=== PATIENT | female | born 1955 | race Caucasian/White ===

== ENCOUNTER 2017-04-17 07:31 | Inpatient (IN) | payer OTHER ==
[~2017-04-17] VITALS: Ht 162.6 cm; Wt 137.9 kg
[~2017-04-17 07:31] MED LIST: DOLOPHINE10 MG PO; OXYCODONE HYDRO10 M1 PO; TRAZODONE100 MG PO
--- NOTE | 2017-04-17 07:46 | ED AMS/SEIZURE/WEAK/DIZZY ---
History of Present Illness General Chief Complaint: Altered Mental Status Stated Complaint: BIBA NONRESPONSIVE, ?OVERDOSE Source: old records, EMS Exam Limitations: unable to give history Vital Signs & Intake/Output Vital Signs & Intake/Output Vital Signs Date Time Temp Pulse Resp B/P B/P Pulse O2 O2 Flow FiO2 Mean Ox Delivery Rate 04/18 0800 94 Nasal 6.0L Cannula 04/18 0800 99.0 66 30 118/65 94 Nasal 6.0L Cannula 04/18 0600 98.2 75 21 161/61 04/18 0400 98.2 82 82 138/82 07/ 0400 95 Nasal 6.0L Cannula 04/18 0000 98.4 78 20 124/68 07/ 0000 92 Nasal 6.0L Cannula 04/18 0000 98.4 78 20 124/68 92 Nasal 6.0L Cannula 04/17 2306 74 23 159/93 07/ 2200 97.0 78 25 139/70 04/17 2000 97.6 78 30 148/72 04/17 2000 95 Nasal 6.0L Cannula 04/17 1900 98.4 74 20 118/0 96 Nasal 6.0L Cannula 04/17 1830 98.4 80 20 137/67 07/08 1830 95 Nasal 6.0L Cannula 04/17 1759 19 100 Nasal 6.0L Cannula 04/17 1716 99.8 81 22 162/79 95 Nasal 5.0L Cannula 04/17 1624 87 20 99 BIPAP 100% 04/17 1527 88 91 07/08 1503 89 07/08 1502 88 91 /08 1409 94 22 185/110 92 BIPAP 04/17 1351 94 22 149/89 90 Non 10L ReBreather 04/17 1258 92 Non 10L ReBreather 04/17 1258 88 Nasal 6.0L Cannula 04/17 1238 87 20 157/82 93 Nasal 4.0L Cannula ED Intake and Output 04/18 0000 08 1200 Intake Total 829.6 1000 Output Total 200 30 Balance 629.6 970 Intake, IV 829.6 1000 Intake, Oral 0 Number 0 Bowel Movements Output, Urine 200 30 Patient 305 lb Weight Weight Bed scale Measurement Method Allergies Coded Allergies: Penicillins (Severe, TONGUE SWELLING 01/02/16) Reconcile Medications Gabapentin 300 MG CAPSULE 1 CAP PO TID UNKNOWN (Reported) Lurasidone HCl (Latuda) 20 MG TABLET 1 TAB PO DAILY MENTAL HEALTH (Reported) Triage Nurses Notes Reviewed? yes HPI: Patient presents for evaluation of unresponsiveness. According to EMS the patient was found by her daughter unresponsive. Finger stick blood sugar was normal upon EMS arrival. Patient was placed on 100% nonrebreather and given 2.4 mg of Narcan with improvement. However patient has not returned to normal mentation and has not been meaningfully interactive on exam. Upon presentation to the emergency department the patient moans almost consistently and appears to move all 4 extremities with a question of decorticate posturing. Past History Travel History Traveled to [place] past 21 day No Medical History Any Pertinent Medical History? 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 No Review of Systems Review of Systems Constitutional: Reports: see HPI. Comments Patient unable to provide review of systems Physical Exam Physical Exam General Appearance: see below Comments: Gen.: Well-nourished, well-developed, moderate respiratory distress with moaning and grunting. Head: Normocephalic, atraumatic. Eyes: Normal inspection bilaterally, pupils midpoint Ears: Normal inspection bilaterally Nose: Normal inspection Throat/mouth : Moist mucosa Neck: Supple, full range of motion, no goiter Heart: Regular rate and rhythm, no murmurs rubs or gallops Lungs: Good air entry bilaterally with transmitted oropharyngeal secretion noises Chest: Nontender Back: Normal range of motion Abdomen: Soft, nontender, nondistended, normal bowel sounds Extremities: Unable to palpate peripheral pulses, right tibial IO in place Neurologic: Exam is extremely limited due to the patient's clinical condition, she seems to tends to loud name-calling but is otherwise uncooperative with exam. Skin: warm and dry Psychiatric: Calm, cooperative, no apparent delusions or hallucinations Core Measures ACS in differential dx? Yes CVA/TIA Diagnosis: Yes Severe Sepsis Present: No Septic Shock Present: No Progress Differential Diagnosis: HYPERCAPNIC RESPIRATORY FAILURE, DRUG OVERDOSE, METABOLIC DERANGEMENT, cva/INTRACRANIAL HEMORRHAGE, OCCULT INFECTION Plan of Care: Orders Procedure Date/time Status Heart Healthy Diet 04/18 L Active PARTIAL THROMBOPLASTIN TIME 04/18 1600 Active TROPONIN LEVEL 04/18 0605 Complete EKG 04/18 0600 Active ICU LAB BUNDLE 04/18 0500 Complete CBC WITHOUT DIFFERENTIAL 04/18 0500 Complete PARTIAL THROMBOPLASTIN TIME 04/18 0300 Complete EKG 04/18 0000 Active Evaluate Swallowing 04/18 UNK Complete PHARMACY COMMUNICATION FORM 04/18 UNK Active Nothing by Mouth 04/17 D Complete ICU LAB BUNDLE 04/17 2340 Complete TROPONIN LEVEL 04/17 2322 Complete EKG 04/17 2322 Active LACTIC ACID 04/17 2302 Complete Heparin Drip- ACS 04/17 2046 Active PARTIAL THROMBOPLASTIN TIME 04/17 1933 Complete ARTERIAL BLOOD GAS (GEN) 04/17 1900 Complete LACTIC ACID 04/17 1848 Complete BLOOD CULTURE 04/17 1842 Active Drains/Tubes 04/17 1835 Complete TROPONIN LEVEL 04/17 1800 Complete EKG 04/17 1800 Active Wound Care/Dressing 04/17 1751 Complete Weight 04/17 1751 Active VTE Mechanical Prophylaxis 04/17 1751 Complete Vital Signs 04/17 1751 Complete Turn and Reposition 04/17 1751 Active Drains/Tubes 04/17 175 Complete Teach/Educate 04/17 175 Active Skin Integrity Protocol 04/17 1751 Active Skin/Pressure Ulcer Assess (Sk 04/17 1751 Active Precautions 04/17 1751 Active Pain Treatment and Response 04/17 1751 Active Nutritional Intake, Monitor 04/17 1751 Active Isolation 04/17 1751 Active CIWA 04/17 1751 Complete Patient Care Conference 04/17 1751 Active Activity/Ambulation 04/17 1751 Active Lab Add-on Test 04/17 1636 Active ARTERIAL BLOOD GAS (GEN) 04/17 1600 Complete VRE ACTIVE SURVIELLANCE 04/17 1553 Active ACTIVE SURVEILLANCE NARES 04/17 1553 Active House Staff 04/17 1444 Active Patient Data 04/17 1334 Active Add-on Test (ER Only) 04/17 1325 Active PROTHROMBIN TIME 04/17 1321 Complete LUNG SCAN (V/Q) 04/17 1320 Active LOWER RESPIRATORY CULTURE 04/17 1320 Active BLOOD CULTURE 04/17 1320 Active ARTERIAL BLOOD GAS (GEN) 04/17 1314 Complete Pathway - chart 04/17 1225 Active Pathway - chart 04/17 1223 Active House Staff 04/17 1223 Active Patient Data 04/17 1223 Active Code Status 04/17 1223 Active Misc Message 04/17 1206 Active ED Holding Orders 04/17 1206 Active Admit to inpatient 04/17 1206 Active Vital Signs 04/17 1206 Active Code Status 04/17 1206 Complete TROPONIN LEVEL 04/17 1147 Complete EKG 04/17 1147 Active Patient Data 04/17 1140 Active Intake & Output 04/17 0825 Active PARTIAL THROMBOPLASTIN TIME 04/17 0757 Complete SWALLOW EVALUATION 04/17 UNK Active TRC EVALUATION (GEN) 04/17 UNK Active BIPAP 04/17 UNK Complete VTE Mechanical Prophylaxis 04/17 UNK Active Telemetry/Clinical Data Assistant 04/17 UNK Complete Patient Safety Monitor 04/17 UNK Complete Starbuck Coma Scale 04/17 UNK Active CIWA 04/17 UNK Active PSYCHIATRIC CONSULT 04/17 UNK Active Current Medications Sig/Mary Start time Last Medication Dose Stop Time Status Admin Clindamycin 300 MG Q8H 04/18 0400 AC 04/18 (Cleocin) 0351 Dextrose/Water 50 ML (D5W) Nystatin 1 FERN TID 04/17 2200 AC 04/18 (Mycostatin) 0918 Acetaminophen 1,000 MG Q8 PRN 04/17 1700 AC (Ofirmev) N/A 1 UNIT (No Carrier) Atorvastatin Calcium 40 MG 1700 04/17 1700 AC (Lipitor) Metoclopramide HCl 10 MG Q6P PRN 04/17 1645 AC (Reglan) Naloxone HCl 2 MG ONCE ONE 04/17 1445 CAN (Narcan) 04/17 1446 Naloxone HCl 4 MG Q24H 04/17 1445 CAN (Narcan Drip 4MG/ 10ML) Dextrose/Water 1,000 ML (D5W 1000) Lorazepam 1 MG Q1P PRN 04/17 1415 AC (Ativan) Sodium Chloride 1,000 ML Q13H 04/17 1400 AC 04/18 (Normal Saline 0.9%) 0354 Aspirin 81 MG DAILY 04/17 1354 AC 04/18 (Aspirin) 0918 Metoprolol Tartrate 12.5 MG BID 04/17 1354 AC 04/18 (Lopressor) 0918 Nitroglycerin 0.5 GM Q6 04/17 1354 AC 04/18 (Nitro-Bid) 0547 Heparin Sodium 25,000 UNIT Q24H 04/17 1300 AC 04/17 (Porcine) 1321 (Heparin) Sodium Chloride 500 ML Acetaminophen 325 MG Q6P PRN 04/17 1230 AC (Tylenol) Laboratory Tests 04/18/17 0840: RBC 4.09 L, MCV 95.7, MCH 31.5 H, RDW 13.4, MPV 9.1, Gran % 82.6 H, Lymphocytes % 10.5 L, Monocytes % 6.6, Eosinophils % 0.1, Basophils % 0.2, Absolute Granulocytes 8.3 H, Absolute Lymphocytes 1.1 L, Absolute Monocytes 0.7 H, Absolute Eosinophils 0, Absolute Basophils 0, PUBS MCHC 32.9 L 04/18/17 0605: Troponin I Cancelled 04/18/17 0605: Anion Gap 10, Estimated GFR 17 L, Glucose 149 H, Calcium 8.2 L, Phosphorus 4.5, Magnesium 2.1, Total Bilirubin 0.8, AST 967 H, ALT 213 H, Troponin I 7.35 *H, Albumin 3.7 04/18/17 0311: APTT 83 H 04/18/17 0202: Lactic Acid Cancelled 04/18/17 0000: Troponin I Cancelled 04/17/17 2340: Lactic Acid 2.0 04/17/17 2340: Anion Gap 11, Estimated GFR 17 L, Glucose 171 H, Calcium 8.3 L, Phosphorus 4.9 H, Magnesium 1.8, Total Bilirubin 0.6, AST 979 H, ALT 231 H, Troponin I 10.90 *H, Albumin 3.8 04/17/17 2320: Sodium Cancelled, Potassium Cancelled, Chloride Cancelled, Carbon Dioxide Cancelled, Anion Gap Cancelled, BUN Cancelled, Creatinine Cancelled, Glucose Cancelled, Calcium Cancelled, Phosphorus Cancelled, Magnesium Cancelled, Total Bilirubin Cancelled, AST Cancelled, ALT Cancelled, Albumin Cancelled 04/17/17 2135: pH 7.33 L, pCO2 42, pO2 64 L, HCO3 22, ABG O2 Sat (Measured) 91.0 L, P-50 ( Temp Corrected) Y, Carboxyhemoglobin 0.6 L, O2 Concentration % 6L, Temperature 98.0, O2 Delivery Method NC, Phlebotomy Draw Site RIGHT RADIAL 04/17/17 1945: APTT 60 H 04/17/17 1850: Lactic Acid 2.6 H 04/17/17 1835: Troponin I 10.40 *H 04/17/17 1720: pH 7.29 *L, pCO2 45, pO2 64 L, HCO3 21, ABG O2 Sat (Measured) 91.0 L, P-50 ( Temp Corrected) Y, Carboxyhemoglobin 0.2 L, O2 Concentration % 6L, Temperature 98.2, O2 Delivery Method NC, Phlebotomy Draw Site RIGHT RADIAL 04/17/17 1325: pH 7.17 *L, pCO2 62 *H, pO2 78 L, HCO3 22, ABG O2 Sat (Measured) 94.0 L, P-50 (Temp Corrected) Y, Carboxyhemoglobin 0.6 L, O2 Concentration % 100%, Temperature 96.6 L, O2 Delivery Method NRB, Phlebotomy Draw Site RIGHT RADIAL 04/17/17 1157: Troponin I 4.51 *H Microbiology 04/17 185 BLOOD: Blood Culture - RECD 04/17 1840 BLOOD: Blood Culture - RECD 04/17 1800 UPPER RESP: Surveillance Culture - RECD 04/17 1800 GI: Surveillance Culture - RECD 04/17 1704 BLOOD: Blood Culture - CAN Cancelled: Quantity not sufficient for both blood culture bottles. 04/17 1320 LOWER RESP: Respiratory Culture - COLB 04/17 1320 LOWER RESP: Gram Stain - COLB Initial ED EKG: NSR, rate (93), nonspecific ST T wave chg (UNDULATING BASELINE) Prior EKG: unchanged (LIKELY UNCHANGED) Comments: 04/17/2017 8:12:27 AM I have reevaluated Amber and she appears to be improving clinically. She is now beginning to speak although her speech is difficult to understand and often garbled. She is more alert to her surroundings and is beginning to respond more meaningfully to intervention. 04/17/2017 9:05:[address] TALBERT, NL HEAD CT. According to the patient's nurse she is now alert and considerably more conversant. 04/17/2017 10:08:46 AM I have updated the patient and her family regarding test results. Of note it seems that the patient seems to have difficulty hearing at this point (she does have some hearing loss chronically but seems worse today). She admits to taking "a sip" of her son's methadone to help treat chronic back pain. I've spoken to Dr. Marshall, the on-call product safety expert, regarding this patient's elevated troponin. He feels that this will need monitoring but is felt very likely due to the circumstances of her presentation. Given this additional history the patient presentation appears to be a methadone overdose. 04/17/2017 2:47:05 PM The patient is becoming more lethargic and I now feel she requires additional Narcan and a Narcan drip. These have been ordered.patient's case discussed with Dr. Resendiz and the ICU resident. 04/17/2017 2:58:58 PM Francisco Jones MD just contacted me about this patient's chest x-ray did appear she has a very distended stomach. I will convey this to the ICU team. NG tube should be placed. Departure Departure Disposition: STILL A PATIENT Condition: Stable Clinical Impression Primary Impression: Methadone overdose Qualifiers: Encounter type: initial encounter Injury intent: undetermined intent Qualified Code: T40.3X4A - Poisoning by methadone, undetermined, initial encounter Secondary Impressions: Acute kidney injury, Elevated troponin Referrals: GENEVA LAINEZ MD (PCP/Family) Departure Forms: Customer Survey General Discharge Information Admission Note Spoke With: ARIEL RESENDIZ MD Documentation of Exam: Documentation of any treatments & extenuating circumstances including Concerns Regarding Discharge (functional status, medication knowledge or non-compliance, living conditions, etc.) that warrant an admission rather than observation: Patient presented after an unresponsive episode that responded to Narcan. She admits to taking methadone in an attempt to self treat her chronic back pain (it was someone else's methadone). She has also suffered an acute kidney injury and has an elevated troponin likely due to hypoxia associated with the methadone overdose. I Feel this patient cannot be treated safely as an outpatient under the circumstances and requires hospitalization for continuous cardiac monitoring , serial troponin determinations and cardiology consultation along with IV fluids monitoring of her kidney functions and neurologic status. I feel this patient would require a multiple day hospitalization. Critical Care Note Critical Care Note Critical Care Time: 75-104 min
[2017-04-17 08:17] LABS: ABSOLUTE BASOPHIL COUNT 0 /CUMM (0.0-0.2); ABSOLUTE EOSINOPHIL COUNT 0 /CUMM (0.0-0.7); ABSOLUTE GRANULOCYTE CT 16.5 /CUMM (1.4-6.5); ABSOLUTE LYMPH COUNT 1.6 /CUMM (1.2-3.4); ABSOLUTE MONOCYTE COUNT 1.1 /CUMM (0.10-0.60); BASOPHIL % 0 % (0.0-2.0); EOSINOPHIL % 0.1 % (0-5); GRANULOCYTE % 86.1 % (42.2-75.2); MEAN CORPUSCULAR HGB 31.4 PG (27.0-31.0); MEAN CORPUSCULAR HGB CONC 32.3 G/DL (33.0-37.0); MEAN CORPUSCULAR VOLUME 97.1 FL (81.0-99.0); PLATELET COUNT 238 /CUMM (130-400); RBC DISTRIBUTION WIDTH 13.6 % (11.5-14.5); RED BLOOD CELL CT 4.84 /CUMM (4.20-5.40); WHITE BLOOD CELL COUNT 19.1 /CUMM (4.8-10.8)
--- NOTE | 2017-04-17 08:31 | NUR ---
61 Y/O FEMALE BIBA FROM HOME UNRESPONSIVE. PER EMS REPORT, PT WAS FOUND BY DAUGHTER WITH "AGONAL RESPIRATIONS AND UNRESPONSIVE". PT GIVEN 2.4MG NARCAN ENROUTE, NASAL TRUMPET PLACED WITH NRB MASK AND PT TRANSPORTED TO ED. PT ARRIVES RESPONSIVE TO PAINFUL STIMULI ONLY; INTERMITTENTLY MOVING ALL EXTREMITIES AND PULLS AWAY WHEN STAFF TOUCHES ARM FOR B/P OR IVS. 20G PLACED TO LAC, 22G TO R HAND, PRE HOSPITAL IO IN PLACE TO RLE. 1L NORMAL SALINE BOLUS INFUSING PER DR BELL. GALLO PLACED BY MATT LAUREANO WITH MINIMAL OUTPUT, 10-20 ML DILEEP URINE, CLEAR TUBE SENT. NORMAL SINUS ON MONITOR, RATE 80S. 02 SAT 99-100% ON NRB MASK. PT NOTED TO BE YAWNING, DOES NOT RESPOND WHEN SPOKEN TO BUT OCCASIONALLY YELLS OUT/MOANS. TAKEN TO CT SCAN AT THIS TIME
--- NOTE | 2017-04-17 09:06 | NUR ---
BACK FROM CT SCAN. PT NOW MORE AWAKE, ALERT AND SPEAKING COHERENTLY - STATING "I AM COLD, I CANT HEAR YOU - THEY PUT PLUGS IN MY EARS". PT CONTINUES TO DENY ANY MEDICATION OVERDOSE OR INTENTIONAL OVERDOSE. NRB MASK AND NASAL TRUMPET REMOVED, SAT 95% ON 4L NC. PT HAD 2 LARGE BOWEL MOVEMENTS, [facility] APPLIED AND PT CLEANED/REPOSITIONED. ADDITIONAL URINE OBTAINED FROM GALLO AND SENT TO LAB FOR UA/UC. IO REMOVED PER MD HARDWICK SALINE CONTINUES TO INFUSE WILL CONTINUE TO MONITOR.
--- NOTE | 2017-04-17 09:09 | CT SCAN REPORT ---
EXAMINATION: CT HEAD WITHOUT CONTRAST CLINICAL INFORMATION: Unresponsive. Concern for stroke. COMPARISON: None. TECHNIQUE: Contiguous axial imaging was performed from the skull base to vertex without intravenous administration of contrast. DLP: 685.99 mGy-cm FINDINGS: There is no evidence of acute intracranial hemorrhage or territorial infarction. No abnormal mass effect or midline shift is seen. Winkler to white matter differentiation is well preserved. No extra-axial fluid collections are identified. The ventricles are normal in size. There is no abnormal attenuation within the brain parenchyma. The osseous structures and soft tissues are normal. The mastoid air cells and visualized portions of the paranasal sinuses are well aerated. IMPRESSION: No acute intracranial pathology. This result was discussed with Dr. Mega Tran at 0900 hours.
--- NOTE | 2017-04-17 09:10 | NUR ---
CRITICAL TEST RESULTS [id number] SHIVAM GREER 61 F TESTS AND RESULTS: TROPONIN 0.37 Results received and read back by: JAN BRAVO Results received date and time: 04/17/17 0910 The following provider was notified of the results, and read the results back: DR HARDWICK Notified date and time: 04/17/17 at 0910
--- NOTE | 2017-04-17 09:16 | NUR ---
EMS BROUGHT IN PILL BOTTLES: LATUDA 20MG FILLED 04/16/17 #30. 29 REMAINING IN BOTTLE TRADOZONE 150MG FILLED 03/31/17 #30. 27.5 REMAINING IN BOTTLE GABAPENTIN 300MG FILLED 04/15/17 #90. 89 REMAINING IN BOTTLE MD AWARE OF SAME MEDICATIONS PLACED IN VALUABLES AND TAKEN TO PHARMACY
--- NOTE | 2017-04-17 09:36 | NUR ---
PT BOOSTED UP IN BED , STATES THAT SHE HAS SCIATICA AND THAT SHE NEEDDS TO BE REPOSITIONED. PT ALSO STATES THAT SHE CAN NOT HEAR ANYTHING.
--- NOTE | 2017-04-17 09:47 | RADIOLOGY REPORT ---
EXAMINATION: XR PORTABLE CHEST CLINICAL INFORMATION: Unresponsive. COMPARISON: None TECHNIQUE: Portable frontal view of the chest was obtained. FINDINGS: The lung volumes are low. The cardiac silhouette may be enlarged. Hilar and mediastinal contours are unremarkable. There is increased density at the lung bases questionable for bibasilar atelectasis/consolidation or effusion. Some of these changes may be due to low lung volumes and overlying soft tissues. There is no pneumothorax. There is evidence of previous surgery to the cervical spine. There is a lead projecting over the lower spinal canal. There is distended bowel seen left upper abdomen. IMPRESSION: Limited exam. Low lung volumes. Increased density at the lung bases questionable for atelectasis/consolidation or effusion versus changes related to overlying soft tissues and low lung volumes. This could be better evaluated with a lateral chest x-ray. Distended bowel below the left hemidiaphragm.
--- NOTE | 2017-04-17 10:05 | NUR ---
MULTIPLE FAMILY MEMBERS AT BEDSIDE DR HARDWICK SPEAKING WITH ALL
[2017-04-17] MEDS ORDERED: GABAPENTIN300 M2 PO (10:09)
[2017-04-17] MEDS ORDERED: LATUDA20 M1 PO (10:09)
--- NOTE | 2017-04-17 10:35 | NUR ---
PER DR HARDWICK - PT ADMITTED SHE "TOOK A SIP" OF FAMILY MEMBERS METHADONE THIS MORNING TO ALLEVIATE BACK PAIN. DENIES ANY OTHER INTENTIONAL OVERDOSE
--- NOTE | 2017-04-17 10:52 | NUR ---
PT CONTINUES TO REST WITH FAMILY, CONVERSING WITH FAMILY. DENIES COMPLAINTS. GALLO CONTINUES TO DRAIN DILEEP URINE. ADDITIONAL BLANKETS PROVIDED SON AT BEDSIDE
--- NOTE | 2017-04-17 11:05 | NUR ---
REPORT GIVEN TO MATT BRYSON
--- NOTE | 2017-04-17 11:06 | NUR ---
REPORT FROM MATT MONTOYA. AWAITING ADMISSION ORDERS AND BED PLACEMENT.
--- NOTE | 2017-04-17 11:19 | NUR ---
PT BOOSTED IN BED FOR COMFORT. ASKING "HUH? I CAN'T HEAR YOU." SON AT BEDSIDE TYPING OUT INFORMATION ON HIS PHONE TO COMMUNICATE WITH PT." RESP EVEN AND NONLABORED, EQUAL RISE AND FALL OF THE CHEST. SKIN WARM AND DRY. PT IN NAD AT THIS TIME. SON AND PIPE LAYER AT BEDSIDE.
--- NOTE | 2017-04-17 11:34 | NUR ---
ZOFRAN GIVEN AT THIS TIME FOR VOMITING. DR. HARDWICK AWARE.
--- NOTE | 2017-04-17 11:52 | NUR ---
SPOKE WITH DR. HARDWICK AND RPT EKG AND TROP ORDERED. GABY CANO IN ROOM COMPLETING NOW. PT IN NAD. FAMILY REMAINS AT BEDSIDE.
--- NOTE | 2017-04-17 12:00 | NUR ---
REPEAT TROP DRAWN AND SENT TO THE LAB
--- NOTE | 2017-04-17 12:39 | NUR ---
CHECKED ON PT AND UPDATED VS. PT DENIES PAIN OR DISCOMFORT AT THIS TIME. ASKING FOR WATER, NOTIFIED PT SHE IS NPO PER ORDERS. SON AT BEDSIDE COMMUNICATING VIA WRITING PAD AT THIS TIME. WCTM.
--- NOTE | 2017-04-17 12:42 | NUR ---
CRITICAL TEST RESULTS [id number] SHIVAM GREER 61 F TESTS AND RESULTS: TROPONIN 4.51 Results received and read back by: BRAYDON CHIU Results received date and time: 04/17/17 1242 The following provider was notified of the results, and read the results back: DR. HARDWICK AND SHAVONNE VALDEZ Notified date and time: 04/17/17 at 1242
--- NOTE | 2017-04-17 12:44 | NUR ---
PAGED MOD, DR. JACKSON CALLED AND REPORTS RIC EDDY [id number] IS MD FOR PT. DR. PATTON PAGED AT THIS TIME.
--- NOTE | 2017-04-17 12:47 | History & Physical ---
ROSCOETHOMASDIEGO 04/17/17 1246: General Information and HPI MD Statement: I have seen and personally examined SHIVAM GREER and documented this H&P. The patient is a 61 year old F who presented with a patient stated chief complaint of [unpesponsiveness]. Source of Information: patient, family Exam Limitations: clinical condition History of Present Illness: Patient is a 61-year-old female with past medical history of (coronary artery disease status post 3/4 stents in 2010) follows with Dr. Benson at [place], hypothyroidism, chronic back pain was brought into the ED today after being found unresponsive by her children this morning. Most of this history is received from her son who was by the bedside. Son states that last night the patient was found to be drowsy and tired by her daughter. However she thought that the patient wanted to sleep and therefore left her and went for work. This morning after coming back from work she found her exactly in the same position on the bed with some frothing from her mouth. Patient was unresponsive and therefore she called worried and called EMS. Upon arrival, EMS place the patient on 100% nonrebreather and give her 2.4 mg Narcan. Patient responded to it and was finally brought to the ED. Upon arrival to the ED she was altered and morning, however was able to move all extremities. Son states that it's likely that the patient overdosed on methadone pills which the patient gets from her other son(his brother )who takes it. Patient has history of chronic back pain and she had been on methadone in the past. However, she was not supposed to take it at this time. She has been receiving inappropriate doses of methadone from his brother. She has extensive cardiac history and is status post 4 cardiac catheterizations in 2010 at [facility]. Patient' s son also reports that she was recently started on psychiatric meds gabapentin and Latuda by the psychiatrist, however is not able to give any more details. He reports that the patient has been drinking a lot recently however denies any drug abuse. No history of thyroid disorder as per the son. In the ED vitals showed a temperature of 97, pulse 96, respiration 22, blood pressur e 164/90, saturating 96% on 10 L nonrebreather. Significant labs showed white count of 19.1 with no left shift, sodium 143, potassium 5.3, anion gap 21, BUN 19, creatinine 2.5(baseline 0.7),, troponin 0.37, TSH 35, T4 6.9 U tox positive for methadone, serum alcohol level less than 10 urine was dirty, bloody, nitrate positive,, trace leukocyte esterase, many bacteria EKG showed normal sinus rhythm, T-wave inversion in lead 3,, left bundle branch block old Allergies/Medications Allergies: Coded Allergies: Penicillins (Severe, TONGUE SWELLING 01/02/16) Home Med list Gabapentin 300 MG CAPSULE 1 CAP PO TID UNKNOWN (Reported) Lurasidone HCl (Latuda) 20 MG TABLET 1 TAB PO DAILY MENTAL HEALTH (Reported) 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 EENTM: Reports: no symptoms. Cardiovascular: Reports: chest pain. Respiratory: Reports: cough, short of breath. GI: Reports: no symptoms. Genitourinary: Reports: no symptoms. Musculoskeletal: Reports: no symptoms. Skin: Reports: no symptoms. Neurological/Psychological: Reports: confusion. Hematologic/Endocrine: Reports: no symptoms. Exam & Diagnostic Data Last 24 Hrs of Vital Signs/I&O Vital Signs Date Time Temp Pulse Resp B/P B/P Pulse O2 O2 Flow FiO2 Mean Ox Delivery Rate 04/17 1258 92 Non 10L ReBreather 04/17 1258 88 Nasal 6.0L Cannula 04/17 1238 87 20 157/82 93 Nasal 4.0L Cannula 04/17 1052 96.6 92 18 157/69 94 Nasal 4.0L Cannula 04/17 0832 99 Non 10L ReBreather 04/17 0801 97.0 96 22 164/90 96 Non 10L ReBreather Intake & Output 04/17 1600 08 0800 04/17 0000 Intake Total 1000 Output Total 30 Balance 970 Intake, IV 1000 Output, Urine 30 Patient 136.078 kg Weight Weight Estimated Measurement Method Physical Exam General Appearance Oriented X3, Moderate Distress, partiallly responsive to questions and commands Skin No Rashes, No Breakdown Skin Temp/Moisture Exam: Warm/Dry Sepsis Skin Exam (color): Normal for Ethnicity HEENT Atraumatic, PERRLA, EOMI, non rebreather Lymphatic Cervical nl Cardiovascular Regular Rate, Normal S1, Normal S2 Lungs diminished air entry bilaterally Abdomen Normal Bowel Sounds, Soft, No Tenderness Last 24 Hrs of Labs/Jayson: Laboratory Tests 04/17/17 1157: Troponin I 4.51 *H 04/17/17 0900: Urinalysis MOD H, Urine Color BLDY H, Urine Clarity TURBD H, Urine pH 5.5, Ur Specific [place] >= 1.030, Urine Protein >=300 H, Urine Ketones NEG, Urine Nitrite POS H, Urine Bilirubin NEG@ICTO, Urine Urobilinogen 1.0, Ur Leukocyte Esterase TRACE H, Ur Microscopic SEDIMENT EXAMINED, Urine RBC 10-15 H, Urine WBC RARE, Ur Epithelial Cells MOD H, Urine Bacteria MANY H, Urine Hemoglobin LARGE H, Urine Glucose NEG 04/17/17 0800: Urine Opiates Screen < 100.00, Methadone Screen > 735 H, Barbiturate Screen < 60, Ur Phencyclidine Scrn < 6.00, Amphetamines Screen < 100, U Benzodiazepines Scrn < 85, Urine Cocaine Screen < 50, Urine Cannabis Screen < 5.00 04/17/17 0757: PT Pending, INR Pending, APTT Pending 04/17/17 0751: Anion Gap 21 H, Estimated GFR 20 L, BUN/Creatinine Ratio 7.6, Glucose 93, Calcium 9.8, Total Bilirubin 0.6, AST 226 H, ALT 80 H, Alkaline Phosphatase 103, Troponin I 0.37 *H, Total Protein 8.0, Albumin 4.8, Globulin 3.2, Albumin/ Globulin Ratio 1.5, TSH 35.100 H, Thyroxine (T4) 6.9, Thyroxine Binding Indx 26.0, CBC w Diff MAN DIFF ORDERED, RBC 4.84, MCV 97.1, MCH 31.4 H, RDW 13.6, MPV 8.0, Gran % 86.1 H, Lymphocytes % 8.2 L, Monocytes % 5.6, Eosinophils % 0.1, Basophils % 0 L, Absolute Granulocytes 16.5 H, Absolute Lymphocytes 1.6, Absolute Monocytes 1.1 H, Absolute Eosinophils 0, Absolute Basophils 0, Normocytic RBCs VERIFIED, Normochromic RBCs VERIFIED, PUBS MCHC 32.3 L, Serum Alcohol < 10.0 Microbiology 04/17 1320 LOWER RESP: Respiratory Culture - ORD 04/17 1320 LOWER RESP: Gram Stain - ORD 04/17 1320 BLOOD: Blood Culture - ORD 04/17 132 BLOOD: Blood Culture - ORD 04/17 09 URINE ROUT: Urine Culture - RECD Assessment/Plan Assessment: Patient is a 61-year-old female with past medical history of (coronary artery disease status post 3/4 stents in 2010) follows with Dr. Benson at [place], hypothyroidism, chronic back pain was brought into the ED today after being found unresponsive by her children this morning. In the ED vitals showed a temperature of 97, pulse 96, respiration 22, blood pressur e 164/90, saturating 96% on 10 L nonrebreather. Significant labs showed white count of 19.1 with no left shift, sodium 143, potassium 5.3, anion gap 21, BUN 19, creatinine 2.5(baseline 0.7),, troponin 0.37, TSH 35, T4 6.9 U tox positive for methadone, serum alcohol level less than 10 urine was dirty, bloody, nitrate positive,, trace leukocyte esterase, many bacteria EKG showed normal sinus rhythm, T-wave inversion in lead 3,, left bundle branch block old Assessment Altered mental status likely secondary to methadone overdose * Admit patient to ICU * Nothing by mouth for now, bedside swallow once the patient more awake and alert * Every 1 hours neurochecks * Continue IV fluids at 75 mL an hour * Narcan as needed * Psychiatry consultation placed Acute hypoxemic respiratory failure likely secondary to questionable aspiration pneumonia/pulmonary embolism * Continue oxygen to keep saturations above 92% * TRC nebs [id number] * Will get ABG * Continue clindamycin IV as patient is allergic to penicillin * Blood, urine and sputum cultures * Consider VQ scan to rule out a possible PE/cannot do CTA given significant kidney injury * Has been started on IV heparin for NSTEMI * Pulmonology consult appreciated Acute coronary syndrome /NSTEMI * Persistent chest pain, positive cardiac biomarkers,No significant EKG changES * Continue oxygen, IV morphine, nitroglycerin, aspirin, statin, beta jasper, IV heparin * Repeating trops/EKG * Cardiology consult and possible cardiac catheterization given her history of stents * Echocardiogram Hypothyroidism * TSH of 35, no clinical symptoms of hypothyroidism. Patient has been previously started on levothyroxine however not taking it currently * Endocrinology consult appreciated. We'll plan to avoid IV levothyroxine as it is contraindicated in acute CT PRAFUL * Prerenal, Likely secondary to dehydration * We will continue gentle hydration with IV fluids at 75 mL an hour * Repeat BEP in a.m. 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 Benson at [facility]. We'll try to get records * Patient is not on aspirin or Plavix at home, does not other details of her stents * We'll continue patient on aspirin and statin now Transaminitis * Could be fatty liver disease/alcoholic hepatitis based on enzyme ratios * Will get her to [facility] abdomen. Alcohol abuse * CIWA Protocol * Ativan q1 prn * Can start epzy1hsors if pt starts detoxing Hearing loss * Unclear if acute or chronic * Might need outpatient ENT evaluation Nothing by mouth. Swallow eval Full code DVT prophylaxis heparin Mild/severe pain pathway As Ranked By This Provider Problem List: 1. Elevated troponin 2. Acute kidney injury 3. Methadone overdose Qualifiers Encounter type: initial encounter Injury intent: undetermined intent Qualified Code: T40.3X4A - Poisoning by methadone, undetermined, initial encounter 4. Coronary artery disease 5. UTI (urinary tract infection), uncomplicated Core Measures/Miscellaneous Acute Coronary Syndrome ACS Diagnosis: Yes Cerebrovascular Accident CVA/TIA Diagnosis: No Congestive Heart Failure CHF Diagnosis: No VTE (View Protocol) VTE Risk Factors: Age > 40, Obesity No [facility] prophylaxis d/t: No contraindications No VTE Pharm Prophylaxis d/t: No contraindications VTE Diagnosis: No VTE Type: NONE VTE Confirmed by (Test): NONE Sepsis (View Protocol) Severe Sepsis Present: No Septic Shock Septic Shock Present: No Miscellaneous Documentation Attending Case Discussed With: SANDOVALARIEL Davis MD Primary Care Physician: GENEVA LAINEZ MD Patient sees these Specialists NONE Level of Patient Care: Critical Care (CRI) ARIEL NICK 04/17/17 1430: Attending MD Review Statement Attending Statement Attending MD Statement: examined this patient, discuss w/resident/PA/ROLL CLAMP OPERATOR, agreed w/resident/PA/ROLL CLAMP OPERATOR, discussed with family, reviewed EMR data (avail), discussed with nursing, discussed with case mgmt, reviewed images, amended to note Attending Assessment/Plan: patient with strong cardiac history comes with encephalopathy , found to have respiratory failure hypercarbic possible opiod overdose, put on bipap in ER also found to have aspiration and elevated troponins in setting of acute renal failure. Patient is started on narcan drip in ER, admit to ICU higher level of care, she did complain of chest pain so will start empiric anticoagulation and r /o PE. Cardiology and pulmonary consult. Spoke to cardiology agree with a/c and c/w ASA, statin, b jasper therapy, NTG prn. Patient also started on clindamycin as penicillin allergic and f/u cultures. Monitor serial cardiac enzymes, ekg, bmp, cbc. will follow closely.
--- NOTE | 2017-04-17 12:57 | NUR ---
DR. PATTON AT BEDSIDE AT THIS TIME, NOTIFIED OF RECENT TROPONIN. PT SATS 88% ON 6LNC, PUT ON NONREBREATHER PER DR. PATTON WELL INSTRUCTED TO START HEPARIN AND PT WILL GO TO ICU.
--- NOTE | 2017-04-17 13:02 | NUR ---
Emergency Dept UC Admit Note: To be admitted to [facility] by SANDOVAL with AMS as the diagnosis, to [phone] location. Nursing Commercial Review Appraiser and admitting notified 04/17/17 at [id number]
--- NOTE | 2017-04-17 13:25 | NUR ---
PER DR. HARDWICK, NO INITIAL PT/PTT WAS DONE. WILL ADD ON FROM PREVIOUS LABS THAT ARE IN LAB NOW. OK TO START HEPARIN GTT. BOLUS OF 4000 UNITS ADMISNITERED PER ACS PROTOCOL AND HEPARIN GTT STARTED AT 20ML/HR.
--- NOTE | 2017-04-17 13:28 | NUR ---
RT CALLED FOR ABG.
--- NOTE | 2017-04-17 13:29 | NUR ---
US AT BEDSIDE TO COMPLETE BEDSIDE US.
--- NOTE | 2017-04-17 13:30 | NUR ---
LAB CALLED TO RUN PT/PTT FROM PREVIOUS BLOOD.
[2017-04-17 13:47] LABS: PT 11.4 SEC (9.4-12.5); PTT 34 SEC (25-37)
--- NOTE | 2017-04-17 13:48 | NUR ---
RT CALLED FOR BIPAP AFTER ABG COMPLETED. US REMAINS AT BEDSIDE AT THIS TIME. JOYCE RN ON TELE CALLED FOR REPORT AND NOTIFIED HIM PT UPGRADED TO ICU.
--- NOTE | 2017-04-17 13:53 | NUR ---
MST NOTIFIED OF NEED FOR BLOOD CULTURES. UNABLE TO OBTAIN AT THIS TIME D/T US AND BIPAP SET UP. WILL OBTAIN RAJ AND START ABX AFTER.
--- NOTE | 2017-04-17 14:08 | NUR ---
RT AT BEDSIDE AT THIS TIME AND PT ON BIPAP. US COMPLETED. ATTEMPTED FIRST SET OF BLOOD CULTURES WITH NO SUCCESS. WILL GET ANOTHER STAFF MEMBER TO ATTEMPT. PT REMAINS ON MONITOR, IN NSR WITH RATE OF 96BPM. SON REMAINS AT BEDSIDE.
--- NOTE | 2017-04-17 14:19 | ULTRASOUND REPORT ---
EXAMINATION: US TRIPLEX OF LOWER EXTREMITIES, BILATERAL CLINICAL INFORMATION: Leg pain. COMPARISON: None TECHNIQUE: Color-flow triplex imaging with spectral analysis and compression Doppler were performed on the lower extremities. FINDINGS: Respiratory variation, normal compression and augmented flow are noted throughout the lower extremities. The visualized common femoral vein, superficial femoral vein, profunda femoral vein, popliteal vein and midcalf peroneal and posterior tibial venous segments show no evidence of deep venous thrombosis. Funes's cyst measuring 2.7 cm IMPRESSION: Normal triplex scan without evidence of deep venous thrombosis involving the lower extremities. Incidental Funes's cyst.
--- NOTE | 2017-04-17 14:42 | NUR ---
PT DAY HEEVING, HAS PULLED BIPAP OFF TO VOMIT. RT CALLED, PT PLACED ON 6L NC AT THIS TIME. DR. PATTON PAGED AT [phone] FOR NAUSEA MEDICATION.
--- NOTE | 2017-04-17 14:45 | NUR ---
DR. PATTON CALLED BACK AND NOTIFIED THIS RN THAT SHE HAS PASSED ON CARE TO ICU DOCTOR MADALYN LARIOS 010. DR. BERGMAN PAGED AT THIS TIME.
--- NOTE | 2017-04-17 14:57 | NUR ---
DR. BERGMAN AT BEDSIDE. ORDERS FOR ZOFRAN PLACED AND ADMINISTERED PER DEC. PER DR. BERGMAN, HOLD OFF ON NARCAN BOLUS AND GTT FOR NOW PT MORE AWAKE AND ALERT. ON NONREBREATHER AT 15L PER RT. WHEN PT NAUSEA DECREASES WILL CALL RT TO PLACE BACK ON BIPAP. FAMILY REMAINS AT BEDSIDE.
--- NOTE | 2017-04-17 15:11 | NUR ---
NAUSEA UNDER CONTROL, RT PAGED TO PUT PT BACK ON BIPAP. DR. BERGMAN AT BEDSIDE CONFIRMS AGAIN TO HOLD NARCAN. IV HEPARIN RUNNING IN RIGHT HAND IV AND IVF STARTED AT 75ML PER HOUR STARTED IN LAC PER DEC. NITRO APPLIED TO CHEST WALL PER DEC.
--- NOTE | 2017-04-17 15:12 | Cons- Endocrinology ---
General Information and HPI Consulting Request Date of Consult: 04/17/17 Requested By: ICU team Reason for Consult: management of hypothyroidism Source of Information: family, old records Exam Limitations: unable to give history History of Present Illness: 61 y/o female , Hx of morbid obese and CAD s/p stents placement, was diagnosed with hypothyroidism in 2012 and was on Levothyroxine 100 mcg daily. As per family, patient lost health insurance and discontined her medications. She was found to be unresponsive at home due to methadone over dose. In ER, she is on BIPAP. Blood work showed positive troponin of 4.51, TSH 35.1 and T4 6.9; ph 7.17 , Pco2 62 and Po2 78, Cr 2.5. In February of 2016, blood work showed anti TPO 413 and anti Tg 81 which were consistent with Marc's thyroiditis.. Allergies/Medications Allergies: Coded Allergies: Penicillins (Severe, TONGUE SWELLING 01/02/16) Home Med List: Gabapentin 300 MG CAPSULE 1 CAP PO TID UNKNOWN (Reported) Lurasidone HCl (Latuda) 20 MG TABLET 1 TAB PO DAILY MENTAL HEALTH (Reported) Review of Systems Review of Systems Constitutional: Reports: see HPI (unable to provide information). 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 Surgical History Surgical History: non-contributory Exam & Diagnostic Data Last 24 Hrs of Vital Signs/I&O Vital Signs Date Time Temp Pulse Resp B/P B/P Pulse O2 O2 Flow FiO2 Mean Ox Delivery Rate 04/17 1503 89 04/17 1502 88 91 04/17 1409 94 22 185/110 92 BIPAP 04/17 1351 94 22 149/89 90 Non 10L ReBreather 04/17 1258 92 Non 10L ReBreather 04/17 1258 88 Nasal 6.0L Cannula 04/17 1238 87 20 157/82 93 Nasal 4.0L Cannula 04/17 1052 96.6 92 18 157/69 94 Nasal 4.0L Cannula 04/17 0832 99 Non 10L ReBreather 04/17 0801 97.0 96 22 164/90 96 Non 10L ReBreather Intake & Output 04/17 1600 04/17 0800 04/17 0000 Intake Total 1000 Output Total 30 Balance 970 Intake, IV 1000 Output, Urine 30 Patient 300 lb Weight Weight Estimated Measurement Method Physical Exam General Appearance: obese, unresponsive, on BIPAP Neck: difficulty to palpate her thyroid gland. Respiratory: normal breath sounds (coarse breath sounds) Cardiovascular: regular rate/rhythm Gastrointestinal: soft, distention Extremities: no edema Labs/Jayson Results: Laboratory Tests 04/17 04/17 1325 1157 Blood Gas pH (7.35 - 7.45 PH) 7.17 *L pCO2 (35 - 45 TORR) 62 *H pO2 (80 - 100 TORR) 78 L HCO3 (21 - 28 MEQ/L) 22 ABG O2 Sat (Measured) (>96.0 %) 94.0 L P-50 (Temp Corrected) Y Carboxyhemoglobin (1.5 - 5.0 %) 0.6 L O2 Concentration % 100% Temperature (97.0 - 100.0 FARH) 96.6 L O2 Delivery Method NRB Chemistry Troponin I (< 0.11 ng/ml) 4.51 *H Miscellaneous Phlebotomy Draw Site RIGHT RADIAL 04/17 04/17 04/17 0900 0800 0757 Coagulation PT (9.4 - 12.5 SEC) 11.4 INR (0.90 - 1.19) 1.09 APTT (25 - 37 SEC) 34 Toxicology Urine Opiates Screen (>2000 NG/ML) < 100.00 Methadone Screen (>300 NG/ML) > 735 H Barbiturate Screen (>200 NG/ML) < 60 Ur Phencyclidine Scrn (>25 NG/ML) < 6.00 Amphetamines Screen (>1000 NG/ML) < 100 U Benzodiazepines Scrn (>200 NG/ML) < 85 Urine Cocaine Screen (>300 NG/ML) < 50 Urine Cannabis Screen (>50 NG/ML) < 5.00 Urines Urinalysis MOD H Urine Color (YEL,AMB,STR) BLDY H Urine Clarity (CLEAR) TURBD H Urine pH (5.0 - 8.0) 5.5 Ur Specific [place] (1.001 - 1.035) >= 1.030 Urine Protein (NEG,<30 MG/DL) >=300 H Urine Ketones (NEG) NEG Urine Nitrite (NEG) POS H Urine Bilirubin (NEG) NEG@ICTO Urine Urobilinogen (0.1 - 1.0 EU/dl) 1.0 Ur Leukocyte Esterase (NEG) TRACE H Ur Microscopic SEDIMENT EXAMINED Urine RBC (0 - 5 /HPF) 10-15 H Urine WBC (0 - 2 /HPF) RARE Ur Epithelial Cells (NONE,FEW) MOD H Urine Bacteria (NEG/NONE) MANY H Urine Hemoglobin (NEG) LARGE H Urine Glucose (N MG/DL) NEG 04/17 0751 Chemistry Sodium (137 - 145 mmol/L) 145 Potassium (3.5 - 5.1 mmol/L) 5.3 H Chloride (98 - 107 mmol/L) 102 Carbon Dioxide (22 - 30 mmol/L) 23 Anion Gap (5 - 16) 21 H BUN (7 - 17 mg/dL) 19 H Creatinine (0.5 - 1.0 mg/dL) 2.5 H Estimated GFR (>60 ml/min) 20 L BUN/Creatinine Ratio (7 - 25 %) 7.6 Glucose (65 - 99 mg/dL) 93 Calcium (8.4 - 10.2 mg/dL) 9.8 Total Bilirubin (0.2 - 1.3 mg/dL) 0.6 AST (14 - 36 U/L) 226 H ALT (9 - 52 U/L) 80 H Alkaline Phosphatase (<127 U/L) 103 Troponin I (< 0.11 ng/ml) 0.37 *H Total Protein (6.3 - 8.2 g/dL) 8.0 Albumin (3.5 - 5.0 g/dL) 4.8 Globulin (1.9 - 4.2 gm/dL) 3.2 Albumin/Globulin Ratio (1.1 - 2.2 %) 1.5 TSH (0.270 - 4.200 uIU/mL) 35.100 H Thyroxine (T4) (4.5 - 10.9 ug/dL) 6.9 Thyroxine Binding Indx (23.5 - 40.5 % UPTAKE) 26.0 Hematology CBC w Diff MAN DIFF ORDERED WBC (4.8 - 10.8 /CUMM) 19.1 H RBC (4.20 - 5.40 /CUMM) 4.84 Hgb (12.0 - 16.0 G/DL) 15.2 Hct (37 - 47 %) 47.0 MCV (81.0 - 99.0 FL) 97.1 MCH (27.0 - 31.0 PG) 31.4 H RDW (11.5 - 14.5 %) 13.6 Plt Count (130 - 400 /CUMM) 238 MPV (7.4 - 10.4 FL) 8.0 Gran % (42.2 - 75.2 %) 86.1 H Lymphocytes % (20.5 - 51.1 %) 8.2 L Monocytes % (1.7 - 9.3 %) 5.6 Eosinophils % (0 - 5 %) 0.1 Basophils % (0.0 - 2.0 %) 0 L Absolute Granulocytes (1.4 - 6.5 /CUMM) 16.5 H Absolute Lymphocytes (1.2 - 3.4 /CUMM) 1.6 Absolute Monocytes (0.10 - 0.60 /CUMM) 1.1 H Absolute Eosinophils (0.0 - 0.7 /CUMM) 0 Absolute Basophils (0.0 - 0.2 /CUMM) 0 Normocytic RBCs VERIFIED Normochromic RBCs VERIFIED PUBS MCHC (33.0 - 37.0 G/DL) 32.3 L Toxicology Serum Alcohol (<10 MG/DL) < 10.0 Assessment/Plan Assessment/Plan 61 y/o female , Hx of morbid obese and CAD s/p stents placement, was diagnosed with hypothyroidism/ Marc's thyroiditis in 2012 and was on Levothyroxine 100 mcg daily. She hasn't been compliance with medication. She was found to be unresponsive at home due to methadone over dose. Blood work showed positive troponin, TSH 35.1 and T4 6.9; ph 7.17, Pco2 62 and Po2 78, Cr 2.5. Her T, BP and HR have been stable. I will hold off on Levothyroxine iv replacement at this point as her troponin has been as high as 4.51. Hopefully, patient will be more alert tomorrow. Then I will start patient on Levothyroxine oral supplement accordingly. will follow. Consult Acknowledgment - Thank you for your consult request.
--- NOTE | 2017-04-17 15:18 | Cons- [facility] ---
MADALYN LAMAS 04/17/17 1518: General Information and HPI Consulting Request Date of Consult: 04/17/17 Requested By: Dr. Resendiz Reason for Consult: Respiratory distress Source of Information: family Exam Limitations: confusion, hearing loss History of Present Illness: She is 61-year-old morbidly obese woman who is also a [employer] with past medical history of coronary artery disease status post stents placement, history of Marc thyroiditis/hypothyroidism very noncompliant with her medications, drug and alcohol abuse in past, chronic back and neck pain, bipolar disorder, PTSD, depression and anxiety BIBA from home unresponsive. Patient was found by daughter with agonal respirations and unresponsive. En route to the hospital she was given 2.4 mg of Narcan and placed on nonrebreather mask. Upon arrival to ER she was responsive to painful stimuli only. Her vitals were temperature 97, pulse 96, respiratory rate 22, blood pressure 164/90 and oxygen saturation 99-100% on NRB. Son stated that its likely that the patient overdosed on methadone pills which patient gets from her other son (his brother )who takes it. Patient has history of chronic back pain and she had been on methadone in the past. However, she was not supposed to take it at this time. She has been receiving inappropriate doses of methadone from his brother. According to her son her last drink was one and half months ago but not very sure if she recently drank alcohol. Quit smoking 20 years ago. Significant labs showed white count of 19.1 with no left shift, sodium 143, potassium 5.3, anion gap 21, BUN 19, creatinine 2.5 (baseline 0.7), troponin 0.37 trending upto 4.51 , TSH 35, T4 6.9, ABGs pH 7.17, PCO2 62, bicarbonate 22, PO2 78. She was started on BiPAP in ER. Patient is having problem with hearing. According to son she had mild hearing loss before but after this event she is completely deaf. Son is communicating with her by writing on paper. She is alert and awake and answering questions. In and out of confusional state. Complaining of chest pain. Allergies/Medications Allergies: Coded Allergies: Penicillins (Severe, TONGUE SWELLING 01/02/16) Home Med List: Gabapentin 300 MG CAPSULE 1 CAP PO TID UNKNOWN (Reported) Lurasidone HCl (Latuda) 20 MG TABLET 1 TAB PO DAILY MENTAL HEALTH (Reported) Current Medications: Current Medications Sig/Mary Start time Last Medication Dose Route Stop Time Status Admin Acetaminophen 325 MG Q6P PRN 07 1230 AC PO Aspirin 81 MG DAILY 04/17 1354 AC PO Atorvastatin Calcium 40 MG 1700 07/08 1700 AC PO Ceftriaxone Sodium 1,000 MG DAILY 04/17 1311 DC IV Clindamycin 300 MG IQ8 0708 1600 AC Dextrose/Water 50 ML IV Gabapentin 300 MG TID 07 1240 DC PO Heparin Sodium 5,000 UNIT Q8 07 1400 DC (Porcine) SC Heparin Sodium 0 .STK-MED ONE 04/17 1310 DC (Porcine) .ROUTE Heparin Sodium 25,000 UNIT Q24H 04/17 1300 AC 04/17 (Porcine) IV 1321 Sodium Chloride 500 ML Lorazepam 1 MG Q1P PRN 04/17 1415 AC IV Metoprolol Tartrate 12.5 MG BID 04/17 1354 AC PO Morphine Sulfate 2 MG Q4P PRN 04/17 1230 AC IV Naloxone HCl 0 .STK-MED ONE 04/17 1530 DC .ROUTE Naloxone HCl 0.8 MG ONCE ONE 04/17 1515 DC 07/08 IV / 1516 1538 Naloxone HCl 4 MG Q24H / 1445 AC Dextrose/Water 1,000 ML IV Naloxone HCl 2 MG ONCE ONE 04/17 1445 CAN IV /08 1446 Naloxone HCl 4 MG Q24H /08 1445 CAN Dextrose/Water 1,000 ML IV Nitroglycerin 0 .STK-MED ONE 04/17 1513 DC TOP Nitroglycerin 0.5 GM Q6 08 1354 AC 07/08 TOP 1511 Ondansetron HCl 0 .STK-MED ONE 04/17 1501 DC .ROUTE Ondansetron HCl 4 MG Q6P PRN 07/08 1500 AC 07 IV 1457 Ondansetron HCl 4 MG ONCE ONE 04/17 1145 DC 07/08 IV 04/17 1146 1133 Ondansetron HCl 0 .STK-MED ONE 04/17 1138 DC .ROUTE Oxycodone HCl 5 MG Q6P PRN 07/ 1230 AC PO Sodium Chloride 1,000 ML Q13H 08 1400 AC 04/17 IV 1511 Sodium Chloride 1,000 ML BOLUS ONE 04/17 0845 DC 04/17 IV 04/17 0944 0840 Review of Systems Review of Systems Constitutional: Reports: see HPI. 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 Home Who Do You Live With? child Smoking Status: Former Smoker ETOH Use: occasional use Exam & Diagnostic Data Last 24 Hrs of Vital Signs/I&O Vital Signs Date Time Temp Pulse Resp B/P B/P Pulse O2 O2 Flow FiO2 Mean Ox Delivery Rate 04/17 1527 88 91 04/17 1503 89 04/17 1502 88 91 04/17 1409 94 22 185/110 92 BIPAP 04/17 1351 94 22 149/89 90 Non 10L ReBreather 04/17 1258 92 Non 10L ReBreather 04/17 1258 88 Nasal 6.0L Cannula 04/17 1238 87 20 157/82 93 Nasal 4.0L Cannula 04/17 1052 96.6 92 18 157/69 94 Nasal 4.0L Cannula 04/17 0832 99 Non 10L ReBreather 04/17 0801 97.0 96 22 164/90 96 Non 10L ReBreather Intake & Output 04/17 1600 08 0800 04/17 0000 Intake Total 1000 Output Total 30 Balance 970 Intake, IV 1000 Output, Urine 30 Patient 300 lb Weight Weight Estimated Measurement Method Physical Exam General Appearance: lethargic, moderate distress, obese Head: atraumatic Neck: supple Respiratory: chest non-tender, decreased breath sounds Cardiovascular: regular rate/rhythm Gastrointestinal: soft, non-tender, obese Extremities: no edema Last 48 Hrs of Labs/Jayson: Laboratory Tests 04/17/17 1325: pH 7.17 *L, pCO2 62 *H, pO2 78 L, HCO3 22, ABG O2 Sat (Measured) 94.0 L, P-50 (Temp Corrected) Y, Carboxyhemoglobin 0.6 L, O2 Concentration % 100%, Temperature 96.6 L, O2 Delivery Method NRB, Phlebotomy Draw Site RIGHT RADIAL 04/17/17 1157: Troponin I 4.51 *H 04/17/17 0900: Urinalysis MOD H, Urine Color BLDY H, Urine Clarity TURBD H, Urine pH 5.5, Ur Specific Varnell >= 1.030, Urine Protein >=300 H, Urine Ketones NEG, Urine Nitrite POS H, Urine Bilirubin NEG@ICTO, Urine Urobilinogen 1.0, Ur Leukocyte Esterase TRACE H, Ur Microscopic SEDIMENT EXAMINED, Urine RBC 10-15 H, Urine WBC RARE, Ur Epithelial Cells MOD H, Urine Bacteria MANY H, Urine Hemoglobin LARGE H, Urine Glucose NEG 04/17/17 0800: Urine Opiates Screen < 100.00, Methadone Screen > 735 H, Barbiturate Screen < 60, Ur Phencyclidine Scrn < 6.00, Amphetamines Screen < 100, U Benzodiazepines Scrn < 85, Urine Cocaine Screen < 50, Urine Cannabis Screen < 5.00 04/17/17 0757: PT 11.4, INR 1.09, APTT 34 04/17/17 0751: Anion Gap 21 H, Estimated GFR 20 L, BUN/Creatinine Ratio 7.6, Glucose 93, Calcium 9.8, Total Bilirubin 0.6, AST 226 H, ALT 80 H, Alkaline Phosphatase 103, Troponin I 0.37 *H, Total Protein 8.0, Albumin 4.8, Globulin 3.2, Albumin/ Globulin Ratio 1.5, TSH 35.100 H, Thyroxine (T4) 6.9, Thyroxine Binding Indx 26.0, CBC w Diff MAN DIFF ORDERED, RBC 4.84, MCV 97.1, MCH 31.4 H, RDW 13.6, MPV 8.0, Gran % 86.1 H, Lymphocytes % 8.2 L, Monocytes % 5.6, Eosinophils % 0.1, Basophils % 0 L, Absolute Granulocytes 16.5 H, Absolute Lymphocytes 1.6, Absolute Monocytes 1.1 H, Absolute Eosinophils 0, Absolute Basophils 0, Normocytic RBCs VERIFIED, Normochromic RBCs VERIFIED, PUBS MCHC 32.3 L, Serum Alcohol < 10.0 Diagnostic Data EKG Results Normal sinus rhythm with T-wave inversion reversions in leads 1 and aVL CXR Results Low lung volumes. Increased density at the lung bases. Other Results Head CT no acute intracranial pathology Doppler venous ultrasound of both lower extremities negative for DVT. Funes's cyst measuring 2.7 cm Assessment/Plan Impression/Plan: She is 61-year-old morbidly obese woman who is also a [employer] with past medical history of coronary artery disease status post stents placement, history of Marc thyroiditis/hypothyroidism very noncompliant with her medications, drug and alcohol abuse in past, chronic back and neck pain, bipolar disorder, PTSD, depression and anxiety. PROBLEM LIST 1. Altered mental status. ? Methadone overdose. U tox positive for methadone. On Narcan drip 2. Acute hypercarbic respiratory failure. ? drug overdose vs infectious ( aspiration most likely) 3. Anion gap acidosis 3. NSTEMI on heparin drip 4. Elevated TSH. History of Marc thyroiditis/hypothyroidism 5. Acute kidney injury with creatinine 2.5 6. Hyperkalemia 7. Transaminitis. RUQ ultrasound showed hepatic steatosis/fibrosis and gallstones 8. History of bipolar disorder/PTSD/anxiety/depression 9. History of chronic back and neck pain PLAN * Monitor vitals closely * Continue BiPAP * Repeat ABGs after 2 hours * If more lethergic and ABGs worse would go for Intubation * continue Narcan drip for now * Panculture * Gentle hydration * Clindamycin for possible aspiration. PEN Allergic * Endo consult appreciated * Continue heparin drip * Cardio consult * Serial EKGs and troponins * Echocardiogram * Continue aspirin, statin, beta jasper, Nitro-Bid * Check lactic acid * Monitor RFTs and LFTs * Avoid nephrotoxins * Psych consult * Social work consult * DVT prophylaxis * Patient is Methodist * Full code Consult Acknowledgment - Thank you for your consult request. Francisco MARQUEZ MD CLAUDETTE 04/17/17 1828: Assessment/Plan Other Findings/Comments: I have personally seen and examined the patient. I have discussed the plan of care with the house staff in detail. I also discussed the plan with the patient 's son. Will have a low threshold for intubation. Will continue all care as detailed above. I asked the house staff and nursing to contact me if the patient's condition changes or she deteroiates. Will follow closely. Consult Acknowledgment - Thank you for your consult request.
--- NOTE | 2017-04-17 15:20 | NUR ---
DR. BERGMAN CALLED AND REPORTS TO START NARCAN GTT AND GIVE BOLUS. WILL OBTAIN FROM PHARMACY AND START. CALL CENTER OPERATOR NOTIFIED OF NEED FOR PATIENT SAFETY MONITOR. SON REMAINS AT BEDSIDE. PT DENIES SI/HI.
--- NOTE | 2017-04-17 15:23 | NUR ---
SPEECH THERAPY: ORDERS FOR SWALLOW EVAL RECEIVED, CHART REVIEWED AND D/W RN. PT IS NOT APPROPRIATE FOR SWALLOW EVAL AT PRESENT. PT HAD REMOVED BiPAP MASK TO VOMIT EARLIER TODAY AND IS CURRENTLY ON 15 L O2 VIA NRB AND WILL BE ADMITTED TO THE ICU. ICU TECH TO FOLLOW FOR ABILITY TO PARTICIPATE IN SWALLOW EVAL.
--- NOTE | 2017-04-17 15:42 | NUR ---
NARCAN BOLUS DOSE ADMINISTERED AT 0.8MG PER MAR. PHARMACY CLARIFYING STARTING DOSE FOR GTT AT THIS TIME. GTT AT BEDSIDE, AWAITING STARTING DOSE.
--- NOTE | 2017-04-17 15:48 | NUR ---
PER DR. BERGMAN, START NARCAN GTT AT 0.25MG/HR.
--- NOTE | 2017-04-17 15:56 | NUR ---
NARCAN GTT STARTED AT 0.25MG/HR AT THIS TIME PER ORDER. PT WAKING UP, STATING "IT ALL HURTS, GET ME OFF THIS THING." PT INFORMED BIPAP IS TO HELP HER BREATHE. SON AT BEDSIDE CALMING PT.
--- NOTE | 2017-04-17 16:16 | ULTRASOUND REPORT ---
EXAMINATION: US ABDOMEN LIMITED CLINICAL INFORMATION: Elevated transaminases. COMPARISON: None TECHNIQUE: Real-time imaging of the right upper quadrant abdominal viscera. FINDINGS: PANCREAS: Not visualized LIVER: Increased echogenicity diffusely. No focal lesion. No biliary dilatation. GALLBLADDER: There are multiple gallstones. No sonographic Stanford's sign elicited. No pericholecystic abnormality or fluid. COMMON BILE DUCT: Not visualized. RIGHT KIDNEY: 9 mm upper pole nonobstructing stone. No hydronephrosis. The kidney measures 11.2 cm in maximum dimension. FREE FLUID: None. IMPRESSION: 1. Nonvisualization of pancreas and extra hepatic biliary tree. 2. There is demonstrates diffuse increased echogenicity which can be seen with hepatic steatosis or fibrosis. No discrete lesion. 3. Nonobstructing right-sided renal calculus. 4. Gallstones.
--- NOTE | 2017-04-17 16:22 | NUR ---
PT CLEANED OF STOOL AT THIS TIME, TURNED AND REPOSITIONED. REDNESS NOTED TO BUTTOCKS, NO OPEN WOUNDS. PT REMAINS ON BIPAP, IS TOLERATING BIPAP BETTER AND COMMUNICATING WITH RN. HEPARIN, NARCAN AND IVF REMAIN RUNNING. HOUSE STAFF REQUESTING ABG. ORDER PLACED AND RT CALLED.
--- NOTE | 2017-04-17 16:25 | NUR ---
GABY RASMUSSEN ATTEMPTING TO OBTAIN BLOOD CULTURES AT THIS TIME.
--- NOTE | 2017-04-17 16:43 | NUR ---
PT BEGAN VOMITING LARGE AMOUNTS OF GREEN BILE CPAP REMOVED PT SUCTIONED RESP. PAGED AND AWARE ICU HOUSE STAFF AWARE AND THEY WILL BE COMING DOWN
--- NOTE | 2017-04-17 17:08 | NUR ---
PT VOMITING GREEN EMESIS, BIPAP REMOVED, DR. BERGMAN CALLED AND AT BEDSIDE ALONG WITH RT. PT ALERT, TALKING TO STAFF AND FAMILY. PUT ON 6L NC BY RT AND SATURATIONS MAINTAINING AT 93% AT THIS TIME. AFTER MULTIPLE STICKS FOR CULTURES BY DIFFERENT STAFF, 1ST SET OF BLOOD CULTURES OBTAINED AND SENT TO LAB. LAB CALLED AND REPORTS CULTURE BOTTLES AREN'T ALL THE WAY FULL AND HAS THROWN THEM OUT. DR. BERGMAN NOTIFIED VIA PHONE AT THIS TIME AND TOLD TO WAIT ON BLOOD CULTURES UNTIL ABG COMES BACK, IF ABG OK, TO TRANSPORT PT TO ICU AND ICU STAFF WILL OBTAIN BLOOD. HOLDING ABX AT THIS TIME.
--- NOTE | 2017-04-17 17:18 | NUR ---
G OBTAINED BY RT.
--- NOTE | 2017-04-17 17:30 | NUR ---
PT HAS BED ASSIGNMENT 106. RN NOTIFIED.
--- NOTE | 2017-04-17 17:46 | NUR ---
REPORT GIVEN TO MATT LAMAR AND ANSWERED ALL QUESTIONS. NOTIFIED HER OF NEEDED BLOOD WORK AND ABX. TRANSPORT BOOKED. WILL TRANSPORT WITH THIS RN AND TRANSORT. RT TAKING BIPAP UP TO ICU ROOM [address] ON WHEN GETS TO ROOM.
[2017-04-17 18:30] VITALS: BP 137/67
--- NOTE | 2017-04-17 18:30 | NUR ---
PT TRANSPORTED WITH THIS RN AND TRANSPORT ON MEDICAL RECEPTIONIST. CARE RELINQUISHED.
--- NOTE | 2017-04-17 18:35 | Cons- Cardiology ---
General Information and HPI Consulting Request Date of Consult: 04/17/17 Requested By: ARIEL NICK MD Reason for Consult: elevated troponin Source of Information: family, old records History of Present Illness: Patient is a 61-year-old female with past medical history of (coronary artery disease status post 3/4 stents in 2010) follows with Dr. Benson at [place], hypothyroidism, chronic back pain was brought into the ED today after being found unresponsive by her children this morning. Most of this history is received from her son who was by the bedside. Son states that last night the patient was found to be drowsy and tired by her daughter. However she thought that the patient wanted to sleep and therefore left her and went for work. This morning after coming back from work she found her exactly in the same position on the bed with some frothing from her mouth. Patient was unresponsive and therefore she called worried and called EMS. Upon arrival, EMS place the patient on 100% nonrebreather and give her 2.4 mg Narcan. Patient responded to it and was finally brought to the ED. Upon arrival to the ED she was altered and morning, however was able to move all extremities. Son states that it's likely that the patient overdosed on methadone pills which the patient gets from her other son(his brother )who takes it. Patient has history of chronic back pain and she had been on methadone in the past. However, she was not supposed to take it at this time. She has been receiving inappropriate doses of methadone from his brother. She has extensive cardiac history and is status post 4 cardiac catheterizations in 2010 at [facility]. Patient' s son also reports that she was recently started on psychiatric meds gabapentin and Latuda by the psychiatrist, however is not able to give any more details. He reports that the patient has been drinking a lot recently however denies any drug abuse. No history of thyroid disorder as per the son. Allergies/Medications Allergies: Coded Allergies: Penicillins (Severe, TONGUE SWELLING 01/02/16) Home Med List: Gabapentin 300 MG CAPSULE 1 CAP PO TID UNKNOWN (Reported) Lurasidone HCl (Latuda) 20 MG TABLET 1 TAB PO DAILY MENTAL HEALTH (Reported) Current Medications: Current Medications Sig/Mary Start time Last Medication Dose Route Stop Time Status Admin Acetaminophen 1,000 MG Q8 PRN 04/17 1700 AC N/A 1 UNIT IV Acetaminophen 325 MG Q6P PRN 07 1230 AC PO Aspirin 81 MG DAILY 07 1354 AC PO Atorvastatin Calcium 40 MG 1700 07 1700 AC PO Ceftriaxone Sodium 1,000 MG DAILY 04/17 1311 DC IV Clindamycin 300 MG IQ8 0708 1600 AC Dextrose/Water 50 ML IV Gabapentin 300 MG TID 04/17 1240 DC PO Heparin Sodium 5,000 UNIT Q8 07 1400 DC (Porcine) SC Heparin Sodium 0 .STK-MED ONE 04/17 1310 DC (Porcine) .ROUTE Heparin Sodium 25,000 UNIT Q24H /08 1300 AC 07 (Porcine) IV 1321 Sodium Chloride 500 ML Lorazepam 1 MG Q1P PRN 04/17 1415 AC IV Metoclopramide HCl 10 MG Q6P PRN 04/17 1645 AC IV Metoprolol Tartrate 12.5 MG BID 04/17 1354 AC PO Morphine Sulfate 2 MG Q4P PRN 04/17 1230 DC IV Naloxone HCl 0 .STK-MED ONE 04/17 1530 DC .ROUTE Naloxone HCl 0.8 MG ONCE ONE 04/17 1515 DC 07/ IV 04/17 1516 1538 Naloxone HCl 4 MG Q24H / 1445 AC 07/ Dextrose/Water 1,000 ML IV 1610 Naloxone HCl 2 MG ONCE ONE 04/17 1445 CAN IV 04/17 1446 Naloxone HCl 4 MG Q24H /08 1445 CAN Dextrose/Water 1,000 ML IV Nitroglycerin 0 .STK-MED ONE 04/17 1513 DC TOP Nitroglycerin 0.5 GM Q6 04/17 1354 AC 04/17 TOP 1511 Ondansetron HCl 0 .STK-MED ONE 04/17 1501 DC .ROUTE Ondansetron HCl 4 MG Q6P PRN 04/17 1500 DC 04/17 IV 1457 Ondansetron HCl 4 MG ONCE ONE 04/17 1145 DC 04/17 IV 04/17 1146 1133 Ondansetron HCl 0 .STK-MED ONE 04/17 1138 DC .ROUTE Oxycodone HCl 5 MG Q6P PRN 04/17 1230 DC PO Sodium Chloride 1,000 ML Q13H /08 1400 AC 04/17 IV 1511 Sodium Chloride 1,000 ML BOLUS ONE 04/17 0845 DC 07/ IV 04/17 0944 0840 Past History Travel History Traveled to [place] past 21 day No Medical History Neurological: NONE EENT: hearing loss Cardiovascular: hypertension, 3 STENTS Respiratory: NONE Gastrointestinal: NONE Hepatic: NONE Renal: NONE Musculoskeletal: CHRONIC BACK/NECK PAIN Psychiatric: alcohol dependence, anxiety, bipolar disease, depression, substance abuse Endocrine: Marc's thyroiditis (diagnosed by Dr. 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 Home Who Do You Live With? child Smoking Status: Former Smoker ETOH Use: occasional use Exam & Diagnostic Data Vital Signs and I&O Vital Signs Date Time Temp Pulse Resp B/P B/P Pulse O2 O2 Flow FiO2 Mean Ox Delivery Rate 04/17 1759 19 100 Nasal 6.0L Cannula 04/17 1716 99.8 81 22 162/79 95 Nasal 5.0L Cannula 04/17 1624 87 20 99 BIPAP 100% 04/17 1527 88 91 04/17 1503 89 04/17 1502 88 91 04/17 1409 94 22 185/110 92 BIPAP 04/17 1351 94 22 149/89 90 Non 10L ReBreather 04/17 1258 92 Non 10L ReBreather 04/17 1258 88 Nasal 6.0L Cannula 04/17 1238 87 20 157/82 93 Nasal 4.0L Cannula 04/17 1052 96.6 92 18 157/69 94 Nasal 4.0L Cannula 04/17 0832 99 Non 10L ReBreather 04/17 0801 97.0 96 22 164/90 96 Non 10L ReBreather Intake & Output 04/17 1600 04/17 0800 04/17 0000 04/16 1600 04/16 0800 04/16 0000 Intake Total 1000 Output Total 30 Balance 970 Intake, IV 1000 Output, Urine 30 Patient 300 lb Weight Weight Estimated Measurement Method Physical Exam: General Appearance Oriented X3, Moderate Distress, partiallly responsive to questions and commands; obese Skin No Rashes, No Breakdown Skin Temp/Moisture Exam: Warm/Dry HEENT Atraumatic, PERRLA, EOMI, non rebreather Lymphatic Cervical nl Cardiovascular Regular Rate, Normal S1, Normal S2, distant heart sounds Lungs diminished air entry bilaterally Abdomen Normal Bowel Sounds, Soft, No Tenderness Diagnostic Data EKG Results NSR with NSSTTWCs unchanged from previously CXR Results IMPRESSION: Limited exam. Low lung volumes. Increased density at the lung bases questionable for atelectasis/consolidation or effusion versus changes related to overlying soft tissues and low lung volumes. This could be better evaluated with a lateral chest x-ray. Distended bowel below the left hemidiaphragm. Assessment/Plan Assessment/Plan Assessment: 1. Acute hypoxemic respiratory failure; possible aspiration pneumonia 2. Mental status changes; possible methadone overdose 3. Elevated troponin; rule out acute coronary syndrome 4. History of CAD 5. Hypothyroid 6. Acute renal insufficiency 7. Transaminitis 8. HEaring loss Recommendations: - Admt to ICU - Serial troponins; trend troponin until decreasing - Serial ECGs - Continue IV heparin pending further evaluation - Echocardiogram - Continue other cardiac meds as presently - Cultures / antibiotics as outlined Consult Acknowledgment - Thank you for your consult request.
[2017-04-17 19:00] VITALS: BP 118/0
--- NOTE | 2017-04-17 19:00 | NUR ---
Patient arrived from ER to [facility] at approx 1830 accompanied by an RN on the field marketing team leader. She is awake and alert, c/o hard of hearing but we are able to communicate by writing questions. Her speech is clear and she can follow commands. Periods of drowsiness but she is easily arousable. She is oriented x's 3. Pupils are approx 3mm and brisk. A narcan gtt is infusing at 0.25mg/hr per order. NSR on tele monitor, HR= 70-80's. SBP: 110-140's denies chest pain. A heparin gtt is infusing per protocol and that next ptt is due at 1930. Pulses are palpable. BP with doppler 118/0. Currently on 6L nc, lungs clear and diminished. O2 sats stable at 94-96%. Resp rate and depth normal. Abdomen is soft and non tender with + bowel sounds. NPO at this time. Denies nausea- previously medicated with IV zofran. [place] in place with clear balbir urine noted. A partial thickness wound is noted to the coccyx measuring 0.1 X 3cm- presumed stage 2 pressure injury. clean pink wound bed with scant amounts of blooyd drainage noted. Reddened areas are noted to her folds, groin and under her breasts. NS infusing at 75mls/hr. No s/s of pain is noted at this time however patient does have a history of chronic back pain with a neuromuscular stimulator which is implanted. She has had multiple back and cervical surgeries with zoie placement. BC drawn upon arrival as well as troponin and lactic acid level. Awaiting meds from pharmacy. Pt currently denies SI. Psych to evaluate. Pts son's at the bedside and assisted with admission and was updated on POC by Dr. Meraz. Report given to oncoming RN. Will continue to closely monitor patient. Vitals currently stable.
[2017-04-17 20:00] VITALS: BP 148/72
[2017-04-17 20:10] LABS: PTT 60 SEC (25-37)
--- NOTE | 2017-04-17 21:18 | Cons- Psychiatry ---
Psychiatric Consult Date of Consult: 04/17/17 Reason for Consult: Assess methadone OD, was it suicide attempt vs accidental OD? Psychiatric med reccs? History of Present Illness: 61 yo WWF with hx of bipolar disorder, anxiety, PTSD, EtOH use disorder, in [facility], h/o benzo use disorder per chart, and diverting sons take-home methadone for her back pain management. Medically, pt with chronic LBP/neck pain, CAD s/p 4 stents in 2010, hypothyroidism, HTN. Pt presented to ED via EMS after being found unresponsive that morning, "frothing at the mouth." Narcan 2.4mg given in the field, with inprovement in consciousness. Son states that pt took her meds (new, possibly first time dose of latuda 20mg qday and gabapentin 300mg po tid) and MDN the night before, was quite sleepy and family left. The next morning, son found pt unresponsive and went called EMS. MDN level >785, utox MDN pos. 164 /90, R22, P96, T97.2 96% on 10 LPM O2. TECG showed SR with T-wave inversion, and LBBB (NSTEMI). Troponins were elevated 0.37 and continued to rise. Cr 2.5 with PRAFUL. AG 21, K143, TSH 35, T4 6.9. Son reports that pt has been nonadherent with meds d/t loss of insurance. Of note, this is 7 days prior to the anniversary of her husbands 1 year ago to stage 4 cancer (she was also [facility] for Dep/SI with plan to OD on pills, please see Dr Matias's DC Summary for details). On exam in ICU, white board was used to communicate with pt, who could speak in reply. Son, Joss ([phone]) was present for interview. Pt stated she did not remember then events surrounding the OD, however stated this was not a suicide attempt. Pt appeared forthcoming, concrete. Stated that she took the MDN to relieve her back pain, which was especially bothering her that day, along with her rx meds that she received from Shasha Martinez APRN. Pt is pt of [facility]. Denies HI/AVH/SIB. Pt feels safe in the hospital. Pt denies any phy/sex trauma or abuse (asked when son stepped away for a moment). Interview was truncated d/t nursing interventions. Per collateral from son, Joss: pt has begun to see theraist at [facility], and in his presence, reported in December that she had a remote suicide attempt, but did not discuss the details. He reports that his 2 brothers and 1 sister live with their mother, son Eros received methadone and shares with his mother. Joss reports that pt has bee "worse over the past year" since her , and she has been in a "terrible mood" lately with some passive SI "to sleep and not wake up." She had been attendind a social club at [facility], which she enjoyed, but has stopped going d/t pain. Son denied mother has made any suicidal statements or gestures. He does note that she has has a couple drinks over the last month, which is unusual for her since she typically abstains d/t h/o alcoholism. Son feels that she has had some AH in the past intermittently, but not sure how recently. Son states that mother 1.5 mo ago asked the other adult children to move out of ther house, which has been a source of friction. While there is concerning hx, son does not feel this was a suicide attempt but an attempt to alleviate back pain. Allergies: Coded Allergies: Penicillins (Severe, TONGUE SWELLING 01/02/16) Current Medications: latuda 20 mg qday (just started) gabapentin 300 mg po tid (just started) levothyroxine (not taking) will need to confirm meds with [facility]. 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 Physical Limitations (Interventions): Uses a cane. Psychiatric Treatment History Psych Treatment Psychiatric Treatment Yes ([facility]) Inpatient Treatment Yes ([facility] 2012, 2016, pain [id number]) Outpatient Treatment Yes ([facility], [facility]) Reason for Treatment bipolar/dep, PTSD, anxiety Diagnosis: Bipolar Disorder Anxiety Disorder EtOH Use Disorder Sedative Use Disorder Opiate overdose Risk Factors: chronic/serious med cond., high anxiety/distress, history of suicide atmpts, SA/MH hospitalized, substance abuse, isolate/no social support, lack of outcome concern, limited support, loss of tolerance Substance Use/Abuse History Drug Use/Abuse 1 Substances Used/Abused Yes Substance Used/Abused Alcohol First Use unknown Last Used unknown How much used/taken unknown How often unknown For how long unknown Route of use oral Drug Use/Abuse 2 Substances Used/Abused Yes Substance Used/Abused Non-Prescribed Opiates (uses son's methadone for pain) First Use 2004 ([facility] med[facility]) Last Used 04/17/2017 How much used/taken ~107ml per pt (?conc) How often occasionally For how long since 2004, on and off Route of use oral Drug Use/Abuse 3 Substances Used/Abused Yes Substance Used/Abused Benzodiazepines First Use unknown Last Used unknown How much used/taken unknown How often unknown For how long unknown Route of use oral Assessment/Plan Mental Status Orientation: Person, Place Affect: WNL (bland, unemotional) Speech: WNL Neuro-vegetative: unable to fully assess in ICU Mental Status Exam: GEN: Alert in ICU bed, son at bedside, obese, using white board to communicate with staff d/t deafness, obese, NAD. SPEECH: moderate rate, volume, fluent, brief MOTOR: moved minimally, no tics, tremors, stereotypy, abnormal movements MOOD: "OK" AFFECT: bland, appeared unaffected by events, congruent, nonlabile, minimal range, fairly-related TP: logical, linear, brief TC: denies SI/HI/AVH/SIB, no apparent paranoia, delusions, grandiosity, obsessions COG: unable to fully assess at this time, but able to track with simple written questions JUDGMENT: fair INSIGHT: unable to fully assess at this time Lab Results: See HPI Diffential Diagnosis: Intentional vs unintentional methadone OD Impression: 61 yo WWF with hx of bipolar disorder, anxiety, PTSD, h/o EtOH use disorder, h/o benzo use disorder per chart, and diverting sons take-home methadone for her back pain management. Medically, pt with chronic LBP/neck pain, CAD s/p 4 stents in 2010, hypothyroidism, HTN. At this time, pt is in the ICU under care for NSTEMI, PRAFUL and hepatic injury. Pt and son deny this was a suicide attempt and denies SI/HI/AVH/SIB. Concerningly, pt's mood has been worsening over the last year since her 's , this is 1 wk from the anniversary of his , pt is reported to have made passive SI statements recently, there is a reported remote h/o SA, and an inpatient admission last year for dep/SI with plan to OD on pills. Biologically, it is unclear if pt may have had poor renal function prior to the overdose, which may have made slowed clearance metabolism of gapapentin (which binds to bivalent cations and may have disrupted electrolyte/cardiac function) and latuda. Also, methadone could affect QT prolongation/torsades de pointe and lead to cardiac dysfunction. Complicating this is nonadherence with medications and TSH of 35, which is well know to contribute to depression. At this time, pt is maintaining behavioral control, cooperative with treatment plan and not seeking to leave the hospital. While it remains unclear whether this was an intentional or accidental overdose, there is accumulating worrisome evidence that this may have been a serious suicide attempt requiring futher inpatient psychiatric stabilization following medical clearance. Until futher information can be gathered from the patient/collateral, the following reccomendations are made: Provisional Treatment Plan: -sitter not required at this time, however, would order immediately with any signs of agitation, self-injurious behavior, suicidality or delirium. -hold psych meds until medically more stable, gabapentin and latuda are both renally cleared (Cr currently 3.2, rising). -pt may not leave AMA, may require PEC if that arises -if agitated, would use very conservative doses d/t PRAFUL and transaminitis -will need to confirm meds at [facility] -Psych will follow, will need further interview to clarify details with pt when she is more able to sustain conversation -please call consult service with questions
[2017-04-17 22:00] VITALS: BP 139/70
--- NOTE | 2017-04-17 22:13 | RADIOLOGY REPORT ---
EXAMINATION: XR ABDOMEN CLINICAL INDICATION: Distended abdomen COMPARISON: None TECHNIQUE: AP view of the abdomen. FINDINGS: There is scattered stool seen in the left colon. There is no bowel distention to suggest any obstruction. There is no organomegaly or radiopaque calculi. There are posterior spinal neurostimulator an posterior spinal hardware L3, L4 and L5 fusion. IMPRESSION: Mild constipation without any suggestion for obstruction.
[2017-04-18] VITALS (7 sets, daily range): BP systolic 97–161; BP diastolic 56–82
[2017-04-18 03:26] LABS: PTT 83 SEC (25-37)
--- NOTE | 2017-04-18 08:31 | PN- Housestaff ---
Subjective Review of Systems Constitutional: Reports: see HPI. Objective Last 24 Hrs of Vital Signs/I&O Vital Signs Date Time Temp Pulse Resp B/P B/P Pulse O2 O2 Flow FiO2 Mean Ox Delivery Rate 04/18 0600 98.2 75 21 161/61 07 0400 98.2 82 82 138/82 04/18 0400 95 Nasal 6.0L Cannula 04/18 0000 98.4 78 20 124/68 07 0000 92 Nasal 6.0L Cannula 04/18 0000 98.4 78 20 124/68 92 Nasal 6.0L Cannula 04/17 2306 74 23 159/93 04/17 2200 97.0 78 25 139/70 04/17 2000 97.6 78 30 148/72 04/17 2000 95 Nasal 6.0L Cannula 04/17 1900 98.4 74 20 118/0 96 Nasal 6.0L Cannula 04/17 1830 98.4 80 20 137/67 04/17 1830 95 Nasal 6.0L Cannula 04/17 1759 19 100 Nasal 6.0L Cannula 04/17 1716 99.8 81 22 162/79 95 Nasal 5.0L Cannula 04/17 1624 87 20 99 BIPAP 100% 04/17 1527 88 91 08 1503 89 /08 1502 88 91 08 1409 94 22 185/110 92 BIPAP 04/17 1351 94 22 149/89 90 Non 10L ReBreather 04/17 1258 92 Non 10L ReBreather 04/17 1258 88 Nasal 6.0L Cannula 04/17 1238 87 20 157/82 93 Nasal 4.0L Cannula 04/17 1052 96.6 92 18 157/69 94 Nasal 4.0L Cannula 04/17 0832 99 Non 10L ReBreather Intake & Output 04/18 1600 04/18 0800 07/ 0000 Intake Total 1208 829.6 Output Total 200 200 Balance 1008 629.6 Intake, IV 1208 829.6 Intake, Oral 0 0 Number 0 0 Bowel Movements Output, Urine 200 200 Patient 305 lb Weight Weight Bed scale Measurement Method Physical Exam General Appearance: No Acute Distress Current Medications: Current Medications Sig/Mary Start time Last Medication Dose Route Stop Time Status Admin Acetaminophen 1,000 MG Q8 PRN 04/17 1700 AC N/A 1 UNIT IV Acetaminophen 325 MG Q6P PRN 08 1230 AC PO Aspirin 81 MG DAILY 07 1354 AC PO Atorvastatin Calcium 40 MG 1700 07 1700 AC PO Ceftriaxone Sodium 1,000 MG DAILY 04/17 1311 DC IV Clindamycin 300 MG Q8H 04/18 0400 AC 07/ Dextrose/Water 50 ML IV 0351 Clindamycin 300 MG IQ8 07 1600 DC 04/17 Dextrose/Water 50 ML IV 2036 Gabapentin 300 MG TID 04/17 1240 DC PO Heparin Sodium 5,000 UNIT Q8 07/ 1400 DC (Porcine) SC Heparin Sodium 0 .STK-MED ONE 04/17 1310 DC (Porcine) .ROUTE Heparin Sodium 25,000 UNIT Q24H / 1300 AC 04/17 (Porcine) IV 1321 Sodium Chloride 500 ML Lorazepam 1 MG Q1P PRN 04/17 1415 AC IV Magnesium Sulfate 1 GM ONCE ONE 04/18 0215 DC 04/18 Dextrose/Water 100 ML IV 04/18 0614 0226 Metoclopramide HCl 10 MG Q6P PRN 04/17 1645 AC IV Metoprolol Tartrate 12.5 MG BID 04/17 1354 AC 07 PO 2306 Morphine Sulfate 2 MG Q4P PRN 04/17 1230 DC IV Naloxone HCl 0 .STK-MED ONE 04/17 1530 DC .ROUTE Naloxone HCl 0.8 MG ONCE ONE 04/17 1515 DC 07/08 IV 04/17 1516 1538 Naloxone HCl 4 MG Q24H 07/08 1445 AC 07/ Dextrose/Water 1,000 ML IV 1610 Naloxone HCl 2 MG ONCE ONE 04/17 1445 CAN IV 04/17 1446 Naloxone HCl 4 MG Q24H /08 1445 CAN Dextrose/Water 1,000 ML IV Nitroglycerin 0 .STK-MED ONE 04/17 1513 DC TOP Nitroglycerin 0.5 GM Q6 04/17 1354 AC 04/18 TOP 0547 Nystatin 1 FERN TID 04/17 2200 AC 04/17 TOP 2306 Ondansetron HCl 0 .STK-MED ONE 04/17 1501 DC .ROUTE Ondansetron HCl 4 MG Q6P PRN 07/08 1500 DC 08 IV 1457 Ondansetron HCl 4 MG ONCE ONE 04/17 1145 DC 07/08 IV 04/17 1146 1133 Ondansetron HCl 0 .STK-MED ONE 04/17 1138 DC .ROUTE Oxycodone HCl 5 MG Q6P PRN 04/17 1230 DC PO Sodium Chloride 1,000 ML Q13H 04/17 1400 AC 04/18 IV 0354 Sodium Chloride 1,000 ML BOLUS ONE 04/17 0845 DC 04/17 IV 04/17 0944 0840 Last 24 Hrs of Lab/Jayson Results Last 24 Hrs of Labs/Mics: Laboratory Tests 04/18/17 0605: Troponin I Cancelled 04/18/17 0605: Anion Gap 10, Estimated GFR 17 L, Glucose 149 H, Calcium 8.2 L, Phosphorus 4.5, Magnesium 2.1, Total Bilirubin 0.8, AST 967 H, ALT 213 H, Troponin I 7.35 *H, Albumin 3.7 04/18/17 0311: APTT 83 H 04/18/17 0202: Lactic Acid Cancelled 04/18/17 0000: Troponin I Cancelled 04/17/17 2340: Lactic Acid 2.0 04/17/17 2340: Anion Gap 11, Estimated GFR 17 L, Glucose 171 H, Calcium 8.3 L, Phosphorus 4.9 H, Magnesium 1.8, Total Bilirubin 0.6, AST 979 H, ALT 231 H, Troponin I 10.90 *H, Albumin 3.8 04/17/17 2320: Sodium Cancelled, Potassium Cancelled, Chloride Cancelled, Carbon Dioxide Cancelled, Anion Gap Cancelled, BUN Cancelled, Creatinine Cancelled, Glucose Cancelled, Calcium Cancelled, Phosphorus Cancelled, Magnesium Cancelled, Total Bilirubin Cancelled, AST Cancelled, ALT Cancelled, Albumin Cancelled 04/17/17 2135: pH 7.33 L, pCO2 42, pO2 64 L, HCO3 22, ABG O2 Sat (Measured) 91.0 L, P-50 ( Temp Corrected) Y, Carboxyhemoglobin 0.6 L, O2 Concentration % 6L, Temperature 98.0, O2 Delivery Method NC, Phlebotomy Draw Site RIGHT RADIAL 04/17/171944: APTT 60 H 04/17/17 1850: Lactic Acid 2.6 H 04/17/17 1835: Troponin I 10.40 *H 04/17/17 1720: pH 7.29 *L, pCO2 45, pO2 64 L, HCO3 21, ABG O2 Sat (Measured) 91.0 L, P-50 ( Temp Corrected) Y, Carboxyhemoglobin 0.2 L, O2 Concentration % 6L, Temperature 98.2, O2 Delivery Method NC, Phlebotomy Draw Site RIGHT RADIAL 04/17/17 1325: pH 7.17 *L, pCO2 62 *H, pO2 78 L, HCO3 22, ABG O2 Sat (Measured) 94.0 L, P-50 (Temp Corrected) Y, Carboxyhemoglobin 0.6 L, O2 Concentration % 100%, Temperature 96.6 L, O2 Delivery Method NRB, Phlebotomy Draw Site RIGHT RADIAL 04/17/17 1157: Troponin I 4.51 *H 04/17/17 0900: Urinalysis MOD H, Urine Color BLDY H, Urine Clarity TURBD H, Urine pH 5.5, Ur Specific [place] >= 1.030, Urine Protein >=300 H, Urine Ketones NEG, Urine Nitrite POS H, Urine Bilirubin NEG@ICTO, Urine Urobilinogen 1.0, Ur Leukocyte Esterase TRACE H, Ur Microscopic SEDIMENT EXAMINED, Urine RBC 10-15 H, Urine WBC RARE, Ur Epithelial Cells MOD H, Urine Bacteria MANY H, Urine Hemoglobin LARGE H, Urine Glucose NEG Microbiology 04/17 1850 BLOOD: Blood Culture - RECD 04/17 1840 BLOOD: Blood Culture - RECD 04/17 1800 UPPER RESP: Surveillance Culture - RECD 04/17 1800 GI: Surveillance Culture - RECD 04/17 1704 BLOOD: Blood Culture - CAN Cancelled: Quantity not sufficient for both blood culture bottles. 04/17 1320 LOWER RESP: Respiratory Culture - COLB 04/17 1320 LOWER RESP: Gram Stain - COLB 04/17 09 URINE ROUT: Urine Culture - RES GRAM NEGATIVE RODS
--- NOTE | 2017-04-18 08:41 | PN- Cardiology ---
Subjective Subjective: The patient is currently off BiPAP. Sleeping and lethargic but arousable. No obvious new cardiac symptoms or issues. No significant new arrhythmias detected on the monitor. Troponin elevation noted. Objective Vital Signs and I&Os Vital Signs Date Time Temp Pulse Resp B/P B/P Pulse O2 O2 Flow FiO2 Mean Ox Delivery Rate 04/18 600 98.2 75 21 161/61 07/ 0400 98.2 82 82 138/82 / 0400 95 Nasal 6.0L Cannula 04/18 0000 98.4 78 20 124/68 07/ 0000 92 Nasal 6.0L Cannula 04/18 0000 98.4 78 20 124/68 92 Nasal 6.0L Cannula 04/17 2306 74 23 159/93 04/17 2200 97.0 78 25 139/70 04/17 2000 97.6 78 30 148/72 07 2000 95 Nasal 6.0L Cannula 04/17 1900 98.4 74 20 118/0 96 Nasal 6.0L Cannula 04/17 1830 98.4 80 20 137/67 04/17 1830 95 Nasal 6.0L Cannula 04/17 1759 19 100 Nasal 6.0L Cannula 04/17 1716 99.8 81 22 162/79 95 Nasal 5.0L Cannula 04/17 1624 87 20 99 BIPAP 100% / 1527 88 91 07/08 1503 89 07/08 1502 88 91 07/08 1409 94 22 185/110 92 BIPAP 04/17 1351 94 22 149/89 90 Non 10L ReBreather 04/17 1258 92 Non 10L ReBreather 04/17 1258 88 Nasal 6.0L Cannula 04/17 1238 87 20 157/82 93 Nasal 4.0L Cannula 04/17 1052 96.6 92 18 157/69 94 Nasal 4.0L Cannula Intake & Output 04/18 1600 04/18 0804/18 0000 04/17 1600 04/17/ 0000 Intake Total 1208 829.6 1000 Output Total 200 200 30 Balance 1008 629.6 970 Intake, IV 1208 829.6 1000 Intake, Oral 0 0 Number 0 0 Bowel Movements Output, Urine 200 200 30 Patient 305 lb 300 lb Weight Weight Bed scale Estimated Measurement Method Physical Exam: General Appearance Oriented X3, no acute distress at the moment. Skin No Rashes, No Breakdown Skin Temp/Moisture Exam: Warm/Dry HEENT Atraumatic, PERRLA, EOMI, non rebreather Lymphatic Cervical nl Cardiovascular Regular Rate, Normal S1, Normal S2, distant heart sounds Lungs diminished air entry bilaterally with scattered rhonchi Abdomen Normal Bowel Sounds, Soft, No Tenderness Current Medications: Current Medications Sig/Mary Start time Last Medication Dose Route Stop Time Status Admin Acetaminophen 1,000 MG Q8 PRN 04/17 1700 AC N/A 1 UNIT IV Acetaminophen 325 MG Q6P PRN 04/17 1230 AC PO Aspirin 81 MG DAILY 04/17 1354 AC PO Atorvastatin Calcium 40 MG 1700 04/17 1700 AC PO Ceftriaxone Sodium 1,000 MG DAILY 04/17 1311 DC IV Clindamycin 300 MG Q8H 04/18 0400 AC 04/18 Dextrose/Water 50 ML IV 0351 Clindamycin 300 MG IQ8 04/17 1600 DC 04/17 Dextrose/Water 50 ML IV 2036 Gabapentin 300 MG TID 04/17 1240 DC PO Heparin Sodium 5,000 UNIT Q8 04/17 1400 DC (Porcine) SC Heparin Sodium 0 .STK-MED ONE 04/17 1310 DC (Porcine) .ROUTE Heparin Sodium 25,000 UNIT Q24H 04/17 1300 AC 04/17 (Porcine) IV 1321 Sodium Chloride 500 ML Lorazepam 1 MG Q1P PRN 04/17 1415 AC IV Magnesium Sulfate 1 GM ONCE ONE 04/18 0215 DC 04/18 Dextrose/Water 100 ML IV 04/18 0614 0226 Metoclopramide HCl 10 MG Q6P PRN 04/17 1645 AC IV Metoprolol Tartrate 12.5 MG BID 04/17 1354 AC 04/17 PO 2306 Morphine Sulfate 2 MG Q4P PRN 04/17 1230 DC IV Naloxone HCl 0 .STK-MED ONE 04/17 1530 DC .ROUTE Naloxone HCl 0.8 MG ONCE ONE 04/17 1515 DC 07/ IV 04/17 1516 1538 Naloxone HCl 4 MG Q24H 04/17 1445 AC 04/17 Dextrose/Water 1,000 ML IV 1610 Naloxone HCl 2 MG ONCE ONE 04/17 1445 CAN IV 04/17 1446 Naloxone HCl 4 MG Q24H 04/17 1445 CAN Dextrose/Water 1,000 ML IV Nitroglycerin 0 .STK-MED ONE 04/17 1513 DC TOP Nitroglycerin 0.5 GM Q6 04/17 1354 04/18 TOP 0547 Nystatin 1 FERN TID 04/17 2200 04/17 TOP 2306 Ondansetron HCl 0 .STK-MED ONE 04/17 1501 DC .ROUTE Ondansetron HCl 4 MG Q6P PRN 04/17 1500 DC 04/17 IV 1457 Ondansetron HCl 4 MG ONCE ONE 04/17 1145 DC 04/17 IV 04/17 1146 1133 Ondansetron HCl 0 .STK-MED ONE 04/17 1138 DC .ROUTE Oxycodone HCl 5 MG Q6P PRN 04/17 1230 DC PO Sodium Chloride 1,000 ML Q13H 04/17 1400 AC 04/18 IV 0354 Sodium Chloride 1,000 ML BOLUS ONE 04/17 0845 DC 04/17 IV 04/17 0944 0840 Results Last 48 Hrs of Labs/Mics: Laboratory Tests 04/18/17 0840: WBC Pending, RBC Pending, Hgb Pending, Hct Pending, MCV Pending, MCH Pending, RDW Pending, Plt Count Pending, MPV Pending, PUBS MCHC Pending 04/18/17 0605: Troponin I Cancelled 04/18/17 0605: Anion Gap 10, Estimated GFR 17 L, Glucose 149 H, Calcium 8.2 L, Phosphorus 4.5, Magnesium 2.1, Total Bilirubin 0.8, AST 967 H, ALT 213 H, Troponin I 7.35 *H, Albumin 3.7 04/18/17 0311: APTT 83 H 04/18/17 0202: Lactic Acid Cancelled 04/18/17 0000: Troponin I Cancelled 04/17/17 2340: Lactic Acid 2.0 04/17/17 2340: Anion Gap 11, Estimated GFR 17 L, Glucose 171 H, Calcium 8.3 L, Phosphorus 4.9 H, Magnesium 1.8, Total Bilirubin 0.6, AST 979 H, ALT 231 H, Troponin I 10.90 *H, Albumin 3.8 04/17/17 2320: Sodium Cancelled, Potassium Cancelled, Chloride Cancelled, Carbon Dioxide Cancelled, Anion Gap Cancelled, BUN Cancelled, Creatinine Cancelled, Glucose Cancelled, Calcium Cancelled, Phosphorus Cancelled, Magnesium Cancelled, Total Bilirubin Cancelled, AST Cancelled, ALT Cancelled, Albumin Cancelled 04/17/17 2135: pH 7.33 L, pCO2 42, pO2 64 L, HCO3 22, ABG O2 Sat (Measured) 91.0 L, P-50 ( Temp Corrected) Y, Carboxyhemoglobin 0.6 L, O2 Concentration % 6L, Temperature 98.0, O2 Delivery Method NC, Phlebotomy Draw Site RIGHT RADIAL 04/17/17 1945: APTT 60 H 04/17/17 1850: Lactic Acid 2.6 H 04/17/17 1835: Troponin I 10.40 *H 04/17/17 1720: pH 7.29 *L, pCO2 45, pO2 64 L, HCO3 21, ABG O2 Sat (Measured) 91.0 L, P-50 ( Temp Corrected) Y, Carboxyhemoglobin 0.2 L, O2 Concentration % 6L, Temperature 98.2, O2 Delivery Method VT, Phlebotomy Draw Site RIGHT RADIAL 04/17/17 1325: pH 7.17 *L, pCO2 62 *H, pO2 78 L, HCO3 22, ABG O2 Sat (Measured) 94.0 L, P-50 (Temp Corrected) Y, Carboxyhemoglobin 0.6 L, O2 Concentration % 100%, Temperature 96.6 L, O2 Delivery Method NRB, Phlebotomy Draw Site RIGHT RADIAL 04/17/17 1157: Troponin I 4.51 *H 04/17/17 0900: Urinalysis MOD H, Urine Color BLDY H, Urine Clarity TURBD H, Urine pH 5.5, Ur Specific [place] >= 1.030, Urine Protein >=300 H, Urine Ketones NEG, Urine Nitrite POS H, Urine Bilirubin NEG@ICTO, Urine Urobilinogen 1.0, Ur Leukocyte Esterase TRACE H, Ur Microscopic SEDIMENT EXAMINED, Urine RBC 10-15 H, Urine WBC RARE, Ur Epithelial Cells MOD H, Urine Bacteria MANY H, Urine Hemoglobin LARGE H, Urine Glucose NEG 04/17/17 0800: Urine Opiates Screen < 100.00, Methadone Screen > 735 H, Barbiturate Screen < 60, Ur Phencyclidine Scrn < 6.00, Amphetamines Screen < 100, U Benzodiazepines Scrn < 85, Urine Cocaine Screen < 50, Urine Cannabis Screen < 5.00 04/17/17 0887: PT 11.4, INR 1.09, APTT 34 04/17/17 0751: Anion Gap 21 H, Estimated GFR 20 L, BUN/Creatinine Ratio 7.6, Glucose 93, Calcium 9.8, Total Bilirubin 0.6, AST 226 H, ALT 80 H, Alkaline Phosphatase 103, Troponin I 0.37 *H, Total Protein 8.0, Albumin 4.8, Globulin 3.2, Albumin/ Globulin Ratio 1.5, TSH 35.100 H, Thyroxine (T4) 6.9, Thyroxine Binding Indx 26.0, CBC w Diff MAN DIFF ORDERED, RBC 4.84, MCV 97.1, MCH 31.4 H, RDW 13.6, MPV 8.0, Gran % 86.1 H, Lymphocytes % 8.2 L, Monocytes % 5.6, Eosinophils % 0.1, Basophils % 0 L, Absolute Granulocytes 16.5 H, Absolute Lymphocytes 1.6, Absolute Monocytes 1.1 H, Absolute Eosinophils 0, Absolute Basophils 0, Normocytic RBCs VERIFIED, Normochromic RBCs VERIFIED, PUBS MCHC 32.3 L, Serum Alcohol < 10.0 Assessment/Plan Assessment/Plan Assessment: 1. Acute hypoxemic respiratory failure; possible aspiration pneumonia 2. Mental status changes; possible methadone overdose 3. Elevated troponin; rule out acute coronary syndrome; probable non-ST elevation myocardial infarction 4. History of CAD 5. Hypothyroid 6. Acute renal insufficiency 7. Transaminitis 8. HEaring loss Recommendations: -Keep the patient on youth nutritional monitor -Continue as per the ICU/critical care team -Troponin peaked at 10.5, now decreasing -Follow-up ECG in the morning -Continue current treatment including IV heparin -Echocardiogram pending to assess left ventricular wall motion -Further plans with respect to long-term management pending. Consideration for cardiac catheterization. - Continue telemetry? Yes
--- NOTE | 2017-04-18 10:39 | PN- Resident CRCU ---
Subjective HPI/CRCU Issues: Ms Clark is a 61-year-old woman with a past history of coronary artery disease status post stent), Marc thyroiditis (elevated TPO, Tg antiobodies, and noncompliant with her medications), substance abuse, bipolar, PTSD, depression who is being currently managed in the ICU for altered mental status likely from methadone overdose. She responded well to naloxone, and was on naloxone drip while in the stay in the hospital. Vitals remain stable. PH 7.17, PCO2 62, PO2 78. She was also found to have acute kidney injury w/ serum creatinine 2.5. 24 Hour Events: Temperature 98.2, pulse rate 70-80, respiration 18-21, blood pressure slightly elevated systolic 160s/diastolic 61, oxygen saturation 95% on 6 L. Objective Vital Signs & I&O Last 8 Hrs of Vitals and I&O: Intake & Output 04/18 1600 Intake Total 1408.2 Output Total 100 Balance 1308.2 Intake, IV 1008.2 Intake, Oral 400 Output, Urine 100 Exam General Appearance: alert, awake Head: atraumatic, normal appearance Ears, Nose, Throat: normal pharynx Neck: normal inspection, supple Respiratory: normal breath sounds, chest non-tender, no respiratory distress Cardiovascular: regular rate/rhythm Gastrointestinal: normal bowel sounds, soft, non-tender Extremities: normal inspection Cranial Nerves: normal hearing, normal speech, PERRL Skin: intact, normal color, warm/dry Skin Temp/Moisture Exam: Warm/Dry Sepsis Skin Exam (color): Normal for Ethnicity Sepsis Peripheral Pulse Location: Dorsalis Pedis Sepsis Peripheral Pulse Exam: Normal Current Medications: Current Medications Sig/Mary Start time Last Medication Dose Route Stop Time Status Admin Acetaminophen 1,000 MG Q8 PRN 04/17 1700 AC N/A 1 UNIT IV Acetaminophen 325 MG Q6P PRN 04/17 1230 AC PO Albuterol Sulfate 3 ML ONCE ONE 04/18 1715 DC 04/18 INH 04/18 1716 1717 Aspirin 81 MG DAILY 04/17 1354 AC 04/18 PO 0918 Atorvastatin Calcium 40 MG 1700 04/17 1700 AC 04/18 PO 1740 Clindamycin 300 MG Q8H 04/18 0400 AC 04/18 Dextrose/Water 50 ML IV 1218 Clindamycin 300 MG IQ8 04/17 1600 DC 07/08 Dextrose/Water 50 ML IV 2036 Heparin Sodium 25,000 UNIT Q24H / 1300 AC 04/18 (Porcine) IV 1508 Sodium Chloride 500 ML Levothyroxine Sodium 0.025 MG DAILY AC 04/18 1115 AC 04/18 PO 1740 Lorazepam 1 MG Q1P PRN 04/17 1415 AC IV Magnesium Sulfate 1 GM ONCE ONE 04/18 0215 WV 04/18 Dextrose/Water 100 ML IV 04/18 0614 0226 Metoclopramide HCl 10 MG Q6P PRN 04/17 1645 IV Metoprolol Tartrate 12.5 MG BID 04/17 1354 AC 04/18 PO 0918 Naloxone HCl 4 MG Q24H 04/18 1715 AC 04/18 Dextrose/Water 1,000 ML IV 1754 Naloxone HCl 0.4 MG ONCE ONE 04/18 1700 DC / IV 04/18 1701 1722 Naloxone HCl 0.4 MG ONCE ONE 04/18 1700 DC / IV 04/18 1701 1722 Naloxone HCl 4 MG Q24H / 1445 WV 04/17 Dextrose/Water 1,000 ML IV 1610 Nitroglycerin 0.5 GM Q6 / 1354 AC 04/18 TOP 1740 Nystatin 1 FERN TID 04/17 2200 04/18 TOP 1508 Sodium Chloride 1,000 ML Q10H 04/18 1830 IV Sodium Chloride 1,000 ML Q13H / 1400 DC 04/18 IV 1508 Impression/Plan Impression/Problem List Impression: She is a middle aged woman with multiple metabolic related comorbidities including 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 Lab findings in the last 24 hours: Improved leukocytosis WBC 19.1--> 10.1, sodium 133, potassium 4.9, bicarbonate 21 (slightly acidotic), abnormal renal function BUN 35, serum creatinine 2.8, urinalysis revealed positive urine nitrite, leukocyte esterase positive, urine protein more than 300, and large hemoglobin and moderate epithelial cells. Elevated transaminases (AST 967, ALT 213), cardiac enzymes trending down, which peaked at 10.90 on 04/17/2017. EKG revealed nonspecific T-wave flattening [place] [address]. Urine sodium is 47 w/ FeNa < 1. Urine protein/cr ratio- 0.8. Differential diagnosis: #1 altered mental status secondary to methadone overdose #2 acute hypercarbic respiratory failure #3 NSTEMI or type II NM #4 hypothyroidism #5 acute kidney injury Below is the problem list and plan: #1 respiratory-continues to require 6 L of oxygen with oxygen saturation above 92%. Get an ABG, mentation worsens. PE in the differential, and if respiratory status worsens, may have to get a VQ scan. #2 infectious- leukocytosis improving 19.1--> 10.1. Remained afebrile overnight. Considering community-acquired pneumonia/aspiration-has been started on iv clindamycin. Day 2. Patient allergic to penicillin. May have to change it to Fluoroquinolone, after reviewing the culture and sensitivity reusults in the am from urine culture. Vitals are stable. #3 cardiovascular-blood pressure remains borderline high. Patient has been started on metoprolol 12.5 mg by mouth twice a day, aspirin and Lipitor. Elevated troponin, likely non-ST segment elevation NM, until proven otherwise given the history of coronary artery disease and multiple stents in the past. Defer the decision for further management to the good humor vendor. Continue intravenous heparin drip. There could be a contribution of acute kidney injury in elevation of troponin. #4 hematology-in acute drop of approximately 40% in the platelet count in the last 24 hours. 238-->138. H&H dropped as well. Likely dilutional. Recheck C BC in the morning. #5 metabolic-has a history of Marc thyroiditis and had TSH of 35. History of noncompliance with medications. Also had positive anti-TPO and anti- thyroglobulin antibodies in the past, as per Dr. anaya. She has been started on by mouth levothyroxin 25 g starting today. Recheck TSH in the a.m. as per Dr. anaya. Abnormal renal function-serum creatinine 2.8 (baseline 0.7) with abnormal urinalysis and increased protein content. No history of diabetes or chronic kidney disease in the records. Abdominal ultrasound did not reveal any abnormal kidney, but a dedicated renal ultrasound was not done to rule out any postobstructive uropathy. Currently has a Ames catheter in place. Repeat urinalysis and protein creatinine ratio. Increased the fluid rate. Await a call back from Nephrology. #6 Alimentary-advance diet as tolerated. #8-[id number] mentating well. No neurological deficits. Currently all the psych meds on hold as per psychiatry. #8 DVT prophylaxis-IV heparin. Problem List: 1. Elevated troponin 2. Acute kidney injury 3. Methadone overdose 4. Hypertension 5. Coronary artery disease 6. Bipolar disorder, unspecified 7. Depression Pain Ratin Tomorrow's Labs & Rationales: cbc bep Plan DVT/Prophylaxis: pharmacological
[2017-04-18 10:51] LABS: ABSOLUTE BASOPHIL COUNT 0 /CUMM (0.0-0.2); ABSOLUTE EOSINOPHIL COUNT 0 /CUMM (0.0-0.7); ABSOLUTE GRANULOCYTE CT 8.3 /CUMM (1.4-6.5); ABSOLUTE LYMPH COUNT 1.1 /CUMM (1.2-3.4); ABSOLUTE MONOCYTE COUNT 0.7 /CUMM (0.10-0.60); BASOPHIL % 0.2 % (0.0-2.0); EOSINOPHIL % 0.1 % (0-5); GRANULOCYTE % 82.6 % (42.2-75.2); MEAN CORPUSCULAR HGB 31.5 PG (27.0-31.0); MEAN CORPUSCULAR HGB CONC 32.9 G/DL (33.0-37.0); MEAN CORPUSCULAR VOLUME 95.7 FL (81.0-99.0); MEAN PLATELET VOLUME 9.1 FL (7.4-10.4); PLATELET COUNT 138 /CUMM (130-400); RBC DISTRIBUTION WIDTH 13.4 % (11.5-14.5); RED BLOOD CELL CT 4.09 /CUMM (4.20-5.40); WHITE BLOOD CELL COUNT 10.1 /CUMM (4.8-10.8)
[2017-04-18 11:07] LABS: HEMATOCRIT 39.1 % (37-47)
--- NOTE | 2017-04-18 11:42 | NUR ---
O2 SAT ON 4LNC 88%, O2 INCREASED TO 6LNC, WILL CONT TO MON.
--- NOTE | 2017-04-18 11:51 | PN- Endocrinology ---
Assessment/Plan Assessment: 61 y/o female , Hx of morbid obese and CAD s/p stents placement, was diagnosed with hypothyroidism/ Marc's thyroiditis in 2012 and was on Levothyroxine 100 mcg daily. She hasn't been compliance with medication. She was found to be unresponsive at home due to methadone over dose. Blood work showed positive troponin, TSH 35.1 and T4 6.9; ph 7.17, Pco2 62 and Po2 78, Cr 2.5. Her peak troponin was 10.9. Plan: 1. start Levothyroxien 25 mcg po daily today; 2. monitor TSH and free T4 tomorrow morning. will follow. Subjective Subjective: She has been off on BIPAP. Objective Last 24 Hrs of Vital Signs/I&O Vital Signs Date Time Temp Pulse Resp B/P B/P Pulse O2 O2 Flow FiO2 Mean Ox Delivery Rate 04/18 0800 94 Nasal 6.0L Cannula / 0800 99.0 66 30 118/65 94 Nasal 6.0L Cannula / 0600 98.2 75 21 161/61 07/09 0400 98.2 82 82 138/82 07/09 0400 95 Nasal 6.0L Cannula 07/09 0000 98.4 78 20 124/68 07/09 0000 92 Nasal 6.0L Cannula 07/09 0000 98.4 78 20 124/68 92 Nasal 6.0L Cannula 07/08 2306 74 23 159/93 07/08 2200 97.0 78 25 139/70 07/08 1999 97.6 78 30 148/72 07/08 1999 95 Nasal 6.0L Cannula 07/08 1900 98.4 74 20 118/0 96 Nasal 6.0L Cannula 07/08 1830 98.4 80 20 137/67 07/08 1830 95 Nasal 6.0L Cannula 07/08 1759 19 100 Nasal 6.0L Cannula 07/08 1716 99.8 81 22 162/79 95 Nasal 5.0L Cannula 07/08 1624 87 20 99 BIPAP 100% 07/08 1527 88 91 07/08 1503 89 07/08 1502 88 91 07/08 1409 94 22 185/110 92 BIPAP 07/08 1351 94 22 149/89 90 Non 10L ReBreather 07/08 1258 92 Non 10L ReBreather 07/08 1258 88 Nasal 6.0L Cannula 07/08 1238 87 20 157/82 93 Nasal 4.0L Cannula Intake & Output 04/18 1600 04/18 0800 04/18 0000 Intake Total 1208 829.6 Output Total 200 200 Balance 1008 629.6 Intake, IV 1208 829.6 Intake, Oral 0 0 Number 0 0 Bowel Movements Output, Urine 200 200 Patient 305 lb Weight Weight Bed scale Measurement Method Results Pertinent Lab/Jayson Results: Laboratory Tests 04/18 04/18 04/18 04/18 0840 0605 0605 0311 Chemistry Sodium (137 - 145 mmol/L) 133 L Potassium (3.5 - 5.1 mmol/L) 4.9 Chloride (98 - 107 mmol/L) 102 Carbon Dioxide (22 - 30 mmol/L) 21 L Anion Gap (5 - 16) 10 BUN (7 - 17 mg/dL) 35 H Creatinine (0.5 - 1.0 mg/dL) 2.8 H Estimated GFR (>60 ml/min) 17 L Glucose (65 - 99 mg/dL) 149 H Calcium (8.4 - 10.2 mg/dL) 8.2 L Phosphorus (2.5 - 4.5 mg/dL) 4.5 Magnesium (1.6 - 2.3 mg/dL) 2.1 Total Bilirubin (0.2 - 1.3 mg/dL) 0.8 AST (14 - 36 U/L) 967 H ALT (9 - 52 U/L) 213 H Troponin I (< 0.11 ng/ml) Cancelled 7.35 *H Albumin (3.5 - 5.0 g/dL) 3.7 Coagulation APTT (25 - 37 SEC) 83 H Hematology WBC (4.8 - 10.8 /CUMM) 10.1 RBC (4.20 - 5.40 /CUMM) 4.09 L Hgb (12.0 - 16.0 G/DL) 12.9 Hct (37 - 47 %) 39.1 MCV (81.0 - 99.0 FL) 95.7 MCH (27.0 - 31.0 PG) 31.5 H RDW (11.5 - 14.5 %) 13.4 Plt Count (130 - 400 /CUMM) 138 MPV (7.4 - 10.4 FL) 9.1 Gran % (42.2 - 75.2 %) 82.6 H Lymphocytes % (20.5 - 51.1 %) 10.5 L Monocytes % (1.7 - 9.3 %) 6.6 Eosinophils % (0 - 5 %) 0.1 Basophils % (0.0 - 2.0 %) 0.2 Absolute Granulocytes (1.4 - 6.5 /CUMM) 8.3 H Absolute Lymphocytes (1.2 - 3.4 /CUMM) 1.1 L Absolute Monocytes (0.10 - 0.60 /CUMM) 0.7 H Absolute Eosinophils (0.0 - 0.7 /CUMM) 0 Absolute Basophils (0.0 - 0.2 /CUMM) 0 PUBS MCHC (33.0 - 37.0 G/DL) 32.9 L 04/18 04/18 04/17 04/17 0202 0000 2340 2340 Chemistry Sodium (137 - 145 mmol/L) 137 Potassium (3.5 - 5.1 mmol/L) 4.7 Chloride (98 - 107 mmol/L) 103 Carbon Dioxide (22 - 30 mmol/L) 23 Anion Gap (5 - 16) 11 BUN (7 - 17 mg/dL) 32 H Creatinine (0.5 - 1.0 mg/dL) 2.8 H Estimated GFR (>60 ml/min) 17 L Glucose (65 - 99 mg/dL) 171 H Lactic Acid (0.7 - 2.1 mmol/L) Cancelled 2.0 Calcium (8.4 - 10.2 mg/dL) 8.3 L Phosphorus (2.5 - 4.5 mg/dL) 4.9 H Magnesium (1.6 - 2.3 mg/dL) 1.8 Total Bilirubin (0.2 - 1.3 mg/dL) 0.6 AST (14 - 36 U/L) 979 H ALT (9 - 52 U/L) 231 H Troponin I (< 0.11 ng/ml) Cancelled 10.90 *H Albumin (3.5 - 5.0 g/dL) 3.8 04/17 04/17 04/17 04/17 04/17 2320 2135 1945 1850 1835 Blood Gas pH (7.35 - 7.45 PH) 7.33 L pCO2 (35 - 45 TORR) 42 pO2 (80 - 100 TORR) 64 L HCO3 (21 - 28 MEQ/L) 22 ABG O2 Sat (Measured) (>96.0 %) 91.0 L P-50 (Temp Corrected) Y Carboxyhemoglobin (1.5 - 5.0 %) 0.6 L O2 Concentration % 6L Temperature (97.0 - 100.0 FARH) 98.0 O2 Delivery Method NC Chemistry Sodium Cancelled Potassium Cancelled Chloride Cancelled Carbon Dioxide Cancelled Anion Gap Cancelled BUN Cancelled Creatinine Cancelled Glucose Cancelled Lactic Acid (0.7 - 2.1 mmol/L) 2.6 H Calcium Cancelled Phosphorus Cancelled Magnesium Cancelled Total Bilirubin Cancelled AST Cancelled ALT Cancelled Troponin I (< 0.11 ng/ml) 10.40 *H Albumin Cancelled Coagulation APTT (25 - 37 SEC) 60 H Miscellaneous Phlebotomy Draw Site RIGHT RADIAL 04/17 04/17 04/17 1720 1325 1157 Blood Gas pH (7.35 - 7.45 PH) 7.29 *L 7.17 *L pCO2 (35 - 45 TORR) 45 62 *H pO2 (80 - 100 TORR) 64 L 78 L HCO3 (21 - 28 MEQ/L) 21 22 ABG O2 Sat (Measured) (>96.0 %) 91.0 L 94.0 L P-50 (Temp Corrected) Y Y Carboxyhemoglobin (1.5 - 5.0 %) 0.2 L 0.6 L O2 Concentration % 6L 100% Temperature (97.0 - 100.0 FARH) 98.2 96.6 L O2 Delivery Method NC NRB Chemistry Troponin I (< 0.11 ng/ml) 4.51 *H Miscellaneous Phlebotomy Draw Site RIGHT RADIAL RIGHT RADIAL
--- NOTE | 2017-04-18 12:11 | PN- CRCU ---
Subjective HPI/Critical Care Issues: The patient is awake and alert. She is now off of BIPAP. She is feeling improved overall. She has a low grade temperature. Her creatinine remains elevated at 2.8. Her AST and ALT are elevated today as well. Her troponin is now trending down, after peaking at 10.90. Objective Current Medications: Current Medications Sig/Mary Start time Last Medication Dose Route Stop Time Status Admin Acetaminophen 1,000 MG Q8 PRN 04/17 1700 AC N/A 1 UNIT IV Acetaminophen 325 MG Q6P PRN 04/17 1230 AC PO Aspirin 81 MG DAILY 04/17 1354 AC 04/18 PO 0918 Atorvastatin Calcium 40 MG 1700 04/17 1700 AC PO Ceftriaxone Sodium 1,000 MG DAILY 04/17 1311 DC IV Clindamycin 300 MG Q8H 04/18 0400 AC 04/18 Dextrose/Water 50 ML IV 0351 Clindamycin 300 MG IQ8 04/17 1600 DC 04/17 Dextrose/Water 50 ML IV 2036 Gabapentin 300 MG TID 04/17 1240 DC PO Heparin Sodium 5,000 UNIT Q8 04/17 1400 DC (Porcine) SC Heparin Sodium 0 .STK-MED ONE 04/17 1310 DC (Porcine) .ROUTE Heparin Sodium 25,000 UNIT Q24H 04/17 1300 AC 04/17 (Porcine) IV 1321 Sodium Chloride 500 ML Levothyroxine Sodium 0.025 MG DAILY AC 04/18 1115 AC PO Lorazepam 1 MG Q1P PRN 04/17 1415 AC IV Magnesium Sulfate 1 GM ONCE ONE 04/18 0215 DC 04/18 Dextrose/Water 100 ML IV 04/18 0614 0226 Metoclopramide HCl 10 MG Q6P PRN 04/17 1645 AC IV Metoprolol Tartrate 12.5 MG BID 04/17 1354 AC 04/18 PO 0918 Morphine Sulfate 2 MG Q4P PRN 04/17 1230 DC IV Naloxone HCl 0 .STK-MED ONE 04/17 1530 DC .ROUTE Naloxone HCl 0.8 MG ONCE ONE 04/17 1515 DC 07/08 IV 04/17 1516 1538 Naloxone HCl 4 MG Q24H 04/17 1445 DC 04/17 Dextrose/Water 1,000 ML IV 1610 Naloxone HCl 2 MG ONCE ONE 04/17 1445 CAN IV 04/17 1446 Naloxone HCl 4 MG Q24H 04/17 1445 CAN Dextrose/Water 1,000 ML IV Nitroglycerin 0 .STK-MED ONE 04/17 1513 DC TOP Nitroglycerin 0.5 GM Q6 04/17 1354 04/18 TOP 0547 Nystatin 1 FERN TID 04/17 2200 04/18 TOP 0918 Ondansetron HCl 0 .STK-MED ONE 04/17 1501 DC .ROUTE Ondansetron HCl 4 MG Q6P PRN 04/17 1500 DC 04/17 IV 1457 Oxycodone HCl 5 MG Q6P PRN 04/17 1230 DC PO Sodium Chloride 1,000 ML Q13H 04/17 1400 04/18 IV 0354 Vital Signs & I&O Last 24 Hrs of Vitals and I&O: Vital Signs Date Time Temp Pulse Resp B/P B/P Pulse O2 O2 Flow FiO2 Mean Ox Delivery Rate 04/18 800 94 Nasal 6.0L Cannula 04/18 0800 99.0 66 30 118/65 94 Nasal 6.0L Cannula 04/18 0600 98.2 75 21 161/61 04/18 0400 98.2 82 82 138/82 / 0400 95 Nasal 6.0L Cannula 04/18 0000 98.4 78 20 124/68 07/ 0000 92 Nasal 6.0L Cannula 04/18 0000 98.4 78 20 124/68 92 Nasal 6.0L Cannula 04/17 2306 74 23 159/93 / 2200 97.0 78 25 139/70 071999 97.6 78 30 148/72 071999 95 Nasal 6.0L Cannula 04/17 1900 98.4 74 20 118/0 96 Nasal 6.0L Cannula 04/17 1830 98.4 80 20 137/67 07/08 1830 95 Nasal 6.0L Cannula 04/17 1759 19 100 Nasal 6.0L Cannula 04/17 1716 99.8 81 22 162/79 95 Nasal 5.0L Cannula 04/17 1624 87 20 99 BIPAP 100% / 1527 88 91 07/08 1503 89 07/08 1502 88 91 /08 1409 94 22 185/110 92 BIPAP 04/17 1351 94 22 149/89 90 Non 10L ReBreather 04/17 1258 92 Non 10L ReBreather 04/17 1258 88 Nasal 6.0L Cannula 04/17 1238 87 20 157/82 93 Nasal 4.0L Cannula Intake & Output 04/18 1600 04/18 0800 04/18 0000 Intake Total 1208 829.6 Output Total 200 200 Balance 1008 629.6 Intake, IV 1208 829.6 Intake, Oral 0 0 Number 0 0 Bowel Movements Output, Urine 200 200 Patient 305 lb Weight Weight Bed scale Measurement Method Physical Exam General Appearance: lethargic but awake, no distress, obese Head: atraumatic Neck: supple Respiratory: chest non-tender, decreased breath sounds Cardiovascular: regular rate/rhythm Gastrointestinal: soft, non-tender, obese Extremities: no edema Results Last 24 Hrs of Lab Results: Laboratory Tests 04/18/17 0840: RBC 4.09 L, MCV 95.7, MCH 31.5 H, RDW 13.4, MPV 9.1, Gran % 82.6 H, Lymphocytes % 10.5 L, Monocytes % 6.6, Eosinophils % 0.1, Basophils % 0.2, Absolute Granulocytes 8.3 H, Absolute Lymphocytes 1.1 L, Absolute Monocytes 0.7 H, Absolute Eosinophils 0, Absolute Basophils 0, PUBS MCHC 32.9 L 04/18/17 0605: Troponin I Cancelled 04/18/17 0605: Anion Gap 10, Estimated GFR 17 L, Glucose 149 H, Calcium 8.2 L, Phosphorus 4.5, Magnesium 2.1, Total Bilirubin 0.8, AST 967 H, ALT 213 H, Troponin I 7.35 *H, Albumin 3.7 04/18/17 0311: APTT 83 H 04/18/17 0202: Lactic Acid Cancelled 04/18/17 0000: Troponin I Cancelled 04/17/17 2340: Lactic Acid 2.0 04/17/17 2340: Anion Gap 11, Estimated GFR 17 L, Glucose 171 H, Calcium 8.3 L, Phosphorus 4.9 H, Magnesium 1.8, Total Bilirubin 0.6, AST 979 H, ALT 231 H, Troponin I 10.90 *H, Albumin 3.8 04/17/17 2320: Sodium Cancelled, Potassium Cancelled, Chloride Cancelled, Carbon Dioxide Cancelled, Anion Gap Cancelled, BUN Cancelled, Creatinine Cancelled, Glucose Cancelled, Calcium Cancelled, Phosphorus Cancelled, Magnesium Cancelled, Total Bilirubin Cancelled, AST Cancelled, ALT Cancelled, Albumin Cancelled 04/17/17 2135: pH 7.33 L, pCO2 42, pO2 64 L, HCO3 22, ABG O2 Sat (Measured) 91.0 L, P-50 ( Temp Corrected) Y, Carboxyhemoglobin 0.6 L, O2 Concentration % 6L, Temperature 98.0, O2 Delivery Method NC, Phlebotomy Draw Site RIGHT RADIAL 04/17/17 1945: APTT 60 H 04/17/17 1850: Lactic Acid 2.6 H 04/17/17 1835: Troponin I 10.40 *H 04/17/17 1720: pH 7.29 *L, pCO2 45, pO2 64 L, HCO3 21, ABG O2 Sat (Measured) 91.0 L, P-50 ( Temp Corrected) Y, Carboxyhemoglobin 0.2 L, O2 Concentration % 6L, Temperature 98.2, O2 Delivery Method NC, Phlebotomy Draw Site RIGHT RADIAL 04/17/17 1325: pH 7.17 *L, pCO2 62 *H, pO2 78 L, HCO3 22, ABG O2 Sat (Measured) 94.0 L, P-50 (Temp Corrected) Y, Carboxyhemoglobin 0.6 L, O2 Concentration % 100%, Temperature 96.6 L, O2 Delivery Method NRB, Phlebotomy Draw Site RIGHT RADIAL Diagnostic Data CXR Findings: Limited exam. Low lung volumes. Increased density at the lung bases questionable for atelectasis/consolidation or effusion versus changes related to overlying soft tissues and low lung volumes. This could be better evaluated with a lateral chest x-ray. Distended bowel below the left hemidiaphragm. US Findings: Normal triplex scan without evidence of deep venous thrombosis involving the lower extremities. Incidental Funes's cyst. Impression/Plan Impression/Plan Impression/Plan: 1. Acute hypoxemic respiratory failure, with aspiration pneumonia on CXR, with bilateral consolidation.l 2. Mental status changes; possible methadone overdose. 3. Elevated troponin; rule out acute coronary syndrome. 4. History of CAD. 5. Hypothyroid. 6. Acute renal insufficiency. 7. Transaminitis. 8. Hearing loss. Recommendations: * Check a renal ultrasound. * Consult nephrology. * Follow up cultures. * Continue clindamycin pending cultures. * Replace electrolytes as needed. * Synthroid replacement as per endocrine. * ASA/metoprolol as per cardiology. * Continue all supportive care.
--- NOTE | 2017-04-18 14:26 | NUR ---
PT UO FOR SHIFT = 100ML, NOTIFIED, WILL CONT TO MON.
--- NOTE | 2017-04-18 14:55 | ULTRASOUND REPORT ---
EXAMINATION: US RETROPERITONEAL COMPLETE (RENAL) CLINICAL INFORMATION: Elevated creatinine. Assess for obstruction. COMPARISON: 04/17/2017 TECHNIQUE: Real-time imaging of the kidneys and bladder. FINDINGS: RIGHT KIDNEY: 12.4 x 5.8 x 4.9 cm (SAG x AP x TRV). The kidney is normal in size, contour, and echogenicity. Renal cortical thickness is normal. No calculi or focal parenchymal lesions. No hydronephrosis. LEFT KIDNEY: 11.5 x 7.0 x 6.4 cm (SAG x AP x TRV). The kidney is normal in size, contour, and echogenicity. Renal cortical thickness is normal. No calculi or focal parenchymal lesions. No hydronephrosis. BLADDER: Ames catheter in place. Bladder is decompressed. IMPRESSION: Limited portable exam demonstrating no evidence of any hydronephrosis or focal abnormality.
[2017-04-18 17:17] LABS: PTT 97 SEC (25-37)
--- NOTE | 2017-04-18 17:22 | NUR ---
PT FOUND UNRESPONSIVE WITH PUPILS PINPOINT, NO ANSWER TO VERBAL OR TACTILE STIMULI, MD AND RT NOTIFIED, PT 87% on 6LNC, HR IN 70'S, BP 150/70. PT GIVEN NARCAN X 2, PT NOW ALERT AND ORIENTED, PT FAMILY HAD JUST LEFT PRIOR TO FINDING PT UNRESPONSIVE, QUESTIONABLE THAT FAMILY GAVE PT NARCOTICS, UTOX DONE, EKG AND CXRAY ORDERED. PT CLAIMS SHE HAS NOT TAKEN ANYTHING FROM ANY OUTSIDE SOURCE, MD AWARE, NATURAL RESOURCE OFFICER AWARE. NARCAN GTT ORDERED, WILL CONT TO MON.
--- NOTE | 2017-04-18 17:59 | RADIOLOGY REPORT ---
EXAMINATION: XR PORTABLE CHEST CLINICAL INFORMATION: Sudden onset of altered mental status. COMPARISON: 04/17/2017 TECHNIQUE: Portable frontal view of the chest was obtained. FINDINGS: Patient has a large body habitus. There are linear opacities of discoid atelectasis in each midlung zone. No acute pulmonary edema, consolidation, pleural effusion or pneumothorax. Again noted is the large cardiomediastinal silhouette with prominent paracardiac fat pads. There is anterior fusion hardware in the lower cervical spine. Neural stimulator leads project over the mid to lower thoracic spine. IMPRESSION: 1. Cardiomegaly without pulmonary edema. 2. Discoid atelectasis is present in the right and left mid lung zones. 3. No overt pneumonia.
--- NOTE | 2017-04-18 18:15 | Event Note ---
Event Note Event Note: Pt was unresponsive around 5 PM, and last time she was normal was less than 10- 15 min prior to the incident. She was given narcan 0.4mg x2, and oxygen saturation improved from 70's-->95 %. She was alert and oriented to time place and person. At the time of incident, she had pin point pupils, and was unresponsive. Lung sounds were not present, heart sounds normal. After narcan was administered, and oxgen was delivered through bag mask, she became alert and oriented. She was found to have nasal bleed in left side, likely from nasal canula. Lungs sounds abnormal, w/ wheezes. Vitals stable, and O2 sat was above 95pc. EKG revealed non specific T wave changes, similar to previous EKG. Lab tests- BEP, troponins, and CXR ordered to rule out any pulmonay edema. Narcan drip was restarted. Informed the attending physician. 1:[address], and all opiate medications discontniued. CXR did not reveal any pulmonary edema. Utoxicology was added, since there was a concern of the pt taking any opiates that were not prescribed in the hospital, which was positive for methadone; methadone in urine is likely from previous overdose. Around 7 PM: Discussed with Dr. Cordero about the PRAFUL, likely due to ATN secondary to pre-renal causes.
--- NOTE | 2017-04-18 20:35 | NUR ---
PATIENT DROWSY BUT AROUSABLE. WAKES TO GENTLE SHAKING AND NAME CALL.WILL ANSWER QUESTIONS BUT NEEDS PROMPTING ON SOME ANSWERS. ONCE AWAKE FOR AWHILE MORE FORTHCOMING. ASKED IF SHE FEELS GROGGY SHE ANSWERS "I AM JUST TIRED". NARCAN DRIP AT 0.25 MG/HR.MONITOR SINUS RHYTHM AT RATE OF 74.BI=463/70.O2 SAT=97% ON 6L.DECREASED TO 5L.HEPARIN DRIP CONTINUES.
--- NOTE | 2017-04-18 23:33 | NUR ---
PATIENT REPOSITIONED TO GIVE EVENING MEDS.C/O RIB PAIN AND MID CHEST PAIN.SHE STATES PAIN IS DECREASES WHEN SHE LIES ON HER SIDE.C/O PAIN IN BUTTOCKS WHEN SHE LIES ON HER BACK.PO TYLENOL GIVEN,ALOE VERA CREAM TO BUTTOCKS.PATIENT ALERT AND ORIENTED X3.FALLS OFF TO SLEEP READILY,AWAKENS TO TACTILE STIMULI.ASHLEY.MOVES ALL EXTREMITIES TO COMMAND. NARCAN DRIP CONTINUES AT 0.25 MG/HR.
[2017-04-19] VITALS (11 sets, daily range): BP systolic 98–133; BP diastolic 50–70
[2017-04-19 00:58] LABS: PTT 49 SEC (25-37)
[2017-04-19 04:53] LABS: ABSOLUTE BASOPHIL COUNT 0 /CUMM (0.0-0.2); ABSOLUTE EOSINOPHIL COUNT 0 /CUMM (0.0-0.7); ABSOLUTE LYMPH COUNT 1.3 /CUMM (1.2-3.4); ABSOLUTE MONOCYTE COUNT 0.6 /CUMM (0.10-0.60); BASOPHIL % 0.3 % (0.0-2.0); EOSINOPHIL % 0.1 % (0-5); GRANULOCYTE % 80.6 % (42.2-75.2); MEAN CORPUSCULAR HGB 31.9 PG (27.0-31.0); MEAN CORPUSCULAR HGB CONC 33.7 G/DL (33.0-37.0); MEAN CORPUSCULAR VOLUME 94.5 FL (81.0-99.0); MEAN PLATELET VOLUME 9.2 FL (7.4-10.4); PLATELET COUNT 122 /CUMM (130-400); RBC DISTRIBUTION WIDTH 13.6 % (11.5-14.5); RED BLOOD CELL CT 3.46 /CUMM (4.20-5.40); WHITE BLOOD CELL COUNT 9.9 /CUMM (4.8-10.8)
--- NOTE | 2017-04-19 04:53 | PN- Psychiatry ---
Assessment/Plan Impression: 61 yo WWF with hx of bipolar disorder, anxiety, PTSD, h/o EtOH use disorder, h/o benzo use disorder per chart, and diverting sons take-home methadone for her back pain management. Medically, pt with chronic LBP/neck pain, CAD s/p 4 stents in 2010, hypothyroidism, HTN. At this time, pt is in the ICU under care for OD, NSTEMI, PRAFUL and hepatic injury. Not able to inteview pt today d/t lethargy. Suggestion: -cont plan, holding psych meds -Psych will follow, will need further interview to clarify details with pt when she is more able to sustain conversation -please call consult service with questions Subjective Subjective: Pt unable to sustain conversation with short story writer today, lethargic and would not remain awake to talk. Objective Last 24 Hrs of Vital Signs/I&O Pt in bed in ICU, room darkened, pt sleeping but roused briefly to touch (deaf) . NAD. Current Medications Sig/Mary Start time Last Medication Dose Stop Time Status Admin Acetaminophen 1,000 MG Q8 PRN 04/17 1700 AC (Ofirmev) N/A 1 UNIT (No Carrier) Acetaminophen 325 MG Q6P PRN / 1230 AC 04/18 (Tylenol) 2302 Aspirin 81 MG DAILY 04/17 1354 AC 04/18 (Aspirin) 0918 Atorvastatin Calcium 40 MG 1700 04/17 1700 AC 04/18 (Lipitor) 1740 Clindamycin 300 MG Q8H 04/18 0400 AC 04/19 (Cleocin) 0342 Dextrose/Water 50 ML (D5W) Heparin Sodium 25,000 UNIT Q24H / 1300 AC 04/18 (Porcine) 1508 (Heparin) Sodium Chloride 500 ML Levothyroxine Sodium 0.025 MG DAILY AC 04/18 1115 AC 04/18 (Synthroid) 1740 Lorazepam 1 MG Q1P PRN 04/17 1415 AC (Ativan) Metoclopramide HCl 10 MG Q6P PRN / 1645 AC (Reglan) Metoprolol Tartrate 12.5 MG BID 04/17 1354 AC 04/18 (Lopressor) 2236 Naloxone HCl 4 MG Q24H 04/18 1715 AC 04/18 (Narcan Drip 4MG/ 1754 10ML) Dextrose/Water 1,000 ML (D5W 1000) Nitroglycerin 0.5 GM Q6 04/17 1354 AC 04/18 (Nitro-Bid) 2315 Nystatin 1 FERN TID 04/17 2200 AC 04/18 (Mycostatin) 2244 Sodium Chloride 1,000 ML Q10H 04/18 1830 04/19 (Normal Saline 0.9%) 0345 Vital Signs Date Time Temp Pulse Resp B/P B/P Pulse O2 O2 Flow FiO2 Mean Ox Delivery Rate 04/186 74 22 136/80 04/180 97.2 68 20 97/56 04/18 2000 99.0 74 24 110/70 04/18 2000 97 Nasal 6.0L Cannula 04/18 1722 93 Nasal 6.0L Cannula 04/18 1600 94 Nasal 6.0L Cannula 04/18 1600 97.2 72 23 120/70 94 Nasal 6.0L Cannula 04/18 1252 Nasal 6.0L Cannula 04/18 1200 90 Nasal 6.0L Cannula 04/18 0800 94 Nasal 6.0L Cannula 04/18 0800 99.0 66 30 118/65 94 Nasal 6.0L Cannula 04/18 0600 98.2 75 21 161/61 Laboratory Tests 04/19 04/19 04/18 04/18 0423 0015 1710 1630 Chemistry Sodium (137 - 145 mmol/L) Pending 135 L Cancelled 136 L Potassium (3.5 - 5.1 mmol/L) Pending 4.2 Cancelled 5.4 H Chloride (98 - 107 mmol/L) Pending 105 Cancelled 103 Carbon Dioxide (22 - 30 mmol/L) Pending 22 Cancelled 25 Anion Gap (5 - 16) Pending 8 Cancelled 9 BUN (7 - 17 mg/dL) Pending 39 H Cancelled 43 H Creatinine (0.5 - 1.0 mg/dL) Pending 3.2 H Cancelled 3.5 H Estimated GFR (>60 ml/min) 15 L 13 L BUN/Creatinine Ratio (7 - 25 %) Pending 12.2 Cancelled 12.3 Creatine Kinase (30 - 135 U/L) Pending > 30503 H Troponin I (< 0.11 ng/ml) 4.02 *H TSH Pending Free T4 Pending Coagulation APTT (25 - 37 SEC) 49 H 97 H Hematology CBC w Diff Pending WBC Pending RBC Pending Hgb Pending Hct Pending MCV Pending MCH Pending RDW Pending Plt Count Pending MPV Pending PUBS MCHC Pending 04/18 04/18 04/18 1200 1200 0840 Hematology WBC (4.8 - 10.8 /CUMM) 10.1 RBC (4.20 - 5.40 /CUMM) 4.09 L Hgb (12.0 - 16.0 G/DL) 12.9 Hct (37 - 47 %) 39.1 MCV (81.0 - 99.0 FL) 95.7 MCH (27.0 - 31.0 PG) 31.5 H RDW (11.5 - 14.5 %) 13.4 Plt Count (130 - 400 /CUMM) 138 MPV (7.4 - 10.4 FL) 9.1 Gran % (42.2 - 75.2 %) 82.6 H Lymphocytes % (20.5 - 51.1 %) 10.5 L Monocytes % (1.7 - 9.3 %) 6.6 Eosinophils % (0 - 5 %) 0.1 Basophils % (0.0 - 2.0 %) 0.2 Absolute Granulocytes (1.4 - 6.5 /CUMM) 8.3 H Absolute Lymphocytes (1.2 - 3.4 /CUMM) 1.1 L Absolute Monocytes (0.10 - 0.60 /CUMM) 0.7 H Absolute Eosinophils (0.0 - 0.7 /CUMM) 0 Absolute Basophils (0.0 - 0.2 /CUMM) 0 PUBS MCHC (33.0 - 37.0 G/DL) 32.9 L Toxicology Urine Opiates Screen (>2000 NG/ML) < 100.00 Methadone Screen (>300 NG/ML) > 735 H Barbiturate Screen (>200 NG/ML) < 60 Ur Phencyclidine Scrn (>25 NG/ML) < 6.00 Amphetamines Screen (>1000 NG/ML) < 100 U Benzodiazepines Scrn (>200 NG/ML) < 85 Urine Cocaine Screen (>300 NG/ML) < 50 Urine Cannabis Screen (>50 NG/ML) < 5.00 Urines Urinalysis LIGHT H Urine Color (YEL,AMB,STR) YEL Urine Clarity (CLEAR) CLDY H Urine pH (5.0 - 8.0) 6.0 Ur Specific Joiner (1.001 - 1.035) >= 1.030 Urine Protein (NEG,<30 MG/DL) 100 H Urine Ketones (NEG) NEG Urine Nitrite (NEG) NEG Urine Bilirubin (NEG) NEG@ICTO Urine Urobilinogen (0.1 - 1.0 EU/dl) 0.2 Ur Leukocyte Esterase (NEG) SMALL H Ur Microscopic SEDIMENT EXAMINED Urine RBC (0 - 5 /HPF) 25-50 H Urine WBC (0 - 2 /HPF) 25-50 H Ur Epithelial Cells (NONE,FEW) FEW Urine Bacteria (NEG/NONE) MANY H Granular Casts (NONE /LPF) > 75 H Urine Mucus (FEW,NONE) FEW Urine Hemoglobin (NEG) LARGE H Ur Random Creatinine (mg/dL) 229.9 U Random Total Protein (0 - 12 mg/dL) 196 H Protein/Creatinin Ratio (< 0.2) 0.8 H Urine Glucose (N MG/DL) 100 H 04/18 07/ 0605 0605 Chemistry Sodium (137 - 145 mmol/L) 133 L Potassium (3.5 - 5.1 mmol/L) 4.9 Chloride (98 - 107 mmol/L) 102 Carbon Dioxide (22 - 30 mmol/L) 21 L Anion Gap (5 - 16) 10 BUN (7 - 17 mg/dL) 35 H Creatinine (0.5 - 1.0 mg/dL) 2.8 H Estimated GFR (>60 ml/min) 17 L Glucose (65 - 99 mg/dL) 149 H Calcium (8.4 - 10.2 mg/dL) 8.2 L Phosphorus (2.5 - 4.5 mg/dL) 4.5 Magnesium (1.6 - 2.3 mg/dL) 2.1 Total Bilirubin (0.2 - 1.3 mg/dL) 0.8 AST (14 - 36 U/L) 967 H ALT (9 - 52 U/L) 213 H Troponin I (< 0.11 ng/ml) Cancelled 7.35 *H Albumin (3.5 - 5.0 g/dL) 3.7
[2017-04-19 04:58] LABS: HEMATOCRIT 32.7 % (37-47)
--- NOTE | 2017-04-19 07:34 | Cons- Nephrology ---
General Information and HPI Consulting Request Date of Consult: 04/19/17 Requested By: SANDOVAL DOTSON,ARIEL Reason for Consult: PRAFUL Source of Information: patient, family, old records Exam Limitations: no limitations History of Present Illness: 61 yr old WF w mult med problems including morbid obesity, HTN, CAD, bipolar disorder, & chronic pain syndrome admit 04/17/17 after being found unresponsive at home due to opiate overdose. Found to have hypercapnic & hypoxic resp failure w aspiration pneumonia & UTI requiring broad spectrum antibiotics. Baseline mormal renal funcon w Cr < 1 earlier this spring & Cr elevated 2.5 on admit w continued rise & borderline oliguria. Subsequent evaluation significant for markedly elevated TPN, transaminases, & CK. No documented hypotension per se; no record ACEI, ARB, IV contrast. Admits to NSAID use at home; no hx Li. Allergies/Medications Allergies: Coded Allergies: Penicillins (Severe, TONGUE SWELLING 01/02/16) Home Med List: Gabapentin 300 MG CAPSULE 1 CAP PO TID UNKNOWN (Reported) Lurasidone HCl (Latuda) 20 MG TABLET 1 TAB PO DAILY MENTAL HEALTH (Reported) Current Medications: Current Medications Sig/Mary Start time Last Medication Dose Route Stop Time Status Admin Acetaminophen 650 MG .STK-MED ONE 04/18 2256 DC PO 04/18 2257 Acetaminophen 1,000 MG Q8 PRN 04/17 1700 AC N/A 1 UNIT IV Acetaminophen 325 MG Q6P PRN 04/17 1230 AC 04/18 PO 2302 Albuterol Sulfate 3 ML ONCE ONE 04/18 1715 DC 04/18 INH 04/18 1716 1717 Aspirin 81 MG DAILY 04/17 1354 AC 04/18 PO 0918 Atorvastatin Calcium 40 MG 1700 04/17 1700 AC 04/18 PO 1740 Clindamycin 300 MG Q8H 04/18 0400 AC 04/19 Dextrose/Water 50 ML IV 0342 Heparin Sodium 4,140 UNIT BOLUS ONE 04/19 0330 DC 04/19 (Porcine) IV 04/19 0331 0344 Heparin Sodium 25,000 UNIT Q24H 04/17 1300 AC 04/18 (Porcine) IV 1508 Sodium Chloride 500 ML Levothyroxine Sodium 0.025 MG DAILY AC 04/18 1115 AC 04/18 PO 1740 Lorazepam 1 MG Q1P PRN 04/17 1415 AC IV Metoclopramide HCl 10 MG Q6P PRN 04/17 1645 AC IV Metoprolol Tartrate 12.5 MG BID 04/17 1354 AC 04/18 PO 2236 Naloxone HCl 4 MG Q24H 04/18 1715 AC / Dextrose/Water 1,000 ML IV 1754 Naloxone HCl 0.4 MG ONCE ONE 04/18 1700 DC 07/ IV 04/18 1701 1722 Naloxone HCl 0.4 MG ONCE ONE 04/18 1700 DC 07/ IV 04/18 1701 1722 Naloxone HCl 4 MG Q24H / 1445 DC / Dextrose/Water 1,000 ML IV 1610 Nitroglycerin 0.5 GM Q6 04/17 1354 AC 04/19 TOP 0710 Nystatin 1 FERN TID 04/17 2200 AC 04/18 TOP 2244 Sodium Chloride 1,000 ML Q10H 04/18 1830 AC 04/19 IV 0345 Sodium Chloride 1,000 ML Q13H / 1400 DC 04/18 IV 1508 Review of Systems Review of Systems Constitutional: Reports: no symptoms. EENTM: Reports: no symptoms. Cardiovascular: Reports: no symptoms. Respiratory: Reports: no symptoms. GI: Reports: no symptoms. Genitourinary: Reports: no symptoms. Musculoskeletal: Reports: back pain. Skin: Reports: no symptoms. Neurological/Psychological: Reports: no symptoms. Hematologic/Endocrine: Reports: no symptoms. Immunologic/Allergic: Reports: no symptoms. 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 Home Who Do You Live With? child Services at Home: None Smoking Status: Former Smoker ETOH Use: occasional use Exam & Diagnostic Data Vital Signs and I&O Vital Signs Date Time Temp Pulse Resp B/P B/P Pulse O2 O2 Flow FiO2 Mean Ox Delivery Rate 04/18 2236 74 22 136/80 04/18 2200 97.2 68 20 97/56 04/18 2000 99.0 74 24 110/70 04/18 2000 97 Nasal 6.0L Cannula 04/18 1722 93 Nasal 6.0L Cannula 04/18 1600 94 Nasal 6.0L Cannula 04/18 1600 97.2 72 23 120/70 94 Nasal 6.0L Cannula 04/18 1252 Nasal 6.0L Cannula 04/18 1200 90 Nasal 6.0L Cannula 04/18 0800 94 Nasal 6.0L Cannula 04/18 08 99.0 66 30 118/65 94 Nasal 6.0L Cannula Intake & Output 04/19 0400 04/18 0400 04/17 0400 Intake Total 1527 2616.2 829.6 1000 Output Total 100 300 200 30 Balance 1427 2316.2 629.6 970 Intake, IV 1227 2216.2 829.6 1000 Intake, Oral 300 400 0 Number 0 0 Bowel Movements Output, Urine 100 300 200 30 Patient 305 lb 300 lb Weight Weight Bed scale Estimated Measurement Method Physical Exam General Appearance: alert, awake, obese Head: atraumatic, normal appearance Eyes: Bilateral: normal appearance. 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 Skin: intact, normal color, warm/dry Lymphatic: no anterior cervical zackary, no axillary adenopathy Results Pertinent Lab Results: Laboratory Tests 04/19 04/19 04/19 06 0423 0015 Chemistry Sodium (137 - 145 mmol/L) 133 L 135 L Potassium (3.5 - 5.1 mmol/L) 4.3 4.2 Chloride (98 - 107 mmol/L) 103 105 Carbon Dioxide (22 - 30 mmol/L) 21 L 22 Anion Gap (5 - 16) 9 8 BUN (7 - 17 mg/dL) 42 H 39 H Creatinine (0.5 - 1.0 mg/dL) 3.5 H 3.2 H Estimated GFR (>60 ml/min) 13 L 15 L BUN/Creatinine Ratio (7 - 25 %) 12.0 12.2 Creatine Kinase (30 - 135 U/L) 39639 H TSH (0.270 - 4.200 uIU/mL) Cancelled 6.660 H Free T4 (0.78 - 2.44 ng/dL) Cancelled 0.64 L Coagulation APTT (25 - 37 SEC) 49 H Hematology CBC w Diff NO MAN DIFF REQ WBC (4.8 - 10.8 /CUMM) 9.9 RBC (4.20 - 5.40 /CUMM) 3.46 L Hgb (12.0 - 16.0 G/DL) 11.0 L Hct (37 - 47 %) 32.7 L MCV (81.0 - 99.0 FL) 94.5 MCH (27.0 - 31.0 PG) 31.9 H RDW (11.5 - 14.5 %) 13.6 Plt Count (130 - 400 /CUMM) 122 L MPV (7.4 - 10.4 FL) 9.2 Gran % (42.2 - 75.2 %) 80.6 H Lymphocytes % (20.5 - 51.1 %) 13.2 L Monocytes % (1.7 - 9.3 %) 5.8 Eosinophils % (0 - 5 %) 0.1 Basophils % (0.0 - 2.0 %) 0.3 Absolute Granulocytes (1.4 - 6.5 /CUMM) 8.0 H Absolute Lymphocytes (1.2 - 3.4 /CUMM) 1.3 Absolute Monocytes (0.10 - 0.60 /CUMM) 0.6 Absolute Eosinophils (0.0 - 0.7 /CUMM) 0 Absolute Basophils (0.0 - 0.2 /CUMM) 0 PUBS MCHC (33.0 - 37.0 G/DL) 33.7 04/18 04/18 04/18 1710 1630 1200 Chemistry Sodium (137 - 145 mmol/L) Cancelled 136 L Potassium (3.5 - 5.1 mmol/L) Cancelled 5.4 H Chloride (98 - 107 mmol/L) Cancelled 103 Carbon Dioxide (22 - 30 mmol/L) Cancelled 25 Anion Gap (5 - 16) Cancelled 9 BUN (7 - 17 mg/dL) Cancelled 43 H Creatinine (0.5 - 1.0 mg/dL) Cancelled 3.5 H Estimated GFR (>60 ml/min) 13 L BUN/Creatinine Ratio (7 - 25 %) Cancelled 12.3 Creatine Kinase (30 - 135 U/L) > 35166 H Troponin I (< 0.11 ng/ml) 4.02 *H Coagulation APTT (25 - 37 SEC) 97 H Urines Ur Random Creatinine (mg/dL) 229.9 U Random Total Protein (0 - 12 mg/dL) 196 H Protein/Creatinin Ratio (< 0.2) 0.8 H 04/18 04/18 04/18 1200 0840 0605 Chemistry Troponin I Cancelled Hematology WBC (4.8 - 10.8 /CUMM) 10.1 RBC (4.20 - 5.40 /CUMM) 4.09 L Hgb (12.0 - 16.0 G/DL) 12.9 Hct (37 - 47 %) 39.1 MCV (81.0 - 99.0 FL) 95.7 MCH (27.0 - 31.0 PG) 31.5 H RDW (11.5 - 14.5 %) 13.4 Plt Count (130 - 400 /CUMM) 138 MPV (7.4 - 10.4 FL) 9.1 Gran % (42.2 - 75.2 %) 82.6 H Lymphocytes % (20.5 - 51.1 %) 10.5 L Monocytes % (1.7 - 9.3 %) 6.6 Eosinophils % (0 - 5 %) 0.1 Basophils % (0.0 - 2.0 %) 0.2 Absolute Granulocytes (1.4 - 6.5 /CUMM) 8.3 H Absolute Lymphocytes (1.2 - 3.4 /CUMM) 1.1 L Absolute Monocytes (0.10 - 0.60 /CUMM) 0.7 H Absolute Eosinophils (0.0 - 0.7 /CUMM) 0 Absolute Basophils (0.0 - 0.2 /CUMM) 0 PUBS MCHC (33.0 - 37.0 G/DL) 32.9 L Toxicology Urine Opiates Screen (>2000 NG/ML) < 100.00 Methadone Screen (>300 NG/ML) > 735 H Barbiturate Screen (>200 NG/ML) < 60 Ur Phencyclidine Scrn (>25 NG/ML) < 6.00 Amphetamines Screen (>1000 NG/ML) < 100 U Benzodiazepines Scrn (>200 NG/ML) < 85 Urine Cocaine Screen (>300 NG/ML) < 50 Urine Cannabis Screen (>50 NG/ML) < 5.00 Urines Urinalysis LIGHT H Urine Color (YEL,AMB,STR) YEL Urine Clarity (CLEAR) CLDY H Urine pH (5.0 - 8.0) 6.0 Ur Specific Mclean (1.001 - 1.035) >= 1.030 Urine Protein (NEG,<30 MG/DL) 100 H Urine Ketones (NEG) NEG Urine Nitrite (NEG) NEG Urine Bilirubin (NEG) NEG@ICTO Urine Urobilinogen (0.1 - 1.0 EU/dl) 0.2 Ur Leukocyte Esterase (NEG) SMALL H Ur Microscopic SEDIMENT EXAMINED Urine RBC (0 - 5 /HPF) 25-50 H Urine WBC (0 - 2 /HPF) 25-50 H Ur Epithelial Cells (NONE,FEW) FEW Urine Bacteria (NEG/NONE) MANY H Granular Casts (NONE /LPF) > 75 H Urine Mucus (FEW,NONE) FEW Urine Hemoglobin (NEG) LARGE H Urine Glucose (N MG/DL) 100 H 04/18 04/18 04/18 04/18 04/17 0605 0311 0202 0000 2340 Chemistry Sodium (137 - 145 mmol/L) 133 L Potassium (3.5 - 5.1 mmol/L) 4.9 Chloride (98 - 107 mmol/L) 102 Carbon Dioxide (22 - 30 mmol/L) 21 L Anion Gap (5 - 16) 10 BUN (7 - 17 mg/dL) 35 H Creatinine (0.5 - 1.0 mg/dL) 2.8 H Estimated GFR (>60 ml/min) 17 L Glucose (65 - 99 mg/dL) 149 H Lactic Acid (0.7 - 2.1 mmol/L) Cancelled 2.0 Calcium (8.4 - 10.2 mg/dL) 8.2 L Phosphorus (2.5 - 4.5 mg/dL) 4.5 Magnesium (1.6 - 2.3 mg/dL) 2.1 Total Bilirubin (0.2 - 1.3 mg/dL) 0.8 AST (14 - 36 U/L) 967 H ALT (9 - 52 U/L) 213 H Troponin I (< 0.11 ng/ml) 7.35 *H Cancelled Albumin (3.5 - 5.0 g/dL) 3.7 Coagulation APTT (25 - 37 SEC) 83 H 04/17 04/17 04/17 04/17 2340 2320 2135 1945 Blood Gas pH (7.35 - 7.45 PH) 7.33 L pCO2 (35 - 45 TORR) 42 pO2 (80 - 100 TORR) 64 L HCO3 (21 - 28 MEQ/L) 22 ABG O2 Sat (Measured) (>96.0 %) 91.0 L P-50 (Temp Corrected) Y Carboxyhemoglobin (1.5 - 5.0 %) 0.6 L O2 Concentration % 6L Temperature (97.0 - 100.0 FARH) 98.0 O2 Delivery Method NC Chemistry Sodium (137 - 145 mmol/L) 137 Cancelled Potassium (3.5 - 5.1 mmol/L) 4.7 Cancelled Chloride (98 - 107 mmol/L) 103 Cancelled Carbon Dioxide (22 - 30 mmol/L) 23 Cancelled Anion Gap (5 - 16) 11 Cancelled BUN (7 - 17 mg/dL) 32 H Cancelled Creatinine (0.5 - 1.0 mg/dL) 2.8 H Cancelled Estimated GFR (>60 ml/min) 17 L Glucose (65 - 99 mg/dL) 171 H Cancelled Calcium (8.4 - 10.2 mg/dL) 8.3 L Cancelled Phosphorus (2.5 - 4.5 mg/dL) 4.9 H Cancelled Magnesium (1.6 - 2.3 mg/dL) 1.8 Cancelled Total Bilirubin (0.2 - 1.3 mg/dL) 0.6 Cancelled AST (14 - 36 U/L) 979 H Cancelled ALT (9 - 52 U/L) 231 H Cancelled Creatine Kinase (30 - 135 U/L) > 45578 H Troponin I (< 0.11 ng/ml) 10.90 *H Albumin (3.5 - 5.0 g/dL) 3.8 Cancelled Coagulation APTT (25 - 37 SEC) 60 H Miscellaneous Phlebotomy Draw Site RIGHT RADIAL 0704/17 1850 1835 1720 1325 Blood Gas pH (7.35 - 7.45 PH) 7.29 *L 7.17 *L pCO2 (35 - 45 TORR) 45 62 *H pO2 (80 - 100 TORR) 64 L 78 L HCO3 (21 - 28 MEQ/L) 21 22 ABG O2 Sat (Measured) (>96.0 %) 91.0 L 94.0 L P-50 (Temp Corrected) Y Y Carboxyhemoglobin (1.5 - 5.0 %) 0.2 L 0.6 L O2 Concentration % 6L 100% Temperature (97.0 - 100.0 FARH) 98.2 96.6 L O2 Delivery Method NC NRB Chemistry Lactic Acid (0.7 - 2.1 mmol/L) 2.6 H Troponin I (< 0.11 ng/ml) 10.40 *H Miscellaneous Phlebotomy Draw Site RIGHT RADIAL RIGHT RADIAL 04/17 04/17 04/17 1157 0900 0800 Chemistry Troponin I (< 0.11 ng/ml) 4.51 *H Toxicology Urine Opiates Screen (>2000 NG/ML) < 100.00 Methadone Screen (>300 NG/ML) > 735 H Barbiturate Screen (>200 NG/ML) < 60 Ur Phencyclidine Scrn (>25 NG/ML) < 6.00 Amphetamines Screen (>1000 NG/ML) < 100 U Benzodiazepines Scrn (>200 NG/ML) < 85 Urine Cocaine Screen (>300 NG/ML) < 50 Urine Cannabis Screen (>50 NG/ML) < 5.00 Urines Urinalysis MOD H Urine Color (YEL,AMB,STR) BLDY H Urine Clarity (CLEAR) TURBD H Urine pH (5.0 - 8.0) 5.5 Ur Specific Mclean (1.001 - 1.035) >= 1.030 Urine Protein (NEG,<30 MG/DL) >=300 H Urine Ketones (NEG) NEG Urine Nitrite (NEG) POS H Urine Bilirubin (NEG) NEG@ICTO Urine Urobilinogen (0.1 - 1.0 EU/dl) 1.0 Ur Leukocyte Esterase (NEG) TRACE H Ur Microscopic SEDIMENT EXAMINED Urine RBC (0 - 5 /HPF) 10-15 H Urine WBC (0 - 2 /HPF) RARE Ur Epithelial Cells (NONE,FEW) MOD H Urine Bacteria (NEG/NONE) MANY H Urine Hemoglobin (NEG) LARGE H Urine Osmolality (300 - 1000 MOSM/KG) 355 Ur Random Creatinine (mg/dL) 124.2 Ur Random Sodium (30 - 90 mmol/L) 47 Ur Random Potassium (mmol/L) 75.7 Fraction Sodium Excret (<1% %) 0.7 Urine Glucose (N MG/DL) NEG 04/17 04/17 0757 0751 Chemistry Sodium (137 - 145 mmol/L) 145 Potassium (3.5 - 5.1 mmol/L) 5.3 H Chloride (98 - 107 mmol/L) 102 Carbon Dioxide (22 - 30 mmol/L) 23 Anion Gap (5 - 16) 21 H BUN (7 - 17 mg/dL) 19 H Creatinine (0.5 - 1.0 mg/dL) 2.5 H Estimated GFR (>60 ml/min) 20 L BUN/Creatinine Ratio (7 - 25 %) 7.6 Glucose (65 - 99 mg/dL) 93 Calcium (8.4 - 10.2 mg/dL) 9.8 Total Bilirubin (0.2 - 1.3 mg/dL) 0.6 AST (14 - 36 U/L) 226 H ALT (9 - 52 U/L) 80 H Alkaline Phosphatase (<127 U/L) 103 Troponin I (< 0.11 ng/ml) 0.37 *H Total Protein (6.3 - 8.2 g/dL) 8.0 Albumin (3.5 - 5.0 g/dL) 4.8 Globulin (1.9 - 4.2 gm/dL) 3.2 Albumin/Globulin Ratio (1.1 - 2.2 %) 1.5 TSH (0.270 - 4.200 uIU/mL) 35.100 H Thyroxine (T4) (4.5 - 10.9 ug/dL) 6.9 Thyroxine Binding Indx (23.5 - 40.5 % UPTAKE) 26.0 Coagulation PT (9.4 - 12.5 SEC) 11.4 INR (0.90 - 1.19) 1.09 APTT (25 - 37 SEC) 34 Hematology CBC w Diff MAN DIFF ORDERED WBC (4.8 - 10.8 /CUMM) 19.1 H RBC (4.20 - 5.40 /CUMM) 4.84 Hgb (12.0 - 16.0 G/DL) 15.2 Hct (37 - 47 %) 47.0 MCV (81.0 - 99.0 FL) 97.1 MCH (27.0 - 31.0 PG) 31.4 H RDW (11.5 - 14.5 %) 13.6 Plt Count (130 - 400 /CUMM) 238 MPV (7.4 - 10.4 FL) 8.0 Gran % (42.2 - 75.2 %) 86.1 H Lymphocytes % (20.5 - 51.1 %) 8.2 L Monocytes % (1.7 - 9.3 %) 5.6 Eosinophils % (0 - 5 %) 0.1 Basophils % (0.0 - 2.0 %) 0 L Absolute Granulocytes (1.4 - 6.5 /CUMM) 16.5 H Absolute Lymphocytes (1.2 - 3.4 /CUMM) 1.6 Absolute Monocytes (0.10 - 0.60 /CUMM) 1.1 H Absolute Eosinophils (0.0 - 0.7 /CUMM) 0 Absolute Basophils (0.0 - 0.2 /CUMM) 0 Normocytic RBCs VERIFIED Normochromic RBCs VERIFIED PUBS MCHC (33.0 - 37.0 G/DL) 32.3 L Toxicology Serum Alcohol (<10 MG/DL) < 10.0 Imaging/Other Studies: CXR: IMPRESSION: 1. Cardiomegaly without pulmonary edema. 2. Discoid atelectasis is present in the right and left mid lung zones. 3. No overt pneumonia. Renal US: RIGHT KIDNEY: 12.4 x 5.8 x 4.9 cm (SAG x AP x TRV). The kidney is normal in size, contour, and echogenicity. Renal cortical thickness is normal. No calculi or focal parenchymal lesions. No hydronephrosis. LEFT KIDNEY: 11.5 x 7.0 x 6.4 cm (SAG x AP x TRV). The kidney is normal in size, contour, and echogenicity. Renal cortical thickness is normal. No calculi or focal parenchymal lesions. No hydronephrosis. BLADDER: [place] catheter in place. Bladder is decompressed. Assessment/Plan Assessment/Recommendations Assessment: 1. PRAFUL: likely ATN due to rhabdo & prob hemodynamic insult in setting of hypoxic /hypercapnic resp failure, NSAIDs, & infection. No obstruction by US, & although has prob lower UTI by u/a, doubt pyelo. Can screen for GN & paraprotein but less likely. Drug induced AIN can't be excluded. No renal replacement indication at present time. Recommendations: 1. SPEP 2. C3 & C4 3. JON 4. ANCA 5. repeat renal function in AM
--- NOTE | 2017-04-19 08:03 | ECHOCARDIOGRAM REPORT ---
SHIVAM GREER Age: 61 : 1955 Gender: F Exam Date: 04/18/2017 08:17 Exam Location: [facility] Ht (in): 64 Wt (lb): 305 BSA: 2.59 BP: 161 / 61 Ordering Physician: MADALYN LAMAS MD Referring Physician: Leif Herron MD Technologist: Arti Duque MARQUITA Room Number: [id number] Indications: CHEST PAIN Rhythm: Sinus Technical Quality: fair FINDINGS Left Ventricle Left ventricular wall thickness mildly increased. Normal left ventricular ejection fraction estimated at 60-65%. Abnormal relaxation filling pattern of the left ventricle for age (stage 1 diastolic dysfunction). Right Ventricle Normal right ventricular size and function. Right Atrium Normal right atrial size. Left Atrium Mild left atrial dilatation. Mitral Valve Mitral valve not well visualized, grossly normal. Trace mitral regurgitation. Aortic Valve Aortic valve not well visualized, grossly normal. Tricuspid Valve Tricuspid valve not well visualized, grossly normal. Trace to mild tricuspid regurgitation. Right ventricular systolic pressure estimated to be within the normal range at 26 mmHg. Pulmonic Valve Pulmonic valve not well visualized, grossly normal. Pericardium No pericardial effusion. Great Vessels Normal size aortic root. CONCLUSIONS Normal left and right ventricular systolic function. Mild LVH and left atrial enlargement. No significant valvular abnormalities noted. Leif Herron M.D. (Electronically Signed) Final Date: 19 April 2017 08:02 MEASUREMENTS (Male / Female) Normal Values 2D ECHO LV Diastolic Diameter PLAX 5.3 cm 4.2 - 5.9 / 3.9 - 5.3 cm LV Systolic Diameter PLAX 3.5 cm 2.1 - 4.0 cm LV Fractional Shortening PLAX 34.0 % 25 - 46 % LV Ejection Fraction 2D Teich 62.4 % IVS Diastolic Thickness 1.2 cm LVPW Diastolic Thickness 1.2 cm LV Relative Wall Thickness 0.5 LVOT Diameter 2.4 cm Aortic Root Diameter 3.2 cm LA Systolic Diameter LX 4.5 cm 3.0 - 4.0 / 2.7 - 3.8 cm LA Volume 26.0 cm 18 - 58 / 22 - 52 cm Ascending Aorta Diameter 3.4 cm DOPPLER AV Peak Velocity 112.0 cm/s AV Peak Gradient 5.0 mmHg AV Mean Velocity 76.0 cm/s AV Mean Gradient 3.0 mmHg AV Velocity Time Integral 22.3 cm LVOT Peak Velocity 85.7 cm/s LVOT Peak Gradient 2.9 mmHg LVOT Mean Velocity 58.4 cm/s LVOT Mean Gradient 2.0 mmHg LVOT Velocity Time Integral 18.2 cm LVOT Stroke Volume 82.3 cm AV Area Cont Eq vti 3.7 cm AV Area Cont Eq pk 3.5 cm MV Peak Velocity 103.0 cm/s MV Peak Gradient 4.2 mmHg MV Mean Velocity 64.2 cm/s MV Mean Gradient 2.0 mmHg Mitral E Point Velocity 59.2 cm/s Mitral A Point Velocity 66.6 cm/s Mitral E to A Ratio 0.9 MV PHT Velocity 105.0 cm/s MV Deceleration Kings 512.0 cm/s MV Pressure Half Time 61.5 ms MV Area PHT 3.6 cm MV Deceleration Time 222.0 ms TR Peak Velocity 230.0 cm/s TR Peak Gradient 21.2 mmHg Right Atrial Pressure 5.0 mmHg Pulmonary Artery Systolic Pressu 26.2 mmHg Right Ventricular Systolic Press 26.2 mmHg PV Peak Velocity 86.9 cm/s PV Peak Gradient 3.0 mmHg PV Mean Velocity 62.2 cm/s PV Mean Gradient 2.0 mmHg PV Velocity Time Integral 20.0 cm LV E' Lateral Velocity 8.7 cm/s Mitral E to LV E' Lateral Ratio 6.8 LV E' Septal Velocity 7.3 cm/s Mitral E to LV E' Septal Ratio 8.1
--- NOTE | 2017-04-19 08:07 | PN- CRCU ---
Subjective HPI/Critical Care Issues: I saw the pt at bedside today. patient conscious, oriented x3, afebrile, comfortable at rest, not dyspneic,tachypneic. vitals stable. on heparin and narcan drip. Objective Current Medications: Current Medications Sig/Mary Start time Last Medication Dose Route Stop Time Status Admin Acetaminophen 650 MG .STK-MED ONE 04/18 2256 DC PO 04/18 2257 Acetaminophen 1,000 MG Q8 PRN 04/17 1700 AC N/A 1 UNIT IV Acetaminophen 325 MG Q6P PRN 04/17 1230 AC 04/18 PO 2302 Albuterol Sulfate 3 ML ONCE ONE 04/18 1715 DC 04/18 INH 04/18 1716 1717 Aspirin 81 MG DAILY 04/17 1354 AC 04/18 PO 0918 Atorvastatin Calcium 40 MG 1700 04/17 1700 AC 04/18 PO 1740 Clindamycin 300 MG Q8H 04/18 0400 AC 04/19 Dextrose/Water 50 ML IV 0342 Heparin Sodium 4,140 UNIT BOLUS ONE 04/19 0330 DC 04/19 (Porcine) IV 04/19 0331 0344 Heparin Sodium 25,000 UNIT Q24H / 1300 AC 04/18 (Porcine) IV 1508 Sodium Chloride 500 ML Levothyroxine Sodium 0.025 MG DAILY AC 04/18 1115 AC 04/18 PO 1740 Lorazepam 1 MG Q1P PRN 04/17 1415 AC IV Metoclopramide HCl 10 MG Q6P PRN 04/17 1645 AC IV Metoprolol Tartrate 12.5 MG BID 04/17 1354 AC 04/18 PO 2236 Naloxone HCl 4 MG Q24H 04/18 1715 AC 04/18 Dextrose/Water 1,000 ML IV 1754 Naloxone HCl 0.4 MG ONCE ONE 04/18 1700 DC 07/ IV 04/18 1701 1722 Naloxone HCl 0.4 MG ONCE ONE 04/18 1700 DC / IV / 1701 1722 Naloxone HCl 4 MG Q24H / 1445 DC / Dextrose/Water 1,000 ML IV 1610 Nitroglycerin 0.5 GM Q6 / 1354 AC 07 TOP 0710 Nystatin 1 FERN TID 04/17 2200 AC 04/18 TOP 2244 Sodium Chloride 1,000 ML Q10H 04/18 1830 AC 04/19 IV 0345 Sodium Chloride 1,000 ML Q13H 04/17 1400 DC 04/18 IV 1508 Vital Signs & I&O Last 24 Hrs of Vitals and I&O: Vital Signs Date Time Temp Pulse Resp B/P B/P Pulse O2 O2 Flow FiO2 Mean Ox Delivery Rate 04/18 2236 74 22 136/80 04/18 2200 97.2 68 20 97/56 04/18 2000 99.0 74 24 110/70 04/18 2000 97 Nasal 6.0L Cannula 04/18 1722 93 Nasal 6.0L Cannula 04/18 1600 94 Nasal 6.0L Cannula 04/18 1600 97.2 72 23 120/70 94 Nasal 6.0L Cannula 04/18 1252 Nasal 6.0L Cannula 04/18 1200 90 Nasal 6.0L Cannula 04/18 0800 94 Nasal 6.0L Cannula 04/18 08 99.0 66 30 118/65 94 Nasal 6.0L Cannula Intake & Output 04/19 0800 07 0000 04/18 1600 Intake Total 1527 1408.2 Output Total 100 100 Balance 1427 1308.2 Intake, IV 1227 1008.2 Intake, Oral 300 400 Output, Urine 100 100 Exam General Appearance: well developed/nourished, no apparent distress, alert, awake , comfortable Head: normal appearance Neck: normal inspection, supple, full range of motion Respiratory: normal breath sounds, chest non-tender, no respiratory distress, quiet respiration, lungs clear Cardiovascular: regular rate/rhythm Abdomen: normal bowel sounds, soft, non-tender, no organomegaly Extremities: normal inspection Neurologic/Psychiatric: no motor/sensory deficits, awake, alert, oriented x 3 Skin: intact, normal color Results Last 24 Hrs of Lab Results: Laboratory Tests 04/19/17 0600: TSH Cancelled, Free T4 Cancelled 04/19/17 0423: Anion Gap 9, Estimated GFR 13 L, BUN/Creatinine Ratio 12.0, Creatine Kinase 18904 H, TSH 6.660 H, Free T4 0.64 L, CBC w Diff NO MAN DIFF REQ, RBC 3.46 L , MCV 94.5, MCH 31.9 H, RDW 13.6, MPV 9.2, Gran % 80.6 H, Lymphocytes % 13.2 L, Monocytes % 5.8, Eosinophils % 0.1, Basophils % 0.3, Absolute Granulocytes 8.0 H, Absolute Lymphocytes 1.3, Absolute Monocytes 0.6, Absolute Eosinophils 0 , Absolute Basophils 0, PUBS MCHC 33.7 04/19/17 0015: Anion Gap 8, Estimated GFR 15 L, BUN/Creatinine Ratio 12.2, APTT 49 H 04/18/17 1710: Sodium Cancelled, Potassium Cancelled, Chloride Cancelled, Carbon Dioxide Cancelled, Anion Gap Cancelled, BUN Cancelled, Creatinine Cancelled, BUN/ Creatinine Ratio Cancelled 04/18/17 1630: Anion Gap 9, Estimated GFR 13 L, BUN/Creatinine Ratio 12.3, Creatine Kinase > 41241 H, Troponin I 4.02 *H, APTT 97 H 04/18/17 1200: Ur Random Creatinine 229.9, U Random Total Protein 196 H, Protein/Creatinin Ratio 0.8 H 04/18/17 1200: Urine Opiates Screen < 100.00, Methadone Screen > 735 H, Barbiturate Screen < 60, Ur Phencyclidine Scrn < 6.00, Amphetamines Screen < 100, U Benzodiazepines Scrn < 85, Urine Cocaine Screen < 50, Urine Cannabis Screen < 5.00, Urinalysis LIGHT H, Urine Color YEL, Urine Clarity CLDY H, Urine pH 6.0, Ur Specific [place] >= 1.030, Urine Protein 100 H, Urine Ketones NEG, Urine Nitrite NEG, Urine Bilirubin NEG@ICTO, Urine Urobilinogen 0.2, Ur Leukocyte Esterase SMALL H , Ur Microscopic SEDIMENT EXAMINED, Urine RBC 25-50 H, Urine WBC 25-50 H, Ur Epithelial Cells FEW, Urine Bacteria MANY H, Granular Casts > 75 H, Urine Mucus FEW, Urine Hemoglobin LARGE H, Urine Glucose 100 H 04/18/17 0840: RBC 4.09 L, MCV 95.7, MCH 31.5 H, RDW 13.4, MPV 9.1, Gran % 82.6 H, Lymphocytes % 10.5 L, Monocytes % 6.6, Eosinophils % 0.1, Basophils % 0.2, Absolute Granulocytes 8.3 H, Absolute Lymphocytes 1.1 L, Absolute Monocytes 0.7 H, Absolute Eosinophils 0, Absolute Basophils 0, PUBS MCHC 32.9 L Diagnostic Data CXR Findings: 04/18/17 1. Cardiomegaly without pulmonary edema. 2. Discoid atelectasis is present in the right and left mid lung zones. 3. No overt pneumonia. CT Scan Findings: 04/17/17 No acute intracranial pathology ECHO Findings: 04/18/17 Normal left and right ventricular systolic function. Mild LVH and left atrial enlargement. No significant valvular abnormalities noted.\EF-60-65% Impression/Plan Impression/Plan Impression/Plan: Ms Clark is a 61-year-old woman with a past history of coronary artery disease status post stent), Marc thyroiditis (elevated TPO, Tg antiobodies, and noncompliant with her medications), substance abuse, bipolar, PTSD, depression who is being currently managed in the ICU for altered mental status likely from methadone overdose. She responded well to naloxone, and is on naloxone drip. She was also found to have acute kidney injury w/ serum creatinine 2.5. Followed by nephro, Cardio and endocrine on board PLAN: vitals: Pulse rate 64, RR 20, BP 109/59, [place]-clear urine. O2 6 L Respiratory: * Lungs CLEAR. No added sounds Infection * On IV clindamycin day 3 for possible aspiration. Urine [id number] rods. started her on cipro 500 mg daily. Cardiac * Troponins trending down. On heparin drip. Statin held in view of elevated liver enzymes. Advised nuclear stress testing as an outpatient HEME: * BUNs 42, creatinine 3[place] [address], TSH 6.66, hemoglobin 11. * F/P nephro, endocrine appreciated. Metabolic * history of Marc thyroiditis -TSH 6.66. Started on levothyroxine 0.025 mg. * Repeat TFT next week. * BUN 42, creatinine 3.5. * Renal-USG * Limited portable exam demonstrating no evidence of any hydronephrosis or focal abnormality.Seen by nephro today adviced SPEP, C3, C4, JON, ANCA and repeat renal function in the a.m. for possibly glomerulonephritis Alimentary * heart healthy diet. Neuro * Head CT-No acute intracranial pathology. DVT * Alps, heparin drip Code Status: Full Code Problem List: 1. Methadone overdose 2. Acute kidney injury 3. Coronary artery disease 4. Hypothyroidism 5. Bipolar disorder, unspecified
--- NOTE | 2017-04-19 08:58 | PN- CRCU ---
Subjective HPI/Critical Care Issues: The patient is awake and alert, off BiPAP. She was reported to be obtunded yesterday and required Narcan once again. The patient denies taking any nonprescribed medication. She had a 1:1 sitter overnight but is now doing well and following commands. Her oxygen requirements remain elevated at 6 lpm with saturations in the low 90s. The patient is growing gram negative rods in the urine and she has been switched over to oral Cipro. Her hearing loss has improved. Objective Current Medications: Current Medications Sig/Mary Start time Last Medication Dose Route Stop Time Status Admin Acetaminophen 650 MG .STK-MED ONE 04/18 2256 DC PO 04/18 2257 Acetaminophen 1,000 MG Q8 PRN 04/17 1700 AC N/A 1 UNIT IV Acetaminophen 325 MG Q6P PRN 04/17 1230 AC 04/18 PO 2302 Albuterol Sulfate 3 ML ONCE ONE 04/18 1715 DC 04/18 INH 04/18 1716 1717 Aspirin 81 MG DAILY 04/17 1354 AC 04/18 PO 0918 Atorvastatin Calcium 40 MG 1700 04/17 1700 AC 04/18 PO 1740 Ciprofloxacin 500 MG DAILY 04/19 1000 AC PO 04/23 0959 Clindamycin 300 MG Q8H 04/18 0400 AC 04/19 Dextrose/Water 50 ML IV 0342 Heparin Sodium 4,140 UNIT BOLUS ONE 04/19 0330 DC 04/19 (Porcine) IV 04/19 0331 0344 Heparin Sodium 25,000 UNIT Q24H 04/17 1300 AC 04/18 (Porcine) IV 1508 Sodium Chloride 500 ML Levothyroxine Sodium 0.025 MG DAILY AC 04/18 1115 AC 04/18 PO 1740 Lorazepam 1 MG Q1P PRN 04/17 1415 AC IV Metformin HCl 500 MG TID 04/19 1000 CAN PO Metoclopramide HCl 10 MG Q6P PRN 04/17 1645 AC IV Metoprolol Tartrate 12.5 MG BID 04/17 1354 AC 04/18 PO 2236 Naloxone HCl 4 MG Q24H 04/18 1715 AC 04/18 Dextrose/Water 1,000 ML IV 1754 Naloxone HCl 0.4 MG ONCE ONE 04/18 1700 DC 04/18 IV 04/18 1701 1722 Naloxone HCl 0.4 MG ONCE ONE 04/18 1700 DC 04/18 IV 04/18 1701 1722 Naloxone HCl 4 MG Q24H 04/17 1445 DC 04/17 Dextrose/Water 1,000 ML IV 1610 Nitroglycerin 0.5 GM Q6 04/17 1354 04/19 TOP 0710 Nystatin 1 FERN TID 04/17 2200 04/18 TOP 2244 Sodium Chloride 1,000 ML Q10H 04/18 1830 04/19 IV 0345 Sodium Chloride 1,000 ML Q13H 04/17 1400 DC 04/18 IV 1508 Vital Signs & I&O Last 24 Hrs of Vitals and I&O: Vital Signs Date Time Temp Pulse Resp B/P B/P Pulse O2 O2 Flow FiO2 Mean Ox Delivery Rate 04/19 0600 65 20 98/59 04/19 0400 98.4 64 20 104/70 04/19 0200 64 20 102/51 07 0000 97.2 72 104/50 04/19 0000 97.2 72 20 104/53 04/18 2236 74 22 136/80 04/18 2200 97.2 68 20 97/56 04/18 2000 99.0 74 24 110/70 04/18 2000 97 Nasal 6.0L Cannula 04/18 1722 93 Nasal 6.0L Cannula 04/18 1600 94 Nasal 6.0L Cannula 04/18 1600 97.2 72 23 120/70 94 Nasal 6.0L Cannula 04/18 1252 Nasal 6.0L Cannula 04/18 1200 90 Nasal 6.0L Cannula Intake & Output 04/19 1600 07 0800 07 0000 Intake Total 1346 1527 Output Total 300 100 Balance 1046 1427 Intake, IV 1346 1227 Intake, Oral 300 Output, Urine 300 100 Physical Exam General Appearance: lethargic but awake, no distress, obese Head: atraumatic Neck: supple Respiratory: chest non-tender, decreased breath sounds Cardiovascular: regular rate/rhythm Gastrointestinal: soft, non-tender, obese Extremities: no edema Results Last 24 Hrs of Lab Results: Laboratory Tests 04/19/17 0600: TSH Cancelled, Free T4 Cancelled 04/19/17 0423: Anion Gap 9, Estimated GFR 13 L, BUN/Creatinine Ratio 12.0, Creatine Kinase 98554 H, TSH 6.660 H, Free T4 0.64 L, CBC w Diff NO MAN DIFF REQ, RBC 3.46 L , MCV 94.5, MCH 31.9 H, RDW 13.6, MPV 9.2, Gran % 80.6 H, Lymphocytes % 13.2 L, Monocytes % 5.8, Eosinophils % 0.1, Basophils % 0.3, Absolute Granulocytes 8.0 H, Absolute Lymphocytes 1.3, Absolute Monocytes 0.6, Absolute Eosinophils 0 , Absolute Basophils 0, PUBS MCHC 33.7 04/19/17 0015: Anion Gap 8, Estimated GFR 15 L, BUN/Creatinine Ratio 12.2, APTT 49 H 04/18/17 1710: Sodium Cancelled, Potassium Cancelled, Chloride Cancelled, Carbon Dioxide Cancelled, Anion Gap Cancelled, BUN Cancelled, Creatinine Cancelled, BUN/ Creatinine Ratio Cancelled 04/18/17 1630: Anion Gap 9, Estimated GFR 13 L, BUN/Creatinine Ratio 12.3, Creatine Kinase > 38991 H, Troponin I 4.02 *H, APTT 97 H 04/18/17 1200: Ur Random Creatinine 229.9, U Random Total Protein 196 H, Protein/Creatinin Ratio 0.8 H 04/18/17 1200: Urine Opiates Screen < 100.00, Methadone Screen > 735 H, Barbiturate Screen < 60, Ur Phencyclidine Scrn < 6.00, Amphetamines Screen < 100, U Benzodiazepines Scrn < 85, Urine Cocaine Screen < 50, Urine Cannabis Screen < 5.00, Urinalysis LIGHT H, Urine Color YEL, Urine Clarity CLDY H, Urine pH 6.0, Ur Specific [place] >= 1.030, Urine Protein 100 H, Urine Ketones NEG, Urine Nitrite NEG, Urine Bilirubin NEG@ICTO, Urine Urobilinogen 0.2, Ur Leukocyte Esterase SMALL H , Ur Microscopic SEDIMENT EXAMINED, Urine RBC 25-50 H, Urine WBC 25-50 H, Ur Epithelial Cells FEW, Urine Bacteria MANY H, Granular Casts > 75 H, Urine Mucus FEW, Urine Hemoglobin LARGE H, Urine Glucose 100 H Impression/Plan Impression/Plan Impression/Plan: 1. Acute hypoxemic respiratory failure, with aspiration pneumonia on CXR, with bilateral consolidation. 2. Mental status changes secondary methadone overdose. 3. Elevated troponin; rule out acute coronary syndrome/NSTEMI. 4. History of CAD. 5. Hypothyroid. 6. Acute renal insufficiency, likely secondary to ATN, nephrology following. 7. Transaminitis. 8. Hearing loss - improved. Recommendations: * Follow up nephrology recommendations, appreciate input. * Continue gentle hydration. * Follow up culture results. * Continue ceftriaxone pending results. * Replace electrolytes as needed. * Nebs/TRC. * Taper oxygen down for saturations greater than 92%. * Synthroid replacement as per endocrine. * Continue Narcan drip today. Slowly taper off for an SAS of 4. Avoid overdedation. * ASA/metoprolol as per cardiology. * DVT prophylaxis at all times. * Discontinue one-to-one sitter. * Please request psych and social sciences lecturer input. * Continue all supportive care. Code Status: Full Code
[2017-04-19 10:16] LABS: PTT 45 SEC (25-37)
--- NOTE | 2017-04-19 10:28 | PN- Psychiatry ---
See Addendum Assessment/Plan Impression: Identifying Info: 61-year-old female presented in by ambulance status post accidental methadone overdose after diverting her son's medication. History of bipolar disorder, PTSD, EtOH use disorder and sedative hypnotic use disorder currently followed at [facility]. Interviewed today in critical care unit. SUBJECTIVE Patient states "I feel all right." Again denies that this was a suicide attempts or any current suicidal thinking. She has great difficulty recalling the events leading up to overdose. Her son Will joins her bedside and participates in the interview. He reports that 3 months ago they had a family meeting regarding this mom's diversion of his brother's methadone. Additionally she has started intermittently drinking again. She states she would like to return to care and would potentially be agreeable to an intensive outpatient program for dual diagnosis treatment. With pt permission call placed to [facility] to obtain collateral, awaiting call back. Brief ROS Gait: Not observed Sleep: Adequate Appetite: Not assessed OBJECTIVE Mental Status Exam Presentation/Appearance: Calm. Cooperative with evaluation. Hospital garb. Lying in bed. Orientation: x4 Sensorium: Awake and alert Eye contact: Appropriate Affect: Somewhat blunted Mood: "I feel alright" Depression: Denies Anxiety: Denies Thought Content: - Denies SI/HI, AH/VH, PI. States and also believes they will not kill themselves. - Denies Hopeless/Helpless Thoughts Thought Process: Linear Associations: Appropriate Speech: Normal tone and rate Judgment: Fair Insight: Fair Cognition: Memory: Deficits present, pt does not recall overdose Attention/Concentration: Fair Fund of Knowledge: Adequate Abstractions:[place] MMSE: Did not assess Per nursing report the paitent has been in good behavioral control with no issues noted. She has denied this was a suicide attempt. ASSESSMENT 61-year-old female presents status post accidental methadone overdose after diverting her son's medication. She denies any suicidality at this time and is not a threat to harm self intentionally. She is however at risk of another accidental overdose and appears to have been falling back into substance use. It would be prudent at this time the patient to receive a higher level of care, specifically dual diagnosis IOP treatment. Diagnosis Unspecified bipolar disorder Alcohol use disorder Sedative hypnotic use disorder Opiate use disorder Unspecified anxiety disorder A total of30 minutes was spent with the patient with more than 50% of the time spent in counseling and/or coordination of care. Suggestion: 1. Plan for referral to intensive outpatient program. 2. Continue to hold psychotropics until kidney function improves. Thank you for including psychiatry in this case will continue to follow. Subjective Subjective: as above Objective Last 24 Hrs of Vital Signs/I&O Current Medications Sig/Mary Start time Last Medication Dose Route Stop Time Status Admin Acetaminophen 650 MG .STK-MED ONE 04/18 2256 DC PO 04/18 2257 Acetaminophen 1,000 MG Q8 PRN 04/17 1700 AC N/A 1 UNIT IV Acetaminophen 325 MG Q6P PRN 04/17 1230 AC 04/18 PO 2302 Albuterol Sulfate 3 ML ONCE ONE 04/18 1715 DC 04/18 INH 04/18 1716 1717 Aspirin 81 MG DAILY 04/17 1354 AC 04/19 PO 1027 Atorvastatin Calcium 40 MG 1700 04/17 1700 AC 04/18 PO 1740 Ciprofloxacin 500 MG DAILY 04/19 1000 AC 04/19 PO 04/23 0959 1026 Clindamycin 300 MG Q8H 04/18 0400 AC 04/19 Dextrose/Water 50 ML IV 0342 Heparin Sodium 4,140 UNIT BOLUS ONE 04/19 0330 DC 04/19 (Porcine) IV 04/19 0331 0344 Heparin Sodium 25,000 UNIT Q24H 04/17 1300 AC 04/18 (Porcine) IV 1508 Sodium Chloride 500 ML Levothyroxine Sodium 0.025 MG DAILY AC 04/18 1115 AC 04/19 PO 1026 Lorazepam 1 MG Q1P PRN 04/17 1415 AC IV Metformin HCl 500 MG TID 04/19 1000 CAN PO Metoclopramide HCl 10 MG Q6P PRN 04/17 1645 AC IV Metoprolol Tartrate 12.5 MG BID 04/17 1354 AC 04/19 PO 1026 Naloxone HCl 4 MG Q15H 04/19 1045 AC 04/19 Dextrose/Water 1,000 ML IV 1025 Naloxone HCl 4 MG Q24H 04/18 1715 AC 04/18 Dextrose/Water 1,000 ML IV 04/19 1044 1754 Naloxone HCl 0.4 MG ONCE ONE 04/18 1700 DC 04/18 IV 04/18 1701 1722 Naloxone HCl 0.4 MG ONCE ONE 04/18 1700 DC 04/18 IV 04/18 1701 1722 Nitroglycerin 0.5 GM Q6 04/17 1354 04/19 TOP 0710 Nystatin 1 FERN TID 04/17 2200 04/18 TOP 2244 Sodium Chloride 1,000 ML Q10H 04/18 1830 04/19 IV 0345 Sodium Chloride 1,000 ML Q13H 04/17 1400 DC 04/18 IV 1508 Laboratory Tests 04/19/17 0935: APTT 45 H 04/19/17 0600: TSH Cancelled, Free T4 Cancelled 04/19/17 0500: JON Titer Pending, Anti-Nuclear Antibody Pending 04/19/17 0423: Anion Gap 9, Estimated GFR 13 L, BUN/Creatinine Ratio 12.0, Creatine Kinase 88610 H, TSH 6.660 H, Free T4 0.64 L, CBC w Diff NO MAN DIFF REQ, RBC 3.46 L , MCV 94.5, MCH 31.9 H, RDW 13.6, MPV 9.2, Gran % 80.6 H, Lymphocytes % 13.2 L, Monocytes % 5.8, Eosinophils % 0.1, Basophils % 0.3, Absolute Granulocytes 8.0 H, Absolute Lymphocytes 1.3, Absolute Monocytes 0.6, Absolute Eosinophils 0 , Absolute Basophils 0, PUBS MCHC 33.7 04/19/17 0015: Anion Gap 8, Estimated GFR 15 L, BUN/Creatinine Ratio 12.2, APTT 49 H 04/19/17 0000: Prot Electrophoresis Pending, Total Protein (PEP) Pending, Albumin % (PEP) Pending, [id number] Pending, Wjmuk-7-Qmqupdmte Pending, Vvzh-3-Eggyzdvr Pending, Znyx-2-Ynakwlpa Pending, Gamma Globulins Pending, Abnorm Protein Band 1 Pending, Abnorm Protein Band 2 Pending, Abnorm Protein Band 3 Pending, ANCA Pending, Complement C3 Pending, Complement C4 Pending 04/18/17 1710: Sodium Cancelled, Potassium Cancelled, Chloride Cancelled, Carbon Dioxide Cancelled, Anion Gap Cancelled, BUN Cancelled, Creatinine Cancelled, BUN/ Creatinine Ratio Cancelled 04/18/17 1630: Anion Gap 9, Estimated GFR 13 L, BUN/Creatinine Ratio 12.3, Creatine Kinase > 98223 H, Troponin I 4.02 *H, APTT 97 H 04/18/17 1200: Ur Random Creatinine 229.9, U Random Total Protein 196 H, Protein/Creatinin Ratio 0.8 H 04/18/17 1200: Urine Opiates Screen < 100.00, Methadone Screen > 735 H, Barbiturate Screen < 60, Ur Phencyclidine Scrn < 6.00, Amphetamines Screen < 100, U Benzodiazepines Scrn < 85, Urine Cocaine Screen < 50, Urine Cannabis Screen < 5.00, Urinalysis LIGHT H, Urine Color YEL, Urine Clarity CLDY H, Urine pH 6.0, Ur Specific [place] >= 1.030, Urine Protein 100 H, Urine Ketones NEG, Urine Nitrite NEG, Urine Bilirubin NEG@ICTO, Urine Urobilinogen 0.2, Ur Leukocyte Esterase SMALL H , Ur Microscopic SEDIMENT EXAMINED, Urine RBC 25-50 H, Urine WBC 25-50 H, Ur Epithelial Cells FEW, Urine Bacteria MANY H, Granular Casts > 75 H, Urine Mucus FEW, Urine Hemoglobin LARGE H, Urine Glucose 100 H Vital Signs Date Time Temp Pulse Resp B/P B/P Pulse O2 O2 Flow FiO2 Mean Ox Delivery Rate 04/19 1026 64 124/58 04/19 0600 65 20 98/59 04/19 0400 98.4 64 20 104/70 04/19 0400 92 Nasal 5.0L Cannula 04/19 0200 64 20 102/51 04/19 0000 97.2 72 104/50 07 0000 97.2 72 20 104/53 04/19 0000 92 Nasal 5.0L Cannula 04/18 2236 74 22 136/80 04/18 2200 97.2 68 20 97/56 04/18 2000 99.0 74 24 110/70 04/18 2000 97 Nasal 6.0L Cannula 04/18 1722 93 Nasal 6.0L Cannula 04/18 1600 94 Nasal 6.0L Cannula 04/18 1600 97.2 72 23 120/70 94 Nasal 6.0L Cannula 04/18 1252 Nasal 6.0L Cannula 04/18 1200 90 Nasal 6.0L Cannula Intake & Output 04/19 1600 10 0800 04/19 0000 Intake Total 1346 1527 Output Total 300 100 Balance 1046 1427 Intake, IV 1346 1227 Intake, Oral 300 Output, Urine 300 100
--- NOTE | 2017-04-19 10:29 | PN- Cardiology ---
Subjective Subjective: The patient is awake, alert The events of the last 24 hours as well as telemetry were reviewed. Review of Systems: The review of systems is negative for chest pains, palpitations nor lightheadedness. The remainder of the 14 point review of systems is noncontributory with the exception of above. Objective Vital Signs and I&Os Vital Signs Date Time Temp Pulse Resp B/P B/P Pulse O2 O2 Flow FiO2 Mean Ox Delivery Rate 04/19 0600 65 20 98/59 04/19 0400 98.4 64 20 104/70 04/19 0400 92 Nasal 5.0L Cannula 04/19 0200 64 20 102/51 04/19 0000 97.2 72 104/50 04/19 0000 97.2 72 20 104/53 04/19 0000 92 Nasal 5.0L Cannula 04/18 2236 74 22 136/80 04/18 2200 97.2 68 20 97/56 04/18 2000 99.0 74 24 110/70 04/18 2000 97 Nasal 6.0L Cannula 04/18 1722 93 Nasal 6.0L Cannula 04/18 1600 94 Nasal 6.0L Cannula 04/18 1600 97.2 72 23 120/70 94 Nasal 6.0L Cannula 04/18 1252 Nasal 6.0L Cannula 04/18 1200 90 Nasal 6.0L Cannula Intake & Output 04/19 1600 10 0800 04/19 0000 04/18 1600 04/18 0800 04/18 0000 Intake Total 1346 1527 1408.2 1208 829.6 Output Total 300 100 100 200 200 Balance 1046 1427 1308.2 1008 629.6 Intake, IV 1346 1227 1008.2 1208 829.6 Intake, Oral 300 400 0 0 Number 0 0 Bowel Movements Output, Urine 300 100 100 200 200 Patient 305 lb Weight Weight Bed scale Measurement Method Physical Exam: General: Nontoxic, no apparent distress. HEENT: Sclera and conjunctiva within normal limits, without xanthelasmas. Neck: Carotids 2+ without bruits. Respiratory: Scattered rhonchi, air movement is good, without accessory respiratory muscle use. Heart: Regular rate and rhythm, without murmurs, without JVD. Abdomen: Soft, nontender, no masses, normoactive bowel sounds. Extremities: Without clubbing, cyanosis, without edema. Neuro: Nonfocal exam, strength, 5 out of 5 Skin: Within normal limits without lesions. Psych: Mood and affect: Normal Current Medications: Current Medications Sig/Mary Start time Last Medication Dose Route Stop Time Status Admin Acetaminophen 650 MG .STK-MED ONE 04/18 2256 DC PO 04/18 2257 Acetaminophen 1,000 MG Q8 PRN 04/17 1700 AC N/A 1 UNIT IV Acetaminophen 325 MG Q6P PRN 04/17 1230 AC 04/18 PO 2302 Albuterol Sulfate 3 ML ONCE ONE 04/18 1715 DC 04/18 INH / 1716 1717 Aspirin 81 MG DAILY 04/17 1354 AC 04/18 PO 0918 Atorvastatin Calcium 40 MG 1700 04/17 1700 AC 04/18 PO 1740 Ciprofloxacin 500 MG DAILY 04/19 1000 AC PO 04/23 0959 Clindamycin 300 MG Q8H 04/18 0400 AC 04/19 Dextrose/Water 50 ML IV 0342 Heparin Sodium 4,140 UNIT BOLUS ONE 04/19 0330 DC 04/19 (Porcine) IV 04/19 0331 0344 Heparin Sodium 25,000 UNIT Q24H 04/17 1300 AC 04/18 (Porcine) IV 1508 Sodium Chloride 500 ML Levothyroxine Sodium 0.025 MG DAILY AC 04/18 1115 AC 04/18 PO 1740 Lorazepam 1 MG Q1P PRN 04/17 1415 AC IV Metformin HCl 500 MG TID 04/19 1000 CAN PO Metoclopramide HCl 10 MG Q6P PRN 04/17 1645 AC IV Metoprolol Tartrate 12.5 MG BID 04/17 1354 AC 04/18 PO 2236 Naloxone HCl 4 MG Q15H 04/19 1045 AC Dextrose/Water 1,000 ML IV Naloxone HCl 4 MG Q24H / 1715 AC / Dextrose/Water 1,000 ML IV 04/19 1044 1754 Naloxone HCl 0.4 MG ONCE ONE 04/18 1700 DC 04/18 IV 04/18 1701 1722 Naloxone HCl 0.4 MG ONCE ONE 04/18 1700 DC / IV 04/18 1701 1722 Nitroglycerin 0.5 GM Q6 / 1354 AC 07 TOP 0710 Nystatin 1 FERN TID 04/17 2200 AC 04/18 TOP 2244 Sodium Chloride 1,000 ML Q10H 04/18 1830 AC 04/19 IV 0345 Sodium Chloride 1,000 ML Q13H 04/17 1400 DC 04/18 IV 1508 Results Last 48 Hrs of Labs/Mics: Laboratory Tests 04/19/17 0935: APTT 45 H 04/19/17 0600: TSH Cancelled, Free T4 Cancelled 04/19/17 0500: JON Titer Pending, Anti-Nuclear Antibody Pending 04/19/17 0423: Anion Gap 9, Estimated GFR 13 L, BUN/Creatinine Ratio 12.0, Creatine Kinase 71762 H, TSH 6.660 H, Free T4 0.64 L, CBC w Diff NO MAN DIFF REQ, RBC 3.46 L , MCV 94.5, MCH 31.9 H, RDW 13.6, MPV 9.2, Gran % 80.6 H, Lymphocytes % 13.2 L, Monocytes % 5.8, Eosinophils % 0.1, Basophils % 0.3, Absolute Granulocytes 8.0 H, Absolute Lymphocytes 1.3, Absolute Monocytes 0.6, Absolute Eosinophils 0 , Absolute Basophils 0, PUBS MCHC 33.7 04/19/17 0015: Anion Gap 8, Estimated GFR 15 L, BUN/Creatinine Ratio 12.2, APTT 49 H 04/19/17 0000: Prot Electrophoresis Pending, Total Protein (PEP) Pending, Albumin % (PEP) Pending, Rarpo-3-Cmjmraiel Pending, Pvpnx-4-Goqekbpeq Pending, Uzfo-2-Xppjyzfx Pending, Lrlg-2-Wxfxnpie Pending, Gamma Globulins Pending, Abnorm Protein Band 1 Pending, Abnorm Protein Band 2 Pending, Abnorm Protein Band 3 Pending, ANCA Pending, Complement C3 Pending, Complement C4 Pending 04/18/17 1710: Sodium Cancelled, Potassium Cancelled, Chloride Cancelled, Carbon Dioxide Cancelled, Anion Gap Cancelled, BUN Cancelled, Creatinine Cancelled, BUN/ Creatinine Ratio Cancelled 04/18/17 1630: Anion Gap 9, Estimated GFR 13 L, BUN/Creatinine Ratio 12.3, Creatine Kinase > 11222 H, Troponin I 4.02 *H, APTT 97 H 04/18/17 1200: Ur Random Creatinine 229.9, U Random Total Protein 196 H, Protein/Creatinin Ratio 0.8 H 04/18/17 1200: Urine Opiates Screen < 100.00, Methadone Screen > 735 H, Barbiturate Screen < 60, Ur Phencyclidine Scrn < 6.00, Amphetamines Screen < 100, U Benzodiazepines Scrn < 85, Urine Cocaine Screen < 50, Urine Cannabis Screen < 5.00, Urinalysis LIGHT H, Urine Color YEL, Urine Clarity CLDY H, Urine pH 6.0, Ur Specific [place] >= 1.030, Urine Protein 100 H, Urine Ketones NEG, Urine Nitrite NEG, Urine Bilirubin NEG@ICTO, Urine Urobilinogen 0.2, Ur Leukocyte Esterase SMALL H , Ur Microscopic SEDIMENT EXAMINED, Urine RBC 25-50 H, Urine WBC 25-50 H, Ur Epithelial Cells FEW, Urine Bacteria MANY H, Granular Casts > 75 H, Urine Mucus FEW, Urine Hemoglobin LARGE H, Urine Glucose 100 H 04/18/17 0840: RBC 4.09 L, MCV 95.7, MCH 31.5 H, RDW 13.4, MPV 9.1, Gran % 82.6 H, Lymphocytes % 10.5 L, Monocytes % 6.6, Eosinophils % 0.1, Basophils % 0.2, Absolute Granulocytes 8.3 H, Absolute Lymphocytes 1.1 L, Absolute Monocytes 0.7 H, Absolute Eosinophils 0, Absolute Basophils 0, PUBS MCHC 32.9 L 04/18/17 0605: Troponin I Cancelled 04/18/17 0605: Anion Gap 10, Estimated GFR 17 L, Glucose 149 H, Calcium 8.2 L, Phosphorus 4.5, Magnesium 2.1, Total Bilirubin 0.8, AST 967 H, ALT 213 H, Troponin I 7.35 *H, Albumin 3.7 04/18/17 0311: APTT 83 H 04/18/17 0202: Lactic Acid Cancelled 04/18/17 0000: Troponin I Cancelled 04/17/17 2340: Lactic Acid 2.0 04/17/17 2340: Anion Gap 11, Estimated GFR 17 L, Glucose 171 H, Calcium 8.3 L, Phosphorus 4.9 H, Magnesium 1.8, Total Bilirubin 0.6, AST 979 H, ALT 231 H, Creatine Kinase > 90867 H, Troponin I 10.90 *H, Albumin 3.8 04/17/17 2320: Sodium Cancelled, Potassium Cancelled, Chloride Cancelled, Carbon Dioxide Cancelled, Anion Gap Cancelled, BUN Cancelled, Creatinine Cancelled, Glucose Cancelled, Calcium Cancelled, Phosphorus Cancelled, Magnesium Cancelled, Total Bilirubin Cancelled, AST Cancelled, ALT Cancelled, Albumin Cancelled 04/17/17 2135: pH 7.33 L, pCO2 42, pO2 64 L, HCO3 22, ABG O2 Sat (Measured) 91.0 L, P-50 ( Temp Corrected) Y, Carboxyhemoglobin 0.6 L, O2 Concentration % 6L, Temperature 98.0, O2 Delivery Method NC, Phlebotomy Draw Site RIGHT RADIAL 04/17/17 1945: APTT 60 H 04/17/17 1850: Lactic Acid 2.6 H 04/17/17 1835: Troponin I 10.40 *H 04/17/17 1720: pH 7.29 *L, pCO2 45, pO2 64 L, HCO3 21, ABG O2 Sat (Measured) 91.0 L, P-50 ( Temp Corrected) Y, Carboxyhemoglobin 0.2 L, O2 Concentration % 6L, Temperature 98.2, O2 Delivery Method NC, Phlebotomy Draw Site RIGHT RADIAL 04/17/17 1325: pH 7.17 *L, pCO2 62 *H, pO2 78 L, HCO3 22, ABG O2 Sat (Measured) 94.0 L, P-50 (Temp Corrected) Y, Carboxyhemoglobin 0.6 L, O2 Concentration % 100%, Temperature 96.6 L, O2 Delivery Method NRB, Phlebotomy Draw Site RIGHT RADIAL 04/17/17 1157: Troponin I 4.51 *H Microbiology 04/17 1800 UPPER RESP: Surveillance Culture - COMP 04/17 1800 GI: Surveillance Culture - COMP Assessment/Plan Assessment/Plan The patient is a 61-year-old woman with a past medical history of coronary artery disease, hypertension, morbid obesity and back pain. She presented to our hospital after being found unresponsive following an opiate overdose with likely aspiration pneumonia. She has well is noted to have acute kidney injury, metabolic derangements and an elevated troponin isoenzyme (10.9 peak). Troponin isoenzyme elevation: Likely secondary to a type II (supply/demand mismatch) acute non-ST segment elevation myocardial infarction. We will attempt to reinstate her outpatient medication regimen including aspirin, a beta jasper and statin when tolerated from a dynamic standpoint. The statin regimen may be initiated following improvement of her liver function testing. Following overall improvement, consideration for testing for an underlying ischemic burden by nuclear stress testing may be performed. This may be performed as an outpatient. Acute kidney injury and rhabdomyolysis: Appreciate nephrology input. We will continue to follow recommendations. Continue telemetry? Yes
--- NOTE | 2017-04-19 10:45 | PN- Endocrinology ---
Assessment/Plan Assessment: 61 y/o female , Hx of morbid obese and CAD s/p stents placement, was diagnosed with hypothyroidism/ Marc's thyroiditis in 2012 and was on Levothyroxine 100 mcg daily. She hasn't been compliance with medication. She was found to be unresponsive at home due to methadone over dose. Blood work in ER showed positive troponin, TSH 35.1 and T4 6.9; ph 7.17, Pco2 62 and Po2 78, Cr 2.5. Her peak troponin was 10.9. She was put on Levothyroxine 25 mcg daily on 04/18/2017. On 04/19/2017, repeat TSH 6.66, freeT4 0.64. Her CK was > 73808 and Cr was up to 3.5. Plan: continue Levothyroxine 25 mcg daily for now; repeat TFT next week to look for a trend. will follow. Subjective Subjective: She is still in ICU. Objective Last 24 Hrs of Vital Signs/I&O Vital Signs Date Time Temp Pulse Resp B/P B/P Pulse O2 O2 Flow FiO2 Mean Ox Delivery Rate 04/19 1026 64 124/58 04/19 0600 65 20 98/59 04/19 0400 98.4 64 20 104/70 04/19 0400 92 Nasal 5.0L Cannula 04/19 0200 64 20 102/51 07 0000 97.2 72 104/50 04/19 0000 97.2 72 20 104/53 07/ 0000 92 Nasal 5.0L Cannula 04/18 2236 74 22 136/80 04/18 2200 97.2 68 20 97/56 04/18 2000 99.0 74 24 110/70 04/18 2000 97 Nasal 6.0L Cannula 04/18 1722 93 Nasal 6.0L Cannula 04/18 1600 94 Nasal 6.0L Cannula 04/18 1600 97.2 72 23 120/70 94 Nasal 6.0L Cannula 04/18 1252 Nasal 6.0L Cannula 04/18 1200 90 Nasal 6.0L Cannula Intake & Output 04/19 1600 04/19 0800 04/19 0000 Intake Total 1346 1527 Output Total 300 100 Balance 1046 1427 Intake, IV 1346 1227 Intake, Oral 300 Output, Urine 300 100 Results Pertinent Lab/Jayson Results: Laboratory Tests 04/19 04/19 04/19 0935 0600 0500 Chemistry TSH Cancelled Free T4 Cancelled Coagulation APTT (25 - 37 SEC) 45 H Immunology JON Titer Pending Anti-Nuclear Antibody Pending 04/19 04/19 04/19 0423 0015 0000 Chemistry Sodium (137 - 145 mmol/L) 133 L 135 L Potassium (3.5 - 5.1 mmol/L) 4.3 4.2 Chloride (98 - 107 mmol/L) 103 105 Carbon Dioxide (22 - 30 mmol/L) 21 L 22 Anion Gap (5 - 16) 9 8 BUN (7 - 17 mg/dL) 42 H 39 H Creatinine (0.5 - 1.0 mg/dL) 3.5 H 3.2 H Estimated GFR (>60 ml/min) 13 L 15 L BUN/Creatinine Ratio (7 - 25 %) 12.0 12.2 Creatine Kinase (30 - 135 U/L) 28059 H Prot Electrophoresis Pending Total Protein (PEP) Pending Albumin % (PEP) Pending [id number]-Tfsmsbtzg Pending Kpheo-8-Bfuktuoym Pending Mzwh-4-Axkvodvm Pending Hgpa-7-Wjpocdlc Pending Gamma Globulins Pending Abnorm Protein Band 1 Pending Abnorm Protein Band 2 Pending Abnorm Protein Band 3 Pending TSH (0.270 - 4.200 uIU/mL) 6.660 H Free T4 (0.78 - 2.44 ng/dL) 0.64 L Coagulation APTT (25 - 37 SEC) 49 H Hematology CBC w Diff NO MAN DIFF REQ WBC (4.8 - 10.8 /CUMM) 9.9 RBC (4.20 - 5.40 /CUMM) 3.46 L Hgb (12.0 - 16.0 G/DL) 11.0 L Hct (37 - 47 %) 32.7 L MCV (81.0 - 99.0 FL) 94.5 MCH (27.0 - 31.0 PG) 31.9 H RDW (11.5 - 14.5 %) 13.6 Plt Count (130 - 400 /CUMM) 122 L MPV (7.4 - 10.4 FL) 9.2 Gran % (42.2 - 75.2 %) 80.6 H Lymphocytes % (20.5 - 51.1 %) 13.2 L Monocytes % (1.7 - 9.3 %) 5.8 Eosinophils % (0 - 5 %) 0.1 Basophils % (0.0 - 2.0 %) 0.3 Absolute Granulocytes (1.4 - 6.5 /CUMM) 8.0 H Absolute Lymphocytes (1.2 - 3.4 /CUMM) 1.3 Absolute Monocytes (0.10 - 0.60 /CUMM) 0.6 Absolute Eosinophils (0.0 - 0.7 /CUMM) 0 Absolute Basophils (0.0 - 0.2 /CUMM) 0 PUBS MCHC (33.0 - 37.0 G/DL) 33.7 Immunology ANCA Pending Complement C3 Pending Complement C4 Pending 04/18 04/18 04/18 1710 1630 1200 Chemistry Sodium (137 - 145 mmol/L) Cancelled 136 L Potassium (3.5 - 5.1 mmol/L) Cancelled 5.4 H Chloride (98 - 107 mmol/L) Cancelled 103 Carbon Dioxide (22 - 30 mmol/L) Cancelled 25 Anion Gap (5 - 16) Cancelled 9 BUN (7 - 17 mg/dL) Cancelled 43 H Creatinine (0.5 - 1.0 mg/dL) Cancelled 3.5 H Estimated GFR (>60 ml/min) 13 L BUN/Creatinine Ratio (7 - 25 %) Cancelled 12.3 Creatine Kinase (30 - 135 U/L) > 89908 H Troponin I (< 0.11 ng/ml) 4.02 *H Coagulation APTT (25 - 37 SEC) 97 H Urines Ur Random Creatinine (mg/dL) 229.9 U Random Total Protein (0 - 12 mg/dL) 196 H Protein/Creatinin Ratio (< 0.2) 0.8 H 04/18 1200 Toxicology Urine Opiates Screen (>2000 NG/ML) < 100.00 Methadone Screen (>300 NG/ML) > 735 H Barbiturate Screen (>200 NG/ML) < 60 Ur Phencyclidine Scrn (>25 NG/ML) < 6.00 Amphetamines Screen (>1000 NG/ML) < 100 U Benzodiazepines Scrn (>200 NG/ML) < 85 Urine Cocaine Screen (>300 NG/ML) < 50 Urine Cannabis Screen (>50 NG/ML) < 5.00 Urines Urinalysis LIGHT H Urine Color (YEL,AMB,STR) YEL Urine Clarity (CLEAR) CLDY H Urine pH (5.0 - 8.0) 6.0 Ur Specific [place] (1.001 - 1.035) >= 1.030 Urine Protein (NEG,<30 MG/DL) 100 H Urine Ketones (NEG) NEG Urine Nitrite (NEG) NEG Urine Bilirubin (NEG) NEG@ICTO Urine Urobilinogen (0.1 - 1.0 EU/dl) 0.2 Ur Leukocyte Esterase (NEG) SMALL H Ur Microscopic SEDIMENT EXAMINED Urine RBC (0 - 5 /HPF) 25-50 H Urine WBC (0 - 2 /HPF) 25-50 H Ur Epithelial Cells (NONE,FEW) FEW Urine Bacteria (NEG/NONE) MANY H Granular Casts (NONE /LPF) > 75 H Urine Mucus (FEW,NONE) FEW Urine Hemoglobin (NEG) LARGE H Urine Glucose (N MG/DL) 100 H
--- NOTE | 2017-04-19 12:04 | NUR ---
PER DR. LAMAS HOLD 1200 NITRO PASTE PATIENTS HR 58
[2017-04-19 19:18] LABS: PTT 33 SEC (25-37)
[2017-04-20] VITALS: BP 140/80
--- NOTE | 2017-04-20 01:00 | NUR ---
PT ALERT AND ORIENTED TO PLACE AND TIME. NSR 60'S,NA UAL BP 140/80. SATURATION 93% ON 5L O2, LUNGS SOUND CLEAR. NARCAN GTT D/C ORDERED. HEPARIN GTT CONT, AT 15.3 UNITS/KG/HR. NO EVIDENCE OF ACTIVE BLEED. ABDOMEN SOFT, NOMOACTIVE BS. GALLO IN PLACE,ADEQUATE UO NOTED. LEFT FOREARM RED SWOLLEN FROM AN IV INFILTRATEY.
[2017-04-20 03:38] LABS: ABSOLUTE BASOPHIL COUNT 0 /CUMM (0.0-0.2); ABSOLUTE EOSINOPHIL COUNT 0 /CUMM (0.0-0.7); ABSOLUTE GRANULOCYTE CT 7.7 /CUMM (1.4-6.5); ABSOLUTE LYMPH COUNT 1.3 /CUMM (1.2-3.4); ABSOLUTE MONOCYTE COUNT 0.5 /CUMM (0.10-0.60); BASOPHIL % 0.3 % (0.0-2.0); EOSINOPHIL % 0.3 % (0-5); GRANULOCYTE % 80.4 % (42.2-75.2); HEMATOCRIT 32.9 % (37-47); MEAN CORPUSCULAR HGB 31.7 PG (27.0-31.0); MEAN CORPUSCULAR HGB CONC 33.5 G/DL (33.0-37.0); MEAN CORPUSCULAR VOLUME 94.8 FL (81.0-99.0); MEAN PLATELET VOLUME 8.7 FL (7.4-10.4); PLATELET COUNT 129 /CUMM (130-400); RBC DISTRIBUTION WIDTH 13.3 % (11.5-14.5); RED BLOOD CELL CT 3.47 /CUMM (4.20-5.40); WHITE BLOOD CELL COUNT 9.6 /CUMM (4.8-10.8)
[2017-04-20 04:00] VITALS: BP 138/70
[2017-04-20 04:05] LABS: PTT > 120 SEC (25-37)
--- NOTE | 2017-04-20 07:08 | PN- CRCU ---
Subjective HPI/Critical Care Issues: I saw the patient today at bedside. no over night events.she is conscious , oriented x 3, on 5 L nasal o2, comfortable at rest, no dyspneic, not tachypneic. making good urine. Objective Current Medications: Current Medications Sig/Mary Start time Last Medication Dose Route Stop Time Status Admin Acetaminophen 1,000 MG Q8 PRN 04/17 1700 AC N/A 1 UNIT IV Acetaminophen 325 MG Q6P PRN 04/17 1230 AC 04/18 PO 2302 Aspirin 81 MG DAILY 04/17 1354 AC 04/20 PO 0958 Atorvastatin Calcium 40 MG 1700 04/17 1700 DC 04/18 PO 1740 Ciprofloxacin 500 MG DAILY 04/19 1000 AC 04/20 PO 04/23 0959 0958 Clindamycin 300 MG Q8H 04/18 0400 AC 04/20 Dextrose/Water 50 ML IV 0410 Heparin Sodium 8,500 UNIT ONCE ONE 04/19 2015 DC 04/19 (Porcine) IV 04/19 Heparin Sodium 10,000 UNIT .ST-MED ONE 04/19 194 DC (Porcine) IV 04/19 1948 Heparin Sodium 25,000 UNIT Q24H / 1300 AC 04/19 (Porcine) IV 1042 Sodium Chloride 500 ML Levothyroxine Sodium 0.025 MG DAILY AC 04/18 1115 AC 04/20 PO 0600 Lorazepam 1 MG Q1P PRN 04/17 1415 AC IV Metoclopramide HCl 10 MG Q6P PRN 04/17 1645 AC IV Metoprolol Tartrate 12.5 MG BID 04/17 1354 AC 04/20 PO 0958 Naloxone HCl 4 MG Q15H 04/19 1045 DC 04/19 Dextrose/Water 1,000 ML IV 1025 Nitroglycerin 0.5 GM Q6 / 1354 AC 04/20 TOP 0603 Nystatin 1 FERN TID 04/17 2200 AC 04/20 TOP 0958 Sodium Chloride 1,000 ML Q24H 04/20 0845 AC 04/20 IV 0845 Sodium Chloride 2 SPRAY Q4P PRN 04/19 2345 AC 04/20 [place] 1016 Sodium Chloride 1,000 ML Q10H 04/18 1830 DC 04/20 IV 0022 Vital Signs & I&O Last 24 Hrs of Vitals and I&O: Vital Signs Date Time Temp Pulse Resp B/P B/P Pulse O2 O2 Flow FiO2 Mean Ox Delivery Rate 04/20 0958 68 110/70 04/20 0800 Nasal 4.0L Cannula 04/20 0800 98.1 68 20 110/70 90 Nasal 4.0L Cannula 04/20 0400 98.6 68 22 138/70 04/20 0400 92 Nasal 5.0L Cannula 04/20 0000 98.7 68 24 140/80 07 0000 93 Nasal 5.0L Cannula 04/20 0000 98.7 68 24 140/80 93 Nasal 4.0L Cannula 04/19 2000 98.0 84 22 128/60 04/19 2000 94 Nasal 5.0L Cannula 04/19 1800 98.0 76 22 133/70 04/19 1600 94 Nasal 5.0L Cannula 04/19 1600 98.1 58 25 120/70 95 Nasal 5.0L Cannula 04/19 1400 60 18 123/57 04/19 1200 98.1 58 22 128/62 04/19 1200 97 Nasal 5.0L Cannula Intake & Output 04/20 1600 04/20 0800 04/20 0000 Intake Total 2110 Output Total 800 Balance 1310 Intake, IV 1650 Intake, Oral 460 Output, Urine 800 Patient 304 lb Weight Exam General Appearance: well developed/nourished, alert, awake, comfortable, obese Head: atraumatic, normal appearance Neck: normal inspection, supple, full range of motion Respiratory: normal breath sounds, chest non-tender, no respiratory distress, quiet respiration, lungs clear Cardiovascular: regular rate/rhythm Abdomen: normal bowel sounds, soft, non-tender, no organomegaly Back: normal inspection Neurologic/Psychiatric: awake, alert, oriented x 3 Skin: intact, normal color Results Last 24 Hrs of Lab Results: Laboratory Tests 04/20/17 1055: APTT Pending 04/20/17 0230: Anion Gap 8, Estimated GFR 10 L, Glucose 81, Calcium 8.2 L, Phosphorus 4.7 H, Magnesium 2.0, Total Bilirubin 0.6, AST 337 H, ALT 161 H, Creatine Kinase 37217 H, Albumin 3.0 L, APTT > 120 *H, CBC w Diff NO MAN DIFF REQ, RBC 3.47 L , MCV 94.8, MCH 31.7 H, RDW 13.3, MPV 8.7, Gran % 80.4 H, Lymphocytes % 13.7 L, Monocytes % 5.3, Eosinophils % 0.3, Basophils % 0.3, Absolute Granulocytes 7.7 H, Absolute Lymphocytes 1.3, Absolute Monocytes 0.5, Absolute Eosinophils 0 , Absolute Basophils 0, PUBS MCHC 33.5 04/19/17 1840: APTT 33 Impression/Plan Impression/Plan Impression/Plan: Ms Clark is a 61-year-old woman with a past history of coronary artery disease status post stent), Marc thyroiditis (elevated TPO, Tg antiobodies, and noncompliant with her medications), substance abuse, bipolar, PTSD, depression who is being currently managed in the ICU for altered mental status likely from methadone overdose/PRAFUL She responded well to naloxone. Pt is off narcan today. Followed by nephro, Cardio and endocrine on board. Pt can be transferred to telemetry. PLAN: vitals: Pulse rate 68, RR 22, BP 138/70, [place]-clear urine. on nasal O2 5 L. Respiratory: * Lungs CLEAR. No added sounds Infection * On IV clindamycin day 4 for possible aspiration. Urine [id number]-[id number] rods. started her on cipro 500 mg day 2. Cardiac * Troponins trending down. On heparin drip. Statin held in view of elevated liver enzymes. Advised nuclear stress testing as an outpatient. HEME: * BUNs 46, creatinine 4.6 , TSH 6.66, hemoglobin 11. * nephro advised to follow up serologies and fluid at 40 ml /hr Metabolic * history of Marc thyroiditis -TSH 6.66. Started on levothyroxine 0.025 mg. * Repeat TFT next week. * BUN 46, creatinine 4.6. * Renal-USG * Limited portable exam demonstrating no evidence of any hydronephrosis or focal abnormality.Seen by nephro today adviced SPEP, C3, C4, JON, ANCA and repeat renal function in the a.m. [place]. [place]- [address] Alimentary * heart healthy diet. Neuro * Head CT-No acute intracranial pathology. DVT * Alps, heparin drip Code Status: Full Code Problem List: 1. Acute kidney injury 2. Methadone overdose 3. Bipolar disorder, unspecified 4. Hypertension 5. Hyperlipidemia
[2017-04-20 08:00] VITALS: BP 110/70
--- NOTE | 2017-04-20 08:32 | PN- Nephrology ---
Assessment/Plan Assessment: 1. PRAFUL: likely ATN due to mult insults; now nonoliguric w/o renal replacement indication. Hi risk for worsening renal failure if requires cath & would defer for now unless urgent indication 2. UTI: K pneumo - S cipro; prob lower UT tract rather than pyelo Suggestion: 1. Lower IV 40 ml/hr 2. await serologies & SPEP - doubt will be revelaing Subjective Subjective: Musculoskeletal CP - mild SOB No uremic sx Urine now nonoliguric Objective Vital Signs and I&Os Vital Signs Date Time Temp Pulse Resp B/P B/P Pulse O2 O2 Flow FiO2 Mean Ox Delivery Rate 04/20 0400 98.6 68 22 138/70 04/20 0400 92 Nasal 5.0L Cannula 04/20 0000 98.7 68 24 140/80 04/20 0000 93 Nasal 5.0L Cannula 04/20 0000 98.7 68 24 140/80 93 Nasal 4.0L Cannula 04/19 2000 98.0 84 22 128/60 04/19 2000 94 Nasal 5.0L Cannula 04/19 1800 98.0 76 22 133/70 07 1600 94 Nasal 5.0L Cannula 04/19 1600 98.1 58 25 120/70 95 Nasal 5.0L Cannula 04/19 1400 60 18 123/57 07/10 1200 98.1 58 22 128/62 07/10 1200 97 Nasal 5.0L Cannula 04/19 1026 64 124/58 0710 1000 66 18 121/67 Intake & Output 04/20 1600 11 0400 04/19 1600 04/19 0400 04/18 1600 04/18 0400 Intake Total 2110 3056 1527 2616.2 829.6 Output Total 800 650 100 300 200 Balance 1310 2406 1427 2316.2 629.6 Intake, IV 1650 2936 1227 2216.2 829.6 Intake, Oral 460 120 300 400 0 Number 0 0 0 Bowel Movements Output, Urine 800 650 100 300 200 Patient 305 lb Weight Weight Bed scale Measurement Method Physical Exam General Appearance: well developed/nourished, no apparent distress, obese Head: atraumatic, normal appearance Ears, Nose, Throat: normal ENT inspection Neck: normal inspection Respiratory: normal breath sounds, no respiratory distress, quiet respiration, lungs clear Cardiovascular: regular rate/rhythm, friction rub (none) Abdomen: soft, non-tender, morbid obesity Extremities: no edema Neurologic/Psychiatric: awake, alert Current Medications: Current Medications Sig/Mary Start time Last Medication Dose Route Stop Time Status Admin Acetaminophen 1,000 MG Q8 PRN 04/17 1700 AC N/A 1 UNIT IV Acetaminophen 325 MG Q6P PRN / 1230 AC 04/18 PO 2302 Aspirin 81 MG DAILY 04/17 1354 AC 04/19 PO 1027 Atorvastatin Calcium 40 MG 1700 04/17 1700 DC 04/18 PO 1740 Ciprofloxacin 500 MG DAILY 04/19 1000 AC 04/19 PO 04/23 0959 1026 Clindamycin 300 MG Q8H 04/18 0400 AC 04/20 Dextrose/Water 50 ML IV 0410 Heparin Sodium 8,500 UNIT ONCE ONE 04/19 2015 DC 04/19 (Porcine) IV 04/19 2016 2057 Heparin Sodium 10,000 UNIT .STK-MED ONE 04/19 1947 DC (Porcine) IV 04/19 1948 Heparin Sodium 4,140 UNIT ONCE ONE 04/19 1045 VA 04/19 (Porcine) IV 04/19 1046 1045 Heparin Sodium 5,000 UNIT .STK-MED ONE 04/19 1041 DC (Porcine) IV 04/19 1042 Heparin Sodium 25,000 UNIT Q24H 04/17 1300 AC 04/19 (Porcine) IV 1042 Sodium Chloride 500 ML Levothyroxine Sodium 0.025 MG DAILY AC 04/18 1115 AC 04/20 PO 0600 Lorazepam 1 MG Q1P PRN 04/17 1415 AC IV Metformin HCl 500 MG TID 04/19 1000 CAN PO Metoclopramide HCl 10 MG Q6P PRN 04/17 1645 AC IV Metoprolol Tartrate 12.5 MG BID 04/17 1354 AC 04/19 PO 2217 Naloxone HCl 4 MG Q15H 04/19 1045 DC 04/19 Dextrose/Water 1,000 ML IV 1025 Naloxone HCl 4 MG Q24H / 1715 DC 04/18 Dextrose/Water 1,000 ML IV 04/19 1044 1754 Nitroglycerin 0.5 GM Q6 / 1354 AC 04/20 TOP 0603 Nystatin 1 FERN TID 04/17 2200 AC 04/19 TOP 2217 Sodium Chloride 2 SPRAY Q4P PRN 04/19 2345 AC [place] Sodium Chloride 1,000 ML Q10H 04/18 1830 AC 04/20 IV 0022 Results Pertinent Lab Results: Laboratory Tests 04/20 04/19 04/19 0230 1840 0935 Chemistry Sodium (137 - 145 mmol/L) 135 L Potassium (3.5 - 5.1 mmol/L) 4.5 Chloride (98 - 107 mmol/L) 104 Carbon Dioxide (22 - 30 mmol/L) 23 Anion Gap (5 - 16) 8 BUN (7 - 17 mg/dL) 46 H Creatinine (0.5 - 1.0 mg/dL) 4.6 H Estimated GFR (>60 ml/min) 10 L Glucose (65 - 99 mg/dL) 81 Calcium (8.4 - 10.2 mg/dL) 8.2 L Phosphorus (2.5 - 4.5 mg/dL) 4.7 H Magnesium (1.6 - 2.3 mg/dL) 2.0 Total Bilirubin (0.2 - 1.3 mg/dL) 0.6 AST (14 - 36 U/L) 337 H ALT (9 - 52 U/L) 161 H Albumin (3.5 - 5.0 g/dL) 3.0 L Coagulation APTT (25 - 37 SEC) > 120 *H 33 45 H Hematology CBC w Diff NO MAN DIFF REQ WBC (4.8 - 10.8 /CUMM) 9.6 RBC (4.20 - 5.40 /CUMM) 3.47 L Hgb (12.0 - 16.0 G/DL) 11.0 L Hct (37 - 47 %) 32.9 L MCV (81.0 - 99.0 FL) 94.8 MCH (27.0 - 31.0 PG) 31.7 H RDW (11.5 - 14.5 %) 13.3 Plt Count (130 - 400 /CUMM) 129 L MPV (7.4 - 10.4 FL) 8.7 Gran % (42.2 - 75.2 %) 80.4 H Lymphocytes % (20.5 - 51.1 %) 13.7 L Monocytes % (1.7 - 9.3 %) 5.3 Eosinophils % (0 - 5 %) 0.3 Basophils % (0.0 - 2.0 %) 0.3 Absolute Granulocytes (1.4 - 6.5 /CUMM) 7.7 H Absolute Lymphocytes (1.2 - 3.4 /CUMM) 1.3 Absolute Monocytes (0.10 - 0.60 /CUMM) 0.5 Absolute Eosinophils (0.0 - 0.7 /CUMM) 0 Absolute Basophils (0.0 - 0.2 /CUMM) 0 PUBS MCHC (33.0 - 37.0 G/DL) 33.5 07 0704/19 0600 0500 0423 Chemistry Sodium (137 - 145 mmol/L) 133 L Potassium (3.5 - 5.1 mmol/L) 4.3 Chloride (98 - 107 mmol/L) 103 Carbon Dioxide (22 - 30 mmol/L) 21 L Anion Gap (5 - 16) 9 BUN (7 - 17 mg/dL) 42 H Creatinine (0.5 - 1.0 mg/dL) 3.5 H Estimated GFR (>60 ml/min) 13 L BUN/Creatinine Ratio (7 - 25 %) 12.0 Total Bilirubin (0.2 - 1.3 mg/dL) 0.5 Direct Bilirubin (< 0.4 mg/dL) 0.3 AST (14 - 36 U/L) 639 H ALT (9 - 52 U/L) 183 H Alkaline Phosphatase (<127 U/L) 68 Creatine Kinase (30 - 135 U/L) 09039 H Total Protein (6.3 - 8.2 g/dL) 5.2 L Albumin (3.5 - 5.0 g/dL) 3.0 L TSH (0.270 - 4.200 uIU/mL) Cancelled 6.660 H Free T4 (0.78 - 2.44 ng/dL) Cancelled 0.64 L Hematology CBC w Diff NO MAN DIFF REQ WBC (4.8 - 10.8 /CUMM) 9.9 RBC (4.20 - 5.40 /CUMM) 3.46 L Hgb (12.0 - 16.0 G/DL) 11.0 L Hct (37 - 47 %) 32.7 L MCV (81.0 - 99.0 FL) 94.5 MCH (27.0 - 31.0 PG) 31.9 H RDW (11.5 - 14.5 %) 13.6 Plt Count (130 - 400 /CUMM) 122 L MPV (7.4 - 10.4 FL) 9.2 Gran % (42.2 - 75.2 %) 80.6 H Lymphocytes % (20.5 - 51.1 %) 13.2 L Monocytes % (1.7 - 9.3 %) 5.8 Eosinophils % (0 - 5 %) 0.1 Basophils % (0.0 - 2.0 %) 0.3 Absolute Granulocytes (1.4 - 6.5 /CUMM) 8.0 H Absolute Lymphocytes (1.2 - 3.4 /CUMM) 1.3 Absolute Monocytes (0.10 - 0.60 /CUMM) 0.6 Absolute Eosinophils (0.0 - 0.7 /CUMM) 0 Absolute Basophils (0.0 - 0.2 /CUMM) 0 PUBS MCHC (33.0 - 37.0 G/DL) 33.7 Immunology JON Titer Pending Anti-Nuclear Antibody Pending 04/19 04/19 04/18 04/18 0015 0000 1710 1630 Chemistry Sodium (137 - 145 mmol/L) 135 L Cancelled 136 L Potassium (3.5 - 5.1 mmol/L) 4.2 Cancelled 5.4 H Chloride (98 - 107 mmol/L) 105 Cancelled 103 Carbon Dioxide (22 - 30 mmol/L) 22 Cancelled 25 Anion Gap (5 - 16) 8 Cancelled 9 BUN (7 - 17 mg/dL) 39 H Cancelled 43 H Creatinine (0.5 - 1.0 mg/dL) 3.2 H Cancelled 3.5 H Estimated GFR (>60 ml/min) 15 L 13 L BUN/Creatinine Ratio (7 - 25 %) 12.2 Cancelled 12.3 Creatine Kinase (30 - 135 U/L) > 90332 H Troponin I (< 0.11 ng/ml) 4.02 *H Prot Electrophoresis Pending Total Protein (PEP) Pending Albumin % (PEP) Pending [id number]-[id number] Pending Odofx-9-Tjjpqadsh Pending Veec-6-Rxvyalml Pending Ewue-8-Lfudwmsu Pending Gamma Globulins Pending Abnorm Protein Band 1 Pending Abnorm Protein Band 2 Pending Abnorm Protein Band 3 Pending Coagulation APTT (25 - 37 SEC) 49 H 97 H Immunology ANCA Pending Complement C3 Pending Complement C4 Pending 04/18 04/18 04/18 1200 1200 0840 Hematology WBC (4.8 - 10.8 /CUMM) 10.1 RBC (4.20 - 5.40 /CUMM) 4.09 L Hgb (12.0 - 16.0 G/DL) 12.9 Hct (37 - 47 %) 39.1 MCV (81.0 - 99.0 FL) 95.7 MCH (27.0 - 31.0 PG) 31.5 H RDW (11.5 - 14.5 %) 13.4 Plt Count (130 - 400 /CUMM) 138 MPV (7.4 - 10.4 FL) 9.1 Gran % (42.2 - 75.2 %) 82.6 H Lymphocytes % (20.5 - 51.1 %) 10.5 L Monocytes % (1.7 - 9.3 %) 6.6 Eosinophils % (0 - 5 %) 0.1 Basophils % (0.0 - 2.0 %) 0.2 Absolute Granulocytes (1.4 - 6.5 /CUMM) 8.3 H Absolute Lymphocytes (1.2 - 3.4 /CUMM) 1.1 L Absolute Monocytes (0.10 - 0.60 /CUMM) 0.7 H Absolute Eosinophils (0.0 - 0.7 /CUMM) 0 Absolute Basophils (0.0 - 0.2 /CUMM) 0 PUBS MCHC (33.0 - 37.0 G/DL) 32.9 L Toxicology Urine Opiates Screen (>2000 NG/ML) < 100.00 Methadone Screen (>300 NG/ML) > 735 H Barbiturate Screen (>200 NG/ML) < 60 Ur Phencyclidine Scrn (>25 NG/ML) < 6.00 Amphetamines Screen (>1000 NG/ML) < 100 U Benzodiazepines Scrn (>200 NG/ML) < 85 Urine Cocaine Screen (>300 NG/ML) < 50 Urine Cannabis Screen (>50 NG/ML) < 5.00 Urines Urinalysis LIGHT H Urine Color (YEL,AMB,STR) YEL Urine Clarity (CLEAR) CLDY H Urine pH (5.0 - 8.0) 6.0 Ur Specific [place] (1.001 - 1.035) >= 1.030 Urine Protein (NEG,<30 MG/DL) 100 H Urine Ketones (NEG) NEG Urine Nitrite (NEG) NEG Urine Bilirubin (NEG) NEG@ICTO Urine Urobilinogen (0.1 - 1.0 EU/dl) 0.2 Ur Leukocyte Esterase (NEG) SMALL H Ur Microscopic SEDIMENT EXAMINED Urine RBC (0 - 5 /HPF) 25-50 H Urine WBC (0 - 2 /HPF) 25-50 H Ur Epithelial Cells (NONE,FEW) FEW Urine Bacteria (NEG/NONE) MANY H Granular Casts (NONE /LPF) > 75 H Urine Mucus (FEW,NONE) FEW Urine Hemoglobin (NEG) LARGE H Ur Random Creatinine (mg/dL) 229.9 U Random Total Protein (0 - 12 mg/dL) 196 H Protein/Creatinin Ratio (< 0.2) 0.8 H Urine Glucose (N MG/DL) 100 H 04/18 04/18 04/18 04/18 04/18 0605 0605 0311 0202 0000 Chemistry Sodium (137 - 145 mmol/L) 133 L Potassium (3.5 - 5.1 mmol/L) 4.9 Chloride (98 - 107 mmol/L) 102 Carbon Dioxide (22 - 30 mmol/L) 21 L Anion Gap (5 - 16) 10 BUN (7 - 17 mg/dL) 35 H Creatinine (0.5 - 1.0 mg/dL) 2.8 H Estimated GFR (>60 ml/min) 17 L Glucose (65 - 99 mg/dL) 149 H Lactic Acid Cancelled Calcium (8.4 - 10.2 mg/dL) 8.2 L Phosphorus (2.5 - 4.5 mg/dL) 4.5 Magnesium (1.6 - 2.3 mg/dL) 2.1 Total Bilirubin (0.2 - 1.3 mg/dL) 0.8 AST (14 - 36 U/L) 967 H ALT (9 - 52 U/L) 213 H Troponin I (< 0.11 ng/ml) Cancelled 7.35 *H Cancelled Albumin (3.5 - 5.0 g/dL) 3.7 Coagulation APTT (25 - 37 SEC) 83 H 04/17 04/17 04/17 04/17 2340 2340 2320 2135 Blood Gas pH (7.35 - 7.45 PH) 7.33 L pCO2 (35 - 45 TORR) 42 pO2 (80 - 100 TORR) 64 L HCO3 (21 - 28 MEQ/L) 22 ABG O2 Sat (Measured) (>96.0 %) 91.0 L P-50 (Temp Corrected) Y Carboxyhemoglobin (1.5 - 5.0 %) 0.6 L O2 Concentration % 6L Temperature (97.0 - 100.0 FARH) 98.0 O2 Delivery Method NC Chemistry Sodium (137 - 145 mmol/L) 137 Cancelled Potassium (3.5 - 5.1 mmol/L) 4.7 Cancelled Chloride (98 - 107 mmol/L) 103 Cancelled Carbon Dioxide (22 - 30 mmol/L) 23 Cancelled Anion Gap (5 - 16) 11 Cancelled BUN (7 - 17 mg/dL) 32 H Cancelled Creatinine (0.5 - 1.0 mg/dL) 2.8 H Cancelled Estimated GFR (>60 ml/min) 17 L Glucose (65 - 99 mg/dL) 171 H Cancelled Lactic Acid (0.7 - 2.1 mmol/L) 2.0 Calcium (8.4 - 10.2 mg/dL) 8.3 L Cancelled Phosphorus (2.5 - 4.5 mg/dL) 4.9 H Cancelled Magnesium (1.6 - 2.3 mg/dL) 1.8 Cancelled Total Bilirubin (0.2 - 1.3 mg/dL) 0.6 Cancelled AST (14 - 36 U/L) 979 H Cancelled ALT (9 - 52 U/L) 231 H Cancelled Creatine Kinase (30 - 135 U/L) > 10228 H Troponin I (< 0.11 ng/ml) 10.90 *H Albumin (3.5 - 5.0 g/dL) 3.8 Cancelled Miscellaneous Phlebotomy Draw Site RIGHT RADIAL 04/17 04/17 04/17 04/17 1945 1850 1835 1720 Blood Gas pH (7.35 - 7.45 PH) 7.29 *L pCO2 (35 - 45 TORR) 45 pO2 (80 - 100 TORR) 64 L HCO3 (21 - 28 MEQ/L) 21 ABG O2 Sat (Measured) (>96.0 %) 91.0 L P-50 (Temp Corrected) Y Carboxyhemoglobin (1.5 - 5.0 %) 0.2 L O2 Concentration % 6L Temperature (97.0 - 100.0 FARH) 98.2 O2 Delivery Method NC Chemistry Lactic Acid (0.7 - 2.1 mmol/L) 2.6 H Troponin I (< 0.11 ng/ml) 10.40 *H Coagulation APTT (25 - 37 SEC) 60 H Miscellaneous Phlebotomy Draw Site RIGHT RADIAL 04/17 04/17 1325 1157 Blood Gas pH (7.35 - 7.45 PH) 7.17 *L pCO2 (35 - 45 TORR) 62 *H pO2 (80 - 100 TORR) 78 L HCO3 (21 - 28 MEQ/L) 22 ABG O2 Sat (Measured) (>96.0 %) 94.0 L P-50 (Temp Corrected) Y Carboxyhemoglobin (1.5 - 5.0 %) 0.6 L O2 Concentration % 100% Temperature (97.0 - 100.0 FARH) 96.6 L O2 Delivery Method NRB Chemistry Troponin I (< 0.11 ng/ml) 4.51 *H Miscellaneous Phlebotomy Draw Site RIGHT RADIAL 04/17 0900 Urines Urinalysis MOD H Urine Color (YEL,AMB,STR) BLDY H Urine Clarity (CLEAR) TURBD H Urine pH (5.0 - 8.0) 5.5 Ur Specific [place] (1.001 - 1.035) >= 1.030 Urine Protein (NEG,<30 MG/DL) >=300 H Urine Ketones (NEG) NEG Urine Nitrite (NEG) POS H Urine Bilirubin (NEG) NEG@ICTO Urine Urobilinogen (0.1 - 1.0 EU/dl) 1.0 Ur Leukocyte Esterase (NEG) TRACE H Ur Microscopic SEDIMENT EXAMINED Urine RBC (0 - 5 /HPF) 10-15 H Urine WBC (0 - 2 /HPF) RARE Ur Epithelial Cells (NONE,FEW) MOD H Urine Bacteria (NEG/NONE) MANY H Urine Hemoglobin (NEG) LARGE H Urine Glucose (N MG/DL) NEG Imaging/Other Studies: CXR: IMPRESSION: 1. Cardiomegaly without pulmonary edema. 2. Discoid atelectasis is present in the right and left mid lung zones. 3. No overt pneumonia.
--- NOTE | 2017-04-20 09:30 | PN- Cardiology ---
Subjective Subjective: Patient was lethargic and arousable but without specific complaints. Review of Systems: Eyes no blurred or double vision Ears no deafness or ringing Nose and throat no recurrent sinusitis Lungs per history of present illness Heart per history of present illness Abdomen no nausea vomiting Musculoskeletal occasional muscle and joint pains Psych no anxiety or depression Neuro without recurrent headache or seizures Endocrine no heat or cold intolerance Objective Vital Signs and I&Os Vital Signs Date Time Temp Pulse Resp B/P B/P Pulse O2 O2 Flow FiO2 Mean Ox Delivery Rate 04/20 0400 98.6 68 22 138/70 04/20 0400 92 Nasal 5.0L Cannula 04/20 0000 98.7 68 24 140/80 04/20 0000 93 Nasal 5.0L Cannula 04/20 0000 98.7 68 24 140/80 93 Nasal 4.0L Cannula 04/19 2000 98.0 84 22 128/60 04/19 2000 94 Nasal 5.0L Cannula 04/19 1800 98.0 76 22 133/70 04/19 1600 94 Nasal 5.0L Cannula 04/19 1600 98.1 58 25 120/70 95 Nasal 5.0L Cannula 04/19 1400 60 18 123/57 04/19 1200 98.1 58 22 128/62 04/19 1200 97 Nasal 5.0L Cannula 04/19 1026 64 124/58 04/19 1000 66 18 121/67 Intake & Output 04/20 1600 04/20 0800 04/20 0000 04/19 1600 04/19 0800 04/19 0000 Intake Total 2110 1710 1346 1527 Output Total 800 350 300 100 Balance 1310 1360 1046 1427 Intake, IV 1650 1590 1346 1227 Intake, Oral 460 120 300 Number 0 Bowel Movements Output, Urine 800 350 300 100 Physical Exam: Patient is a well-developed obese female appearing in no acute distress HEENT is unremarkable Neck is supple there is no JVD Lungs are clear Heart regular rhythm S1 and S2 are normal no murmurs gallops or rubs Abdomen bowel sounds positive Extremities without edema Current Medications: Current Medications Sig/Mary Start time Last Medication Dose Route Stop Time Status Admin Acetaminophen 1,000 MG Q8 PRN 04/17 1700 AC N/A 1 UNIT IV Acetaminophen 325 MG Q6P PRN 04/17 1230 AC 04/18 PO 2302 Aspirin 81 MG DAILY 04/17 1354 AC 04/19 PO 1027 Atorvastatin Calcium 40 MG 1700 04/17 1700 ND 04/18 PO 1740 Ciprofloxacin 500 MG DAILY 04/19 1000 04/19 PO 04/23 0959 1026 Clindamycin 300 MG Q8H 04/18 0400 04/20 Dextrose/Water 50 ML IV 0410 Heparin Sodium 8,500 UNIT ONCE ONE 04/19 2015 DC 04/19 (Porcine) IV 04/19 Heparin Sodium 10,000 UNIT .STK-MED ONE 04/19 1947 DC (Porcine) IV 04/19 1948 Heparin Sodium 4,140 UNIT ONCE ONE 04/19 1045 DC 04/19 (Porcine) IV 04/19 1046 1045 Heparin Sodium 5,000 UNIT .STK-MED ONE 04/19 1041 DC (Porcine) IV 04/19 1042 Heparin Sodium 25,000 UNIT Q24H 04/17 1300 AC 04/19 (Porcine) IV 1042 Sodium Chloride 500 ML Levothyroxine Sodium 0.025 MG DAILY AC 04/18 1115 04/20 PO 0600 Lorazepam 1 MG Q1P PRN 04/17 1415 AC IV Metoclopramide HCl 10 MG Q6P PRN 04/17 1645 AC IV Metoprolol Tartrate 12.5 MG BID 04/17 1354 04/19 PO 2217 Naloxone HCl 4 MG Q15H 04/19 1045 ND 04/19 Dextrose/Water 1,000 ML IV 1025 Naloxone HCl 4 MG Q24H 04/18 1715 DC 04/18 Dextrose/Water 1,000 ML IV 04/19 1044 1754 Nitroglycerin 0.5 GM Q6 04/17 1354 04/20 TOP 0603 Nystatin 1 FERN TID 04/17 2200 04/19 TOP 2217 Sodium Chloride 1,000 ML Q24H 04/20 0845 AC IV Sodium Chloride 2 SPRAY Q4P PRN 04/19 2345 AC [place] Sodium Chloride 1,000 ML Q10H 04/18 1830 ND 04/20 IV 0022 Results Last 48 Hrs of Labs/Mics: Laboratory Tests 04/20/17 0230: Anion Gap 8, Estimated GFR 10 L, Glucose 81, Calcium 8.2 L, Phosphorus 4.7 H, Magnesium 2.0, Total Bilirubin 0.6, AST 337 H, ALT 161 H, Creatine Kinase Pending, Albumin 3.0 L, APTT > 120 *H, CBC w Diff NO MAN DIFF REQ, RBC 3.47 L, MCV 94.8, MCH 31.7 H, RDW 13.3, MPV 8.7, Gran % 80.4 H, Lymphocytes % 13.7 L, Monocytes % 5.3, Eosinophils % 0.3, Basophils % 0.3, Absolute Granulocytes 7.7 H, Absolute Lymphocytes 1.3, Absolute Monocytes 0.5, Absolute Eosinophils 0, Absolute Basophils 0, PUBS MCHC 33.5 04/19/17 1840: APTT 33 04/19/17 0935: APTT 45 H 04/19/17 0600: TSH Cancelled, Free T4 Cancelled 04/19/17 0500: JON Titer Pending, Anti-Nuclear Antibody Pending 04/19/17 0423: Anion Gap 9, Estimated GFR 13 L, BUN/Creatinine Ratio 12.0, Total Bilirubin 0.5 , Direct Bilirubin 0.3, AST 639 H, ALT 183 H, Alkaline Phosphatase 68, Creatine Kinase 95699 H, Total Protein 5.2 L, Albumin 3.0 L, TSH 6.660 H, Free T4 0.64 L, CBC w Diff NO MAN DIFF REQ, RBC 3.46 L, MCV 94.5, MCH 31.9 H, RDW 13.6, MPV 9.2, Gran % 80.6 H, Lymphocytes % 13.2 L, Monocytes % 5.8, Eosinophils % 0.1, Basophils % 0.3, Absolute Granulocytes 8.0 H, Absolute Lymphocytes 1.3, Absolute Monocytes 0.6, Absolute Eosinophils 0, Absolute Basophils 0, PUBS MCHC 33.7 04/19/17 0015: Anion Gap 8, Estimated GFR 15 L, BUN/Creatinine Ratio 12.2, APTT 49 H 04/19/17 0000: Prot Electrophoresis Pending, Total Protein (PEP) Pending, Albumin % (PEP) Pending, Xmbie-6-Qayrxazsp Pending, Hxyfy-9-Otkhjvnwo Pending, Haxp-1-Kyijwlnw Pending, Pcbc-9-Hieeiwyn Pending, Gamma Globulins Pending, Abnorm Protein Band 1 Pending, Abnorm Protein Band 2 Pending, Abnorm Protein Band 3 Pending, ANCA Pending, Complement C3 Pending, Complement C4 Pending 04/18/17 1710: Sodium Cancelled, Potassium Cancelled, Chloride Cancelled, Carbon Dioxide Cancelled, Anion Gap Cancelled, BUN Cancelled, Creatinine Cancelled, BUN/ Creatinine Ratio Cancelled 04/18/17 1630: Anion Gap 9, Estimated GFR 13 L, BUN/Creatinine Ratio 12.3, Creatine Kinase > 67566 H, Troponin I 4.02 *H, APTT 97 H 04/18/17 1200: Ur Random Creatinine 229.9, U Random Total Protein 196 H, Protein/Creatinin Ratio 0.8 H 04/18/17 1200: Urine Opiates Screen < 100.00, Methadone Screen > 735 H, Barbiturate Screen < 60, Ur Phencyclidine Scrn < 6.00, Amphetamines Screen < 100, U Benzodiazepines Scrn < 85, Urine Cocaine Screen < 50, Urine Cannabis Screen < 5.00, Urinalysis LIGHT H, Urine Color YEL, Urine Clarity CLDY H, Urine pH 6.0, Ur Specific [place] >= 1.030, Urine Protein 100 H, Urine Ketones NEG, Urine Nitrite NEG, Urine Bilirubin NEG@ICTO, Urine Urobilinogen 0.2, Ur Leukocyte Esterase SMALL H , Ur Microscopic SEDIMENT EXAMINED, Urine RBC 25-50 H, Urine WBC 25-50 H, Ur Epithelial Cells FEW, Urine Bacteria MANY H, Granular Casts > 75 H, Urine Mucus FEW, Urine Hemoglobin LARGE H, Urine Glucose 100 H Telemetry personally reviewed sinus rhythm PVCs rare triplets Recent Imaging Studies: Echocardiogram CONCLUSIONS Normal left and right ventricular systolic function. Mild LVH and left atrial enlargement. No significant valvular abnormalities noted. Leif Herron M.D. Assessment/Plan Assessment/Plan The patient is a 61-year-old woman with a past medical history of coronary artery disease, hypertension, morbid obesity and back pain. She presented to our hospital after being found unresponsive following an opiate overdose with likely aspiration pneumonia. She has well is noted to have acute kidney injury, metabolic derangements and an elevated troponin isoenzyme (10.9 peak). Troponin isoenzyme elevation: Likely secondary to a type II (supply/demand mismatch) acute non-ST segment elevation myocardial infarction. Currently on aspirin, beta jasper and statin. Following overall improvement, consideration for testing for an underlying ischemic burden by nuclear stress testing may be performed. This may be performed as an outpatient. Acute kidney injury and rhabdomyolysis: Nephrology following Continue telemetry? Yes
--- NOTE | 2017-04-20 09:55 | PN- CRCU ---
Subjective HPI/Critical Care Issues: The patient is awake and alert. She is currently off BiPAP. She did not wear her BIPAP last night. She remains on 4-5 L nasal cannula. The patient has excellent urine output, noting she is receiving normal saline at 100 ML per hour. She feels more fatigued today. She has poor oral intake. She is not offering any new complaints. Objective Current Medications: Current Medications Sig/Mary Start time Last Medication Dose Route Stop Time Status Admin Acetaminophen 1,000 MG Q8 PRN 04/17 1700 AC N/A 1 UNIT IV Acetaminophen 325 MG Q6P PRN 04/17 1230 AC 04/18 PO 2302 Aspirin 81 MG DAILY 04/17 1354 AC 04/19 PO 1027 Atorvastatin Calcium 40 MG 1700 04/17 1700 DC 04/18 PO 1740 Ciprofloxacin 500 MG DAILY 04/19 1000 AC 04/19 PO 04/23 0959 1026 Clindamycin 300 MG Q8H 04/18 0400 AC 04/20 Dextrose/Water 50 ML IV 0410 Heparin Sodium 8,500 UNIT ONCE ONE 04/19 2015 DC 04/19 (Porcine) IV 04/19 2016 8 Heparin Sodium 10,000 UNIT .STK-MED ONE 04/19 1947 DC (Porcine) IV 04/19 1948 Heparin Sodium 4,140 UNIT ONCE ONE 04/19 1045 DC 04/19 (Porcine) IV 04/19 1046 1045 Heparin Sodium 5,000 UNIT .STK-MED ONE 04/19 1041 DC (Porcine) IV 04/19 1042 Heparin Sodium 25,000 UNIT Q24H 04/17 1300 AC 04/19 (Porcine) IV 1042 Sodium Chloride 500 ML Levothyroxine Sodium 0.025 MG DAILY AC 04/18 1115 AC 04/20 PO 0600 Lorazepam 1 MG Q1P PRN 04/17 1415 AC IV Metoclopramide HCl 10 MG Q6P PRN 04/17 1645 AC IV Metoprolol Tartrate 12.5 MG BID 04/17 1354 AC 04/19 PO 2217 Naloxone HCl 4 MG Q15H 04/19 1045 DC 04/19 Dextrose/Water 1,000 ML IV 1025 Naloxone HCl 4 MG Q24H 04/18 1715 DC 04/18 Dextrose/Water 1,000 ML IV 04/19 1044 1754 Nitroglycerin 0.5 GM Q6 04/17 1354 AC 04/20 TOP 0603 Nystatin 1 FERN TID 04/17 2200 AC 04/19 TOP 2217 Sodium Chloride 1,000 ML Q24H 04/20 0845 AC IV Sodium Chloride 2 SPRAY Q4P PRN 04/19 2345 AC [place] Sodium Chloride 1,000 ML Q10H 04/18 1830 DC 04/20 IV 0022 Vital Signs & I&O Last 24 Hrs of Vitals and I&O: Vital Signs Date Time Temp Pulse Resp B/P B/P Pulse O2 O2 Flow FiO2 Mean Ox Delivery Rate 04/20 0800 Nasal 4.0L Cannula 04/20 0800 98.1 68 20 110/70 90 Nasal 4.0L Cannula 04/20 0400 98.6 68 22 138/70 04/20 0400 92 Nasal 5.0L Cannula 04/20 0000 98.7 68 24 140/80 04/20 0000 93 Nasal 5.0L Cannula 04/20 0000 98.7 68 24 140/80 93 Nasal 4.0L Cannula 04/19 2000 98.0 84 22 128/60 04/19 2000 94 Nasal 5.0L Cannula 04/19 1800 98.0 76 22 133/70 04/19 1600 94 Nasal 5.0L Cannula 04/19 1600 98.1 58 25 120/70 95 Nasal 5.0L Cannula 04/19 1400 60 18 123/57 04/19 1200 98.1 58 22 128/62 04/19 1200 97 Nasal 5.0L Cannula 04/19 1026 64 124/58 04/19 1000 66 18 121/67 Intake & Output 04/20 1600 04/20 0800 04/20 0000 Intake Total 2110 Output Total 800 Balance 1310 Intake, IV 1650 Intake, Oral 460 Output, Urine 800 Patient 304 lb Weight Physical Exam General Appearance: lethargic but awake, no distress, obese Head: atraumatic Neck: supple Respiratory: chest non-tender, decreased breath sounds Cardiovascular: regular rate/rhythm Gastrointestinal: soft, non-tender, obese Extremities: no edema Results Last 24 Hrs of Lab Results: Laboratory Tests 04/20/17 0230: Anion Gap 8, Estimated GFR 10 L, Glucose 81, Calcium 8.2 L, Phosphorus 4.7 H, Magnesium 2.0, Total Bilirubin 0.6, AST 337 H, ALT 161 H, Creatine Kinase Pending, Albumin 3.0 L, APTT > 120 *H, CBC w Diff NO MAN DIFF REQ, RBC 3.47 L, MCV 94.8, MCH 31.7 H, RDW 13.3, MPV 8.7, Gran % 80.4 H, Lymphocytes % 13.7 L, Monocytes % 5.3, Eosinophils % 0.3, Basophils % 0.3, Absolute Granulocytes 7.7 H, Absolute Lymphocytes 1.3, Absolute Monocytes 0.5, Absolute Eosinophils 0, Absolute Basophils 0, PUBS MCHC 33.5 04/19/17 1840: APTT 33 Last 24 Hrs of Micro Results: Urine positive for Klebsiella. Impression/Plan Impression/Plan Impression/Plan: 1. Acute hypoxemic respiratory failure, with aspiration pneumonia on CXR, with bilateral consolidation. On Cipro and Clinda. The patient's respiratory status has significantly improved. 2. Mental status changes secondary methadone overdose. 3. Elevated troponin; rule out acute coronary syndrome/NSTEMI. 4. History of CAD. 5. Hypothyroid. 6. Acute renal insufficiency, multifactorial etiology, nephrology following. 7. Transaminitis. 8. Hearing loss - improved. 9. UIT - urine culture positive for Klebsiella, on Cipro. Recommendations: * Follow up nephrology recommendations, appreciate input. * Continue gentle hydration. * Follow up culture results. * Cipro and Clinda. * Replace electrolytes as needed. * Nebs/TRC. * Taper oxygen down for saturations greater than 92%. * Synthroid replacement as per endocrine. * Continue Narcan drip today. Slowly taper off for an SAS of 4. Avoid overdedation. * ASA/metoprolol as per cardiology. * DVT prophylaxis at all times. * Please request psych and social science professor input. * Continue all supportive care. Code Status: Full Code
[2017-04-20 11:32] LABS: PTT 93 SEC (25-37)
[2017-04-20 12:00] VITALS: BP 118/64
--- NOTE | 2017-04-20 12:08 | Transfer of Care Summary ---
Hospital Course Course Hospital Course: Patient is a 61-year-old female with past medical history of (coronary artery disease status post 3/4 stents in 2010) follows with Dr. Benson at [facility], hypothyroidism, chronic back pain, substance abuse, bipolar, PTSD, depression was brought into the ED today after being found unresponsive by her children this morning. In the field she was given 2.4 mg of Narcan and she responded appropriately. U tox positive for methadone, serum alcohol level less than 10. She was admitted to the intensive care unit as her unresponsive state was thought to be most likely secondary to a methadone overdose, and she was started on a narcan drip. Upon further investigation, she was also found to have elevated CPK, and acute kidney injury. She also developed elevated troponins. For her acute kidney injury, nephrology was consulted, and they felt that this was most likely secondary to acute tubular necrosis most likely secondary to the elevated CPK. Further investigations were ordered, SPEP, ANCA, JON, C3 and C4, which are WNL. She was started on gentle IV hydration with normal saline. Nephrology is on board. For her elevated troponin, this was felt to be secondary to an non-ST elevation myocardial infarction and she was started on IV heparin. Her troponin maxed out at 10.9 and trended downwards. Cardiology is on board, she is currently on IV heparin. Additionally, given her previous Marc's thyroiditis, the fact that she was in a critical state led to an acute elevation in TSH. She was started on low- dose Synthroid, 25 g which was increased to 50 g. She is being followed by endocrinology, and a repeat TSH is recommended in 1 week. Additionally, given the fact that this was a drug overdose, psychiatry was consulted to determine if this was an accidental or intentional overdose. Psychotropic medications were initially held given her kidney function and are currently being held. The plan is for intensive outpatient referral program upon discharge. Additionally, given the fact the patient was unresponsive for quite a bit, she did have elevated leukocytosis. Workup did reveal pulmonary infiltrates and this was felt to be secondary to aspiration pneumonia. She is allergic to penicillin and therefore she was started on clindamycin, which was discontinued. Additionally, urine cultures returned positive for Klebsiella pneumonia and again since she was penicillin allergic she was started on ciprofloxacin. 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 Problem List and PLAN: Respiratory: * Respiratory Distress resolved. * Pt was on BiPAP and now on 3L of O2 via NC * Plan for f/u with Dr. Jones in the outpt setting and PFT testing Infection * WBC Improving and afebrile. * Completed IV clindamycin day 4 for aspiration PNA. * Urine culture grew Klebsiella Pneumoniae, now on cipro 500 mg BID. Cardiac * Elevated troponins, most likely 2/2 NSTEMI * Cardio on board, and pt is still on IV heparin. Echocardiogram revealed Normal left and right ventricular systolic function. Mild LVH and left atrial enlargement. No significant valvular abnormalities noted. * Statin held in view of elevated liver enzymes, which are trending down. Please restart when her LFTs return to WNL. * Plan for nuclear stress testing as an outpatient. HEME/Neprho: * PRAFUL most likely 2/2 ATN (elevated CPK) * Renal U/S revealed no evidence of hydronephrosis of obstruction. * Nephro on board, and PRAFUL is improving with gentle hydration 40 ml /hr * Serologies advised by nephro WNL (ANCA, JON, C3/C4 and SPEP) Metabolic * history of Marc thyroiditis -TSH 6.66. Started on levothyroxine 0.025 mg , which was titrated to 50 micrograms. * Dr. Clark is on board, plan to repeat TFT next week. Alimentary * heart healthy diet. Neuro * Head CT-No acute intracranial pathology. DVT * Alps, heparin drip Attending MD Review Statement Documenting Attending: ALMA DOTSON,Francisco WILKINS
--- NOTE | 2017-04-20 12:26 | PN- Psychiatry ---
Assessment/Plan Impression: Identifying Info: 61-year-old female presented in by ambulance status post accidental methadone overdose after diverting her son's medication. History of bipolar disorder, PTSD, EtOH use disorder and sedative hypnotic use disorder currently followed at [facility]. Interviewed today in critical care unit. SUBJECTIVE Patient quite somnolent at time of interview and has difficulty participating. Denies SI. Collateral obtained from pt's son Will who is at bedside. He states that his mother has a long history of addiction. Describes several long stretches of sobriety punctuated with relapse typically due to psychosocial stressor. Including of both first and second . 1st anniversary of the of second is in the next few days. He feels she's been increasingly closed off. Does report that his mother would prefer to attend [facility]. Again states that he does not feel that this was a suicide attempt but rather an attempt to control pain. He fears his mother will continue to have relapses unless she has proper pain management. Brief ROS Gait: Not observed Sleep: Adequate Appetite: Not assessed OBJECTIVE Mental Status Exam Presentation/Appearance: Calm. Cooperative with evaluation. Hospital garb. Lying in bed. Orientation: x4 Sensorium: Awake and alert Eye contact: Appropriate Affect: Blunted Mood: Euthymic Depression: Denies Anxiety: Denies Thought Content: - Denies SI/HI, AH/VH, PI. States and also believes they will not kill themselves. - Denies Hopeless/Helpless Thoughts Thought Process: Linear Associations: Appropriate Speech: Normal tone and rate Judgment: Fair Insight: Fair Cognition: Memory: Deficits present, pt does not recall overdose Attention/Concentration: Fair Fund of Knowledge: Adequate Abstractions:[place] MMSE: Did not assess ASSESSMENT 61-year-old female presents status post accidental methadone overdose after diverting her son's medication. She denies any suicidality at this time and is not a threat to harm self intentionally. She is however at risk of another accidental overdose and appears to have been falling back into substance use. It would be prudent at this time the patient to receive a higher level of care, specifically dual diagnosis IOP treatment. Diagnosis Unspecified bipolar disorder Alcohol use disorder Sedative hypnotic use disorder Opiate use disorder Unspecified anxiety disorder A total of30 minutes was spent with the patient with more than 50% of the time spent in counseling and/or coordination of care. Suggestion: 1. Plan for referral to intensive outpatient program at [facility]. 2. Continue to hold psychotropics until kidney function improves. 3. Please initiate pain management referral to decrease chance of relapse and overdose. Thank you for including psychiatry in this case will continue to follow. Subjective Subjective: as above Objective Last 24 Hrs of Vital Signs/I&O Current Medications Sig/Mary Start time Last Medication Dose Route Stop Time Status Admin Acetaminophen 1,000 MG Q8 PRN 04/17 1700 AC N/A 1 UNIT IV Acetaminophen 325 MG Q6P PRN 04/17 1230 AC 04/18 PO 2302 Aspirin 81 MG DAILY 04/17 1354 AC 04/20 PO 0958 Atorvastatin Calcium 40 MG 1700 04/17 1700 DC 04/18 PO 1740 Ciprofloxacin 500 MG DAILY 04/19 1000 AC 04/20 PO 04/23 0959 0958 Clindamycin 300 MG Q8H 04/18 0400 04/20 Dextrose/Water 50 ML IV 1153 Heparin Sodium 8,500 UNIT ONCE ONE 04/19 2015 DC 04/19 (Porcine) IV 04/19 Heparin Sodium 10,000 UNIT .STK-MED ONE 04/19 1947 DC (Porcine) IV 04/19 194 Heparin Sodium 25,000 UNIT Q24H 04/17 1300 04/20 (Porcine) IV 1155 Sodium Chloride 500 ML Levothyroxine Sodium 0.025 MG DAILY AC 04/18 1115 AC 04/20 PO 0600 Lorazepam 1 MG Q1P PRN 04/17 1415 AC IV Metoclopramide HCl 10 MG Q6P PRN 04/17 1645 AC IV Metoprolol Tartrate 12.5 MG BID 04/17 1354 AC 04/20 PO 0958 Naloxone HCl 4 MG Q15H 04/19 1045 DC 04/19 Dextrose/Water 1,000 ML IV 1025 Nitroglycerin 0.5 GM Q6 / 1354 04/20 TOP 1153 Nystatin 1 FERN TID 04/17 2200 04/20 TOP 0958 Sodium Chloride 1,000 ML Q24H 04/20 0845 04/20 IV 0845 Sodium Chloride 2 SPRAY Q4P PRN 04/19 2345 AC 04/20 [place] 1016 Sodium Chloride 1,000 ML Q10H 04/18 1830 DC 04/20 IV 0022 Laboratory Tests 04/20/17 1055: APTT 93 H 04/20/17 0230: Anion Gap 8, Estimated GFR 10 L, Glucose 81, Calcium 8.2 L, Phosphorus 4.7 H, Magnesium 2.0, Total Bilirubin 0.6, AST 337 H, ALT 161 H, Creatine Kinase 84202 H, Albumin 3.0 L, APTT > 120 *H, CBC w Diff NO MAN DIFF REQ, RBC 3.47 L , MCV 94.8, MCH 31.7 H, RDW 13.3, MPV 8.7, Gran % 80.4 H, Lymphocytes % 13.7 L, Monocytes % 5.3, Eosinophils % 0.3, Basophils % 0.3, Absolute Granulocytes 7.7 H, Absolute Lymphocytes 1.3, Absolute Monocytes 0.5, Absolute Eosinophils 0 , Absolute Basophils 0, PUBS MCHC 33.5 04/19/17 1840: APTT 33 Vital Signs Date Time Temp Pulse Resp B/P B/P Pulse O2 O2 Flow FiO2 Mean Ox Delivery Rate 04/20 1200 66 20 118/64 94 Nasal 5.0L Cannula 04/20 0958 68 110/70 04/20 0800 Nasal 4.0L Cannula 04/20 0800 98.1 68 20 110/70 90 Nasal 4.0L Cannula 04/20 0400 98.6 68 22 138/70 04/20 0400 92 Nasal 5.0L Cannula 04/20 0000 98.7 68 24 140/80 07 0000 93 Nasal 5.0L Cannula 04/20 0000 98.7 68 24 140/80 93 Nasal 4.0L Cannula 04/19 2000 98.0 84 22 128/60 04/19 2000 94 Nasal 5.0L Cannula 04/19 1800 98.0 76 22 133/70 04/19 1600 94 Nasal 5.0L Cannula 04/19 1600 98.1 58 25 120/70 95 Nasal 5.0L Cannula 04/19 1400 60 18 123/57 Intake & Output 04/20 1600 04/20 0800 04/20 0000 Intake Total 420 2110 Output Total 550 800 Balance -130 1310 Intake, IV 1650 Intake, Oral 420 460 Output, Urine 550 800 Patient 304 lb Weight
[2017-04-20 20:00] LABS: PTT 44 SEC (25-37)
[2017-04-20 23:00] VITALS: BP 112/68
[2017-04-21 03:00] LABS: ABSOLUTE BASOPHIL COUNT 0.1 /CUMM (0.0-0.2); ABSOLUTE EOSINOPHIL COUNT 0.1 /CUMM (0.0-0.7); ABSOLUTE GRANULOCYTE CT 5.5 /CUMM (1.4-6.5); ABSOLUTE LYMPH COUNT 1.2 /CUMM (1.2-3.4); ABSOLUTE MONOCYTE COUNT 0.6 /CUMM (0.10-0.60); BASOPHIL % 0.8 % (0.0-2.0); GRANULOCYTE % 73.7 % (42.2-75.2); HEMATOCRIT 33.5 % (37-47); MEAN CORPUSCULAR HGB 31.7 PG (27.0-31.0); MEAN CORPUSCULAR HGB CONC 33.4 G/DL (33.0-37.0); MEAN PLATELET VOLUME 7.8 FL (7.4-10.4); PLATELET COUNT 176 /CUMM (130-400); RBC DISTRIBUTION WIDTH 13.8 % (11.5-14.5); RED BLOOD CELL CT 3.53 /CUMM (4.20-5.40); WHITE BLOOD CELL COUNT 7.4 /CUMM (4.8-10.8)
--- NOTE | 2017-04-21 03:00 | NUR ---
PT WAS VERY DROWSY, MINIMALLY RESPONSIVE WITH EYES OPEN. SHE WOULD LOOK AT ME WHEN I CALLED HER NAME BUT THEN LOSE FOCUS AND HAVE BLANK STARE. . PUPILS 2MM. VSS.SECURITY MANAGEMENT SPECIALIST NASO AWARE, ORDER OBTAINED FOR PRN NARCAN. NARCAN ADMINISTERED, PT BECAME VERY ALERT AND ANXIOUS. IS NOW CALM AND COOPERATIVE. ORIENTED TO PERSON AND PLACE. FLAT AFFECT CONTINUES. WILL CONTINUE TO MONITOR.
[2017-04-21 03:19] LABS: PTT > 120 SEC (25-37)
[2017-04-21 04:00] VITALS: BP 116/68
[2017-04-21 06:00] VITALS: BP 118/70
[2017-04-21 06:43] VITALS: BP 118/70
--- NOTE | 2017-04-21 07:45 | PN- CRCU ---
Subjective HPI/Critical Care Issues: I saw the pt today at bedside. pt is sitting comfortably in her bed, drowsy, not dyspneic, not tachypneic. no overnight events. no complaints of chest pain, palpitation, chills and fever. ON 5L of nasal o2 Objective Current Medications: Current Medications Sig/Mary Start time Last Medication Dose Route Stop Time Status Admin Acetaminophen 1,000 MG Q8 PRN 04/17 1700 AC N/A 1 UNIT IV Acetaminophen 325 MG Q6P PRN / 1230 AC 04/18 PO 2302 Aspirin 81 MG DAILY 04/17 1354 AC 04/21 PO 1005 Ciprofloxacin 500 MG DAILY 04/19 1000 AC / PO 04/23 0959 1005 Clindamycin 300 MG Q8H 04/18 0400 HI 04/21 Dextrose/Water 50 ML IV 1242 Heparin Sodium 10,000 UNIT .STK-MED ONE 04/20 2202 DC (Porcine) IV 04/20 2203 Heparin Sodium 8,274 UNIT BOLUS ONE 04/20 2030 DC 04/20 (Porcine) IV 04/20 2031 2205 Heparin Sodium 25,000 UNIT Q24H 04/17 1300 AC 04/21 (Porcine) IV 0152 Sodium Chloride 500 ML Levothyroxine Sodium 0.05 MG DAILY AC 04/22 0700 AC PO Levothyroxine Sodium 0.025 MG DAILY AC 04/18 1115 DC 04/21 PO 0615 Lorazepam 1 MG Q1P PRN 04/17 1415 AC 04/21 IV 0329 Metoclopramide HCl 10 MG .STK-MED ONE 04/20 1837 DC IM 04/20 1838 Metoclopramide HCl 10 MG Q6P PRN 04/17 1645 AC IV Metoprolol Tartrate 12.5 MG BID 04/17 1354 AC 04/21 PO 1005 Naloxone HCl 0.4 MG ONCE ONE 04/21 0300 DC 07 IV 04/21 0301 0312 Naloxone HCl 0.4 MG ONCE ONE 04/20 1815 DC 04/20 IV 04/20 1816 1819 Nitroglycerin 0.5 GM Q6 / 1354 AC 04/21 TOP 1244 Nystatin 5 ML 4 TIMES/DAY 07/ 1000 AC 07/ PO 1005 Nystatin 1 FERN TID 04/17 2200 AC 04/21 TOP 1005 Sodium Chloride 1,000 ML Q24H 07/11 0845 AC 04/21 IV 1005 Sodium Chloride 2 SPRAY Q4P PRN 04/19 2345 AC 04/20 [place] 1016 Sodium Polystyrene 60 ML ONCE ONE 04/21 0815 DC 04/21 Sulfonate PO 04/21 0816 1006 Vital Signs & I&O Last 24 Hrs of Vitals and I&O: Vital Signs Date Time Temp Pulse Resp B/P B/P Pulse O2 O2 Flow FiO2 Mean Ox Delivery Rate 04/21 1005 72 142/80 04/21 0800 Nasal 5.0L Cannula 04/21 0800 98.3 70 24 128/70 97 Nasal 5.0L Cannula 04/21 0643 98.6 66 14 118/70 94 Nasal 5.0L Cannula 04/21 0600 98.5 66 16 118/70 04/21 0400 98.5 74 30 116/68 07 0000 Nasal 5.0L Cannula 04/20 2300 98.2 64 16 112/68 93 Nasal 5.0L Cannula 04/20 1600 97 Nasal 5.0L Cannula Intake & Output 04/21 1600 04/21 0800 04/21 0000 Intake Total 814.8 850 Output Total 600 650 590 Balance -600 164.8 260 Intake, IV 574.8 700 Intake, Oral 240 150 Number 1 Bowel Movements Output, Urine 600 650 590 Exam General Appearance: well developed/nourished, no apparent distress, awake, comfortable Head: normal appearance Ears, Nose, Throat: normal ENT inspection Neck: normal inspection, supple, full range of motion Respiratory: normal breath sounds, chest non-tender, no respiratory distress Cardiovascular: regular rate/rhythm Abdomen: normal bowel sounds, soft, non-tender, no organomegaly Extremities: normal inspection Neurologic/Psychiatric: awake, alert, oriented x 3 Skin: intact, normal color Results Last 24 Hrs of Lab Results: Laboratory Tests 04/21/17 1040: APTT 61 H 04/21/17 0245: Anion Gap 10, Estimated GFR 9 L, Glucose 77, Calcium 8.5, Phosphorus 6.3 H, Magnesium 2.1, Total Bilirubin 0.5, AST 217 H, ALT 143 H, Albumin 3.3 L, APTT > 120 *H, CBC w Diff NO MAN DIFF REQ, RBC 3.53 L, MCV 95.0, MCH 31.7 H, RDW 13.8, MPV 7.8, Gran % 73.7, Lymphocytes % 16.6 L, Monocytes % 7.9, Eosinophils % 1.0, Basophils % 0.8, Absolute Granulocytes 5.5, Absolute Lymphocytes 1.2, Absolute Monocytes 0.6, Absolute Eosinophils 0.1, Absolute Basophils 0.1, PUBS MCHC 33.4 04/20/17 1930: APTT 44 H Impression/Plan Impression/Plan Impression/Plan: Ms Clark is a 61-year-old woman with a past history of coronary artery disease status post stent), Marc thyroiditis (elevated TPO, Tg antiobodies, and noncompliant with her medications), substance abuse, bipolar, PTSD, depression who is being currently managed in the ICU for altered mental status likely from methadone overdose/PRAFUL . She responded well to naloxone. Pt is off narcan. Followed by nephro, Cardio and endocrine on board. Pt can be transferred to telemetry. PLAN: vitals: Pulse rate 68, RR 22, BP 138/70, [place]-clear urine. on nasal O2 5 L. Respiratory: * Lungs CLEAR. No added sounds Infection * Urine [id number] rods.on cipro 500 mg day 2. Cardiac * Troponins trending down. On heparin drip. Statin held in view of elevated liver enzymes. Advised nuclear stress testing as an outpatient. HEME: * TSH 6.66 - levothyroxine increased to 50 mcg. hemoglobin 11.2. Metabolic * history of Marc thyroiditis -TSH 6.66. Started on levothyroxine 0.025 mg. * Repeat TFT next week. * BUN 46, creatinine 4.7- nephro on board. advised 2 gram K diet restriction. rpt electrolytes in the evening.advised t- to follow up serologies and fluid at 40 ml /hr Alimentary * heart healthy diet. Neuro * Head CT-No acute intracranial pathology. DVT * Alps, heparin drip Code Status: Full Code
[2017-04-21 08:00] VITALS: BP 128/70
--- NOTE | 2017-04-21 08:10 | PN- Nephrology ---
Assessment/Plan Assessment: 1. PRAFUL: ATN due to mult insult--> converted to nonoligura. No dialysis imperative. 2. Hyperkalemia: mild; needs K restricted diet & Kayexalat. 2. UTI: K pneumo - S cipro; prob lower UT tract rather than pyelo. Suggestion: 1. Kayexalate 15 gram po this morning 2. 2 gram K diet restriction 3. recheck lytes this afternoon/evening 4. await ANCA, C3, C4, & SPEP - doubt will be revelaing Subjective Subjective: No gross uremic sx - hungry No SOB Nonoliguric Neg JON noted Objective Vital Signs and I&Os Vital Signs Date Time Temp Pulse Resp B/P B/P Pulse O2 O2 Flow FiO2 Mean Ox Delivery Rate 04/21 0643 98.6 66 14 118/70 94 Nasal 5.0L Cannula 04/21 0600 98.5 66 16 118/70 04/21 0400 98.5 74 30 116/68 04/21 0000 Nasal 5.0L Cannula 04/20 2300 98.2 64 16 112/68 93 Nasal 5.0L Cannula 04/20 1600 97 Nasal 5.0L Cannula 04/20 1200 66 20 118/64 94 Nasal 5.0L Cannula 04/20 0958 68 110/70 Intake & Output 04/21 1600 04/21 0400 04/20 1600 04/20 0400 04/19 1600 04/19 0400 Intake Total 814.8 850 1083 2110 3056 1527 Output Total 650 590 550 800 650 100 Balance 164.8 898 037 5576 2406 1427 Intake, IV 574.8 080 759 6309 2936 1227 Intake, Oral 240 150 520 460 120 300 Number 0 Bowel Movements Output, Urine 650 590 550 800 650 100 Patient 304 lb Weight Physical Exam General Appearance: no apparent distress, obese Head: atraumatic, normal appearance Ears, Nose, Throat: normal ENT inspection Neck: normal inspection Respiratory: normal breath sounds, no respiratory distress, quiet respiration, lungs clear Cardiovascular: regular rate/rhythm Abdomen: soft, non-tender Extremities: no edema Neurologic/Psychiatric: awake, alert Current Medications: Current Medications Sig/Mary Start time Last Medication Dose Route Stop Time Status Admin Acetaminophen 1,000 MG Q8 PRN 04/17 1700 AC N/A 1 UNIT IV Acetaminophen 325 MG Q6P PRN 07/ 1230 AC 04/18 PO 2302 Aspirin 81 MG DAILY 04/17 1354 AC 04/20 PO 0958 Ciprofloxacin 500 MG DAILY 04/19 1000 AC 04/20 PO 04/23 0959 0958 Clindamycin 300 MG Q8H 04/18 0400 AC 04/21 Dextrose/Water 50 ML IV 0312 Heparin Sodium 10,000 UNIT .STK-MED ONE 04/20 2202 DC (Porcine) IV 04/20 220 Heparin Sodium 8,274 UNIT BOLUS ONE 04/20 2030 DC 04/20 (Porcine) IV 04/20 203 220 Heparin Sodium 25,000 UNIT Q24H / 1300 AC 04/21 (Porcine) IV 0152 Sodium Chloride 500 ML Levothyroxine Sodium 0.025 MG DAILY AC 04/18 1115 AC 04/21 PO 0615 Lorazepam 1 MG Q1P PRN 04/17 1415 AC 04/21 IV 0329 Metoclopramide HCl 10 MG .STK-MED ONE 04/20 1837 DC IM 04/20 1838 Metoclopramide HCl 10 MG Q6P PRN 04/17 1645 AC IV Metoprolol Tartrate 12.5 MG BID 04/17 1354 AC 04/20 PO 2103 Naloxone HCl 0.4 MG ONCE ONE 04/21 0300 DC 04/21 IV 04/21 0301 0312 Naloxone HCl 0.4 MG ONCE ONE 04/20 1815 DC 04/20 IV 04/20 1816 1819 Nitroglycerin 0.5 GM Q6 04/17 1354 04/21 TOP 0615 Nystatin 1 FERN TID 04/17 2200 04/20 TOP 2057 Sodium Chloride 1,000 ML Q24H 04/20 0845 04/20 IV 0845 Sodium Chloride 2 SPRAY Q4P PRN 04/19 2345 AC 04/20 [place] 1016 Sodium Chloride 1,000 ML Q10H 04/18 1830 DC 04/20 IV 0022 Results Pertinent Lab Results: Laboratory Tests 04/21 04/20 04/20 0245 1930 1055 Chemistry Sodium (137 - 145 mmol/L) 138 Potassium (3.5 - 5.1 mmol/L) 5.3 H Chloride (98 - 107 mmol/L) 105 Carbon Dioxide (22 - 30 mmol/L) 22 Anion Gap (5 - 16) 10 BUN (7 - 17 mg/dL) 46 H Creatinine (0.5 - 1.0 mg/dL) 4.7 H Estimated GFR (>60 ml/min) 9 L Glucose (65 - 99 mg/dL) 77 Calcium (8.4 - 10.2 mg/dL) 8.5 Phosphorus (2.5 - 4.5 mg/dL) 6.3 H Magnesium (1.6 - 2.3 mg/dL) 2.1 Total Bilirubin (0.2 - 1.3 mg/dL) 0.5 AST (14 - 36 U/L) 217 H ALT (9 - 52 U/L) 143 H Albumin (3.5 - 5.0 g/dL) 3.3 L Coagulation APTT (25 - 37 SEC) > 120 *H 44 H 93 H Hematology CBC w Diff NO MAN DIFF REQ WBC (4.8 - 10.8 /CUMM) 7.4 RBC (4.20 - 5.40 /CUMM) 3.53 L Hgb (12.0 - 16.0 G/DL) 11.2 L Hct (37 - 47 %) 33.5 L MCV (81.0 - 99.0 FL) 95.0 MCH (27.0 - 31.0 PG) 31.7 H RDW (11.5 - 14.5 %) 13.8 Plt Count (130 - 400 /CUMM) 176 MPV (7.4 - 10.4 FL) 7.8 Gran % (42.2 - 75.2 %) 73.7 Lymphocytes % (20.5 - 51.1 %) 16.6 L Monocytes % (1.7 - 9.3 %) 7.9 Eosinophils % (0 - 5 %) 1.0 Basophils % (0.0 - 2.0 %) 0.8 Absolute Granulocytes (1.4 - 6.5 /CUMM) 5.5 Absolute Lymphocytes (1.2 - 3.4 /CUMM) 1.2 Absolute Monocytes (0.10 - 0.60 /CUMM) 0.6 Absolute Eosinophils (0.0 - 0.7 /CUMM) 0.1 Absolute Basophils (0.0 - 0.2 /CUMM) 0.1 PUBS MCHC (33.0 - 37.0 G/DL) 33.4 04/20 04/20 04/19 UNK 0230 1840 Chemistry Sodium (137 - 145 mmol/L) Cancelled 135 L Potassium (3.5 - 5.1 mmol/L) Cancelled 4.5 Chloride (98 - 107 mmol/L) Cancelled 104 Carbon Dioxide (22 - 30 mmol/L) Cancelled 23 Anion Gap (5 - 16) Cancelled 8 BUN (7 - 17 mg/dL) Cancelled 46 H Creatinine (0.5 - 1.0 mg/dL) Cancelled 4.6 H Estimated GFR (>60 ml/min) 10 L Glucose (65 - 99 mg/dL) Cancelled 81 Calcium (8.4 - 10.2 mg/dL) Cancelled 8.2 L Phosphorus (2.5 - 4.5 mg/dL) Cancelled 4.7 H Magnesium (1.6 - 2.3 mg/dL) Cancelled 2.0 Total Bilirubin (0.2 - 1.3 mg/dL) Cancelled 0.6 AST (14 - 36 U/L) Cancelled 337 H ALT (9 - 52 U/L) Cancelled 161 H Creatine Kinase (30 - 135 U/L) 42499 H Albumin (3.5 - 5.0 g/dL) Cancelled 3.0 L Coagulation APTT (25 - 37 SEC) > 120 *H 33 Hematology CBC w Diff NO MAN DIFF REQ WBC (4.8 - 10.8 /CUMM) 9.6 RBC (4.20 - 5.40 /CUMM) 3.47 L Hgb (12.0 - 16.0 G/DL) 11.0 L Hct (37 - 47 %) 32.9 L MCV (81.0 - 99.0 FL) 94.8 MCH (27.0 - 31.0 PG) 31.7 H RDW (11.5 - 14.5 %) 13.3 Plt Count (130 - 400 /CUMM) 129 L MPV (7.4 - 10.4 FL) 8.7 Gran % (42.2 - 75.2 %) 80.4 H Lymphocytes % (20.5 - 51.1 %) 13.7 L Monocytes % (1.7 - 9.3 %) 5.3 Eosinophils % (0 - 5 %) 0.3 Basophils % (0.0 - 2.0 %) 0.3 Absolute Granulocytes (1.4 - 6.5 /CUMM) 7.7 H Absolute Lymphocytes (1.2 - 3.4 /CUMM) 1.3 Absolute Monocytes (0.10 - 0.60 /CUMM) 0.5 Absolute Eosinophils (0.0 - 0.7 /CUMM) 0 Absolute Basophils (0.0 - 0.2 /CUMM) 0 PUBS MCHC (33.0 - 37.0 G/DL) 33.5 04/19 04/19 04/19 0935 0600 0500 Chemistry TSH Cancelled Free T4 Cancelled Coagulation APTT (25 - 37 SEC) 45 H Immunology JON Titer ND Anti-Nuclear Antibody (NEG,1:40) NEG 1:40 IFA ASSAY 04/19 04/19 04/19 0423 0015 0000 Chemistry Sodium (137 - 145 mmol/L) 133 L 135 L Potassium (3.5 - 5.1 mmol/L) 4.3 4.2 Chloride (98 - 107 mmol/L) 103 105 Carbon Dioxide (22 - 30 mmol/L) 21 L 22 Anion Gap (5 - 16) 9 8 BUN (7 - 17 mg/dL) 42 H 39 H Creatinine (0.5 - 1.0 mg/dL) 3.5 H 3.2 H Estimated GFR (>60 ml/min) 13 L 15 L BUN/Creatinine Ratio (7 - 25 %) 12.0 12.2 Total Bilirubin (0.2 - 1.3 mg/dL) 0.5 Direct Bilirubin (< 0.4 mg/dL) 0.3 AST (14 - 36 U/L) 639 H ALT (9 - 52 U/L) 183 H Alkaline Phosphatase (<127 U/L) 68 Creatine Kinase (30 - 135 U/L) 88533 H Prot Electrophoresis Pending Total Protein (6.3 - 8.2 g/dL) 5.2 L Total Protein (PEP) Pending Albumin (3.5 - 5.0 g/dL) 3.0 L Albumin % (PEP) Pending Rdvic-1-Ffrciozbo Pending Akvnc-0-Duhuziegc Pending Dkce-1-Uchpogyz Pending Wpro-4-Hxxlyism Pending Gamma Globulins Pending Abnorm Protein Band 1 Pending Abnorm Protein Band 2 Pending Abnorm Protein Band 3 Pending TSH (0.270 - 4.200 uIU/mL) 6.660 H Free T4 (0.78 - 2.44 ng/dL) 0.64 L Coagulation APTT (25 - 37 SEC) 49 H Hematology CBC w Diff NO MAN DIFF REQ WBC (4.8 - 10.8 /CUMM) 9.9 RBC (4.20 - 5.40 /CUMM) 3.46 L Hgb (12.0 - 16.0 G/DL) 11.0 L Hct (37 - 47 %) 32.7 L MCV (81.0 - 99.0 FL) 94.5 MCH (27.0 - 31.0 PG) 31.9 H RDW (11.5 - 14.5 %) 13.6 Plt Count (130 - 400 /CUMM) 122 L MPV (7.4 - 10.4 FL) 9.2 Gran % (42.2 - 75.2 %) 80.6 H Lymphocytes % (20.5 - 51.1 %) 13.2 L Monocytes % (1.7 - 9.3 %) 5.8 Eosinophils % (0 - 5 %) 0.1 Basophils % (0.0 - 2.0 %) 0.3 Absolute Granulocytes (1.4 - 6.5 /CUMM) 8.0 H Absolute Lymphocytes (1.2 - 3.4 /CUMM) 1.3 Absolute Monocytes (0.10 - 0.60 /CUMM) 0.6 Absolute Eosinophils (0.0 - 0.7 /CUMM) 0 Absolute Basophils (0.0 - 0.2 /CUMM) 0 PUBS MCHC (33.0 - 37.0 G/DL) 33.7 Immunology ANCA Pending Complement C3 Pending Complement C4 Pending 04/18 04/18 04/18 1710 1630 1200 Chemistry Sodium (137 - 145 mmol/L) Cancelled 136 L Potassium (3.5 - 5.1 mmol/L) Cancelled 5.4 H Chloride (98 - 107 mmol/L) Cancelled 103 Carbon Dioxide (22 - 30 mmol/L) Cancelled 25 Anion Gap (5 - 16) Cancelled 9 BUN (7 - 17 mg/dL) Cancelled 43 H Creatinine (0.5 - 1.0 mg/dL) Cancelled 3.5 H Estimated GFR (>60 ml/min) 13 L BUN/Creatinine Ratio (7 - 25 %) Cancelled 12.3 Creatine Kinase (30 - 135 U/L) > 90082 H Troponin I (< 0.11 ng/ml) 4.02 *H Coagulation APTT (25 - 37 SEC) 97 H Urines Ur Random Creatinine (mg/dL) 229.9 U Random Total Protein (0 - 12 mg/dL) 196 H Protein/Creatinin Ratio (< 0.2) 0.8 H 0709 07/09 1200 0840 Hematology WBC (4.8 - 10.8 /CUMM) 10.1 RBC (4.20 - 5.40 /CUMM) 4.09 L Hgb (12.0 - 16.0 G/DL) 12.9 Hct (37 - 47 %) 39.1 MCV (81.0 - 99.0 FL) 95.7 MCH (27.0 - 31.0 PG) 31.5 H RDW (11.5 - 14.5 %) 13.4 Plt Count (130 - 400 /CUMM) 138 MPV (7.4 - 10.4 FL) 9.1 Gran % (42.2 - 75.2 %) 82.6 H Lymphocytes % (20.5 - 51.1 %) 10.5 L Monocytes % (1.7 - 9.3 %) 6.6 Eosinophils % (0 - 5 %) 0.1 Basophils % (0.0 - 2.0 %) 0.2 Absolute Granulocytes (1.4 - 6.5 /CUMM) 8.3 H Absolute Lymphocytes (1.2 - 3.4 /CUMM) 1.1 L Absolute Monocytes (0.10 - 0.60 /CUMM) 0.7 H Absolute Eosinophils (0.0 - 0.7 /CUMM) 0 Absolute Basophils (0.0 - 0.2 /CUMM) 0 PUBS MCHC (33.0 - 37.0 G/DL) 32.9 L Toxicology Urine Opiates Screen (>2000 NG/ML) < 100.00 Methadone Screen (>300 NG/ML) > 735 H Barbiturate Screen (>200 NG/ML) < 60 Ur Phencyclidine Scrn (>25 NG/ML) < 6.00 Amphetamines Screen (>1000 NG/ML) < 100 U Benzodiazepines Scrn (>200 NG/ML) < 85 Urine Cocaine Screen (>300 NG/ML) < 50 Urine Cannabis Screen (>50 NG/ML) < 5.00 Urines Urinalysis LIGHT H Urine Color (YEL,AMB,STR) YEL Urine Clarity (CLEAR) CLDY H Urine pH (5.0 - 8.0) 6.0 Ur Specific Orient (1.001 - 1.035) >= 1.030 Urine Protein (NEG,<30 MG/DL) 100 H Urine Ketones (NEG) NEG Urine Nitrite (NEG) NEG Urine Bilirubin (NEG) NEG@ICTO Urine Urobilinogen (0.1 - 1.0 EU/dl) 0.2 Ur Leukocyte Esterase (NEG) SMALL H Ur Microscopic SEDIMENT EXAMINED Urine RBC (0 - 5 /HPF) 25-50 H Urine WBC (0 - 2 /HPF) 25-50 H Ur Epithelial Cells (NONE,FEW) FEW Urine Bacteria (NEG/NONE) MANY H Granular Casts (NONE /LPF) > 75 H Urine Mucus (FEW,NONE) FEW Urine Hemoglobin (NEG) LARGE H Urine Glucose (N MG/DL) 100 H
--- NOTE | 2017-04-21 08:31 | PN- Endocrinology ---
Assessment/Plan Assessment: 61 y/o female , Hx of morbid obese and CAD s/p stents placement, was diagnosed with hypothyroidism/ Marc's thyroiditis in 2012 and was on Levothyroxine 100 mcg daily. She hasn't been compliance with medication. She was found to be unresponsive at home due to methadone over dose. Blood work in ER showed positive troponin, TSH 35.1 and T4 6.9; ph 7.17, Pco2 62 and Po2 78, Cr 2.5. Her peak troponin was 10.9. She was put on Levothyroxine 25 mcg daily on 04/18/2017. On 04/19/2017, repeat TSH 6.66, freeT4 0.64. Her CK was > 17982 and Cr was up to 3.5. Plan: increase Levothyroxine to 50 mcg daily; monitor TSH and free T4 next week. will follow. Subjective Subjective: She feels weak. Objective Last 24 Hrs of Vital Signs/I&O Vital Signs Date Time Temp Pulse Resp B/P B/P Pulse O2 O2 Flow FiO2 Mean Ox Delivery Rate 04/21 0643 98.6 66 14 118/70 94 Nasal 5.0L Cannula 04/21 0600 98.5 66 16 118/70 04/21 0400 98.5 74 30 116/68 04/21 0000 Nasal 5.0L Cannula 04/20 2300 98.2 64 16 112/68 93 Nasal 5.0L Cannula 04/20 1600 97 Nasal 5.0L Cannula 04/20 1200 66 20 118/64 94 Nasal 5.0L Cannula 04/20 0958 68 110/70 Intake & Output 04/21 1600 04/21 0800 04/21 0000 Intake Total 814.8 850 Output Total 650 590 Balance 164.8 260 Intake, IV 574.8 700 Intake, Oral 240 150 Output, Urine 650 590 Results Recent Imaging Studies: Laboratory Tests 04/21 04/20 04/20 0245 1930 1055 Chemistry Sodium (137 - 145 mmol/L) 138 Potassium (3.5 - 5.1 mmol/L) 5.3 H Chloride (98 - 107 mmol/L) 105 Carbon Dioxide (22 - 30 mmol/L) 22 Anion Gap (5 - 16) 10 BUN (7 - 17 mg/dL) 46 H Creatinine (0.5 - 1.0 mg/dL) 4.7 H Estimated GFR (>60 ml/min) 9 L Glucose (65 - 99 mg/dL) 77 Calcium (8.4 - 10.2 mg/dL) 8.5 Phosphorus (2.5 - 4.5 mg/dL) 6.3 H Magnesium (1.6 - 2.3 mg/dL) 2.1 Total Bilirubin (0.2 - 1.3 mg/dL) 0.5 AST (14 - 36 U/L) 217 H ALT (9 - 52 U/L) 143 H Albumin (3.5 - 5.0 g/dL) 3.3 L Coagulation APTT (25 - 37 SEC) > 120 *H 44 H 93 H Hematology CBC w Diff NO MAN DIFF REQ WBC (4.8 - 10.8 /CUMM) 7.4 RBC (4.20 - 5.40 /CUMM) 3.53 L Hgb (12.0 - 16.0 G/DL) 11.2 L Hct (37 - 47 %) 33.5 L MCV (81.0 - 99.0 FL) 95.0 MCH (27.0 - 31.0 PG) 31.7 H RDW (11.5 - 14.5 %) 13.8 Plt Count (130 - 400 /CUMM) 176 MPV (7.4 - 10.4 FL) 7.8 Gran % (42.2 - 75.2 %) 73.7 Lymphocytes % (20.5 - 51.1 %) 16.6 L Monocytes % (1.7 - 9.3 %) 7.9 Eosinophils % (0 - 5 %) 1.0 Basophils % (0.0 - 2.0 %) 0.8 Absolute Granulocytes (1.4 - 6.5 /CUMM) 5.5 Absolute Lymphocytes (1.2 - 3.4 /CUMM) 1.2 Absolute Monocytes (0.10 - 0.60 /CUMM) 0.6 Absolute Eosinophils (0.0 - 0.7 /CUMM) 0.1 Absolute Basophils (0.0 - 0.2 /CUMM) 0.1 PUBS MCHC (33.0 - 37.0 G/DL) 33.4 /11 UNK Chemistry Sodium Cancelled Potassium Cancelled Chloride Cancelled Carbon Dioxide Cancelled Anion Gap Cancelled BUN Cancelled Creatinine Cancelled Glucose Cancelled Calcium Cancelled Phosphorus Cancelled Magnesium Cancelled Total Bilirubin Cancelled AST Cancelled ALT Cancelled Albumin Cancelled
--- NOTE | 2017-04-21 10:44 | PN- Cardiology ---
Subjective Subjective: The patient is awake, alert, confused The events of the last 24 hours as well as telemetry were reviewed. Telemetry demonstrated no events Review of Systems: The review of systems is negative for chest pains, palpitations nor lightheadedness. The remainder of the 14 point review of systems is noncontributory with the exception of above. Objective Vital Signs and I&Os Vital Signs Date Time Temp Pulse Resp B/P B/P Pulse O2 O2 Flow FiO2 Mean Ox Delivery Rate 04/21 0800 Nasal 5.0L Cannula 04/21 0800 98.3 70 24 128/70 97 Nasal 5.0L Cannula 04/21 0643 98.6 66 14 118/70 94 Nasal 5.0L Cannula 04/21 0600 98.5 66 16 118/70 04/21 0400 98.5 74 30 116/68 04/21 0000 Nasal 5.0L Cannula 04/20 2300 98.2 64 16 112/68 93 Nasal 5.0L Cannula 04/20 1600 97 Nasal 5.0L Cannula 04/20 1200 66 20 118/64 94 Nasal 5.0L Cannula Intake & Output 04/21 1600 04/21 0800 04/21 0000 04/20 1600 04/20 0800 04/20 0000 Intake Total 814.8 850 1083 2110 Output Total 650 590 550 800 Balance 164.8 292 862 9125 Intake, IV 574.8 154 366 4762 Intake, Oral 240 150 520 460 Output, Urine 650 590 550 800 Patient 304 lb Weight Physical Exam: General: Nontoxic, no apparent distress. HEENT: Sclera and conjunctiva within normal limits, without xanthelasmas. Neck: Carotids 2+ without bruits. Respiratory: Clear to auscultation, air movement is good, without accessory respiratory muscle use. Heart: Regular rate and rhythm, without murmurs, without JVD. Abdomen: Soft, nontender, no masses, normoactive bowel sounds. Extremities: Without clubbing, cyanosis, without edema. Neuro: Nonfocal exam, strength, 5 out of 5 Skin: Within normal limits without lesions. Psych: Mood and affect: Flat Current Medications: Current Medications Sig/Amry Start time Last Medication Dose Route Stop Time Status Admin Acetaminophen 1,000 MG Q8 PRN 04/17 1700 AC N/A 1 UNIT IV Acetaminophen 325 MG Q6P PRN 04/17 1230 AC 04/18 PO 2302 Aspirin 81 MG DAILY 04/17 1354 AC 04/21 PO 1005 Ciprofloxacin 500 MG DAILY 04/19 1000 AC 04/21 PO 04/23 0959 1005 Clindamycin 300 MG Q8H 04/18 0400 AC 04/21 Dextrose/Water 50 ML IV 0312 Heparin Sodium 10,000 UNIT .STK-MED ONE 04/20 220 DC (Porcine) IV 04/20 220 Heparin Sodium 8,274 UNIT BOLUS ONE 04/20 2030 DC 04/20 (Porcine) IV 04/20 203 220 Heparin Sodium 25,000 UNIT Q24H 04/17 1300 AC 04/21 (Porcine) IV 0152 Sodium Chloride 500 ML Levothyroxine Sodium 0.05 MG DAILY AC 04/22 0700 AC PO Levothyroxine Sodium 0.025 MG DAILY AC 04/18 1115 DC 04/21 PO 0615 Lorazepam 1 MG Q1P PRN 04/17 1415 AC 04/21 IV 0329 Metoclopramide HCl 10 MG .STK-MED ONE 04/20 1837 DC IM 04/20 1838 Metoclopramide HCl 10 MG Q6P PRN 04/17 1645 AC IV Metoprolol Tartrate 12.5 MG BID 04/17 1354 AC 04/21 PO 1005 Naloxone HCl 0.4 MG ONCE ONE 04/21 0300 DC 04/21 IV 04/21 0301 0312 Naloxone HCl 0.4 MG ONCE ONE 04/20 1815 DC 04/20 IV 04/20 1816 1819 Nitroglycerin 0.5 GM Q6 04/17 1354 04/21 TOP 0615 Nystatin 5 ML 4 TIMES/DAY 04/21 1000 AC 04/21 PO 1005 Nystatin 1 FERN TID 04/17 2200 AC 04/21 TOP 1005 Sodium Chloride 1,000 ML Q24H 04/20 0845 AC 04/21 IV 1005 Sodium Chloride 2 SPRAY Q4P PRN 04/19 2345 AC 04/20 [place] 1016 Sodium Polystyrene 60 ML ONCE ONE 04/21 0815 DC 04/21 Sulfonate PO 04/21 0816 1006 Results Last 48 Hrs of Labs/Mics: Laboratory Tests 04/21/17 0245: Anion Gap 10, Estimated GFR 9 L, Glucose 77, Calcium 8.5, Phosphorus 6.3 H, Magnesium 2.1, Total Bilirubin 0.5, AST 217 H, ALT 143 H, Albumin 3.3 L, APTT > 120 *H, CBC w Diff NO MAN DIFF REQ, RBC 3.53 L, MCV 95.0, MCH 31.7 H, RDW 13.8, MPV 7.8, Gran % 73.7, Lymphocytes % 16.6 L, Monocytes % 7.9, Eosinophils % 1.0, Basophils % 0.8, Absolute Granulocytes 5.5, Absolute Lymphocytes 1.2, Absolute Monocytes 0.6, Absolute Eosinophils 0.1, Absolute Basophils 0.1, PUBS MCHC 33.4 04/20/17 1930: APTT 44 H 04/20/17 1055: APTT 93 H 04/20/17 1000: Sodium Cancelled, Potassium Cancelled, Chloride Cancelled, Carbon Dioxide Cancelled, Anion Gap Cancelled, BUN Cancelled, Creatinine Cancelled, Glucose Cancelled, Calcium Cancelled, Phosphorus Cancelled, Magnesium Cancelled, Total Bilirubin Cancelled, AST Cancelled, ALT Cancelled, Albumin Cancelled 04/20/17 0230: Anion Gap 8, Estimated GFR 10 L, Glucose 81, Calcium 8.2 L, Phosphorus 4.7 H, Magnesium 2.0, Total Bilirubin 0.6, AST 337 H, ALT 161 H, Creatine Kinase 23928 H, Albumin 3.0 L, APTT > 120 *H, CBC w Diff NO MAN DIFF REQ, RBC 3.47 L , MCV 94.8, MCH 31.7 H, RDW 13.3, MPV 8.7, Gran % 80.4 H, Lymphocytes % 13.7 L, Monocytes % 5.3, Eosinophils % 0.3, Basophils % 0.3, Absolute Granulocytes 7.7 H, Absolute Lymphocytes 1.3, Absolute Monocytes 0.5, Absolute Eosinophils 0 , Absolute Basophils 0, PUBS MCHC 33.5 04/19/17 1840: APTT 33 Assessment/Plan Assessment/Plan The patient is a 61-year-old woman with a past medical history of coronary artery disease, hypertension, morbid obesity and back pain. She presented to our hospital after being found unresponsive following an opiate overdose with likely aspiration pneumonia. She has well is noted to have acute kidney injury, metabolic derangements and an elevated troponin isoenzyme (10.9 peak). Troponin isoenzyme elevation: Likely secondary to a type II (supply/demand mismatch) acute non-ST segment elevation myocardial infarction. We will attempt to reinstate her outpatient medication regimen including aspirin, a beta jasper and statin when tolerated from a dynamic standpoint. The statin regimen may be initiated following improvement of her liver function testing. Following overall improvement, consideration for testing for an underlying ischemic burden by nuclear stress testing may be performed. This may be performed as an outpatient. Acute kidney injury and rhabdomyolysis: Appreciate nephrology input. We will continue to follow recommendations. Mental status changes: The patient has a history of bipolar disorder. Her current mental status changes may be a combination due to the same including edges from metabolic derangements/encephalopathy Continue telemetry? No
--- NOTE | 2017-04-21 11:25 | PN- CRCU ---
Subjective HPI/Critical Care Issues: The patient is awake and intermittently confused. Her vital signs have been stable, however she remains on 5 L nasal cannula with saturations in the high 90s. She is afebrile. She is not offering any specific complaints today. Objective Current Medications: Current Medications Sig/Mary Start time Last Medication Dose Route Stop Time Status Admin Acetaminophen 1,000 MG Q8 PRN 04/17 1700 AC N/A 1 UNIT IV Acetaminophen 325 MG Q6P PRN / 1230 AC 04/18 PO 2302 Aspirin 81 MG DAILY 04/17 1354 AC 04/21 PO 1005 Ciprofloxacin 500 MG DAILY 04/19 1000 AC 04/21 PO 04/23 0959 1005 Clindamycin 300 MG Q8H 04/18 0400 AC 04/21 Dextrose/Water 50 ML IV 0312 Heparin Sodium 10,000 UNIT .STK-MED ONE 04/20 220 DC (Porcine) IV 04/20 2203 Heparin Sodium 8,274 UNIT BOLUS ONE 04/20 2030 DC 04/20 (Porcine) IV 04/20 2031 2205 Heparin Sodium 25,000 UNIT Q24H 04/17 1300 AC 04/21 (Porcine) IV 0152 Sodium Chloride 500 ML Levothyroxine Sodium 0.05 MG DAILY AC 04/22 0700 AC PO Levothyroxine Sodium 0.025 MG DAILY AC 04/18 1115 DC 04/21 PO 0615 Lorazepam 1 MG Q1P PRN 04/17 1415 AC 04/21 IV 0329 Metoclopramide HCl 10 MG .STK-MED ONE 04/20 1837 DC IM 04/20 1838 Metoclopramide HCl 10 MG Q6P PRN 04/17 1645 AC IV Metoprolol Tartrate 12.5 MG BID 04/17 1354 AC 04/21 PO 1005 Naloxone HCl 0.4 MG ONCE ONE 04/21 0300 DC 07 IV 04/21 0301 0312 Naloxone HCl 0.4 MG ONCE ONE 04/20 1815 DC 04/20 IV 04/20 1816 1819 Nitroglycerin 0.5 GM Q6 04/17 1354 AC 04/21 TOP 0615 Nystatin 5 ML 4 TIMES/DAY 07/ 1000 AC 07/ PO 1005 Nystatin 1 FERN TID 04/17 2200 AC 04/21 TOP 1005 Sodium Chloride 1,000 ML Q24H 04/20 0845 AC 04/21 IV 1005 Sodium Chloride 2 SPRAY Q4P PRN 04/19 2345 AC 04/20 [place] 1016 Sodium Polystyrene 60 ML ONCE ONE 04/21 0815 DC 04/21 Sulfonate PO 04/21 0816 1006 Vital Signs & I&O Last 24 Hrs of Vitals and I&O: Vital Signs Date Time Temp Pulse Resp B/P B/P Pulse O2 O2 Flow FiO2 Mean Ox Delivery Rate 04/21 0800 Nasal 5.0L Cannula 04/21 0800 98.3 70 24 128/70 97 Nasal 5.0L Cannula 04/21 0643 98.6 66 14 118/70 94 Nasal 5.0L Cannula 04/21 0600 98.5 66 16 118/70 04/21 0400 98.5 74 30 116/68 04/21 0000 Nasal 5.0L Cannula 04/20 2300 98.2 64 16 112/68 93 Nasal 5.0L Cannula 04/20 1600 97 Nasal 5.0L Cannula 04/20 1200 66 20 118/64 94 Nasal 5.0L Cannula Intake & Output 04/21 1600 04/21 0800 04/21 0000 Intake Total 814.8 850 Output Total 650 590 Balance 164.8 260 Intake, IV 574.8 700 Intake, Oral 240 150 Output, Urine 650 590 Physical Exam General Appearance: lethargic but awake, no distress, obese Head: atraumatic Neck: supple Respiratory: chest non-tender, decreased breath sounds Cardiovascular: regular rate/rhythm Gastrointestinal: soft, non-tender, obese Extremities: no edema Results Last 24 Hrs of Lab Results: Laboratory Tests 04/21/17 1040: APTT Pending 04/21/17 0245: Anion Gap 10, Estimated GFR 9 L, Glucose 77, Calcium 8.5, Phosphorus 6.3 H, Magnesium 2.1, Total Bilirubin 0.5, AST 217 H, ALT 143 H, Albumin 3.3 L, APTT > 120 *H, CBC w Diff NO MAN DIFF REQ, RBC 3.53 L, MCV 95.0, MCH 31.7 H, RDW 13.8, MPV 7.8, Gran % 73.7, Lymphocytes % 16.6 L, Monocytes % 7.9, Eosinophils % 1.0, Basophils % 0.8, Absolute Granulocytes 5.5, Absolute Lymphocytes 1.2, Absolute Monocytes 0.6, Absolute Eosinophils 0.1, Absolute Basophils 0.1, PUBS MCHC 33.4 04/20/17 1930: APTT 44 H Last 24 Hrs of Micro Results: Urine positive for Klebsiella. Impression/Plan Impression/Plan Impression/Plan: 1. Acute hypoxemic respiratory failure, with aspiration pneumonia on CXR, with bilateral consolidation. On Cipro and Clinda. The patient continues to improve however she remains on 5 lpm NC. 2. Mental status changes secondary methadone overdose. 3. Elevated troponin; rule out acute coronary syndrome/NSTEMI. 4. History of CAD. 5. Hypothyroid. 6. Acute renal insufficiency, multifactorial etiology, nephrology following, Cr continues to worsen. 7. Transaminitis. 8. Hearing loss - improved. 9. UIT - urine culture positive for Klebsiella, on Cipro. Recommendations: * Follow up nephrology recommendations, we'll give Kayexalate and low sodium diet. We'll also recheck I afternoon and follow-up previously ordered labs. * Continue gentle hydration. * Follow up culture results. * Cipro to continue. Discontinue clinda. * Replace electrolytes as needed. * Nebs/TRC. * Taper oxygen down for saturations greater than 92%. * Synthroid replacement as per endocrine. * ASA/metoprolol as per cardiology. * DVT prophylaxis at all times. * Will follow psych and psychotherapist social worker input. * Continue all supportive care. Code Status: Full Code
[2017-04-21 11:56] LABS: PTT 61 SEC (25-37)
--- NOTE | 2017-04-21 12:55 | PN- Psychiatry ---
Assessment/Plan Impression: Identifying Info: 61-year-old female presented in by ambulance status post accidental methadone overdose after diverting her son's medication. History of bipolar disorder, PTSD, EtOH use disorder and sedative hypnotic use disorder currently followed at [facility]. Interviewed today in critical care unit. SUBJECTIVE Patient quite somnolent at time of interview and has difficulty participating. States "I feel a little better" and "he's not making me go to the bathroom," unable to clarify the previous statement. Patient asked if she had been given any outside medication or substances which she denies. Continues to be agreeable to [facility] level of care. Brief ROS Gait: Not observed Sleep: Adequate Appetite: Not assessed OBJECTIVE Mental Status Exam Presentation/Appearance: Calm. Cooperative with evaluation. Hospital garb. Sitting in chair, nodding off slightly Orientation: x4 Sensorium: Somnolent but arousable Eye contact: Poor Affect: Blunted Mood: Euthymic Depression: Denies Anxiety: Denies Thought Content: - Denies SI/HI, AH/VH, PI. States and also believes they will not kill themselves. - Denies Hopeless/Helpless Thoughts Thought Process: Appears to be slowed, confused at times Associations: Appropriate Speech: Latency in response, slowed Judgment: Fair Insight: Fair Cognition: Memory: Deficits present, pt does not recall overdose Attention/Concentration: Fair Fund of Knowledge: Adequate Abstractions:[place] MMSE: Did not assess ASSESSMENT 61-year-old female presents status post accidental methadone overdose after diverting her son's medication. She denies any suicidality at this time and is not a threat to harm self intentionally. She is however at risk of another accidental overdose and appears to have been falling back into substance use. It would be prudent at this time the patient to receive a higher level of care, specifically dual diagnosis IOP treatment. At present she appears to continue to be experiencing effects of methadone which can last up to 96 hours past ingestion in overdose. Diagnosis Unspecified bipolar disorder Alcohol use disorder Sedative hypnotic use disorder Opiate use disorder Unspecified anxiety disorder A total of30 minutes was spent with the patient with more than 50% of the time spent in counseling and/or coordination of care. Suggestion: 1. Plan for referral to intensive outpatient program at [facility]. 2. Continue to hold psychotropics until kidney function improves. 3. Continue to plan for pain management referral once patient is more stable. Consider referral on outpatient basis. 4. Continue to monitor for respiratory depression. Thank you for including psychiatry in this case will continue to follow. Subjective Subjective: as above Objective Last 24 Hrs of Vital Signs/I&O Current Medications Sig/Mary Start time Last Medication Dose Route Stop Time Status Admin Acetaminophen 1,000 MG Q8 PRN 04/17 1700 AC N/A 1 UNIT IV Acetaminophen 325 MG Q6P PRN / 1230 AC 04/18 PO 2302 Aspirin 81 MG DAILY 04/17 1354 AC 04/21 PO 1005 Ciprofloxacin 500 MG DAILY 04/19 1000 AC 04/21 PO 04/23 0959 1005 Clindamycin 300 MG Q8H 04/18 0400 DC 04/21 Dextrose/Water 50 ML IV 1242 Heparin Sodium 10,000 UNIT .STK-MED ONE 04/20 2202 DC (Porcine) IV 04/20 220 Heparin Sodium 8,274 UNIT BOLUS ONE 04/20 2030 DC 04/20 (Porcine) IV 04/20 2031 2205 Heparin Sodium 25,000 UNIT Q24H 04/17 1300 AC 04/21 (Porcine) IV 0152 Sodium Chloride 500 ML Levothyroxine Sodium 0.05 MG DAILY AC 04/22 0700 AC PO Levothyroxine Sodium 0.025 MG DAILY AC 04/18 1115 DC 04/21 PO 0615 Lorazepam 1 MG Q1P PRN 04/17 1415 AC 04/21 IV 0329 Metoclopramide HCl 10 MG .STK-MED ONE 04/20 1837 DC IM 04/20 1838 Metoclopramide HCl 10 MG Q6P PRN 04/17 1645 AC IV Metoprolol Tartrate 12.5 MG BID 04/17 1354 AC 04/21 PO 1005 Naloxone HCl 0.4 MG ONCE ONE 04/21 0300 DC 07 IV 04/21 0301 0312 Naloxone HCl 0.4 MG ONCE ONE 04/20 1815 DC 04/20 IV 04/20 1816 1819 Nitroglycerin 0.5 GM Q6 04/17 1354 AC 04/21 TOP 1244 Nystatin 5 ML 4 TIMES/DAY 04/21 1000 AC 07 PO 1005 Nystatin 1 FERN TID 04/17 2200 AC 04/21 TOP 1005 Sodium Chloride 1,000 ML Q24H 04/20 0845 AC 04/21 IV 1005 Sodium Chloride 2 SPRAY Q4P PRN 04/19 2345 AC 04/20 [place] 1016 Sodium Polystyrene 60 ML ONCE ONE 04/21 0815 DC 04/21 Sulfonate PO 04/21 0816 1006 Laboratory Tests 04/21/17 1040: APTT 61 H 04/21/17 0245: Anion Gap 10, Estimated GFR 9 L, Glucose 77, Calcium 8.5, Phosphorus 6.3 H, Magnesium 2.1, Total Bilirubin 0.5, AST 217 H, ALT 143 H, Albumin 3.3 L, APTT > 120 *H, CBC w Diff NO MAN DIFF REQ, RBC 3.53 L, MCV 95.0, MCH 31.7 H, RDW 13.8, MPV 7.8, Gran % 73.7, Lymphocytes % 16.6 L, Monocytes % 7.9, Eosinophils % 1.0, Basophils % 0.8, Absolute Granulocytes 5.5, Absolute Lymphocytes 1.2, Absolute Monocytes 0.6, Absolute Eosinophils 0.1, Absolute Basophils 0.1, PUBS MCHC 33.4 04/20/17 1930: APTT 44 H Vital Signs Date Time Temp Pulse Resp B/P B/P Pulse O2 O2 Flow FiO2 Mean Ox Delivery Rate 04/21 1005 72 142/80 04/21 0800 Nasal 5.0L Cannula 04/21 0800 98.3 70 24 128/70 97 Nasal 5.0L Cannula 04/21 0643 98.6 66 14 118/70 94 Nasal 5.0L Cannula 04/21 0600 98.5 66 16 118/70 04/21 0400 98.5 74 30 116/68 04/21 0000 Nasal 5.0L Cannula 04/20 2300 98.2 64 16 112/68 93 Nasal 5.0L Cannula 04/20 1600 97 Nasal 5.0L Cannula Intake & Output 04/21 1600 04/21 0800 04/21 0000 Intake Total 814.8 850 Output Total 650 590 Balance 164.8 260 Intake, IV 574.8 700 Intake, Oral 240 150 Output, Urine 650 590 Per [facility] agent, No prior authorization required for psych consult for this [facility] patient. Called at 11:30 on 04/21/17.
--- NOTE | 2017-04-21 13:50 | NUR ---
Referral received via electronic sales order processor on 04/19/17 from . This patient is a 61 year old female, admitted to the hospital on 04/17/17 after presentation to the Emergency Department with alterred mentation and elevated troponins. These in the setting of polysubstance abuse, and an (accidental) overdose of her sons methadone. Case discussed with psychiatric NURSERY HELPER, who has been in touch with her behavioral health provider and is recommending IOP level of care. Case discussed with nursing and psychiatry this morning; patient had been requiring narcan due to lethargy. Will continue to follow and assist with aftercare appointment at [facility].
[2017-04-21 16:00] VITALS: BP 124/70
[2017-04-21 23:02] LABS: PTT 52 SEC (25-37)
[2017-04-22] VITALS: BP 140/70
[2017-04-22 06:47] LABS: ABSOLUTE BASOPHIL COUNT 0 /CUMM (0.0-0.2); ABSOLUTE EOSINOPHIL COUNT 0.2 /CUMM (0.0-0.7); ABSOLUTE GRANULOCYTE CT 3.5 /CUMM (1.4-6.5); ABSOLUTE MONOCYTE COUNT 0.6 /CUMM (0.10-0.60); BASOPHIL % 0.5 % (0.0-2.0); EOSINOPHIL % 3.6 % (0-5); GRANULOCYTE % 65.9 % (42.2-75.2); HEMATOCRIT 32.8 % (37-47); MEAN CORPUSCULAR HGB CONC 33.7 G/DL (33.0-37.0); MEAN CORPUSCULAR VOLUME 94.8 FL (81.0-99.0); MEAN PLATELET VOLUME 7.6 FL (7.4-10.4); PLATELET COUNT 167 /CUMM (130-400); RBC DISTRIBUTION WIDTH 13.6 % (11.5-14.5); RED BLOOD CELL CT 3.46 /CUMM (4.20-5.40); WHITE BLOOD CELL COUNT 5.4 /CUMM (4.8-10.8)
[2017-04-22 06:54] LABS: PTT 66 SEC (25-37)
--- NOTE | 2017-04-22 07:41 | PN- CRCU ---
Subjective HPI/Critical Care Issues: I saw the patient today at bedside. No overnight events. No active complaints. Patient denies chest pain, dyspnea, fever and chills. On examination patient afebrile not dyspneic, not tachypneic. Her renal parameters is improving. Patient can be transferred to general med. Objective Current Medications: Current Medications Sig/Mary Start time Last Medication Dose Route Stop Time Status Admin Acetaminophen 1,000 MG Q8 PRN 04/17 1700 AC N/A 1 UNIT IV Acetaminophen 325 MG Q6P PRN 04/17 1230 AC 04/22 PO 0936 Albuterol Sulfate 3 ML BID 04/21 2200 AC 04/22 INH 0847 Aspirin 81 MG DAILY 04/17 1354 AC 04/22 PO 0931 Ciprofloxacin 500 MG DAILY 04/19 1000 AC 04/22 PO 04/23 0959 0931 Clindamycin 300 MG Q8H 04/18 0400 DC 04/21 Dextrose/Water 50 ML IV 1242 Heparin Sodium 5,000 UNIT .STK-MED ONE 04/21 2328 DC (Porcine) IV 04/21 2329 Heparin Sodium 25,000 UNIT Q24H 04/17 1300 AC 04/21 (Porcine) IV 0152 Sodium Chloride 500 ML Levothyroxine Sodium 0.05 MG DAILY AC 04/22 0700 AC 04/22 PO 0657 Lorazepam 1 MG Q1P PRN 04/17 1415 AC 04/21 IV 0329 Metoclopramide HCl 10 MG Q6P PRN 04/17 1645 AC IV Metoprolol Tartrate 12.5 MG BID 04/17 1354 AC 04/22 PO 0931 Nitroglycerin 0.5 GM Q6 04/17 1354 AC 04/22 TOP 0658 Nystatin 5 ML 4 TIMES/DAY 04/21 1000 AC 04/22 PO 0931 Nystatin 1 FERN TID 04/17 2200 AC 04/22 TOP 0931 Sodium Chloride 1,000 ML Q24H 04/20 0845 AC 04/21 IV 1005 Sodium Chloride 2 SPRAY Q4P PRN 04/19 2345 AC 04/20 [place] 1016 Vital Signs & I&O Last 24 Hrs of Vitals and I&O: Vital Signs Date Time Temp Pulse Resp B/P B/P Pulse O2 O2 Flow FiO2 Mean Ox Delivery Rate 04/22 0931 84 120/70 04/22 0850 93 Nasal 5.0L Cannula 04/22 0800 95 Nasal 5.0L Cannula 04/22 0800 97.4 74 20 120/70 95 Nasal 5.0L Cannula 04/22 0600 74 22 04/22 0400 73 24 04/22 0200 72 24 04/22 0000 97.4 70 20 140/70 04/22 0000 97 Nasal 5.0L Cannula 04/22 0000 97.4 70 20 140/70 97 Nasal 5.0L Cannula 04/21 2115 68 120/70 04/21 1910 96 Nasal 6.0L Cannula 04/21 1600 97.9 72 20 124/70 04/21 1600 96 Nasal 5.0L Cannula 04/21 1600 97.8 72 20 124/70 96 Nasal 5.0L Cannula Intake & Output 04/22 1600 04/22 0800 04/22 0000 Intake Total 630 1050 Output Total 300 1500 Balance 330 -450 Intake, IV 530 650 Intake, Oral 100 400 Output, 300 Dialysate Output, Urine 1500 Exam General Appearance: well developed/nourished, alert, comfortable, obese Head: normal appearance Neck: normal inspection, full range of motion Respiratory: normal breath sounds, chest non-tender, no respiratory distress, quiet respiration Cardiovascular: regular rate/rhythm Impression/Plan Impression/Plan Impression/Plan: Ms Clark is a 61-year-old woman with a past history of coronary artery disease status post stent), Marc thyroiditis (elevated TPO, Tg antiobodies, and noncompliant with her medications), substance abuse, bipolar, PTSD, depression who is being currently managed in the ICU for altered mental status likely from methadone overdos. She responded well to naloxone. Pt is off narcan. Followed by nephro, Cardio and endocrine on board. Pt can be transferred to telemetry. PLAN: vitals: Pulse rate 68, RR 22, BP 138/70, [place]-clear urine. on nasal O2 5 L. Respiratory: * Lungs CLEAR. No added sounds Infection * Urine [id number] rods.on cipro 500 mg day 2. Cardiac * Troponins trending down. On heparin drip. Statin held in view of elevated liver enzymes. Advised nuclear stress testing as an outpatient. HEME/nephro * TSH 6.66 - levothyroxine increased to 50 mcg. hemoglobin 11.2. * BUN 46, creatinine 4.7- nephro on board. advised 2 gram K diet restriction. * gentle hydration at 40 ml /hr * isma-neg,anca-neg, c3-110, c4-42. Metabolic * history of Marc thyroiditis -TSH 6.66. Started on levothyroxine 0.025 mg. * Repeat TFT next week. Alimentary * heart healthy diet. Neuro * Head CT-No acute intracranial pathology. DVT * Alps, heparin drip Code Status: Full Code
[2017-04-22 08:00] VITALS: BP 120/70
--- NOTE | 2017-04-22 09:44 | PN- Psychiatry ---
Assessment/Plan Impression: Identifying Info: 61-year-old female presented in by ambulance status post accidental methadone overdose after diverting her son's medication. History of bipolar disorder, PTSD, EtOH use disorder and sedative hypnotic use disorder currently followed at [facility]. Interviewed today in critical care unit. SUBJECTIVE Patient interviewed today with son Will at bedside. She states she feels "much better" today, feels lest somnolent. Only complaint is continued pain. Continues to be agreeable to [facility] level of care. Brief ROS Gait: Not observed Sleep: Adequate Appetite: Not assessed OBJECTIVE Mental Status Exam Presentation/Appearance: Calm. Cooperative with evaluation. Hospital garb. Sitting in chair, nodding off slightly Orientation: x4 Sensorium: Awake and alert Eye contact: Improved, adequate Affect: Blunted Mood: "Okay" Depression: Denies Anxiety: Denies Thought Content: - Denies SI/HI, AH/VH, PI. States and also believes they will not kill themselves. - Denies Hopeless/Helpless Thoughts Thought Process: Linear with some derailment Associations: Appropriate Speech: Slowed Judgment: Fair Insight: Fair Cognition: Memory: Deficits present Attention/Concentration: Fair Fund of Knowledge: Adequate Abstractions:[place] MMSE: Did not assess ASSESSMENT 61-year-old female presents status post accidental methadone overdose after diverting her son's medication. She denies any suicidality at this time and is not a threat to harm self intentionally. She is however at risk of another accidental overdose and appears to have been falling back into substance use. It would be prudent at this time the patient to receive a higher level of care, specifically dual diagnosis IOP treatment. The patients mentation appears much improved today. Diagnosis Unspecified bipolar disorder Alcohol use disorder Sedative hypnotic use disorder Opiate use disorder Unspecified anxiety disorder A total of 30 minutes was spent with the patient with more than 50% of the time spent in counseling and/or coordination of care. Suggestion: 1. Continue to plan for referral to intensive outpatient program at [facility]. 2. Continue to hold psychotropics until kidney function improves. 3. Continue to plan for pain management referral once patient is more stable. Consider referral on outpatient basis. Thank you for including psychiatry in this case will continue to follow. Subjective Subjective: as above Objective Last 24 Hrs of Vital Signs/I&O Current Medications Sig/Mary Start time Last Medication Dose Route Stop Time Status Admin Acetaminophen 1,000 MG Q8 PRN 04/17 1700 AC N/A 1 UNIT IV Acetaminophen 325 MG Q6P PRN 04/17 1230 AC 04/22 PO 0936 Albuterol Sulfate 3 ML BID 04/21 2200 AC 04/22 INH 0847 Aspirin 81 MG DAILY 04/17 1354 AC 04/22 PO 0931 Ciprofloxacin 500 MG DAILY 04/19 1000 AC 04/22 PO 04/23 0959 0931 Clindamycin 300 MG Q8H 04/18 0400 DC 04/21 Dextrose/Water 50 ML IV 1242 Heparin Sodium 5,000 UNIT .[facility]-MED ONE 04/21 2328 DC (Porcine) IV 04/21 2329 Heparin Sodium 25,000 UNIT Q24H 04/17 1300 AC 04/21 (Porcine) IV 0152 Sodium Chloride 500 ML Levothyroxine Sodium 0.05 MG DAILY AC 04/22 0700 AC 04/22 PO 0657 Lorazepam 1 MG Q1P PRN 04/17 1415 AC 04/21 IV 0329 Metoclopramide HCl 10 MG Q6P PRN 04/17 1645 IV Metoprolol Tartrate 12.5 MG BID 04/17 1354 AC 04/22 PO 0931 Nitroglycerin 0.5 GM Q6 / 1354 AC 04/22 TOP 0658 Nystatin 5 ML 4 TIMES/DAY 04/21 1000 AC 04/22 PO 0931 Nystatin 1 FERN TID 04/17 2200 AC 04/22 TOP 0931 Sodium Chloride 1,000 ML Q24H 04/20 0845 AC 04/21 IV 1005 Sodium Chloride 2 SPRAY Q4P PRN 04/19 2345 AC 04/20 [place] 1016 Laboratory Tests 04/22/17 0545: Anion Gap 9, Estimated GFR 12 L, Glucose 82, Calcium 8.9, Phosphorus 5.4 H, Magnesium 2.1, Total Bilirubin 0.6, AST 146 H, ALT 109 H, Albumin 3.1 L, APTT 66 H, CBC w Diff NO MAN DIFF REQ, RBC 3.46 L, MCV 94.8, MCH 32.0 H, RDW 13.6, MPV 7.6, Gran % 65.9, Lymphocytes % 19.3 L, Monocytes % 10.7 H, Eosinophils % 3.6, Basophils % 0.5, Absolute Granulocytes 3.5, Absolute Lymphocytes 1.0 L, Absolute Monocytes 0.6, Absolute Eosinophils 0.2, Absolute Basophils 0, PUBS MCHC 33.7 04/21/17 2235: APTT 52 H 04/21/17 1705: Anion Gap 10, Estimated GFR 10 L, Glucose 80, Calcium 8.6, Phosphorus 5.4 H, Magnesium 2.0, Total Bilirubin 0.6, AST 187 H, ALT 124 H, Albumin 3.2 L 04/21/17 1040: APTT 61 H Vital Signs Date Time Temp Pulse Resp B/P B/P Pulse O2 O2 Flow FiO2 Mean Ox Delivery Rate 04/22 0931 84 120/70 04/22 0850 93 Nasal 5.0L Cannula 04/22 0800 95 Nasal 5.0L Cannula 04/22 0800 97.4 74 20 120/70 95 Nasal 5.0L Cannula 04/22 0600 74 22 04/22 0400 73 24 04/22 0200 72 24 04/22 0000 97.4 70 20 140/70 04/22 0000 97 Nasal 5.0L Cannula 04/22 0000 97.4 70 20 140/70 97 Nasal 5.0L Cannula 04/21 2115 68 120/70 04/21 1910 96 Nasal 6.0L Cannula 04/21 1600 97.9 72 20 124/70 04/21 1600 96 Nasal 5.0L Cannula 04/21 1600 97.8 72 20 124/70 96 Nasal 5.0L Cannula 04/21 1005 72 142/80 Intake & Output 04/22 1600 04/22 0800 04/22 0000 Intake Total 630 1050 Output Total 300 1500 Balance 330 -450 Intake, IV 530 650 Intake, Oral 100 400 Output, 300 Dialysate Output, Urine 1500
--- NOTE | 2017-04-22 09:58 | PN- Nephrology ---
Assessment/Plan Assessment: 1. PRAFUL: nonoliguric ATN due to mult insult--> improving w/o dialysis imperative. 2. UTI: K pneumo - S cipro; prob lower UT tract rather than pyelo. Suggestion: 1. recheck labs in AM 2. await ANCA, C3, C4, & SPEP - doubt will be revelaing OK for floor from renal perspective Subjective Subjective: No uremic sx Nonoliguric Objective Vital Signs and I&Os Vital Signs Date Time Temp Pulse Resp B/P B/P Pulse O2 O2 Flow FiO2 Mean Ox Delivery Rate 04/22 0931 84 120/70 04/22 0850 93 Nasal 5.0L Cannula 04/22 0800 95 Nasal 5.0L Cannula 04/22 0800 97.4 74 20 120/70 95 Nasal 5.0L Cannula 04/22 0600 74 22 04/22 0400 73 24 04/22 0200 72 24 04/22 0000 97.4 70 20 140/70 07 0000 97 Nasal 5.0L Cannula 04/22 0000 97.4 70 20 140/70 97 Nasal 5.0L Cannula 04/21 2115 68 120/70 04/21 1910 96 Nasal 6.0L Cannula 04/21 1600 97.9 72 20 124/70 0712 1600 96 Nasal 5.0L Cannula 04/21 1600 97.8 72 20 124/70 96 Nasal 5.0L Cannula 04/21 1005 72 142/80 Intake & Output 04/22 1600 04/22 0400 04/21 1600 04/21 0400 04/20 1600 04/20 0400 Intake Total 630 1050 1944.8 850 1083 2110 Output Total 300 1500 1250 590 550 800 Balance 330 -450 694.8 479 564 4569 Intake, IV 905 654 5715.8 096 536 1821 Intake, Oral 100 400 840 150 520 460 Number 1 Bowel Movements Output, 300 Dialysate Output, Urine 1500 1250 590 550 800 Patient 304 lb Weight Physical Exam General Appearance: no apparent distress, obese Head: atraumatic, normal appearance Ears, Nose, Throat: normal ENT inspection Neck: normal inspection Respiratory: no respiratory distress, quiet respiration, lungs clear Cardiovascular: regular rate/rhythm Abdomen: soft, non-tender Extremities: no edema Neurologic/Psychiatric: awake, alert Current Medications: Current Medications Sig/Mary Start time Last Medication Dose Route Stop Time Status Admin Acetaminophen 1,000 MG Q8 PRN 04/17 1700 AC N/A 1 UNIT IV Acetaminophen 325 MG Q6P PRN 04/17 1230 AC 04/22 PO 0936 Albuterol Sulfate 3 ML BID 04/21 2200 AC 04/22 INH 0847 Aspirin 81 MG DAILY 04/17 1354 AC 04/22 PO 0931 Ciprofloxacin 500 MG DAILY 04/19 1000 AC 04/22 PO 04/23 0959 0931 Clindamycin 300 MG Q8H 04/18 0400 DC 04/21 Dextrose/Water 50 ML IV 1242 Heparin Sodium 5,000 UNIT .STK-MED ONE 04/21 2328 DC (Porcine) IV 04/21 2329 Heparin Sodium 25,000 UNIT Q24H 04/17 1300 AC 04/21 (Porcine) IV 0152 Sodium Chloride 500 ML Levothyroxine Sodium 0.05 MG DAILY AC 04/22 0700 AC 04/22 PO 0657 Lorazepam 1 MG Q1P PRN 04/17 1415 AC 04/21 IV 0329 Metoclopramide HCl 10 MG Q6P PRN 04/17 1645 AC IV Metoprolol Tartrate 12.5 MG BID 04/17 1354 AC 04/22 PO 0931 Nitroglycerin 0.5 GM Q6 04/17 1354 AC 04/22 TOP 0658 Nystatin 5 ML 4 TIMES/DAY 04/21 1000 AC 04/22 PO 0931 Nystatin 1 FERN TID 04/17 2200 AC 04/22 TOP 0931 Sodium Chloride 1,000 ML Q24H 04/20 0845 AC 04/21 IV 1005 Sodium Chloride 2 SPRAY Q4P PRN 04/19 2345 AC 04/20 [place] 1016 Results Pertinent Lab Results: Laboratory Tests 04/22 04/21 04/21 04/21 0545 2235 1705 1040 Chemistry Sodium (137 - 145 mmol/L) 142 137 Potassium (3.5 - 5.1 mmol/L) 4.2 4.5 Chloride (98 - 107 mmol/L) 108 H 104 Carbon Dioxide (22 - 30 mmol/L) 25 24 Anion Gap (5 - 16) 9 10 BUN (7 - 17 mg/dL) 38 H 43 H Creatinine (0.5 - 1.0 mg/dL) 3.7 H 4.4 H Estimated GFR (>60 ml/min) 12 L 10 L Glucose (65 - 99 mg/dL) 82 80 Calcium (8.4 - 10.2 mg/dL) 8.9 8.6 Phosphorus (2.5 - 4.5 mg/dL) 5.4 H 5.4 H Magnesium (1.6 - 2.3 mg/dL) 2.1 2.0 Total Bilirubin (0.2 - 1.3 mg/dL) 0.6 0.6 AST (14 - 36 U/L) 146 H 187 H ALT (9 - 52 U/L) 109 H 124 H Albumin (3.5 - 5.0 g/dL) 3.1 L 3.2 L Coagulation APTT (25 - 37 SEC) 66 H 52 H 61 H Hematology CBC w Diff NO MAN DIFF REQ WBC (4.8 - 10.8 /CUMM) 5.4 RBC (4.20 - 5.40 /CUMM) 3.46 L Hgb (12.0 - 16.0 G/DL) 11.0 L Hct (37 - 47 %) 32.8 L MCV (81.0 - 99.0 FL) 94.8 MCH (27.0 - 31.0 PG) 32.0 H RDW (11.5 - 14.5 %) 13.6 Plt Count (130 - 400 /CUMM) 167 MPV (7.4 - 10.4 FL) 7.6 Gran % (42.2 - 75.2 %) 65.9 Lymphocytes % (20.5 - 51.1 %) 19.3 L Monocytes % (1.7 - 9.3 %) 10.7 H Eosinophils % (0 - 5 %) 3.6 Basophils % (0.0 - 2.0 %) 0.5 Absolute Granulocytes (1.4 - 6.5 /CUMM) 3.5 Absolute Lymphocytes (1.2 - 3.4 /CUMM) 1.0 L Absolute Monocytes (0.10 - 0.60 /CUMM) 0.6 Absolute Eosinophils (0.0 - 0.7 /CUMM) 0.2 Absolute Basophils (0.0 - 0.2 /CUMM) 0 PUBS MCHC (33.0 - 37.0 G/DL) 33.7 04/21 04/20 04/20 0245 1930 1055 Chemistry Sodium (137 - 145 mmol/L) 138 Potassium (3.5 - 5.1 mmol/L) 5.3 H Chloride (98 - 107 mmol/L) 105 Carbon Dioxide (22 - 30 mmol/L) 22 Anion Gap (5 - 16) 10 BUN (7 - 17 mg/dL) 46 H Creatinine (0.5 - 1.0 mg/dL) 4.7 H Estimated GFR (>60 ml/min) 9 L Glucose (65 - 99 mg/dL) 77 Calcium (8.4 - 10.2 mg/dL) 8.5 Phosphorus (2.5 - 4.5 mg/dL) 6.3 H Magnesium (1.6 - 2.3 mg/dL) 2.1 Total Bilirubin (0.2 - 1.3 mg/dL) 0.5 AST (14 - 36 U/L) 217 H ALT (9 - 52 U/L) 143 H Albumin (3.5 - 5.0 g/dL) 3.3 L Coagulation APTT (25 - 37 SEC) > 120 *H 44 H 93 H Hematology CBC w Diff NO MAN DIFF REQ WBC (4.8 - 10.8 /CUMM) 7.4 RBC (4.20 - 5.40 /CUMM) 3.53 L Hgb (12.0 - 16.0 G/DL) 11.2 L Hct (37 - 47 %) 33.5 L MCV (81.0 - 99.0 FL) 95.0 MCH (27.0 - 31.0 PG) 31.7 H RDW (11.5 - 14.5 %) 13.8 Plt Count (130 - 400 /CUMM) 176 MPV (7.4 - 10.4 FL) 7.8 Gran % (42.2 - 75.2 %) 73.7 Lymphocytes % (20.5 - 51.1 %) 16.6 L Monocytes % (1.7 - 9.3 %) 7.9 Eosinophils % (0 - 5 %) 1.0 Basophils % (0.0 - 2.0 %) 0.8 Absolute Granulocytes (1.4 - 6.5 /CUMM) 5.5 Absolute Lymphocytes (1.2 - 3.4 /CUMM) 1.2 Absolute Monocytes (0.10 - 0.60 /CUMM) 0.6 Absolute Eosinophils (0.0 - 0.7 /CUMM) 0.1 Absolute Basophils (0.0 - 0.2 /CUMM) 0.1 PUBS MCHC (33.0 - 37.0 G/DL) 33.4 04/20 04/20 04/19 UNK 0230 1840 Chemistry Sodium (137 - 145 mmol/L) Cancelled 135 L Potassium (3.5 - 5.1 mmol/L) Cancelled 4.5 Chloride (98 - 107 mmol/L) Cancelled 104 Carbon Dioxide (22 - 30 mmol/L) Cancelled 23 Anion Gap (5 - 16) Cancelled 8 BUN (7 - 17 mg/dL) Cancelled 46 H Creatinine (0.5 - 1.0 mg/dL) Cancelled 4.6 H Estimated GFR (>60 ml/min) 10 L Glucose (65 - 99 mg/dL) Cancelled 81 Calcium (8.4 - 10.2 mg/dL) Cancelled 8.2 L Phosphorus (2.5 - 4.5 mg/dL) Cancelled 4.7 H Magnesium (1.6 - 2.3 mg/dL) Cancelled 2.0 Total Bilirubin (0.2 - 1.3 mg/dL) Cancelled 0.6 AST (14 - 36 U/L) Cancelled 337 H ALT (9 - 52 U/L) Cancelled 161 H Creatine Kinase (30 - 135 U/L) 62776 H Albumin (3.5 - 5.0 g/dL) Cancelled 3.0 L Coagulation APTT (25 - 37 SEC) > 120 *H 33 Hematology CBC w Diff NO MAN DIFF REQ WBC (4.8 - 10.8 /CUMM) 9.6 RBC (4.20 - 5.40 /CUMM) 3.47 L Hgb (12.0 - 16.0 G/DL) 11.0 L Hct (37 - 47 %) 32.9 L MCV (81.0 - 99.0 FL) 94.8 MCH (27.0 - 31.0 PG) 31.7 H RDW (11.5 - 14.5 %) 13.3 Plt Count (130 - 400 /CUMM) 129 L MPV (7.4 - 10.4 FL) 8.7 Gran % (42.2 - 75.2 %) 80.4 H Lymphocytes % (20.5 - 51.1 %) 13.7 L Monocytes % (1.7 - 9.3 %) 5.3 Eosinophils % (0 - 5 %) 0.3 Basophils % (0.0 - 2.0 %) 0.3 Absolute Granulocytes (1.4 - 6.5 /CUMM) 7.7 H Absolute Lymphocytes (1.2 - 3.4 /CUMM) 1.3 Absolute Monocytes (0.10 - 0.60 /CUMM) 0.5 Absolute Eosinophils (0.0 - 0.7 /CUMM) 0 Absolute Basophils (0.0 - 0.2 /CUMM) 0 PUBS MCHC (33.0 - 37.0 G/DL) 33.5
[2017-04-22 14:52] VITALS: BP 138/72
--- NOTE | 2017-04-22 15:06 | PN- Endocrinology ---
Assessment/Plan Assessment: 61 y/o female , Hx of morbid obese and CAD s/p stents placement, was diagnosed with hypothyroidism/ Marc's thyroiditis in 2012 and was on Levothyroxine 100 mcg daily. She hasn't been compliance with medication. She was found to be unresponsive at home due to methadone over dose. Blood work in ER showed positive troponin, TSH 35.1 and T4 6.9; ph 7.17, Pco2 62 and Po2 78, Cr 2.5. Her peak troponin was 10.9. She was put on Levothyroxine 25 mcg daily on 04/18/2017. On 04/19/2017, repeat TSH 6.66, freeT4 0.64.Levothyroxine was increased to 50 mcg daily this morning. Plan: continue Levothyroxine 50 mcg daily; repeat TFT in one week. will follow. Subjective Subjective: She feels better this morning. Objective Last 24 Hrs of Vital Signs/I&O Vital Signs Date Time Temp Pulse Resp B/P B/P Pulse O2 O2 Flow FiO2 Mean Ox Delivery Rate 04/22 1452 98.5 68 20 138/72 96 Nasal 5.0L Cannula 04/22 0931 84 120/70 04/22 0850 93 Nasal 5.0L Cannula 04/22 0800 95 Nasal 5.0L Cannula 04/22 0800 97.4 74 20 120/70 95 Nasal 5.0L Cannula 04/22 0600 74 22 04/22 0400 73 24 04/22 0200 72 24 04/22 0000 97.4 70 20 140/70 07 0000 97 Nasal 5.0L Cannula 04/22 0000 97.4 70 20 140/70 97 Nasal 5.0L Cannula 04/21 2115 68 120/70 04/21 1910 96 Nasal 6.0L Cannula 04/21 1600 97.9 72 20 124/70 04/21 1600 96 Nasal 5.0L Cannula 04/21 1600 97.8 72 20 124/70 96 Nasal 5.0L Cannula Intake & Output 04/22 1600 04/22 0800 04/22 0000 Intake Total 7301 252 4252 Output Total 9122 102 4197 Balance 385 330 -450 Intake, IV 745 530 650 Intake, Oral 740 100 400 Number 1 Bowel Movements Output, 300 Dialysate Output, Urine 1100 1500 Results Pertinent Lab/Jayson Results: Laboratory Tests 04/22 04/21 04/21 0545 2235 1701 Chemistry Sodium (137 - 145 mmol/L) 142 137 Potassium (3.5 - 5.1 mmol/L) 4.2 4.5 Chloride (98 - 107 mmol/L) 108 H 104 Carbon Dioxide (22 - 30 mmol/L) 25 24 Anion Gap (5 - 16) 9 10 BUN (7 - 17 mg/dL) 38 H 43 H Creatinine (0.5 - 1.0 mg/dL) 3.7 H 4.4 H Estimated GFR (>60 ml/min) 12 L 10 L Glucose (65 - 99 mg/dL) 82 80 Calcium (8.4 - 10.2 mg/dL) 8.9 8.6 Phosphorus (2.5 - 4.5 mg/dL) 5.4 H 5.4 H Magnesium (1.6 - 2.3 mg/dL) 2.1 2.0 Total Bilirubin (0.2 - 1.3 mg/dL) 0.6 0.6 AST (14 - 36 U/L) 146 H 187 H ALT (9 - 52 U/L) 109 H 124 H Albumin (3.5 - 5.0 g/dL) 3.1 L 3.2 L Coagulation APTT (25 - 37 SEC) 66 H 52 H Hematology CBC w Diff NO MAN DIFF REQ WBC (4.8 - 10.8 /CUMM) 5.4 RBC (4.20 - 5.40 /CUMM) 3.46 L Hgb (12.0 - 16.0 G/DL) 11.0 L Hct (37 - 47 %) 32.8 L MCV (81.0 - 99.0 FL) 94.8 MCH (27.0 - 31.0 PG) 32.0 H RDW (11.5 - 14.5 %) 13.6 Plt Count (130 - 400 /CUMM) 167 MPV (7.4 - 10.4 FL) 7.6 Gran % (42.2 - 75.2 %) 65.9 Lymphocytes % (20.5 - 51.1 %) 19.3 L Monocytes % (1.7 - 9.3 %) 10.7 H Eosinophils % (0 - 5 %) 3.6 Basophils % (0.0 - 2.0 %) 0.5 Absolute Granulocytes (1.4 - 6.5 /CUMM) 3.5 Absolute Lymphocytes (1.2 - 3.4 /CUMM) 1.0 L Absolute Monocytes (0.10 - 0.60 /CUMM) 0.6 Absolute Eosinophils (0.0 - 0.7 /CUMM) 0.2 Absolute Basophils (0.0 - 0.2 /CUMM) 0 PUBS MCHC (33.0 - 37.0 G/DL) 33.7
--- NOTE | 2017-04-22 16:37 | Discharge Summary ---
Visit Information Visit Dates Admission Date: 04/17/17 Discharge Date: 04/25/2017 Hospital Course Course Attending Physician: ARIEL NICK MD Primary Care Physician: GENEVA LAINEZ MD Other Care Providers: Dr. Dania anaya Consulting Request: 1 Consulting Specialty: Cardiology Consulting Request: 2 Consulting Specialty: Endocrinology Consulting Request: 3 Consulting Specialty: Nephrology Hospital Course: Patient is a 61-year-old female with past medical history of (coronary artery disease status post 3/4 stents in 2010) follows with Dr. Benson at [facility], hypothyroidism, chronic back pain was brought into the ED after being found unresponsive. In the ED vitals showed a temperature of 97, pulse 96, respiration 22, blood pressure 164/90, saturating 96% on 10 L nonrebreather. Significant labs showed white count of 19.1 with no left shift, sodium 143, potassium 5.3, anion gap 21, BUN 19, creatinine 2.5(baseline 0.7),, troponin 0.37, TSH 35, T4 6.9 U tox positive for methadone, serum alcohol level less than 10 urine was dirty, bloody, nitrate positive,, trace leukocyte esterase, many bacteria EKG showed normal sinus rhythm, T-wave inversion in lead 3,, left bundle branch block old Altered mental status likely secondary to methadone overdose Son stated that its likely that the patient overdosed on methadone pills. Patient has history of chronic back pain and she had been on methadone in the past. However, she was not supposed to take it at this time. She has been receiving inappropriate doses of methadone from his brother. urine Tox positive for methadone. ABGs showed pH 7.17, PCO2 62, bicarbonate 22, PO2 78. She was started on BiPAP in ER. She was admitted to ICU. Placed on every hour neuro checks. And she received IV fluids. She received Narcan drip in the ICU. Later Narcan drip was discontinued once her mentation improved. Provided supplemental oxygen as necessary. Acute hypoxemic respiratory failure likely secondary to questionable aspiration pneumonia Patient was lethargic on admission. ABGs showed respiratory acidosis. She was placed on BiPAP. Later she was Continued on oxygen to keep saturations above 92% . She received total respiratory care. She received IV clindamycin for aspiration pneumonia for 5 days as she is allergic to penicillin. Follow-up blood cultures and urine cultures were negative. Her oxygen saturations were greater than 90% at the time of discharge on room air. Acute coronary syndrome /NSTEMI She has Persistent chest pain, positive cardiac biomarkers with No significant EKG changES on admission. She received IV morphine, nitroglycerin, aspirin, beta jasper. Serial troponins were trended down with no EKG changes. She received IV heparin for NSTEMI. Design Printing Machine Setter on board. Echocardiogram showed Normal left ventricular ejection fraction estimated at 60-65%. Abnormal relaxation filling pattern of the left ventricle for age (stage 1 diastolic dysfunction). consideration for testing for an underlying ischemic burden by nuclear stress testing may be performed as an outpatient. Hypothyroidism TSH of 35, no clinical symptoms of hypothyroidism. Patient was previously started on levothyroxine however non-compliment. Exhaust Tender Dr. anaya was consulted. In February of 2016, blood work showed anti TPO 413 and anti Tg 81 which were consistent with Marc's thyroiditis. We avoided IV levothyroxine as it is contraindicated in acute VA. Started on levothyroxine 25 g and increased to 50 g. patient was advised to get thyroid function tests in one week. Advised to fax reports to primary care physician and web manager. PRAFUL, rhabdomyolysis Creatinine on admission 2.8 bumped up to 4.7. PRAFUL likely Non oliguric ATN due to rhabdo & probably hemodynamic insult in setting of hypoxic/hypercapnic resp failure, NSAIDs, & infection. No obstruction by US and has prob lower UTI by u/ a. We continued gentle hydration with IV fluids at 75 mL an hour. SPEP, C3, C4, ANC, ANCA were normal. Creatinine improved to 2.1 at the time of discharge Urinary tract infection Urine analysis showed nitrates, esterases, WBC and bacteria. Urine culture positive for Klebsiella. She was on ciprofloxacin From 04/19/2017 to 04/23/2017, she was treated for lower urinary tract infection for 5 days. Hyperkalemia K 5.3 and admission. She was placed on potassium restricted diet and she received Kayexalate. Potassium improved to 3.7 at the time of discharge. Depression/anxiety/recently started psychiatric medications Psychiatry consult has been placed. holding Latuda at the time of discharge because of kidney injury. Advised to continue gabapentin at the time of discharge. Provided referral for intensive outpatient program at care Significant coronary artery disease with history of 3 stents in 2010 Patient's compilation clerk is Dr. Benson at [facility]. Patient is not on aspirin or Plavix at home because of noncompliance. Continued aspirin in the hospital. statins not given in the hospital because of transaminitis transaminitis Could be fatty liver disease/alcoholic hepatitis based on enzyme ratios. Ultrasound demonstrative hepatic steatosis and fibrosis. liver function tests improved at the time of discharge. Alcohol abuse Based on [facility] protocol she received Ativan as required. Hearing loss Unclear if acute or chronic. IMPROVED. Complications: none Allergies: Coded Allergies: Penicillins (Severe, TONGUE SWELLING 01/02/16) Significant Procedures: none Pertinent Lab Results: Abdomen x-ray FINDINGS: There is scattered stool seen in the left colon. There is no bowel distention to suggest any obstruction. There is no organomegaly or radiopaque calculi. There are posterior spinal neurostimulator an posterior spinal hardware L3, L4 and L5 fusion. IMPRESSION: Mild constipation without any suggestion for obstruction. Abdomen ultrasound IMPRESSION: 1. Nonvisualization of pancreas and extra hepatic biliary tree. 2. There is demonstrates diffuse increased echogenicity which can be seen with hepatic steatosis or fibrosis. No discrete lesion. 3. Nonobstructing right-sided renal calculus. 4. Gallstones. cxr IMPRESSION: Limited exam. Low lung volumes. Increased density at the lung bases questionable for atelectasis/consolidation or effusion versus changes related to overlying soft tissues and low lung volumes. This could be better evaluated with a lateral chest x-ray. Distended bowel below the left hemidiaphragm. head ct FINDINGS: There is no evidence of acute intracranial hemorrhage or territorial infarction. No abnormal mass effect or midline shift is seen. Winkler to white matter differentiation is well preserved. No extra-axial fluid collections are identified. The ventricles are normal in size. There is no abnormal attenuation within the brain parenchyma. The osseous structures and soft tissues are normal. The mastoid air cells and visualized portions of the paranasal sinuses are well aerated. IMPRESSION: No acute intracranial pathology. Venous Doppler FINDINGS: Respiratory variation, normal compression and augmented flow are noted throughout the lower extremities. The visualized common femoral vein, superficial femoral vein, profunda femoral vein, popliteal vein and midcalf peroneal and posterior tibial venous segments show no evidence of deep venous thrombosis. Funes's cyst measuring 2.7 cm IMPRESSION: Normal triplex scan without evidence of deep venous thrombosis involving the lower extremities. Incidental Funes's cyst. renal u/s IMPRESSION: Limited portable exam demonstrating no evidence of any hydronephrosis or focal abnormality. Echocardiogram CONCLUSIONS Normal left and right ventricular systolic function. Mild LVH and left atrial enlargement. No significant valvular abnormalities noted. cxr IMPRESSION: 1. Cardiomegaly without pulmonary edema. 2. Discoid atelectasis is present in the right and left mid lung zones. 3. No overt pneumonia. Disposition Summary Disposition Principal Diagnosis: 1. Acute hypoxemic respiratory failure, with aspiration pneumonia 2. Mental status changes secondary methadone overdose. 3. Elevated troponin; ruled out acute coronary syndrome/NSTEMI. 4. History of CAD. 5. Hypothyroid. 6. Acute renal insufficiency 7. Transaminitis. 8. Hearing loss 9. UIT - urine culture positive for Klebsiella Additional Diagnosis: none Discharge Disposition: home or self care Discharge Instructions General Discharge Information Code Status: Full Code Patient's Diet: As tolerated Patient's Activity: As tolerated Follow-Up Instructions/Appts: Please follow-up with primary care doctor in 1 week after discharge please follow-up with your compilation clerk in 1 week after discharge Please follow-up with web manager in 1-2 weeks after discharge Please check thyroid function tests in 1 week after discharge. Fax reports to PCP and web manager. Medications at Discharge Discharge Medications: Stop taking the following medications: Lurasidone HCl (Latuda) 20 MG TABLET ORAL DAILY Qty = 30 Continue taking these medications: Gabapentin (Gabapentin) 300 MG CAPSULE 1 Capsule ORAL THREE TIMES DAILY Qty = 90 Comments: Last Taken: NOT GIVEN IN HOSPITAL Time: Start taking the following new medications: Metoprolol Tartrate (Metoprolol Tartrate) 25 MG TABLET 12.5 Milligram ORAL TWICE DAILY Qty = 30 No Refills Instructions: .Take 1/2 tablet twice daily Comments: Last Taken: 04/25/17 Time: 9:45 AM Aspirin (Aspirin*) 81 MG TAB.CHEW 81 Milligram ORAL DAILY Qty = 30 No Refills Instructions: .Take 1 tablet every day Comments: Last Taken: 04/25/17 Time: 9:45 AM Levothyroxine Sodium (Synthroid) 50 MCG TABLET 1 Tablet ORAL DAILY BEFORE BREAKFAST Qty = 30 No Refills Instructions: .TAKE 1 TABLET DAILY FOLLOW UP WITH TEMPER MILL ROLLER WITHIN 1-2 WEEKS AFTER DISCHARGE Comments: Last Taken: 04/25/17 Time: 6:20 AM Nitroglycerin (Nitrostat) 0.3 MG TAB.SUBL 1 Tablet ORAL EVERY SIX HOURS as needed for chest pain Qty = 14 No Refills Copies To: FATOU DOTSON,GENEVA
[2017-04-22 19:32] LABS: PTT 52 SEC (25-37)
[2017-04-22 22:11] VITALS: BP 150/78
[2017-04-22 23:14] VITALS: BP 150/78
[2017-04-23 02:48] LABS: PTT 75 SEC (25-37)
[2017-04-23 06:47] VITALS: BP 118/72
--- NOTE | 2017-04-23 08:13 | PN- Housestaff ---
KEVIN ALVARADO 04/23/17 0813: Subjective Follow-up For: AMS ACS/NSTEMI Elevated TROP Methadone overdose Subjective: Patient reports substernal chest pain with movement and with yawning, rated 8/ 10. Son at bedside states he believes it, may have to due with the CPR administered to patient. Review of Systems Constitutional: Reports: see HPI. Objective Last 24 Hrs of Vital Signs/I&O Vital Signs Date Time Temp Pulse Resp B/P B/P Pulse O2 O2 Flow FiO2 Mean Ox Delivery Rate 04/23 1453 99.4 68 18 136/72 96 Nasal 4.0L Cannula 04/23 1138 73 142/78 04/23 0940 87 180/86 04/23 0936 87 180/86 04/23 0830 94 Nasal 4.0L Cannula 04/23 0647 98.8 76 12 118/72 95 04/23 0000 Nasal 4.0L Cannula 04/22 2314 83 20 150/78 97 Nasal 4.0L Cannula 04/22 2211 99.1 83 20 150/78 97 Nasal 4.0L Cannula 04/22 2141 83 150/78 04/22 1910 96 Nasal 5.0L Cannula Intake & Output 04/23 1600 04/23 0800 04/23 0000 Intake Total 524 3103 Output Total 500 2100 Balance 24 1003 Intake, IV 284 280 Intake, Oral 240 2823 Output, Urine 500 2100 Physical Exam General Appearance: Mild Distress HEENT: Atraumatic, PERRLA Cardiovascular: Normal S1, Normal S2 Lungs: Clear to Auscultation, Normal Air Movement Abdomen: Normal Bowel Sounds, Soft, No Tenderness Extremities: No Cyanosis, No Edema Other Physical Findings: Pain with palpation on sternum Current Medications: Current Medications Sig/Mary Start time Last Medication Dose Route Stop Time Status Admin Acetaminophen 1,000 MG Q8 PRN 04/17 1700 AC N/A 1 UNIT IV Acetaminophen 325 MG Q6P PRN 04/17 1230 AC 04/23 PO 1309 Albuterol Sulfate 3 ML BID 04/21 2200 AC 04/23 INH 0820 Aspirin 81 MG DAILY 04/17 1354 AC 04/23 PO 0931 Ciprofloxacin 500 MG DAILY 04/19 1000 DC 04/22 PO 04/23 0959 0931 Heparin Sodium 4,100 UNIT ONCE ONE 04/22 2030 DC 04/22 (Porcine) IV 07/13 2031 2207 Heparin Sodium 5,000 UNIT .STK-MED ONE 04/22 2005 DC (Porcine) IV 04/22 2006 Heparin Sodium 25,000 UNIT .STK-MED ONE 04/22 1719 DC (Porcine) IV 04/22 1720 Heparin Sodium 25,000 UNIT Q24H / 1300 DC 04/22 (Porcine) IV 1721 Sodium Chloride 500 ML Levothyroxine Sodium 0.05 MG DAILY AC 04/22 0700 04/23 PO 0655 Lorazepam 1 MG Q1P PRN 04/17 1415 04/21 IV 0329 Metoclopramide HCl 10 MG Q6P PRN 04/17 1645 IV Metoprolol Tartrate 12.5 MG BID 04/17 1354 04/23 PO 0936 Nitroglycerin 0.5 GM Q6 04/17 1354 04/23 TOP 1259 Nystatin 5 ML 4 TIMES/DAY 04/21 1000 AC 04/23 PO 1300 Nystatin 1 FERN TID 04/17 2200 04/23 TOP 0937 Patient Medication 1 ED .STK-MED ONE 04/23 1403 DC Teaching ED 04/23 1404 Sodium Chloride 1,000 ML Q24H 04/20 0845 TN 04/23 IV 1258 Sodium Chloride 2 SPRAY Q4P PRN 04/19 2345 04/20 [place] 1016 Last 24 Hrs of Lab/Jayson Results Last 24 Hrs of Labs/Mics: Laboratory Tests 04/23/17 1500: APTT Cancelled 04/23/17 0647: Anion Gap 8, Estimated GFR 24 L, BUN/Creatinine Ratio 11.0, CBC w Diff NO MAN DIFF REQ, RBC 3.39 L, MCV 93.4, MCH 31.6 H, RDW 13.3, MPV 8.0, Gran % 64.6, Lymphocytes % 21.9, Monocytes % 8.8, Eosinophils % 4.4, Basophils % 0.3, Absolute Granulocytes 3.7, Absolute Lymphocytes 1.3, Absolute Monocytes 0.5, Absolute Eosinophils 0.3, Absolute Basophils 0, PUBS MCHC 33.9 04/23/17 0200: APTT 75 H 04/22/17 1835: APTT 52 H Assessment/Plan Assessment: A: Ms. Nair is a 61-year-old female with past medical history of (coronary artery disease status post 3/4 stents in 2010) follows with Dr. Benson at [facility], hypothyroidism, chronic back pain, substance abuse, bipolar, PTSD, depression was brought into the ED today after being found unresponsive by her daughter. P: 1. AMS most likely due to drug overdose * Urine tox pos for methadone * DC IVF 2. ACS/NSTEMI * DC Heparin IV, patient day 7 * Trop trending down * Nitroglycerin PRN * Continue ASA, Metoprolol 12.5 BID * DC oxygen 3. HTN * Metoprolol 12.5mg BID 4. Hypokalemia * Continue K+ supplement * Continue to monitor K+ 5. Transaminitis * Continue monitoring LFTs 6. Hypothyroidism * Continue Levthyroxine 50mcg 7. Lower tract UTI pos for Klebsiella Patient currently day 5 of antibiotics * DC Cipro 500 mg NPO * PT eval ordered Problem List: 1. UTI (urinary tract infection), uncomplicated 2. Depression 3. Bipolar disorder, unspecified 4. Hypothyroidism 5. Coronary artery disease 6. Hypertension 7. Hyperlipidemia 8. Methadone overdose 9. Acute kidney injury 10. Elevated troponin Pain Ratin Pain Location: Midsternal chest pain with movement and while yawning Pain Goal: Pain 4 or less Pain Plan: Nitrogly PRN Tomorrow's Labs & Rationales: CBC for signs of infection, anemia CMP to monitor liver function, sodium, potassium Consulting Request: Consulting Specialty: Cardiology ARIEL NICK 04/23/17 1106: Attending MD Review Statement Attending Statement Attending MD Statement: examined this patient, discuss w/resident/PA/HEAVY EQUIPMENT MECHANIC, agreed w/resident/PA/HEAVY EQUIPMENT MECHANIC, discussed with family, reviewed EMR data (avail), discussed with nursing, discussed with case mgmt, reviewed images, amended to note Attending Assessment/Plan: patient with strong cardiac history comes with encephalopathy , found to have respiratory failure hypercarbic possible opiod overdose, put on bipap in ER also found to have aspiration pneumonia and elevated troponins demamd ischemia in setting of acute on chronic renal failure. Patient had ICU course and transferred to telemetry. Cardiology, nephrology and pulmonary on baord. C/W ASA , statin, b jasper therapy, NTG prn. 2. UTI: K pneumo - S cipro; prob lower UTI tract rather than pyelo. PT eval for d/c planning. Stress test as o/p, f/u PCP in 1 week, cardiology as o/p as scheduled.
[2017-04-23 08:43] LABS: ABSOLUTE BASOPHIL COUNT 0 /CUMM (0.0-0.2); ABSOLUTE EOSINOPHIL COUNT 0.3 /CUMM (0.0-0.7); ABSOLUTE GRANULOCYTE CT 3.7 /CUMM (1.4-6.5); ABSOLUTE LYMPH COUNT 1.3 /CUMM (1.2-3.4); ABSOLUTE MONOCYTE COUNT 0.5 /CUMM (0.10-0.60); BASOPHIL % 0.3 % (0.0-2.0); EOSINOPHIL % 4.4 % (0-5); GRANULOCYTE % 64.6 % (42.2-75.2); HEMATOCRIT 31.6 % (37-47); MEAN CORPUSCULAR HGB 31.6 PG (27.0-31.0); MEAN CORPUSCULAR HGB CONC 33.9 G/DL (33.0-37.0); MEAN CORPUSCULAR VOLUME 93.4 FL (81.0-99.0); PLATELET COUNT 169 /CUMM (130-400); RBC DISTRIBUTION WIDTH 13.3 % (11.5-14.5); RED BLOOD CELL CT 3.39 /CUMM (4.20-5.40); WHITE BLOOD CELL COUNT 5.8 /CUMM (4.8-10.8)
[2017-04-23 09:40] VITALS: BP 180/86
--- NOTE | 2017-04-23 09:43 | PN- Nephrology ---
Assessment/Plan Assessment: 1. PRAFUL: nonoliguric ATN due rhabdo & hemodynamic insults; serologic eval unrevealing for vasculitis & paraprotein. Today's labs pending but GFR has been improving - no dialysis indication 2. UTI: K pneumo - S cipro; prob lower UT tract rather than pyelo. Suggestion: 1. stop IV fluids 2. d/c [place] 3. relax diet restrictions --> d/c Na & K restrictions 4. repeat renal function Subjective Subjective: Awake - no uremic sx No SOB Nonoliguric Objective Vital Signs and I&Os Vital Signs Date Time Temp Pulse Resp B/P B/P Pulse O2 O2 Flow FiO2 Mean Ox Delivery Rate 04/23 0830 94 Nasal 4.0L Cannula 04/23 0647 98.8 76 12 118/72 95 04/23 0000 Nasal 4.0L Cannula 04/22 2314 83 20 150/78 97 Nasal 4.0L Cannula 04/22 2211 99.1 83 20 150/78 97 Nasal 4.0L Cannula 04/22 2141 83 150/78 04/22 1910 96 Nasal 5.0L Cannula 04/22 1600 96 Nasal 5.0L Cannula 04/22 1452 98.5 68 20 138/72 96 Nasal 5.0L Cannula Intake & Output 04/23 1600 04/23 0400 04/22 1600 04/22 0400 04/21 1600 04/21 0400 Intake Total 524 3103 2115 1050 1944.8 850 Output Total 500 2100 1650 1500 1250 590 Balance 24 1003 465 -450 694.8 260 Intake, IV 751 878 5041 650 1104.8 700 Intake, Oral 240 2823 840 400 840 150 Number 1 1 Bowel Movements Output, 300 Dialysate Output, Urine 500 2100 1350 1500 1250 590 Physical Exam General Appearance: no apparent distress, obese Head: atraumatic, normal appearance Ears, Nose, Throat: normal ENT inspection Neck: normal inspection Respiratory: normal breath sounds, no respiratory distress, quiet respiration, lungs clear Cardiovascular: regular rate/rhythm Abdomen: soft, non-tender Extremities: no edema Neurologic/Psychiatric: awake, alert Current Medications: Current Medications Sig/Mary Start time Last Medication Dose Route Stop Time Status Admin Acetaminophen 650 MG .STK-MED ONE 04/22 937 DC PO 04/22 938 Acetaminophen 1,000 MG Q8 PRN 04/17 1700 N/A 1 UNIT IV Acetaminophen 325 MG Q6P PRN 04/17 1230 AC 04/22 PO 0936 Albuterol Sulfate 3 ML BID 04/21 2200 AC 04/23 INH 0820 Aspirin 81 MG DAILY 04/17 1354 AC 04/22 PO 0931 Ciprofloxacin 500 MG DAILY 04/19 1000 AC 04/22 PO 04/23 0959 0931 Heparin Sodium 4,100 UNIT ONCE ONE 04/22 2030 DC 04/22 (Porcine) IV 04/22 203 2207 Heparin Sodium 5,000 UNIT .STK-MED ONE 04/22 2005 DC (Porcine) IV 04/22 2006 Heparin Sodium 25,000 UNIT .ST-MED ONE 04/22 1719 DC (Porcine) IV 04/22 1720 Heparin Sodium 25,000 UNIT Q24H 04/17 1300 AC 04/22 (Porcine) IV 1721 Sodium Chloride 500 ML Levothyroxine Sodium 0.05 MG DAILY AC 04/22 0700 AC 04/23 PO 0655 Lorazepam 1 MG Q1P PRN 04/17 1415 04/21 IV 0329 Metoclopramide HCl 10 MG Q6P PRN 04/17 1645 IV Metoprolol Tartrate 12.5 MG BID 04/17 1354 AC 04/22 PO 2141 Nitroglycerin 0.5 GM Q6 04/17 1354 04/23 TOP 0655 Nystatin 5 ML 4 TIMES/DAY 04/21 1000 AC 04/22 PO 2143 Nystatin 1 FERN TID 04/17 2200 04/22 TOP 2145 Sodium Chloride 1,000 ML Q24H 04/20 0845 04/22 IV 1214 Sodium Chloride 2 SPRAY Q4P PRN 04/19 2345 04/20 [place] 1016 Results Pertinent Lab Results: Laboratory Tests 04/23 04/23 04/22 0647 0200 1835 Chemistry Sodium Pending Potassium Pending Chloride Pending Carbon Dioxide Pending Anion Gap Pending BUN Pending Creatinine Pending BUN/Creatinine Ratio Pending Coagulation APTT (25 - 37 SEC) 75 H 52 H Hematology CBC w Diff NO MAN DIFF REQ WBC (4.8 - 10.8 /CUMM) 5.8 RBC (4.20 - 5.40 /CUMM) 3.39 L Hgb (12.0 - 16.0 G/DL) 10.7 L Hct (37 - 47 %) 31.6 L MCV (81.0 - 99.0 FL) 93.4 MCH (27.0 - 31.0 PG) 31.6 H RDW (11.5 - 14.5 %) 13.3 Plt Count (130 - 400 /CUMM) 169 MPV (7.4 - 10.4 FL) 8.0 Gran % (42.2 - 75.2 %) 64.6 Lymphocytes % (20.5 - 51.1 %) 21.9 Monocytes % (1.7 - 9.3 %) 8.8 Eosinophils % (0 - 5 %) 4.4 Basophils % (0.0 - 2.0 %) 0.3 Absolute Granulocytes (1.4 - 6.5 /CUMM) 3.7 Absolute Lymphocytes (1.2 - 3.4 /CUMM) 1.3 Absolute Monocytes (0.10 - 0.60 /CUMM) 0.5 Absolute Eosinophils (0.0 - 0.7 /CUMM) 0.3 Absolute Basophils (0.0 - 0.2 /CUMM) 0 PUBS MCHC (33.0 - 37.0 G/DL) 33.9 07 0704/21 0545 2235 1705 1040 Chemistry Sodium (137 - 145 mmol/L) 142 137 Potassium (3.5 - 5.1 mmol/L) 4.2 4.5 Chloride (98 - 107 mmol/L) 108 H 104 Carbon Dioxide (22 - 30 mmol/L) 25 24 Anion Gap (5 - 16) 9 10 BUN (7 - 17 mg/dL) 38 H 43 H Creatinine (0.5 - 1.0 mg/dL) 3.7 H 4.4 H Estimated GFR (>60 ml/min) 12 L 10 L Glucose (65 - 99 mg/dL) 82 80 Calcium (8.4 - 10.2 mg/dL) 8.9 8.6 Phosphorus (2.5 - 4.5 mg/dL) 5.4 H 5.4 H Magnesium (1.6 - 2.3 mg/dL) 2.1 2.0 Total Bilirubin (0.2 - 1.3 mg/dL) 0.6 0.6 AST (14 - 36 U/L) 146 H 187 H ALT (9 - 52 U/L) 109 H 124 H Albumin (3.5 - 5.0 g/dL) 3.1 L 3.2 L Coagulation APTT (25 - 37 SEC) 66 H 52 H 61 H Hematology CBC w Diff NO MAN DIFF REQ WBC (4.8 - 10.8 /CUMM) 5.4 RBC (4.20 - 5.40 /CUMM) 3.46 L Hgb (12.0 - 16.0 G/DL) 11.0 L Hct (37 - 47 %) 32.8 L MCV (81.0 - 99.0 FL) 94.8 MCH (27.0 - 31.0 PG) 32.0 H RDW (11.5 - 14.5 %) 13.6 Plt Count (130 - 400 /CUMM) 167 MPV (7.4 - 10.4 FL) 7.6 Gran % (42.2 - 75.2 %) 65.9 Lymphocytes % (20.5 - 51.1 %) 19.3 L Monocytes % (1.7 - 9.3 %) 10.7 H Eosinophils % (0 - 5 %) 3.6 Basophils % (0.0 - 2.0 %) 0.5 Absolute Granulocytes (1.4 - 6.5 /CUMM) 3.5 Absolute Lymphocytes (1.2 - 3.4 /CUMM) 1.0 L Absolute Monocytes (0.10 - 0.60 /CUMM) 0.6 Absolute Eosinophils (0.0 - 0.7 /CUMM) 0.2 Absolute Basophils (0.0 - 0.2 /CUMM) 0 PUBS MCHC (33.0 - 37.0 G/DL) 33.7 04/21 04/20 04/20 0245 1930 1055 Chemistry Sodium (137 - 145 mmol/L) 138 Potassium (3.5 - 5.1 mmol/L) 5.3 H Chloride (98 - 107 mmol/L) 105 Carbon Dioxide (22 - 30 mmol/L) 22 Anion Gap (5 - 16) 10 BUN (7 - 17 mg/dL) 46 H Creatinine (0.5 - 1.0 mg/dL) 4.7 H Estimated GFR (>60 ml/min) 9 L Glucose (65 - 99 mg/dL) 77 Calcium (8.4 - 10.2 mg/dL) 8.5 Phosphorus (2.5 - 4.5 mg/dL) 6.3 H Magnesium (1.6 - 2.3 mg/dL) 2.1 Total Bilirubin (0.2 - 1.3 mg/dL) 0.5 AST (14 - 36 U/L) 217 H ALT (9 - 52 U/L) 143 H Albumin (3.5 - 5.0 g/dL) 3.3 L Coagulation APTT (25 - 37 SEC) > 120 *H 44 H 93 H Hematology CBC w Diff NO MAN DIFF REQ WBC (4.8 - 10.8 /CUMM) 7.4 RBC (4.20 - 5.40 /CUMM) 3.53 L Hgb (12.0 - 16.0 G/DL) 11.2 L Hct (37 - 47 %) 33.5 L MCV (81.0 - 99.0 FL) 95.0 MCH (27.0 - 31.0 PG) 31.7 H RDW (11.5 - 14.5 %) 13.8 Plt Count (130 - 400 /CUMM) 176 MPV (7.4 - 10.4 FL) 7.8 Gran % (42.2 - 75.2 %) 73.7 Lymphocytes % (20.5 - 51.1 %) 16.6 L Monocytes % (1.7 - 9.3 %) 7.9 Eosinophils % (0 - 5 %) 1.0 Basophils % (0.0 - 2.0 %) 0.8 Absolute Granulocytes (1.4 - 6.5 /CUMM) 5.5 Absolute Lymphocytes (1.2 - 3.4 /CUMM) 1.2 Absolute Monocytes (0.10 - 0.60 /CUMM) 0.6 Absolute Eosinophils (0.0 - 0.7 /CUMM) 0.1 Absolute Basophils (0.0 - 0.2 /CUMM) 0.1 PUBS MCHC (33.0 - 37.0 G/DL) 33.4 04/20 UNK Chemistry Sodium Cancelled Potassium Cancelled Chloride Cancelled Carbon Dioxide Cancelled Anion Gap Cancelled BUN Cancelled Creatinine Cancelled Glucose Cancelled Calcium Cancelled Phosphorus Cancelled Magnesium Cancelled Total Bilirubin Cancelled AST Cancelled ALT Cancelled Albumin Cancelled
--- NOTE | 2017-04-23 10:17 | PN- Cardiology ---
Subjective Subjective: The patient was awoken, somnolent The events of the last 24 hours as well as telemetry were reviewed. Review of Systems: The review of systems is negative for chest pains, palpitations nor lightheadedness. The remainder of the 14 point review of systems is noncontributory with the exception of above. Objective Vital Signs and I&Os Vital Signs Date Time Temp Pulse Resp B/P B/P Pulse O2 O2 Flow FiO2 Mean Ox Delivery Rate 04/23 0940 87 180/86 04/23 0936 87 180/86 04/23 0830 94 Nasal 4.0L Cannula 04/23 0647 98.8 76 12 118/72 95 04/23 0000 Nasal 4.0L Cannula 04/22 2314 83 20 150/78 97 Nasal 4.0L Cannula 04/22 2211 99.1 83 20 150/78 97 Nasal 4.0L Cannula 04/22 2141 83 150/78 04/22 1910 96 Nasal 5.0L Cannula 04/22 1600 96 Nasal 5.0L Cannula 04/22 1452 98.5 68 20 138/72 96 Nasal 5.0L Cannula Intake & Output 04/23 1600 04/23 0800 04/23 0000 04/22 1600 04/22 0800 04/22 0000 Intake Total 524 3103 1586 648 0966 Output Total 500 2100 3598 042 2049 Balance 24 1003 135 330 -450 Intake, IV 284 280 745 530 650 Intake, Oral 240 2823 740 100 400 Number 1 Bowel Movements Output, 300 Dialysate Output, Urine 500 2100 1350 1500 Physical Exam: General: Nontoxic, no apparent distress. HEENT: Sclera and conjunctiva within normal limits, without xanthelasmas. Neck: Carotids 2+ without bruits. Respiratory: Clear to auscultation, air movement is good, without accessory respiratory muscle use. Heart: Regular rate and rhythm, without murmurs, without JVD. Abdomen: Soft, nontender, no masses, normoactive bowel sounds. Extremities: Without clubbing, cyanosis, without edema. Neuro: Nonfocal exam, strength, 5 out of 5 Skin: Within normal limits without lesions. Psych: Mood and affect: Blunted Current Medications: Current Medications Sig/Mary Start time Last Medication Dose Route Stop Time Status Admin Acetaminophen 1,000 MG Q8 PRN 04/17 1700 AC N/A 1 UNIT IV Acetaminophen 325 MG Q6P PRN 04/17 1230 04/22 PO 0936 Albuterol Sulfate 3 ML BID 04/21 2200 AC 04/23 INH 0820 Aspirin 81 MG DAILY 04/17 1354 04/23 PO 0931 Ciprofloxacin 500 MG DAILY 04/19 1000 DC 04/22 PO 04/23 0959 0931 Heparin Sodium 4,100 UNIT ONCE ONE 04/22 2030 DC 04/22 (Porcine) IV 04/22 Heparin Sodium 5,000 UNIT .STK-MED ONE 04/22 2005 DC (Porcine) IV 04/22 2006 Heparin Sodium 25,000 UNIT .STK-MED ONE 04/22 1719 DC (Porcine) IV 04/22 1720 Heparin Sodium 25,000 UNIT Q24H 04/17 1300 DC 04/22 (Porcine) IV 1721 Sodium Chloride 500 ML Levothyroxine Sodium 0.05 MG DAILY AC 04/22 0700 AC 04/23 PO 0655 Lorazepam 1 MG Q1P PRN 04/17 1415 AC 04/21 IV 0329 Metoclopramide HCl 10 MG Q6P PRN 04/17 1645 IV Metoprolol Tartrate 12.5 MG BID 04/17 1354 04/23 PO 0936 Nitroglycerin 0.5 GM Q6 04/17 1354 AC 04/23 TOP 0655 Nystatin 5 ML 4 TIMES/DAY 04/21 1000 AC 04/23 PO 0931 Nystatin 1 FERN TID 04/17 2200 04/23 TOP 0937 Sodium Chloride 1,000 ML Q24H 04/20 0845 04/22 IV 1214 Sodium Chloride 2 SPRAY Q4P PRN 04/19 2345 04/20 [place] 1016 Results Last 48 Hrs of Labs/Mics: Laboratory Tests 04/23/17 0647: Sodium Pending, Potassium Pending, Chloride Pending, Carbon Dioxide Pending, Anion Gap Pending, BUN Pending, Creatinine Pending, BUN/Creatinine Ratio Pending , CBC w Diff NO MAN DIFF REQ, RBC 3.39 L, MCV 93.4, MCH 31.6 H, RDW 13.3, MPV 8.0, Gran % 64.6, Lymphocytes % 21.9, Monocytes % 8.8, Eosinophils % 4.4, Basophils % 0.3, Absolute Granulocytes 3.7, Absolute Lymphocytes 1.3, Absolute Monocytes 0.5, Absolute Eosinophils 0.3, Absolute Basophils 0, PUBS MCHC 33.9 04/23/17 0200: APTT 75 H 04/22/17 1835: APTT 52 H 04/22/17 0545: Anion Gap 9, Estimated GFR 12 L, Glucose 82, Calcium 8.9, Phosphorus 5.4 H, Magnesium 2.1, Total Bilirubin 0.6, AST 146 H, ALT 109 H, Albumin 3.1 L, APTT 66 H, CBC w Diff NO MAN DIFF REQ, RBC 3.46 L, MCV 94.8, MCH 32.0 H, RDW 13.6, MPV 7.6, Gran % 65.9, Lymphocytes % 19.3 L, Monocytes % 10.7 H, Eosinophils % 3.6, Basophils % 0.5, Absolute Granulocytes 3.5, Absolute Lymphocytes 1.0 L, Absolute Monocytes 0.6, Absolute Eosinophils 0.2, Absolute Basophils 0, PUBS MCHC 33.7 04/21/17 2235: APTT 52 H 04/21/17 1705: Anion Gap 10, Estimated GFR 10 L, Glucose 80, Calcium 8.6, Phosphorus 5.4 H, Magnesium 2.0, Total Bilirubin 0.6, AST 187 H, ALT 124 H, Albumin 3.2 L 04/21/17 1040: APTT 61 H Assessment/Plan Assessment/Plan The patient is a 61-year-old woman with a past medical history of coronary artery disease, hypertension, morbid obesity and back pain. She presented to our hospital after being found unresponsive following an opiate overdose with likely aspiration pneumonia. She has well is noted to have acute kidney injury, metabolic derangements and an elevated troponin isoenzyme (10.9 peak). Troponin isoenzyme elevation: Likely secondary to a type II (supply/demand mismatch) acute non-ST segment elevation myocardial infarction. We will attempt to reinstate her outpatient medication regimen including aspirin, a beta jasper and statin when tolerated from a dynamic standpoint. The statin regimen may be initiated following improvement of her liver function testing (improving). Following overall improvement, consideration for testing for an underlying ischemic burden by nuclear stress testing may be performed. This may be performed as an outpatient. Acute kidney injury and rhabdomyolysis: Appreciate nephrology input. We will continue to follow recommendations. Mental status changes: The patient has a history of bipolar disorder. Her current mental status changes may be a combination due to the same including edges from metabolic derangements/encephalopathy There would be no cardiac contraindication if transfer to an inpatient psychiatric environment would need to be undertaken. Continue telemetry? No
--- NOTE | 2017-04-23 10:28 | PN- Student ---
Subjective Subjective: No events overnight. Patient has 8/10 pain in the chest when moving. Denies any SOB, fevers, chills, or nausea. Had a loose BM this morning. Objective Objective: Exam: General: No apparent distress HEENT: Atraumatic, EOMI, PERRLA Neck: Supple, no LAD CV: RRR, normal S1S2 Resp: non-tender, clear to auscultation B/L GI: soft, non-tender to palpation, normoactive bowel sounds Ext: no edema Current Medications Sig/Mary Start time Last Medication Dose Route Stop Time Status Admin Acetaminophen 1,000 MG Q8 PRN 04/17 1700 AC N/A 1 UNIT IV Acetaminophen 325 MG Q6P PRN 04/17 1230 AC 04/22 PO 0936 Albuterol Sulfate 3 ML BID 04/21 2200 AC 04/23 INH 0820 Aspirin 81 MG DAILY 04/17 1354 AC 04/23 PO 0931 Ciprofloxacin 500 MG DAILY 04/19 1000 DC 04/22 PO 04/23 0959 0931 Heparin Sodium 4,100 UNIT ONCE ONE 04/22 2030 DC 04/22 (Porcine) IV 04/22 2031 2207 Heparin Sodium 5,000 UNIT .STK-MED ONE 04/22 2005 DC (Porcine) IV 04/22 2006 Heparin Sodium 25,000 UNIT .STK-MED ONE 04/22 1719 DC (Porcine) IV 04/22 1720 Heparin Sodium 25,000 UNIT Q24H / 1300 DC 04/22 (Porcine) IV 1721 Sodium Chloride 500 ML Levothyroxine Sodium 0.05 MG DAILY AC 04/22 0700 AC 04/23 PO 0655 Lorazepam 1 MG Q1P PRN 04/17 1415 04/21 IV 0329 Metoclopramide HCl 10 MG Q6P PRN 04/17 1645 IV Metoprolol Tartrate 12.5 MG BID 04/17 1354 AC 04/23 PO 0936 Nitroglycerin 0.5 GM Q6 04/17 1354 AC 04/23 TOP 0655 Nystatin 5 ML 4 TIMES/DAY / 1000 AC 04/23 PO 0931 Nystatin 1 FERN TID 04/17 2200 AC 04/23 TOP 0937 Sodium Chloride 1,000 ML Q24H 04/20 0845 AC 04/22 IV 1214 Sodium Chloride 2 SPRAY Q4P PRN 04/19 2345 AC 04/20 [place] 1016 Vital Signs Date Time Temp Pulse Resp B/P B/P Pulse O2 O2 Flow FiO2 Mean Ox Delivery Rate 04/23 0940 87 180/86 04/23 0936 87 180/86 04/23 0830 94 Nasal 4.0L Cannula 04/23 0647 98.8 76 12 118/72 95 Results Results: Laboratory Tests 04/23/17 0647: Sodium Pending, Potassium Pending, Chloride Pending, Carbon Dioxide Pending, Anion Gap Pending, BUN Pending, Creatinine Pending, BUN/Creatinine Ratio Pending , CBC w Diff NO MAN DIFF REQ, RBC 3.39 L, MCV 93.4, MCH 31.6 H, RDW 13.3, MPV 8.0, Gran % 64.6, Lymphocytes % 21.9, Monocytes % 8.8, Eosinophils % 4.4, Basophils % 0.3, Absolute Granulocytes 3.7, Absolute Lymphocytes 1.3, Absolute Monocytes 0.5, Absolute Eosinophils 0.3, Absolute Basophils 0, PUBS MCHC 33.9 04/23/17 0200: APTT 75 H 04/22/17 1835: APTT 52 H 04/22/17 0545: Anion Gap 9, Estimated GFR 12 L, Glucose 82, Calcium 8.9, Phosphorus 5.4 H, Magnesium 2.1, Total Bilirubin 0.6, AST 146 H, ALT 109 H, Albumin 3.1 L, APTT 66 H, CBC w Diff NO MAN DIFF REQ, RBC 3.46 L, MCV 94.8, MCH 32.0 H, RDW 13.6, MPV 7.6, Gran % 65.9, Lymphocytes % 19.3 L, Monocytes % 10.7 H, Eosinophils % 3.6, Basophils % 0.5, Absolute Granulocytes 3.5, Absolute Lymphocytes 1.0 L, Absolute Monocytes 0.6, Absolute Eosinophils 0.2, Absolute Basophils 0, PUBS MCHC 33.7 04/21/17 2235: APTT 52 H 04/21/17 1705: Anion Gap 10, Estimated GFR 10 L, Glucose 80, Calcium 8.6, Phosphorus 5.4 H, Magnesium 2.0, Total Bilirubin 0.6, AST 187 H, ALT 124 H, Albumin 3.2 L 04/21/17 1040: APTT 61 H 04/21/17 0245: Anion Gap 10, Estimated GFR 9 L, Glucose 77, Calcium 8.5, Phosphorus 6.3 H, Magnesium 2.1, Total Bilirubin 0.5, AST 217 H, ALT 143 H, Albumin 3.3 L, APTT > 120 *H, CBC w Diff NO MAN DIFF REQ, RBC 3.53 L, MCV 95.0, MCH 31.7 H, RDW 13.8, MPV 7.8, Gran % 73.7, Lymphocytes % 16.6 L, Monocytes % 7.9, Eosinophils % 1.0, Basophils % 0.8, Absolute Granulocytes 5.5, Absolute Lymphocytes 1.2, Absolute Monocytes 0.6, Absolute Eosinophils 0.1, Absolute Basophils 0.1, PUBS MCHC 33.4 04/20/17 1930: APTT 44 H 04/20/17 1055: APTT 93 H Assessment/Plan Assessment: Impression/Plan: Ms Clark is a 61-year-old woman with a past history of coronary artery disease status post stent), Marc thyroiditis (elevated TPO, Tg antiobodies, and noncompliant with her medications), substance abuse, bipolar, PTSD, depression who is being currently managed in the ICU for altered mental status likely from methadone overdos. She responded well to naloxone. Pt is off narcan. Followed by nephro, Cardio, endocrine, and psych. Plan: Infection: UTI: K pneumo, lower UTI -cipro 500 mg Cardiac: Type 2 NSTEMI -troponins trending down. Stop heparin drip. -reinstate her outpatient medication regimen including aspirin, a beta jasper and statin when tolerated from a dynamic standpoint. -the statin regimen may be initiated following improvement of her liver function testing (improving). -following overall improvement, consideration for testing for an underlying ischemic burden by nuclear stress testing may be performed. This may be performed as an outpatient. Nephro: nonoliguric ATN due rhabdo & hemodynamic insults; serologic eval unrevealing for vasculitis & paraprotein. Today's labs pending but GFR has been improving - no dialysis indication -stop IV fluids -d/c [place] -relax diet restrictions, d/c Na & K restrictions -repeat renal function Psych: patient denies suicidality and is not a threat to herself. Continued improvement in mentation. -should receive a higher level of care, specifically dual diagnosis IOP treatment -hold psychotropics until kidney function improves -plan for pain managment referral once patient is moer stable. Consider referral on outpatient basis. Metabolic: Marc's. TSH 6.66 -hemoglobin 11.2. -Levothyroxine 50 mcg. -Repeat TFT next week. Alimentary -heart healthy diet. Neuro -Head CT-No acute intracranial pathology.
--- NOTE | 2017-04-23 10:59 | PN- Psychiatry ---
Assessment/Plan Impression: Identifying Info: 61-year-old female presented in by ambulance status post accidental methadone overdose after diverting her son's medication. History of bipolar disorder, PTSD, EtOH use disorder and sedative hypnotic use disorder currently followed at [facility]. Interviewed today in critical care unit. SUBJECTIVE Patient interviewed today with son Will at bedside. State "I'm okay... I cried earlier." She has been frequently thinking about her expeirence being on bipap which was somewhat traumatic for her. Again reports that her overdose was accidental. Continues to endorse issues with memory. She continues to be agreeable to [facility] level of care. Brief ROS Gait: Not observed Sleep: Adequate Appetite: Not assessed OBJECTIVE Mental Status Exam Presentation/Appearance: Calm. Cooperative with evaluation. Hospital garb. Sitting in chair, nodding off slightly Orientation: x4 Sensorium: Awake and alert Eye contact: Improved, adequate Affect: Blunted Mood: "Alright" Depression: Denies Anxiety: Endorses Thought Content: - Denies SI/HI, AH/VH, PI. States and also believes they will not kill themselves. - Denies Hopeless/Helpless Thoughts Thought Process: Linear, improvement in derailment Associations: Appropriate Speech: Slowed Judgment: Fair Insight: Fair Cognition: Memory: Deficits present Attention/Concentration: Fair Fund of Knowledge: Adequate Abstractions:[place] MMSE: Did not assess ASSESSMENT 61-year-old female presents status post accidental methadone overdose after diverting her son's medication. She denies any suicidality at this time and is not a threat to harm self intentionally. She is however at risk of another accidental overdose and appears to have been falling back into substance use. It would be prudent at this time the patient to receive a higher level of care, specifically dual diagnosis IOP treatment. Continued improvement in mentation. Diagnosis Unspecified bipolar disorder Alcohol use disorder Sedative hypnotic use disorder Opiate use disorder Unspecified anxiety disorder A total of 30 minutes was spent with the patient with more than 50% of the time spent in counseling and/or coordination of care. Suggestion: 1. Continue to plan for referral to intensive outpatient program at [facility]. 2. Continue to hold psychotropics until kidney function improves. 3. Continue to plan for pain management referral once patient is more stable. Consider referral on outpatient basis. Thank you for including psychiatry in this case will continue to follow. Subjective Subjective: as above Objective Last 24 Hrs of Vital Signs/I&O Current Medications Sig/Mary Start time Last Medication Dose Route Stop Time Status Admin Acetaminophen 1,000 MG Q8 PRN 04/17 1700 N/A 1 UNIT IV Acetaminophen 325 MG Q6P PRN 04/17 1230 AC 04/22 PO 0936 Albuterol Sulfate 3 ML BID 04/21 2200 AC 04/23 INH 0820 Aspirin 81 MG DAILY 04/17 1354 AC 04/23 PO 0931 Ciprofloxacin 500 MG DAILY 04/19 1000 DC 04/22 PO 04/23 0959 0931 Heparin Sodium 4,100 UNIT ONCE ONE 04/22 2030 DC 04/22 (Porcine) IV 04/22 2031 220 Heparin Sodium 5,000 UNIT .STK-MED ONE 04/22 2005 DC (Porcine) IV 04/22 2006 Heparin Sodium 25,000 UNIT .STK-MED ONE 04/22 1719 DC (Porcine) IV 04/22 1720 Heparin Sodium 25,000 UNIT Q24H 04/17 1300 HI 04/22 (Porcine) IV 1721 Sodium Chloride 500 ML Levothyroxine Sodium 0.05 MG DAILY AC 04/22 0700 04/23 PO 0655 Lorazepam 1 MG Q1P PRN 04/17 1415 04/21 IV 0329 Metoclopramide HCl 10 MG Q6P PRN 04/17 1645 IV Metoprolol Tartrate 12.5 MG BID 04/17 1354 04/23 PO 0936 Nitroglycerin 0.5 GM Q6 04/17 1354 04/23 TOP 0655 Nystatin 5 ML 4 TIMES/DAY 04/21 1000 AC 04/23 PO 0931 Nystatin 1 FERN TID 04/17 2200 04/23 TOP 0937 Sodium Chloride 1,000 ML Q24H 04/20 0845 04/22 IV 1214 Sodium Chloride 2 SPRAY Q4P PRN 04/19 2345 04/20 [place] 1016 Laboratory Tests 04/23/17 0647: Anion Gap 8, Estimated GFR 24 L, BUN/Creatinine Ratio 11.0, CBC w Diff NO MAN DIFF REQ, RBC 3.39 L, MCV 93.4, MCH 31.6 H, RDW 13.3, MPV 8.0, Gran % 64.6, Lymphocytes % 21.9, Monocytes % 8.8, Eosinophils % 4.4, Basophils % 0.3, Absolute Granulocytes 3.7, Absolute Lymphocytes 1.3, Absolute Monocytes 0.5, Absolute Eosinophils 0.3, Absolute Basophils 0, PUBS MCHC 33.9 04/23/17 0200: APTT 75 H 04/22/17 1835: APTT 52 H Vital Signs Date Time Temp Pulse Resp B/P B/P Pulse O2 O2 Flow FiO2 Mean Ox Delivery Rate 04/23 0940 87 180/86 04/23 0936 87 180/86 04/23 0830 94 Nasal 4.0L Cannula 04/23 0647 98.8 76 12 118/72 95 04/23 0000 Nasal 4.0L Cannula 04/22 2314 83 20 150/78 97 Nasal 4.0L Cannula 04/22 2211 99.1 83 20 150/78 97 Nasal 4.0L Cannula 04/22 2141 83 150/78 04/22 1910 96 Nasal 5.0L Cannula 04/22 1600 96 Nasal 5.0L Cannula 04/22 1452 98.5 68 20 138/72 96 Nasal 5.0L Cannula Intake & Output 04/23 1600 04/23 0800 04/23 0000 Intake Total 524 3103 Output Total 500 2100 Balance 24 1003 Intake, IV 284 280 Intake, Oral 240 2823 Output, Urine 500 2100
[2017-04-23 11:38] VITALS: BP 142/78
--- NOTE | 2017-04-23 14:36 | PN- Pulmonary ---
Subjective HPI/Critical Care Issues: Patient has 8/10 pain in the chest when moving. Denies any SOB, fevers, chills, or nausea. Had a loose BM this morning. Did ambulate without oxygen and sat did stay more than 92 on room air Objective Current Medications: Current Medications Sig/Mary Start time Last Medication Dose Route Stop Time Status Admin Acetaminophen 1,000 MG Q8 PRN 04/17 1700 AC N/A 1 UNIT IV Acetaminophen 325 MG Q6P PRN 04/17 1230 AC 04/23 PO 1309 Albuterol Sulfate 3 ML BID 04/21 2200 AC 04/23 INH 0820 Aspirin 81 MG DAILY 04/17 1354 AC 04/23 PO 0931 Ciprofloxacin 500 MG DAILY 04/19 1000 DC 04/22 PO 04/23 0959 0931 Heparin Sodium 4,100 UNIT ONCE ONE 04/22 2030 DC 04/22 (Porcine) IV 04/22 2031 2207 Heparin Sodium 5,000 UNIT .STK-MED ONE 04/22 2005 DC (Porcine) IV 04/22 2006 Heparin Sodium 25,000 UNIT .STK-MED ONE 04/22 1719 DC (Porcine) IV 04/22 1720 Heparin Sodium 25,000 UNIT Q24H / 1300 DC 04/22 (Porcine) IV 1721 Sodium Chloride 500 ML Levothyroxine Sodium 0.05 MG DAILY AC 04/22 0700 04/23 PO 0655 Lorazepam 1 MG Q1P PRN 04/17 1415 04/21 IV 0329 Metoclopramide HCl 10 MG Q6P PRN 04/17 1645 AC IV Metoprolol Tartrate 12.5 MG BID 04/17 1354 04/23 PO 0936 Nitroglycerin 0.5 GM Q6 / 1354 04/23 TOP 1259 Nystatin 5 ML 4 TIMES/DAY 04/21 1000 04/23 PO 1300 Nystatin 1 FERN TID 04/17 2200 04/23 TOP 0937 Patient Medication 1 ED .STK-MED ONE 04/23 1403 DC Teaching ED 04/23 1404 Sodium Chloride 1,000 ML Q24H 04/20 0845 04/23 IV 1258 Sodium Chloride 2 SPRAY Q4P PRN 04/19 2345 04/20 [place] 1016 Vital Signs & I&O Last 24 Hrs of Vitals and I&O: Vital Signs Date Time Temp Pulse Resp B/P B/P Pulse O2 O2 Flow FiO2 Mean Ox Delivery Rate 04/23 1138 73 142/78 04/23 0940 87 180/86 04/23 0936 87 180/86 04/23 0830 94 Nasal 4.0L Cannula 04/23 0647 98.8 76 12 118/72 95 04/23 0000 Nasal 4.0L Cannula 04/22 2314 83 20 150/78 97 Nasal 4.0L Cannula 04/22 2211 99.1 83 20 150/78 97 Nasal 4.0L Cannula 04/22 2141 83 150/78 04/22 1910 96 Nasal 5.0L Cannula 04/22 1600 96 Nasal 5.0L Cannula 04/22 1452 98.5 68 20 138/72 96 Nasal 5.0L Cannula Intake & Output 04/23 1600 04/23 0800 04/23 0000 Intake Total 524 3103 Output Total 500 2100 Balance 24 1003 Intake, IV 284 280 Intake, Oral 240 2823 Output, Urine 500 2100 Laboratory Tests 04/23 04/23 04/22 0647 0200 1835 Chemistry Sodium (137 - 145 mmol/L) 142 Potassium (3.5 - 5.1 mmol/L) 3.7 Chloride (98 - 107 mmol/L) 107 Carbon Dioxide (22 - 30 mmol/L) 27 Anion Gap (5 - 16) 8 BUN (7 - 17 mg/dL) 23 H Creatinine (0.5 - 1.0 mg/dL) 2.1 H Estimated GFR (>60 ml/min) 24 L BUN/Creatinine Ratio (7 - 25 %) 11.0 Coagulation APTT (25 - 37 SEC) 75 H 52 H Hematology CBC w Diff NO MAN DIFF REQ WBC (4.8 - 10.8 /CUMM) 5.8 RBC (4.20 - 5.40 /CUMM) 3.39 L Hgb (12.0 - 16.0 G/DL) 10.7 L Hct (37 - 47 %) 31.6 L MCV (81.0 - 99.0 FL) 93.4 MCH (27.0 - 31.0 PG) 31.6 H RDW (11.5 - 14.5 %) 13.3 Plt Count (130 - 400 /CUMM) 169 MPV (7.4 - 10.4 FL) 8.0 Gran % (42.2 - 75.2 %) 64.6 Lymphocytes % (20.5 - 51.1 %) 21.9 Monocytes % (1.7 - 9.3 %) 8.8 Eosinophils % (0 - 5 %) 4.4 Basophils % (0.0 - 2.0 %) 0.3 Absolute Granulocytes (1.4 - 6.5 /CUMM) 3.7 Absolute Lymphocytes (1.2 - 3.4 /CUMM) 1.3 Absolute Monocytes (0.10 - 0.60 /CUMM) 0.5 Absolute Eosinophils (0.0 - 0.7 /CUMM) 0.3 Absolute Basophils (0.0 - 0.2 /CUMM) 0 PUBS MCHC (33.0 - 37.0 G/DL) 33.9 04/22 04/21 04/21 0545 2235 1705 Chemistry Sodium (137 - 145 mmol/L) 142 137 Potassium (3.5 - 5.1 mmol/L) 4.2 4.5 Chloride (98 - 107 mmol/L) 108 H 104 Carbon Dioxide (22 - 30 mmol/L) 25 24 Anion Gap (5 - 16) 9 10 BUN (7 - 17 mg/dL) 38 H 43 H Creatinine (0.5 - 1.0 mg/dL) 3.7 H 4.4 H Estimated GFR (>60 ml/min) 12 L 10 L Glucose (65 - 99 mg/dL) 82 80 Calcium (8.4 - 10.2 mg/dL) 8.9 8.6 Phosphorus (2.5 - 4.5 mg/dL) 5.4 H 5.4 H Magnesium (1.6 - 2.3 mg/dL) 2.1 2.0 Total Bilirubin (0.2 - 1.3 mg/dL) 0.6 0.6 AST (14 - 36 U/L) 146 H 187 H ALT (9 - 52 U/L) 109 H 124 H Albumin (3.5 - 5.0 g/dL) 3.1 L 3.2 L Coagulation APTT (25 - 37 SEC) 66 H 52 H Hematology CBC w Diff NO MAN DIFF REQ WBC (4.8 - 10.8 /CUMM) 5.4 RBC (4.20 - 5.40 /CUMM) 3.46 L Hgb (12.0 - 16.0 G/DL) 11.0 L Hct (37 - 47 %) 32.8 L MCV (81.0 - 99.0 FL) 94.8 MCH (27.0 - 31.0 PG) 32.0 H RDW (11.5 - 14.5 %) 13.6 Plt Count (130 - 400 /CUMM) 167 MPV (7.4 - 10.4 FL) 7.6 Gran % (42.2 - 75.2 %) 65.9 Lymphocytes % (20.5 - 51.1 %) 19.3 L Monocytes % (1.7 - 9.3 %) 10.7 H Eosinophils % (0 - 5 %) 3.6 Basophils % (0.0 - 2.0 %) 0.5 Absolute Granulocytes (1.4 - 6.5 /CUMM) 3.5 Absolute Lymphocytes (1.2 - 3.4 /CUMM) 1.0 L Absolute Monocytes (0.10 - 0.60 /CUMM) 0.6 Absolute Eosinophils (0.0 - 0.7 /CUMM) 0.2 Absolute Basophils (0.0 - 0.2 /CUMM) 0 PUBS MCHC (33.0 - 37.0 G/DL) 33.7 Impression/Plan Impression/Plan Impression/Plan: General: No apparent distress HEENT: Atraumatic, EOMI, PERRLA Neck: Supple, no LAD CV: RRR, normal S1S2 Resp: non-tender, clear to auscultation B/L GI: soft, non-tender to palpation, normoactive bowel sounds Ext: no edema The review of systems is negative for chest pains, palpitations nor lightheadedness. The remainder of the 14 point review of systems is noncontributory with the exception of above The patient is a 61-year-old woman with a past medical history of coronary artery disease, hypertension, morbid obesity and back pain. She presented to our hospital after being found unresponsive following an opiate overdose with likely aspiration pneumonia. She has well is noted to have acute kidney injury, metabolic derangements and an elevated troponin isoenzyme (10.9 peak). S/p resp failure now resolved Transiet hypoxia resolved PRAFUL now better S/p Type 2 nstmi morbid obesity with prob sobia RHabdo Biopolar Hypothyroid,history of cad, uti REC DC oxygen dc abx May need oxygen at hs Ask resp to do nocturnal oxymetry to eval for bedtime need for oxygen Dc ivf will follow closely DIscussed with the family
[2017-04-23 14:53] VITALS: BP 136/72
[2017-04-23] MEDS ORDERED: ASPIRIN81 M4 PO (15:51)
[2017-04-23] MEDS ORDERED: METOPROLOL TART25 M1 PO (15:51)
[2017-04-23] MEDS ORDERED: SYNTHROID50 MCG PO (15:51)
--- NOTE | 2017-04-23 16:01 | Patient Discharge Instructions ---
Discharge Instructions General Discharge Information You were seen/treated for: AMS Methadone overdose Acute hypercarbic respiratory failure NSTEMI Marc thyroiditis Acute kidney injury Transaminitis Bipolar disorder You had these procedures: None Special Instructions: Please follow-up with primary care doctor within 1 week after discharge Please get bep ( potassium) checked on 04/27/2017 and report to PCP. Please follow-up with surfacer operator as an outpatient within 1-2 weeks after discharge Please follow-up with employment program representative Dr. anaya within 1-2 weeks after discharge Please follow-up with the psychiatrist as an outpatient basis. referral to intensive outpatient program at Care is provided Diet Additional DIET Information: As tolerated Activity Other activity limits: As tolerated Acute Coronary Syndrome Inclusion Criteria At DC or during hospital stay patient has or had the following: ACS DIAGNOSIS Yes Discharge Core Measures Meds if any: Prescribed or Continued at Discharge CAYDEN/ARB if EF <40% No Aspirin Yes Beta-Malou Yes Statin No Meds if any: NOT Prescribed or Continued at Discharge Comment Hold statin due to liver func Congestive Heart Failure Inclusion Criteria At DC or during hospital stay patient has or had the following: CHF DIAGNOSIS No Discharge Core Measures Meds if any: Prescribed or Continued at Discharge Meds if any: NOT Prescribed or Continued at Discharge Cerebrovascular accident Inclusion Criteria At DC or during hospital stay patient has or had the following: CVA/TIA Diagnosis No Discharge Core Measures Meds if any: Prescribed or Continued at Discharge Meds if any: NOT Prescribed or Continued at Discharge Venous thromboembolism Inclusion Criteria VTE Diagnosis No VTE Type NONE VTE Confirmed by (Test) NONE Discharge Core Measures - Per Current guidelines, there needs to be overlap - treatment for the first 5 days of Warfarin therapy. - If discharged on Warfarin prior to 5 days of - overlap therapy, the patient will need to be - assessed for post discharge needs including - *Post discharge parental anticoagulation - *Warfarin and/or parental anticoagulation education - *Follow up date to check INR post discharge At least 5 days overlap therapy as Inpatient No Meds if any: Prescribed or Continued at Discharge Note: Overlap Therapy is Warfarin and Anticoagulant Meds if any: NOT Prescribed or Continued at Discharge
[2017-04-23] MEDS ORDERED: NYSTATIN15 G1 TOP (17:21)
[2017-04-23] MEDS ORDERED: NITRO-BID1 GM TOP (17:21)
--- NOTE | 2017-04-23 17:52 | NUR ---
AMBULATING O2 SAT ON ROOM AIR AT THIS TIME IS 93%. PT DID NOT DESAT. 94% ON RA AT REST. NO S/S DISTRESS. DR EDNA STEWART MADE AWARE.
[2017-04-24 06:34] VITALS: BP 136/78
[2017-04-24 08:44] LABS: ABSOLUTE BASOPHIL COUNT 0 /CUMM (0.0-0.2); ABSOLUTE EOSINOPHIL COUNT 0.3 /CUMM (0.0-0.7); ABSOLUTE GRANULOCYTE CT 4.1 /CUMM (1.4-6.5); ABSOLUTE LYMPH COUNT 1.4 /CUMM (1.2-3.4); ABSOLUTE MONOCYTE COUNT 0.6 /CUMM (0.10-0.60); BASOPHIL % 0.3 % (0.0-2.0); EOSINOPHIL % 4.6 % (0-5); GRANULOCYTE % 64.5 % (42.2-75.2); MEAN CORPUSCULAR HGB 32.2 PG (27.0-31.0); MEAN CORPUSCULAR VOLUME 94.7 FL (81.0-99.0); MEAN PLATELET VOLUME 7.6 FL (7.4-10.4); PLATELET COUNT 162 /CUMM (130-400); RBC DISTRIBUTION WIDTH 13.4 % (11.5-14.5); WHITE BLOOD CELL COUNT 6.4 /CUMM (4.8-10.8)
--- NOTE | 2017-04-24 12:52 | PN- Pulmonary ---
Subjective HPI/Critical Care Issues: Sleeping Stable Objective Current Medications: Current Medications Sig/Mary Start time Last Medication Dose Route Stop Time Status Admin Acetaminophen 650 MG .STK-MED ONE 04/24 0035 DC PO 04/24 0036 Acetaminophen 1,000 MG Q8 PRN 04/17 1700 AC 04/24 N/A 1 UNIT IV 1015 Acetaminophen 325 MG Q6P PRN / 1230 AC 04/24 PO 0634 Albuterol Sulfate 3 ML BID 04/21 2200 AC 04/24 INH 1039 Aspirin 81 MG DAILY 04/17 1354 AC 04/24 PO 1007 Levothyroxine Sodium 0.05 MG DAILY AC 04/22 0700 AC 04/24 PO 0630 Lorazepam 1 MG Q1P PRN 04/17 1415 AC 04/21 IV 0329 Metoclopramide HCl 10 MG Q6P PRN 04/17 1645 AC IV Metoprolol Tartrate 12.5 MG BID 04/17 1354 AC 04/24 PO 1007 Nitroglycerin 0.5 GM Q6 04/17 1354 AC 04/24 TOP 0630 Nystatin 5 ML 4 TIMES/DAY 04/21 1000 AC 04/24 PO 1007 Nystatin 1 FERN TID 04/17 2200 AC 04/24 TOP 1007 Patient Medication 1 ED .STK-MED ONE 04/23 1403 DC Teaching ED 04/23 1404 Sodium Chloride 1,000 ML Q24H 04/20 0845 DC 04/23 IV 1258 Sodium Chloride 2 SPRAY Q4P PRN 04/19 2345 AC 04/20 [place] 1016 Vital Signs & I&O Last 24 Hrs of Vitals and I&O: Vital Signs Date Time Temp Pulse Resp B/P B/P Pulse O2 O2 Flow FiO2 Mean Ox Delivery Rate 04/24 1042 96 Room Air 04/24 1007 79 136/78 04/24 0800 93 Room Air 04/24 0634 98.1 74 22 136/78 94 04/24 0000 95 Nasal 3.0L Cannula 04/23 2229 99.2 77 20 98 Nasal 3.5L Cannula 04/23 2144 76 138/72 04/23 2114 88 Room Air 04/23 1753 94 Room Air Room Air 04/23 1624 94 Nasal 3.0L Cannula 04/23 1453 99.4 68 18 136/72 96 Nasal 4.0L Cannula Intake & Output 04/24 1600 04/24 0800 0715 0000 Intake Total 120 450 Output Total 1450 212 Balance -1330 -1675 Intake, Oral 120 450 Output, Urine 1450 2124 Impression/Plan Impression/Plan Impression/Plan: General: No apparent distress sleeping HEENT: Atraumatic, EOMI, PERRLA Neck: Supple, no LAD CV: RRR, normal S1S2 Resp: non-tender, clear to auscultation B/L GI: soft, non-tender to palpation, normoactive bowel sounds Ext: no edema The patient is a 61-year-old woman with a past medical history of coronary artery disease, hypertension, morbid obesity and back pain. She presented to our hospital after being found unresponsive following an opiate overdose with likely aspiration pneumonia. She has well is noted to have acute kidney injury, metabolic derangements and an elevated troponin isoenzyme (10.9 peak). S/p resp failure now resolved Transiet hypoxia resolved PRAFUL now better S/p Type 2 nstmi morbid obesity with prob sobia RHabdo Biopolar Hypothyroid,history of cad, uti REC Watch on room air May need oxygen at hs Ask resp to do nocturnal oxymetry to eval for bedtime need for oxygen will follow closely DIscussed with the family yesterday
[2017-04-24 12:54] VITALS: BP 158/60
[2017-04-24 14:00] VITALS: BP 130/80
--- NOTE | 2017-04-24 17:31 | PN- Att Addend ---
Attending Addendum Attending Brief Note Patient seen and examined. Plan of care discussed with the medical team and the patient. Available lab work and radiology test reports were reviewed. Patient feels better and denies any confusion or any recent fever chills or difficulty breathing. She has been able to ambulate to bathroom without any difficulties. Vital Signs Date Time Temp Pulse Resp B/P B/P Pulse O2 O2 Flow FiO2 Mean Ox Delivery Rate 04/24 1400 98.9 75 20 130/80 94 04/24 1254 73 158/60 04/24 1042 96 Room Air 04/24 1007 79 136/78 04/24 0800 93 Room Air 04/24 0634 98.1 74 22 136/78 94 04/24 0000 95 Nasal 3.0L Cannula 04/23 2229 99.2 77 20 98 Nasal 3.5L Cannula 04/23 2144 76 138/72 04/23 2114 88 Room Air 04/23 1753 94 Room Air Room Air Intake & Output 04/24 1600 04/24 0800 04/24 0000 Intake Total 580 120 450 Output Total 550 1450 2125 Balance 30 -1330 -1675 Intake, Oral 580 120 450 Number 2 Bowel Movements Output, Urine 550 1450 2125 Exam: General: Patient awake alert oriented without any distress CVS: S1 plus S2 without any murmur or gallops Chest: Few scattered crepitation without any wheeze. There is no respiratory distress. Abdomen: Soft nontender, bowel sound present, no guarding or rebound CHIEF HUMAN RESOURCES OFFICER: Awake alert oriented without any focal neuro deficit and follows command appropriately Extremities: No edema; no clubbing or cyanosis noted Laboratory Tests 04/24 614 Chemistry Sodium (137 - 145 mmol/L) 142 Potassium (3.5 - 5.1 mmol/L) 3.2 L Chloride (98 - 107 mmol/L) 105 Carbon Dioxide (22 - 30 mmol/L) 31 H Anion Gap (5 - 16) 6 BUN (7 - 17 mg/dL) 13 Creatinine (0.5 - 1.0 mg/dL) 1.3 H Estimated GFR (>60 ml/min) 42 L BUN/Creatinine Ratio (7 - 25 %) 10.0 Total Bilirubin (0.2 - 1.3 mg/dL) 1.0 Direct Bilirubin (< 0.4 mg/dL) 0.3 AST (14 - 36 U/L) 74 H ALT (9 - 52 U/L) 74 H Alkaline Phosphatase (<127 U/L) 61 Total Protein (6.3 - 8.2 g/dL) 5.2 L Albumin (3.5 - 5.0 g/dL) 3.0 L Hematology CBC w Diff NO MAN DIFF REQ WBC (4.8 - 10.8 /CUMM) 6.4 RBC (4.20 - 5.40 /CUMM) 3.60 L Hgb (12.0 - 16.0 G/DL) 11.6 L Hct (37 - 47 %) 34.0 L MCV (81.0 - 99.0 FL) 94.7 MCH (27.0 - 31.0 PG) 32.2 H RDW (11.5 - 14.5 %) 13.4 Plt Count (130 - 400 /CUMM) 162 MPV (7.4 - 10.4 FL) 7.6 Gran % (42.2 - 75.2 %) 64.5 Lymphocytes % (20.5 - 51.1 %) 21.1 Monocytes % (1.7 - 9.3 %) 9.5 H Eosinophils % (0 - 5 %) 4.6 Basophils % (0.0 - 2.0 %) 0.3 Absolute Granulocytes (1.4 - 6.5 /CUMM) 4.1 Absolute Lymphocytes (1.2 - 3.4 /CUMM) 1.4 Absolute Monocytes (0.10 - 0.60 /CUMM) 0.6 Absolute Eosinophils (0.0 - 0.7 /CUMM) 0.3 Absolute Basophils (0.0 - 0.2 /CUMM) 0 PUBS MCHC (33.0 - 37.0 G/DL) 34.0 Assessment * Acute ST failure related to narcotic use * Transiet hypoxia resolved * PRAFUL now better * S/p Type 2 nstmi * Morbid obesity; suspected underlying obstructive sleep apnea * Rhabdomyolysis * Bipolar disorder * Hypothyroidism * History of CAD Plan * Increase ambulation * Check laboratory saturation * Check nocturnal saturations * Prepare for discharge tomorrow * Patient may need workup for obstructive sleep apnea as outpatient Biopolar Hypothyroid,history of cad, uti
--- NOTE | 2017-04-24 18:13 | PN- Housestaff ---
Subjective Follow-up For: nSTEMi Methadone overdose Acute hypercarbic respiratory failure Complaints: no complaints Tele-Events Since Last Visit: Overnight patient is normal sinus rhythm sinus bradycardia 54-68 no events Subjective: Patient is seen and examined is eager to leave. No complaints Review of Systems Constitutional: Reports: no symptoms. Musculoskeletal: Reports: see HPI (chest pain from CPR.). Objective Last 24 Hrs of Vital Signs/I&O Vital Signs Date Time Temp Pulse Resp B/P B/P Pulse O2 O2 Flow FiO2 Mean Ox Delivery Rate 04/24 1400 98.9 75 20 130/80 94 04/24 1254 73 158/60 04/24 1042 96 Room Air 04/24 1007 79 136/78 04/24 0800 93 Room Air 04/24 0634 98.1 74 22 136/78 94 04/24 0000 95 Nasal 3.0L Cannula 04/23 2229 99.2 77 20 98 Nasal 3.5L Cannula 04/23 2144 76 138/72 04/23 2114 88 Room Air Intake & Output 04/24 1600 04/24 0800 04/24 0000 Intake Total 580 120 450 Output Total 550 1450 2125 Balance 30 -1330 -1675 Intake, Oral 580 120 450 Number 2 Bowel Movements Output, Urine 550 1450 2125 Physical Exam General Appearance: Alert, Oriented X3, Cooperative, No Acute Distress Skin: No Rashes, No Breakdown, No Significant Lesion Skin Temp/Moisture Exam: Warm/Dry Sepsis Skin Exam (color): Normal for Ethnicity Neck: Supple Cardiovascular: Regular Rate, Normal S1, Normal S2, No Murmurs, Gallops, Rubs Lungs: Clear to Auscultation Abdomen: Normal Bowel Sounds, Soft, No Tenderness, No Hepatospenomegaly, No Masses Neurological: Normal Speech Vascular: Normal Pulses, Pulses Symmetrical Current Medications: Current Medications Sig/Mary Start time Last Medication Dose Route Stop Time Status Admin Acetaminophen 650 MG .STK-MED ONE 04/24 0035 DC PO 04/24 0036 Acetaminophen 1,000 MG Q8 PRN 04/17 1700 AC 04/24 N/A 1 UNIT IV 1015 Acetaminophen 325 MG Q6P PRN 04/17 1230 AC 04/24 PO 0634 Albuterol Sulfate 3 ML BID 04/21 2200 AC 04/24 INH 1039 Aspirin 81 MG DAILY 04/17 1354 AC 04/24 PO 1007 Levothyroxine Sodium 0.05 MG DAILY AC 04/22 0700 AC 04/24 PO 0630 Lorazepam 1 MG Q1P PRN 04/17 1415 DC 04/21 IV 0329 Melatonin 3 MG AT BEDTIME 04/24 2200 AC PO Metoclopramide HCl 10 MG Q6P PRN 04/17 1645 AC IV Metoprolol Tartrate 12.5 MG BID 04/17 1354 AC 04/24 PO 1007 Nitroglycerin 0.5 GM Q6 04/17 1354 AC 04/24 TOP 1252 Nystatin 5 ML 4 TIMES/DAY 04/21 1000 AC 04/24 PO 1007 Nystatin 1 FERN TID 04/17 2200 AC 04/24 TOP 1614 Potassium Chloride 40 MEQ ONCE ONE 04/24 1400 DC 04/24 PO 04/24 1401 1614 Sodium Chloride 2 SPRAY Q4P PRN 04/19 2345 AC 04/20 [place] 1016 Last 24 Hrs of Lab/Jayson Results Last 24 Hrs of Labs/Mics: Laboratory Tests 04/24/17 0614: Anion Gap 6, Estimated GFR 42 L, BUN/Creatinine Ratio 10.0, Total Bilirubin 1.0 , Direct Bilirubin 0.3, AST 74 H, ALT 74 H, Alkaline Phosphatase 61, Total Protein 5.2 L, Albumin 3.0 L, CBC w Diff NO MAN DIFF REQ, RBC 3.60 L, MCV 94.7, MCH 32.2 H, RDW 13.4, MPV 7.6, Gran % 64.5, Lymphocytes % 21.1, Monocytes % 9.5 H, Eosinophils % 4.6, Basophils % 0.3, Absolute Granulocytes 4.1, Absolute Lymphocytes 1.4, Absolute Monocytes 0.6, Absolute Eosinophils 0.3, Absolute Basophils 0, PUBS MCHC 34.0 Assessment/Plan Assessment: Ms Clark is a 61-year-old woman with a past history of coronary artery disease status post stent), Marc thyroiditis (elevated TPO, Tg antiobodies, 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 She responded well to naloxone. Pt is off narcan. Followed by nephro, Cardio, endocrine, and psych. Patient has normal vitals. Currently on room air satting 94% Infection: UTI: Patient was on Cipro 500 mg. Currently this is stopped. Cardiac: Type 2 NSTEMI -reinstate her outpatient medication regimen including aspirin, a beta jasper and statin when tolerated from a dynamic standpoint. -the statin regimen may be initiated following improvement of her liver function testing (improving). -following overall improvement, consideration for testing for an underlying ischemic burden by nuclear stress testing may be performed. This may be performed as an outpatient. -Hypokalemia give dose of kdur Nephro: nonoliguric ATN due rhabdo & hemodynamic insults; serologic eval unrevealing for vasculitis & paraprotein. Today's labs pending but GFR has been improving - no dialysis indication Psych: patient denies suicidality and is not a threat to herself. Continued improvement in mentation. -should receive a higher level of care, specifically dual diagnosis IOP treatment -hold psychotropics until kidney function improves -plan for pain managment referral once patient is moer stable. Consider referral on outpatient basis. Metabolic: -Levothyroxine 50 mcg. -Repeat TFT next week. Full Code Heart healthy diet Problem List: 1. Coronary artery disease 2. Hypertension 3. Methadone overdose 4. Hyperlipidemia 5. Acute kidney injury 6. Elevated troponin Pain Ratin Pain Location: . Pain Goal: Remain pain free Pain Plan: . Tomorrow's Labs & Rationales: . Consulting Request: Consulting Specialty: Nephrology
[2017-04-24 21:39] VITALS: BP 120/58
[2017-04-25 06:30] VITALS: BP 138/76
[2017-04-25 08:32] LABS: ABSOLUTE BASOPHIL COUNT 0 /CUMM (0.0-0.2); ABSOLUTE EOSINOPHIL COUNT 0.2 /CUMM (0.0-0.7); ABSOLUTE GRANULOCYTE CT 4.5 /CUMM (1.4-6.5); ABSOLUTE LYMPH COUNT 1.6 /CUMM (1.2-3.4); ABSOLUTE MONOCYTE COUNT 0.7 /CUMM (0.10-0.60); BASOPHIL % 0.2 % (0.0-2.0); EOSINOPHIL % 2.6 % (0-5); GRANULOCYTE % 64.8 % (42.2-75.2); HEMATOCRIT 34.6 % (37-47); MEAN CORPUSCULAR HGB CONC 33.8 G/DL (33.0-37.0); MEAN CORPUSCULAR VOLUME 94.7 FL (81.0-99.0); MEAN PLATELET VOLUME 7.6 FL (7.4-10.4); PLATELET COUNT 172 /CUMM (130-400); RED BLOOD CELL CT 3.65 /CUMM (4.20-5.40)
--- NOTE | 2017-04-25 09:42 | PN- Housestaff ---
Subjective Follow-up For: AMS Methadone overdose ACS/NSTEMI Elevated TROP Subjective: Patient complains of increased urine frequency. 4 beat VT overnight Review of Systems Constitutional: Reports: see HPI. Objective Last 24 Hrs of Vital Signs/I&O Vital Signs Date Time Temp Pulse Resp B/P B/P Pulse O2 O2 Flow FiO2 Mean Ox Delivery Rate 04/25 1459 98.4 76 20 166/98 92 Room Air 04/25 1231 70 180/92 04/25 0958 94 Room Air Room Air 04/25 0944 64 138/76 04/25 0800 92 Room Air 04/25 0630 98.8 62 20 138/76 92 Room Air 04/24 2139 99.0 77 22 120/58 92 Room Air 04/24 2122 75 130/80 04/24 1920 93 Room Air 04/24 1600 94 Room Air Intake & Output 04/25 1600 04/25 0800 04/25 0000 Intake Total 780 200 180 Output Total 900 600 900 Balance -120 -400 -720 Intake, Oral 780 200 180 Number 1 Bowel Movements Output, Urine 900 600 900 Physical Exam General Appearance: Alert, Oriented X3, Cooperative, No Acute Distress HEENT: Atraumatic, PERRLA Cardiovascular: Normal S1, Normal S2 Lungs: Clear to Auscultation, Normal Air Movement Abdomen: Normal Bowel Sounds, Soft, No Tenderness Extremities: No Cyanosis, No Edema Current Medications: Current Medications Sig/Mary Start time Last Medication Dose Route Stop Time Status Admin Acetaminophen 325 MG .STK-MED ONE 04/25 0139 DC PO 04/25 0140 Acetaminophen 325 MG .STK-MED ONE 04/24 1815 DC PO 04/24 1816 Acetaminophen 1,000 MG Q8 PRN 04/17 1700 AC 04/24 N/A 1 UNIT IV 1015 Acetaminophen 325 MG Q6P PRN 04/17 1230 AC 04/25 PO 1328 Albuterol Sulfate 3 ML BID 04/21 2200 AC 04/25 INH 0954 Aspirin 81 MG DAILY 04/17 1354 AC 04/25 PO 0944 Levothyroxine Sodium 0.05 MG DAILY AC 04/22 0700 AC 04/25 PO 0618 Melatonin 3 MG AT BEDTIME 04/24 2200 AC 04/24 PO 2121 Metoclopramide HCl 10 MG Q6P PRN 04/17 1645 AC IV Metoprolol Tartrate 12.5 MG BID 04/17 1354 AC 04/25 PO 0944 Nitroglycerin 0.5 GM Q6 04/17 1354 04/25 TOP 1232 Nystatin 5 ML 4 TIMES/DAY 04/21 1000 AC 04/25 PO 0944 Nystatin 1 FERN TID 04/17 2200 MA 04/24 TOP 1614 Potassium Chloride 40 MEQ BID 04/25 1000 AC 04/25 PO 04/25 2355 1522 Potassium Chloride 20 MEQ ONCE ONE 04/25 0900 DC 04/25 PO 04/25 0901 1031 Sodium Chloride 2 SPRAY Q4P PRN 04/19 2345 AC 04/20 [place] 1016 Last 24 Hrs of Lab/Jayson Results Last 24 Hrs of Labs/Mics: Laboratory Tests 04/25/17 1350: Anion Gap 8, Estimated GFR > 60, BUN/Creatinine Ratio 8.9 04/25/17 0955: Urinalysis LIGHT H, Urine Color YEL, Urine Clarity CLEAR, Urine pH 6.5, Ur Specific [place] 1.010, Urine Protein NEG, Urine Ketones NEG, Urine Nitrite NEG, Urine Bilirubin NEG, Urine Urobilinogen 0.2, Ur Leukocyte Esterase NEG, Ur Microscopic SEDIMENT EXAMINED, Urine RBC RARE, Urine WBC 1-3 H, Ur Epithelial Cells MOD H, Urine Bacteria FEW H, Urine Mucus RARE, Urine Hemoglobin TRACE- INTACT, Urine Glucose NEG 04/25/17 0626: Anion Gap 9, Estimated GFR 57 L, BUN/Creatinine Ratio 9.0, CBC w Diff NO MAN DIFF REQ, RBC 3.65 L, MCV 94.7, MCH 32.0 H, RDW 14.0, MPV 7.6, Gran % 64.8, Lymphocytes % 22.8, Monocytes % 9.6 H, Eosinophils % 2.6, Basophils % 0.2, Absolute Granulocytes 4.5, Absolute Lymphocytes 1.6, Absolute Monocytes 0.7 H, Absolute Eosinophils 0.2, Absolute Basophils 0, PUBS MCHC 33.8 Assessment/Plan Assessment: A: Ms. Nair is a 61-year-old female with past medical history of (coronary artery disease status post 3/4 stents in 2010) follows with Dr. Benson at [place], hypothyroidism, chronic back pain, substance abuse, bipolar, PTSD, depression was brought into the ED today after being found unresponsive by her daughter. P: 1. AMS most likely due to drug overdose * Urine tox pos for methadone * DC IVF 2. ACS/NSTEMI * DC Heparin IV, patient day 7 * Trop trending down * Nitroglycerin PRN * Continue ASA, Metoprolol 12.5 BID * DC oxygen 3. HTN * Metoprolol 12.5mg BID 4. Hypokalemia * Continue K+ supplement * Continue to monitor K+ 5. Transaminitis * Continue monitoring LFTs 6. Hypothyroidism * Continue Levthyroxine 50mcg 7. Lower tract UTI pos for Klebsiella Patient currently day 5 of antibiotics * DC Cipro 500 mg NPO * PT eval ordered Problem List: 1. Elevated troponin 2. Depression 3. Bipolar disorder, unspecified 4. Coronary artery disease 5. Hypothyroidism 6. Acute kidney injury 7. UTI (urinary tract infection), uncomplicated Pain Ratin Pain Location: N/A Pain Goal: Remain pain free Pain Plan: N/A Tomorrow's Labs & Rationales: BEP for hypokalemia Consulting Request: Consulting Specialty: Nephrology
--- NOTE | 2017-04-25 10:02 | PN- Student ---
Subjective Subjective: Complaints: none Tele-events overnight: Sinus wei, Normal Sinus Rhythm 50-90 Patient had 4 beats of V-tach at 2:39 AM overnight. Subjective: Patient is in no apparent distress. Mentions an 8/10 chest pain when ambulating d/t chest compressions last Wednesday. She has been getting up to urinate every hour. Objective Objective: Current Medications Sig/Mary Start time Last Medication Dose Route Stop Time Status Admin Acetaminophen 325 MG .STK-MED ONE 04/25 0139 DC PO 04/25 0140 Acetaminophen 325 MG .STK-MED ONE 04/24 1815 DC PO 04/24 1816 Acetaminophen 1,000 MG Q8 PRN 04/17 1700 AC 04/24 N/A 1 UNIT IV 1015 Acetaminophen 325 MG Q6P PRN 04/17 1230 AC 04/25 PO 0828 Albuterol Sulfate 3 ML BID 04/21 2200 AC 04/24 INH 1920 Aspirin 81 MG DAILY 04/17 1354 AC 04/24 PO 1007 Levothyroxine Sodium 0.05 MG DAILY AC 04/22 0700 AC 04/25 PO 0618 Lorazepam 1 MG Q1P PRN 04/17 1415 DC 04/21 IV 0329 Melatonin 3 MG AT BEDTIME 04/24 2200 AC 04/24 PO 2121 Metoclopramide HCl 10 MG Q6P PRN 04/17 1645 AC IV Metoprolol Tartrate 12.5 MG BID 04/17 1354 AC 04/24 PO 2122 Nitroglycerin 0.5 GM Q6 04/17 1354 AC 04/25 TOP 0600 Nystatin 5 ML 4 TIMES/DAY 04/21 1000 AC 04/24 PO 2122 Nystatin 1 FERN TID 04/17 2200 DC 04/24 TOP 1614 Potassium Chloride 40 MEQ BID 04/25 1000 AC PO 04/25 2355 Potassium Chloride 20 MEQ ONCE ONE 04/25 0900 DC PO 04/25 0901 Potassium Chloride 40 MEQ ONCE ONE 04/24 1400 DC 04/24 PO 04/24 1401 1614 Sodium Chloride 2 SPRAY Q4P PRN 04/19 2345 AC 04/20 [place] 1016 Vital Signs Date Time Temp Pulse Resp B/P B/P Pulse O2 O2 Flow FiO2 Mean Ox Delivery Rate 04/25 0630 98.8 62 20 138/76 92 Room Air Physical Exam General: AOx3, No acute distress Skin: No rashes, no significant lesions Neck: Supple, no lymphadenopathy Cardiovascular: Regular rate and rhythm, nl s1 s2, no m/r/g Lungs: clear to auscultation B/L Abdomen: normoactive bowel sounds, no tenderness to palpation Vascular: normal pulses Results Results: Laboratory Tests 04/25/17 0626: Anion Gap 9, Estimated GFR 57 L, BUN/Creatinine Ratio 9.0, CBC w Diff NO MAN DIFF REQ, RBC 3.65 L, MCV 94.7, MCH 32.0 H, RDW 14.0, MPV 7.6, Gran % 64.8, Lymphocytes % 22.8, Monocytes % 9.6 H, Eosinophils % 2.6, Basophils % 0.2, Absolute Granulocytes 4.5, Absolute Lymphocytes 1.6, Absolute Monocytes 0.7 H, Absolute Eosinophils 0.2, Absolute Basophils 0, PUBS MCHC 33.8 04/24/17 0614: Anion Gap 6, Estimated GFR 42 L, BUN/Creatinine Ratio 10.0, Total Bilirubin 1.0 , Direct Bilirubin 0.3, AST 74 H, ALT 74 H, Alkaline Phosphatase 61, Total Protein 5.2 L, Albumin 3.0 L, CBC w Diff NO MAN DIFF REQ, RBC 3.60 L, MCV 94.7, MCH 32.2 H, RDW 13.4, MPV 7.6, Gran % 64.5, Lymphocytes % 21.1, Monocytes % 9.5 H, Eosinophils % 4.6, Basophils % 0.3, Absolute Granulocytes 4.1, Absolute Lymphocytes 1.4, Absolute Monocytes 0.6, Absolute Eosinophils 0.3, Absolute Basophils 0, PUBS MCHC 34.0 04/23/17 1500: APTT Cancelled 04/23/17 0647: Anion Gap 8, Estimated GFR 24 L, BUN/Creatinine Ratio 11.0, CBC w Diff NO MAN DIFF REQ, RBC 3.39 L, MCV 93.4, MCH 31.6 H, RDW 13.3, MPV 8.0, Gran % 64.6, Lymphocytes % 21.9, Monocytes % 8.8, Eosinophils % 4.4, Basophils % 0.3, Absolute Granulocytes 3.7, Absolute Lymphocytes 1.3, Absolute Monocytes 0.5, Absolute Eosinophils 0.3, Absolute Basophils 0, PUBS MCHC 33.9 04/23/17 0200: APTT 75 H 04/22/17 1835: APTT 52 H Assessment/Plan Assessment: Assessment: Ms Clark is a 61-year-old woman with a past history of coronary artery disease status post stent), Marc thyroiditis (elevated TPO, Tg antiobodies, 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 She responded well to naloxone. Pt is off narcan. Followed by nephro, Cardio, endocrine, and psych. Vitals: Temp: 98.8 Heart Rate: 62 RR: 20 BP: 138/76 O2: 92% of room air Plan: Infection: UTI: Patient was on Cipro 500 mg for 5 days. Her course ended 04/23. Cardiac: Type 2 NSTEMI -B-jasper, aspirin reinstated 04/24 -the statin regimen may be initiated following improvement of her liver function testing (has been trending down, today is pending). -following overall improvement, consideration for testing for an underlying ischemic burden by nuclear stress testing may be performed. This may be performed as an outpatient. -Patients potassium came back at 2.9. 20 MEq Potassium Cl PO scheduled at 9:00 am and 40 MEq PO scheduled for 10 am. Nephro: nonoliguric ATN due rhabdo & hemodynamic insults; serologic eval unrevealing for vasculitis & paraprotein. Today's GFR is 57. Psych: patient denies suicidality and is not a threat to herself. Continued improvement in mentation. -should receive a higher level of care, specifically dual diagnosis IOP treatment -hold psychotropics until kidney function improves -plan for pain managment referral once patient is moer stable. Consider referral on outpatient basis. Metabolic: -Levothyroxine 50 mcg. -Repeat TFT next week.
--- NOTE | 2017-04-25 11:55 | PN- Pulmonary ---
Subjective HPI/Critical Care Issues: Sleeping comfortably Sig hypokalemia noted Objective Current Medications: Current Medications Sig/Mary Start time Last Medication Dose Route Stop Time Status Admin Acetaminophen 325 MG .STK-MED ONE 04/25 0139 DC PO 04/25 0140 Acetaminophen 325 MG .STK-MED ONE 04/24 1815 DC PO 04/24 1816 Acetaminophen 1,000 MG Q8 PRN 04/17 1700 AC 04/24 N/A 1 UNIT IV 1015 Acetaminophen 325 MG Q6P PRN 04/17 1230 AC 04/25 PO 0828 Albuterol Sulfate 3 ML BID 04/21 2200 AC 04/25 INH 0954 Aspirin 81 MG DAILY 04/17 1354 AC 04/25 PO 0944 Levothyroxine Sodium 0.05 MG DAILY AC 04/22 0700 AC 04/25 PO 0618 Lorazepam 1 MG Q1P PRN 04/17 1415 DC 04/21 IV 0329 Melatonin 3 MG AT BEDTIME 04/24 2200 AC 04/24 PO 2121 Metoclopramide HCl 10 MG Q6P PRN 04/17 1645 AC IV Metoprolol Tartrate 12.5 MG BID 04/17 1354 AC 04/25 PO 0944 Nitroglycerin 0.5 GM Q6 /08 1354 AC 04/25 TOP 0600 Nystatin 5 ML 4 TIMES/DAY 04/21 1000 AC 04/25 PO 0944 Nystatin 1 FERN TID 04/17 2200 DC 04/24 TOP 1614 Potassium Chloride 40 MEQ BID 04/25 1000 AC 04/25 PO 04/25 2355 1031 Potassium Chloride 20 MEQ ONCE ONE 04/25 0900 DC 04/25 PO 04/25 0901 1031 Potassium Chloride 40 MEQ ONCE ONE 04/24 1400 DC 04/24 PO 04/24 1401 1614 Sodium Chloride 2 SPRAY Q4P PRN 04/19 2345 AC 04/20 [place] 1016 Vital Signs & I&O Last 24 Hrs of Vitals and I&O: Vital Signs Date Time Temp Pulse Resp B/P B/P Pulse O2 O2 Flow FiO2 Mean Ox Delivery Rate 04/25 0958 94 Room Air Room Air 04/25 0944 64 138/76 04/25 0800 92 Room Air 04/25 0630 98.8 62 20 138/76 92 Room Air 04/24 2139 99.0 77 22 120/58 92 Room Air 04/24 2122 75 130/80 04/24 1920 93 Room Air 04/24 1600 94 Room Air 04/24 1400 98.9 75 20 130/80 94 04/24 1254 73 158/60 Intake & Output 04/25 1600 04/25 0800 04/25 0000 Intake Total 200 180 Output Total 600 900 Balance -400 -720 Intake, Oral 200 180 Output, Urine 600 900 Impression/Plan Impression/Plan Impression/Plan: General: No apparent distress sleeping HEENT: Atraumatic, EOMI, PERRLA Neck: Supple, no LAD CV: RRR, normal S1S2 Resp: non-tender, clear to auscultation B/L GI: soft, non-tender to palpation, normoactive bowel sounds Ext: no edema The patient is a 61-year-old woman with a past medical history of coronary artery disease, hypertension, morbid obesity and back pain. She presented to our hospital after being found unresponsive following an opiate overdose with likely aspiration pneumonia. She has well is noted to have acute kidney injury, metabolic derangements and an elevated troponin isoenzyme (10.9 peak). S/p resp failure now resolved Transiet hypoxia resolved PRAFUL now better S/p Type 2 nstmi morbid obesity with prob sobia RHabdo Biopolar Hypothyroid,history of cad, uti Electrolyte abnormality REC Watch on room air May need oxygen at hs Replace potassium by mouth agg and iv will sign off
--- NOTE | 2017-04-25 12:27 | PN- Att Addend ---
Attending Addendum Attending Brief Note Patient seen and examined. Plan of care discussed with the medical team and the patient. Available lab work and radiology test reports were reviewed. Patient feels better and denies any confusion or any recent fever chills or difficulty breathing. She has been able to ambulate to bathroom without any difficulties. She was noted to have a short run of V. tach about 7 beats. However patient was asymptomatic. She wants to go home today. Vital Signs Date Time Temp Pulse Resp B/P B/P Pulse O2 O2 Flow FiO2 Mean Ox Delivery Rate 04/25 0958 94 Room Air Room Air 04/25 0944 64 138/76 04/25 0800 92 Room Air 04/25 0630 98.8 62 20 138/76 92 Room Air 04/24 2139 99.0 77 22 120/58 92 Room Air 04/24 2122 75 130/80 04/24 1920 93 Room Air 04/24 1600 94 Room Air 04/24 1400 98.9 75 20 130/80 94 04/24 1254 73 158/60 Intake & Output 04/25 1600 04/25 0800 04/25 0000 Intake Total 200 180 Output Total 600 900 Balance -400 -720 Intake, Oral 200 180 Output, Urine 600 900 Exam: General: Patient awake alert oriented without any distress CVS: S1 plus S2 without any murmur or gallops Chest: Few scattered crepitation without any wheeze. There is no respiratory distress. 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: Awake alert oriented without any focal neuro deficit and follows command appropriately Extremities: No edema; no clubbing or cyanosis noted Laboratory Tests 04/25 04/25 0955 0626 Chemistry Sodium (137 - 145 mmol/L) 141 Potassium (3.5 - 5.1 mmol/L) 2.9 *L Chloride (98 - 107 mmol/L) 101 Carbon Dioxide (22 - 30 mmol/L) 31 H Anion Gap (5 - 16) 9 BUN (7 - 17 mg/dL) 9 Creatinine (0.5 - 1.0 mg/dL) 1.0 Estimated GFR (>60 ml/min) 57 L BUN/Creatinine Ratio (7 - 25 %) 9.0 Hematology CBC w Diff NO MAN DIFF REQ WBC (4.8 - 10.8 /CUMM) 7.0 RBC (4.20 - 5.40 /CUMM) 3.65 L Hgb (12.0 - 16.0 G/DL) 11.7 L Hct (37 - 47 %) 34.6 L MCV (81.0 - 99.0 FL) 94.7 MCH (27.0 - 31.0 PG) 32.0 H RDW (11.5 - 14.5 %) 14.0 Plt Count (130 - 400 /CUMM) 172 MPV (7.4 - 10.4 FL) 7.6 Gran % (42.2 - 75.2 %) 64.8 Lymphocytes % (20.5 - 51.1 %) 22.8 Monocytes % (1.7 - 9.3 %) 9.6 H Eosinophils % (0 - 5 %) 2.6 Basophils % (0.0 - 2.0 %) 0.2 Absolute Granulocytes (1.4 - 6.5 /CUMM) 4.5 Absolute Lymphocytes (1.2 - 3.4 /CUMM) 1.6 Absolute Monocytes (0.10 - 0.60 /CUMM) 0.7 H Absolute Eosinophils (0.0 - 0.7 /CUMM) 0.2 Absolute Basophils (0.0 - 0.2 /CUMM) 0 PUBS MCHC (33.0 - 37.0 G/DL) 33.8 Urines Urinalysis LIGHT H Urine Color (YEL,AMB,STR) YEL Urine Clarity (CLEAR) CLEAR Urine pH (5.0 - 8.0) 6.5 Ur Specific [place] (1.001 - 1.035) 1.010 Urine Protein (NEG,<30 MG/DL) NEG Urine Ketones (NEG) NEG Urine Nitrite (NEG) NEG Urine Bilirubin (NEG) NEG Urine Urobilinogen (0.1 - 1.0 EU/dl) 0.2 Ur Leukocyte Esterase (NEG) NEG Ur Microscopic SEDIMENT EXAMINED Urine RBC (0 - 5 /HPF) RARE Urine WBC (0 - 2 /HPF) 1-3 H Ur Epithelial Cells (NONE,FEW) MOD H Urine Bacteria (NEG/NONE) FEW H Urine Mucus (FEW,NONE) RARE Urine Hemoglobin (NEG) TRACE-INTACT Urine Glucose (N MG/DL) NEG Assessment * Acute respiratory failure related to narcotic use * Transiet hypoxia resolved * PRAFUL now better * S/p Type 2 nstmi * Morbid obesity; suspected underlying obstructive sleep apnea * Rhabdomyolysis * Bipolar disorder * Hypothyroidism * History of CAD * Severe hypokalemia * Nonsustained V. tach- asymptomatic Plan * Replace potassium and recheck potassium in the afternoon; his potassium is about 3.5 patient can be discharged home * Case discussed with cardiology Curry Mack MD and is aware of nonsustained V. tach. He has cleared the patient to go home once potassium is improved. * Patient may need workup for obstructive sleep apnea as outpatient with Dr. Alejandro
[2017-04-25 12:31] VITALS: BP 180/92
[2017-04-25 14:59] VITALS: BP 166/98
[2017-04-25] MEDS ORDERED: SYNTHROID50 MCG PO (15:36)
[2017-04-25] MEDS ORDERED: METOPROLOL TART25 M1 PO (15:36)
[2017-04-25] MEDS ORDERED: NITROSTAT0.3 M1 PO (15:36)
[2017-04-25] MEDS ORDERED: ASPIRIN81 M4 PO (15:36)
--- NOTE | 2017-04-26 10:30 | NUR ---
Late Entry: Aware of patients discharge home yesterday. Patient receives her mental health services from [facility]; I have called them and am aware of an appointment for Amanda tomorrow, April 27 at 1:00pm. I have called Amanda and reminded her of this appointment which she reported that she would keep. Original plan for [facility] level of care will not be possible due to insurance source; likely referral will need to be made to [facility]. Case discussed with Alessandra Eduardo APRN.
== END 2017-04-25 16:15 | DRG 917 ==
LOC: ERH 07:31 → ERHI 12:06 → CRI 12:06 → 1NO 12:06 → ENRESERV 12:48 → CANRESERV 12:48 → EDBEDREQ 14:08 → ERHI 14:28 → ENRESERV 17:03 → ENTRNSPT 17:46 → CMPTRNSPT 18:26 → CRI 18:38 → 1NO 04-22 13:35
PROVIDERS: Emergency Medicine; Hospitalist; Internal Medicine; Internal Medicine Cardiovascular Disease; Internal Medicine Endocrinology, Diabetes & Metabolism; Internal Medicine Pulmonary Disease; Student in an Organized Health Care Education/Training Program; ADMIT Internal Medicine
DX: T40.3X1A Poisoning by methadone, accidental (unintentional), initial encounter (principal); J69.0 Pneumonitis due to inhalation of food and vomit; N17.0 Acute kidney failure with tubular necrosis; J96.02 Acute respiratory failure with hypercapnia; J96.01 Acute respiratory failure with hypoxia; Z68.43 Body mass index [BMI] 50.0-59.9, adult; E87.2 Acidosis; M62.82 Rhabdomyolysis; N39.0 Urinary tract infection, site not specified; E87.5 Hyperkalemia; Y92.009 Unspecified place in unspecified non-institutional (private) residence as the place of occurrence of the external cause; E66.01 Morbid (severe) obesity due to excess calories; Z91.14 Patient's other noncompliance with medication regimen; E03.9 Hypothyroidism, unspecified; F31.9 Bipolar disorder, unspecified; I25.10 Atherosclerotic heart disease of native coronary artery without angina pectoris; Z95.5 Presence of coronary angioplasty implant and graft; G89.29 Other chronic pain; I44.7 Left bundle-branch block, unspecified; Z88.0 Allergy status to penicillin; B96.1 Klebsiella pneumoniae [K. pneumoniae] as the cause of diseases classified elsewhere; F41.9 Anxiety disorder, unspecified; F32.9 Major depressive disorder, single episode, unspecified; R74.0 Nonspecific elevation of levels of transaminase and lactic acid dehydrogenase [LDH]; F10.10 Alcohol abuse, uncomplicated; H91.90 Unspecified hearing loss, unspecified ear; F43.10 Post-traumatic stress disorder, unspecified; M54.5 Low back pain; M54.2 Cervicalgia; E06.3 Autoimmune thyroiditis
CPT/HCPCS: 1NSP; 84133; 84300; 86021; 86160; CCU; 36415; 74000; 76775; 80307; 81001; 82436; 82570; 84165; 87040; 87070; 87086; 93005; 93010; 93970; 96361; 96374; 97116-GO; 97161-GP; 99291; C8929; G0480; J0131; J1644; J2310; J2405; J2765; J3490; J7060; Q9957

== ENCOUNTER 2017-04-27 13:53 | Inpatient (IN) | payer OTHER ==
[~2017-04-27] VITALS: Ht 157.5 cm; Wt 127.5 kg
[~2017-04-27 13:53] MED LIST changes: +ASPIRIN81 M4 PO; +GABAPENTIN300 M2 PO; +LATUDA20 M1 PO; +METOPROLOL TART25 M1 PO; +NITRO-BID1 GM TOP; +NITROSTAT0.3 M1 PO; +NYSTATIN15 G1 TOP; +SYNTHROID50 MCG PO
--- NOTE | 2017-04-27 14:00 | NUR ---
PT BIBA FOR +SI. PT REPORTS SHE WAS D/C FROM HOSPITAL YESTERDAY AND WHEN SHE FOLLOWED UP WITH HER PSYCHIATRIST TODAY SHE "TOLF HIM THE TRUTH, THAT SHE DOES NOT FEEL SAFE AT HOME". PT STATED SHE WAS HERE 10 DAYS AGO FOR AN OVERDOSE ON HER SON'S METHADONE. PT DOES NOT KNOW IF THIS WAS A SUICIDE ATTEMPT OR NOT. PT REPORTS BACK PAIN AND NO PAIN MANAGEMENT TREATMENT. PT STATED TO THIS RN "SOMETIMES I JUST WANT TO GO TO SLEEP AND NOT WAKE UP". PT DENIES ETOH OR DRUG USE. PT REPORTS 15 YEARS SOBER FROM ETOH, WITH THE EXCEPTION OF 1 BEER A FEW WEEKS AGO. SECURITY AT BEDSIDE FOR WANDING PT CHANGED INTO [employer] AND [employer]IPPER SOX PT'S SON TO TAKE ALL OF PT'S BELONGINGS
--- NOTE | 2017-04-27 14:03 | ED PSYCHIATRIC COMPLAINT ---
See Addendum History of Present Illness General Chief Complaint: ETOH/Drug Related Complaint Stated Complaint: BIBA FROM [facility] FOR +SI Source: patient Exam Limitations: poor historian Vital Signs & Intake/Output Vital Signs & Intake/Output Vital Signs Date Time Temp Pulse Resp B/P B/P Pulse O2 O2 Flow FiO2 Mean Ox Delivery Rate 04/27 1501 Room Air 04/27 1436 98.0 88 20 180/92 100 Room Air Allergies Coded Allergies: Penicillins (Severe, TONGUE SWELLING 01/02/16) Reconcile Medications Aspirin (Aspirin*) 81 MG TAB.CHEW 81 MG PO DAILY HEART HEALTH .Take 1 tablet every day Gabapentin 300 MG CAPSULE 1 CAP PO TID UNKNOWN (Reported) Levothyroxine Sodium (Synthroid) 50 MCG TABLET 1 TAB PO DAILY AC THYROID HEALTH .TAKE 1 TABLET DAILY FOLLOW UP WITH WINE STEWARD WITHIN 1-2 WEEKS AFTER DISCHARGE Metoprolol Tartrate 25 MG TABLET 12.5 MG PO BID HIGH BLOOD PRESSURE .Take 1/2 tablet twice daily Nitroglycerin (Nitrostat) 0.3 MG TAB.SUBL 1 TAB PO Q6 PRN chest pain Triage Nurses Notes Reviewed? yes Onset: Abrupt Duration: unknown duration Timing: unknown HPI: 04/27/17 3 PM Patient presents to the emergency department for depression with suicidal ideation. According to the patient she has been depressed and has had thoughts of hurting herself. The onset of the symptoms was abrupt, the duration is unknown, the severity is significant as her symptoms required her to come to the emergency department for care. The patient is status post overdose 10 days ago on methadone. Past History Medical History Any Pertinent Medical History? see below for history Neurological: NONE EENT: hearing loss Cardiovascular: hypertension, 3 STENTS Respiratory: NONE Gastrointestinal: NONE Hepatic: NONE Renal: NONE Musculoskeletal: CHRONIC BACK/NECK PAIN IMPLANTED MUSCULAR STIMULATOR LUMBAR & CERVICAL SURGERY WITH LATOYA PLACEMENTS Psychiatric: alcohol dependence, anxiety, bipolar disease, depression, substance abuse Endocrine: 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 No Review of Systems Review of Systems Constitutional: Reports: no symptoms. EENTM: Reports: no symptoms. Respiratory: Reports: no symptoms. Cardiovascular: Denies: chest pain. GI: Reports: no symptoms. Genitourinary: Reports: no symptoms. Musculoskeletal: Reports: no symptoms. Skin: Reports: no symptoms. Neurological/Psychological: Reports: no symptoms. Hematologic/Endocrine: Reports: no symptoms. Immunologic/Allergic: Reports: no symptoms. All Other Systems: Reviewed and Negative Physical Exam Physical Exam General Appearance: well developed/nourished, alert, awake, anxious Head: atraumatic, normal appearance Eyes: Bilateral: normal appearance, PERRL, EOMI. Ears, Nose, Throat: normal pharynx, normal ENT inspection Neck: normal inspection, supple, full range of motion Respiratory: normal breath sounds, chest non-tender, no respiratory distress Cardiovascular: regular rate/rhythm Gastrointestinal: non-tender Extremities: edema Neurological/Psychiatric: no motor/sensory deficits, awake, alert, anxious Appearance/Memory/Insight: appropriate appearance Behavoir/Eye Contact/Speech: cooperative Thoughts/Hallucinations: no apparent hallucination Skin: intact, normal color, warm/dry SAD PERSONS SAD PERSONS Response Value Age <19 or >45 years? yes 1 Depression/Hopelessness? yes 2 Previous Attempts/Psych Care yes 1 Excessive Ethanol/Drug Use? yes 1 Social Support? has support 0 Total 5 SAD PERSONS Done? yes Progress Differential Diagnosis: drug intoxication, depression Plan of Care: Orders Procedure Date/time Status Admit to inpatient psych 04/27 1701 Active EKG 04/27 1701 Active Continuous Observation Monitor 04/27 1502 Active ED CRISIS PSYCH CONSULT 04/27 1502 Active URINE DRUG SCREEN FOR ER ONLY 04/27 1412 Complete ETHANOL 04/27 1412 Complete CBC WITHOUT DIFFERENTIAL 04/27 1412 Complete BASIC METABOLIC PANEL 04/27 1412 Complete Laboratory Tests 04/27/17 1430: Anion Gap 11, Estimated GFR 57 L, BUN/Creatinine Ratio 8.0, Glucose 117 H, Calcium 8.9, CBC w Diff NO MAN DIFF REQ, RBC 4.34, MCV 94.1, MCH 31.7 H, RDW 13.8, MPV 7.7, Gran % 65.4, Lymphocytes % 25.9, Monocytes % 7.0, Eosinophils % 1.3, Basophils % 0.4, Absolute Granulocytes 5.5, Absolute Lymphocytes 2.2, Absolute Monocytes 0.6, Absolute Eosinophils 0.1, Absolute Basophils 0, PUBS MCHC 33.7, Serum Alcohol < 10.0 04/27/17 1327: Urine Opiates Screen < 100.00, Methadone Screen 462 H, Barbiturate Screen < 60, Ur Phencyclidine Scrn < 6.00, Amphetamines Screen < 100, U Benzodiazepines Scrn < 85, Urine Cocaine Screen < 50, Urine Cannabis Screen < 5.00 Pre-Hospital EKG: pending Departure Departure Disposition: STILL A PATIENT Condition: Stable Clinical Impression Primary Impression: Depression Referrals: GENEVA LAINEZ MD (PCP/Family) Departure Forms: Customer Survey General Discharge Information Psych Admission Note Psychiatric Admission: I have seen and evaluated SHIVAM GREER. I have also reviewed all the pertinent lab results and diagnostic results. SHIVAM GREER will be admitted to our inpatient Psychiatric unit for treatment and care.
--- NOTE | 2017-04-27 14:21 | NUR ---
PT MOVED FROM HALLWAY E TO ROOM 13
[2017-04-27 15:00] LABS: ABSOLUTE BASOPHIL COUNT 0 /CUMM (0.0-0.2); ABSOLUTE EOSINOPHIL COUNT 0.1 /CUMM (0.0-0.7); ABSOLUTE GRANULOCYTE CT 5.5 /CUMM (1.4-6.5); ABSOLUTE LYMPH COUNT 2.2 /CUMM (1.2-3.4); ABSOLUTE MONOCYTE COUNT 0.6 /CUMM (0.10-0.60); BASOPHIL % 0.4 % (0.0-2.0); EOSINOPHIL % 1.3 % (0-5); GRANULOCYTE % 65.4 % (42.2-75.2); MEAN CORPUSCULAR HGB 31.7 PG (27.0-31.0); MEAN CORPUSCULAR HGB CONC 33.7 G/DL (33.0-37.0); MEAN CORPUSCULAR VOLUME 94.1 FL (81.0-99.0); MEAN PLATELET VOLUME 7.7 FL (7.4-10.4); RBC DISTRIBUTION WIDTH 13.8 % (11.5-14.5); RED BLOOD CELL CT 4.34 /CUMM (4.20-5.40); WHITE BLOOD CELL COUNT 8.4 /CUMM (4.8-10.8)
--- NOTE | 2017-04-27 15:00 | NUR ---
AMBULANCE RETURNED PT'S CANE AND IT IS IN CLOSET WITH HOME HEALTH PROVIDER IT
[2017-04-27 15:05] LABS: HEMATOCRIT 40.8 % (37-47); PLATELET COUNT 287 /CUMM (130-400)
--- NOTE | 2017-04-27 15:22 | ED PSY CRISIS COLLATERAL NOTE ---
Collateral Note Collateral Note Family/Inform/Mica Contacts: [facility] Ary: Pt sent to the ED for SI. Ary thinks pt has a plan and wont disclose it with her as her son is present. She has adult children that she lives with ( possible stressor). Pt was just at on medical floor for overdose on methadone- she is unclear if it was intentional or not. Ary reported pt is abusing her son's methadone. Per care pt is not sleeping and complains of chest pain due to the compressions given at the time of the overdose. [facility] ED recommends inpatient hospitalization and discharge to IOP dual program as she is Medicare only. Medications include gabapentin 300 mg 3x day , and metoprolol tartrate 25 mg 2x day , synthroid 50 mcg in the AM and afrin ( ?) . pt was recommended to see an whiskey filterer.
--- NOTE | 2017-04-27 15:57 | NUR ---
CRISIS IN TO SEE PT FOR EVAL
--- NOTE | 2017-04-27 16:32 | NUR ---
PT MEDICATED WITH TYLENOL 975MG FOR BACK PAIN. PT'S SON IN ROOM. PT'S DINNER TRAY HAS NOT BEEN EATEN. PT REPORTS THAT HER "TASTEBUDS HAVE BEEN OFF" SINCE SHE WAS IN ICU. PT REQUESTING TOMATO SOUP. SITTER AT DOOR.
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
--- NOTE | 2017-04-27 17:38 | NUR ---
PT MEDICATED WITH MULTIVITAMIN AND KDUR 40MEQ PER EMAR. PT CALM AND COOPERATIVE. SON AT BEDSIDE. SITTER AT DOOR.
--- NOTE | 2017-04-27 18:25 | NUR ---
PT ENCOURAGED AND EDUCATED TO NOT TAKE DILAUDID SINCE HE WAS MED WITH PERCOCET PRIOR TO DISCHARGE.
--- NOTE | 2017-04-27 18:34 | NUR ---
PT LYING ON BED IN ROOM 13 WITH 3 PILLOWS UNDER HEAD, STATES SHE IS DOING "TERRIBLY". PT STATES THAT SHE CANNOT GET COMFORTABLE. PT WATCHING TV. PT ASKED HOW LONG UNTIL SHE IS TRANSFERRED DOWNSTAIRS AND THIS RN GAVE HER AN ESTIMATE. SITTER AT DOOR. PT'S SON TOOK ALL BELONGINGS WITH HIM.
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
--- NOTE | 2017-04-27 20:52 | NUR ---
PT REQUESTED AND WAS GIVEN TYLENOL 650MG FOR BACK PAIN. PT LYING ON BED IN ROOM 13 CALM AND COOPERATIVE. PT IS AWAITING TRANSFER DOWN TO [facility]. SITTER AT DOOR.
[2017-04-27 22:25] VITALS: BP 146/77
--- NOTE | 2017-04-28 00:38 | NUR ---
PT. ADMITTED TO CPS ALERT ORIENTED COOPERSATIVE WITH CARE INTERVIEW OBTAINED PT ORIENTED TO SURROUNDINGS. VSS PT. USES WALKER FOR AMBULATON R/T CHRONIC BACK ISSUES. PAIN LEVEL 10 R/T NECK AND BACK PAIN. PT. STATES ALLERGIC TO NEUROTIN DR. GALINDO WAS NOTIFIED PT. STASES "GIVES ME RESTLESS LEG I DO NOT WANT TO TAKE IT". PM DOSE ON HOLD UNTIL ADDRESS IN AM. MEDICATED WITH BACLOFEN ADN TRAZADONE FOR SLEEP.
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
[2017-04-28 08:03] VITALS: BP 124/88
[2017-04-28 12:24] VITALS: BP 112/72
--- NOTE | 2017-04-28 13:04 | NUR ---
PATIENT CALM AND COOPERATIVE WITH STAFF AND UNIT RULES. MINIMAL INTERACTION, NORMAL SPEECH. PATIENT WITHDRAWN BUT DID GO TO GROUPS. USES WALKER FOR AMBULATION. NORMAL MOOD WITH FLAT AFFECT. NORMAL APETITE. NO REPORTS OF SI.
--- NOTE | 2017-04-28 14:48 | SOCIAL WORKER TX PLAN PSYCH ---
Treatment Plan - Please Document: - Evidence that there is ongoing collaboration between - the patient and the interdisciplinary team, - including the patient's active participation and - responsibility for engaging in the treatment regimen, - and that the treatment plan is individualized and - relevant to the patient's conditions. - Treatment plan should reflect documentation indicating - that all active therapeutic efforts are included. Strengths/Capabilities: supportive family, wants help, has been successful in treatment in past. Physical Limitations (Interventions): Uses a cane. Patient Identified Trmt Goals: "To feel less depressed" Discharge Plan: Care and return home Problem/Goals #1 Problem #1: depression Goal (Short Term): patient will identify reasons to live Goal ([facility]): patient will identify coping skills to stay positive Interventions: patient will be offered medication management with the psychiatrist, groups on symptom management, coping skills, goals group, focus group, relaxation. Veneer Puller will discuss how making choices can help make changes. Veneer Puller will discuss family dynamics and assist with holding a family meeting. Veneer Puller will assist with aftercare planning. Modalities: individual/ group DSM5/PS Stressors/Medical Prob Diagnosis' (DSM 5, Stressors, Medical): Bipolar depressed (F31.4) Opiate Use D/O severe (F11.20) family conflict bereavement health Current GAF: 20 Treatment Team - Responsibilities of members of the treatment team include: - Medication Management- MD or ELECTRIC TRUCK DRIVER - Medication Administration and Monitoring- Nurse - Group Therapy- Occupational Therapist - 1:1 Therapy,Disch Planning,family involvement-Veneer Puller
--- NOTE | 2017-04-28 14:48 | SOCIAL WORKER PROG NOTE PSYCH ---
Social Work Progress Note Progress Note Amanda is walking with a walker and appears to be in alot of pain today. She stated her back is really hurting and her left sciatica. She talked about the use of methadone, stating she had used it 3x's over the past couple months for pain. This methadone is prescribed to her son. I asked about the overdose on . She said she took 107mg of Methadone. When asked if the overdose was intentional? She said "maybe subconsiously." She said "I didn't want to wake up." She mentioned having felt really depressed for this past year. Her last April. She remains at home with her 3 adult children (1 daughter, 2 sons). She is having a difficult time since his . I asked how her children are coping? She said "no one talks", "no one cares." She seems frustrated that no one communicates and then she stated that her children have "taken over the house." When asked what she meant by that, she couldn't really elaborate other than she isolates in her room and that it's just "chaos." Things feel out of control to her. She mentioned that she stopped taking her pain medication last year when she couldn't afford to get her medication and her 's. I asked if things have changed at all financially? She said they have gotten worse. She has considered going back to a pain management doctor, but she hasn't and said she was trying to do things herself. She is currently in mental health tx with [facility] and sees Shasha Claire APRN and Bethany Alexander for therapy. She signed a release for [facility]. Amanda is having difficulty thinking of what her goal is for this hospitalization. She said "I'm just focusing on getting through today." I told her that was fine and sometimes we just need to ground ourselves to the present to get through. She stated she is having difficulty going to all the groups due to her pain and how tired she feels. I encouraged her to pick a couple tomorrow and build from there.
[2017-04-28 16:27] VITALS: BP 144/87
--- NOTE | 2017-04-28 17:35 | CPS MD/APRN INITIAL ASSE PSYCH ---
Psychiatric Admission Emblem Fuser Tender's Note Reviewed: Yes Patient Seen and Examined: Yes Identifying Information: This is the 4th [facility] admission since 2004 but the 2nd since only 02/2016 for a 61-year-old recently (approximately one year ago) mother of 4 adult children currently living with 3 of her children in her own rental in [facility], and unemployed. Chief Complaint: "I want to go to sleep and not wake up anymore." Reaction to Hospitalization: positive; hoping for help History of Present Illness Onset of Illness: Patient was brought into the E.D. via ambulance on 04/17/2017 after ingesting over 100mg of her son's methadone. She was admitted medically suffering acute hypoxemia, required a Narcan drip. Patient had a difficult/complicated course and was not discharged from medical floor for over a week, until 04/25/2017 ( see multiple specialty consultations and discharge summary from that admission for details), but was not admitted to [facility] as it was presumed that the ingestion or at least the intent to harm herself was accidental, occurring in the course of her trying to get some (back) pain relief. Circumstances Leading to Admission: Patient was discharged from medical floor on 04/25/2017 and then presented to the E.D. via ambulance on the afternoon of 04/27/2017, less than 48 hours later expressing suicidal ideation and saying that she had "confessed" to her home appliances mechanic that day the methadone ingestion 10 days earlier "may have been a suicide attempt..." Problem(s) Justifying Need for Admission: --acute suicidality with history of recent overdose requiring over a week's treatment on the medical service Other HPI: Patient's on 04/21/2017 after a losing struggle with cancer, and 3 of patient's adult children moved back into her home "without being invited." Their disorganizing, chaotic and abusive presence in patient's home became more and more intolerable; she asked them all to leave but they continued to stay. To her grief over spouse's and mounting stress of having her adult children in her home against her wishes was added increasing back pain; she had been in pain management until the spring when she could no longer afford to pay for both her 's cancer meds and her own medication for pain ( opiates); she never went back into pain management and has been suffering increasingly from back pain and related difficulty sleeping/sleep loss. All the above combined led to desperation and as she was using her son's methadone increasingly to give her some relief from her pain patient took a larger dose in what she is "still not sure" was a conscious suicide attempt though she almost as a result of it. Past Psychiatric History Past Diagnosis(es)- if any: diagnoses at the time of most recent [facility] discharge (02/17/2016) were: Bipolar I Disorder, Mixed; MRE mixed/depressed with suicidality (in context of 's terminal illness) Benzodiazepine Use Disorder (prescribed) opioid dependence (given methadone and oxycodone by pain management ) hx of sedative/hypnotic/anxiolytic use disorder (benzodiazepines); urine tox. (- ) in E.D. 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 Alcohol Use Disorder; in sustained full remission for past 15 years Cocaine Use Disorder; in sustained full remission for past 25 years and: CAD with S/P M.I.'s with stenting x3-4, the most recent being in 2010 Hypothyroidism Hypertension Hyperlipidemia S/P back surgery in 2004 with residual chronic pain syndrome Past Precipitating Factors- if any: --stress in the family (prior to most recent admission it was 's progressive and soon to be terminal illness--he one year ago in 04/2016 - Include inpatient and outpatient treatment Treatment History: Pankaj was first admitted to [facility] in 2003 for exacerbation of bipolar disorder but was here only 4 days. She was readmitted in 01/2013 for 17 days for suicidal ideation and plan to overdose in the context of History of Suicide Attempts or Gestures took over 100mg of son's methadone at one time and required emergency medical admission, 04/17/2017 to 04/25/2017 Substance Abuse History: remote history of crack cocaine and alcohol use disorders; more recently abusing benzodiazepines and dependent on opioid analgesics though latter were prescribed for (back) pain management Allergies: Coded Allergies: Penicillins (Severe, TONGUE SWELLING 01/02/16) Uncoded Allergies: NEUROTIN (Mild, RESTLESS LEG REFUSING TO Take 04/27/17) Home Med List: medications at the time of most recent [facility] discharge on 02/17/2016: Depakote ER, 1500mg/day Lexapro, 10mg/day trazodone, 100mg HS Neurontin, 300mg 3x/day PRN - Include any medical condition(s) that may - impact the patient's recovery/remission Past History Medical History Neurological: NONE EENT: hearing loss Cardiovascular: CAD (S/P 3-4 stents (last in 2010)), hypertension, hyperlipidemia, myocardial infarction, NSTEMI, 4 STENTS Respiratory: NONE Gastrointestinal: NONE Hepatic: NONE Renal: NONE, PRAFUL related to methadone overdose earlier in 04/26 Musculoskeletal: CHRONIC BACK/NECK PAIN IMPLANTED MUSCULAR STIMULATOR LUMBAR & CERVICAL SURGERY WITH LATOYA PLACEMENTS Psychiatric: alcohol dependence, anxiety, bipolar disease, depression, opioid dependence (most recently pain management), substance abuse (alcohol/crack in remission) Endocrine: 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), hypothyroidism, obesity Blood Disorders: NONE Cancer(s): NONE LARD RENDERER/Reproductive: NONE History of MRSA: No History of VRE: No History of CDIFF: No Isolation History: Standard Surgical History Surgical History: spinal surgery, coronary stent procedures Psychiatric Family/Social Hx Family History Psychiatric Illness: unknown Substance Use: one son currently on methadone maintenance Suicides: unknown Social History Living Situation: (see above, under "Identifying Information") Significant Relationships (family/friends): --relationships mostly confined to her adult children Education: high school Vocation/Occupation: disabled Legal: none current; not on probation Healthly Behaviors Screening Tobacco Screening Tobacco Use from ED Docu: Never used - If tobacco counseling indicated - the following topics are required. - #1 Recognizing dangerous situations. - #2 Coping Skills. - #3 Basic information about quitting. Status of Tobacco Cessation Counseling: Not Applicable Cessation Med Status Not Applicable Alcohol Screening - ETOH screen POS if BAL >=80 or Audit-C>= M4/F3 Audit-C Score from Diag Assess: 1 Blood Alcohol Level: ZIYAD = less than 10.0 Alcohol Use Screening Results: Neg per Audit C &/or BAL - If ETOH counseling indicated - the following topics are required. - #1 Express concern about the patient's - drinking at unhealthy levels, include informing - of national norms for moderate drinking: - men <= 14 drinks/week, max 4 drinks/occasion - women <= 7 drinks/week, max 3 drinks/occasion - #2 Providing feedback, including linking alcohol to - negative physical effects (liver injury, hypertension) - negative emotional effects (relationship problems and - depression) - negative occupational consequences (reduced work - performance) - #3 Advising the patient to abstain from alcohol or - to drink below national norms for moderate drinking - (as listed above). Status of ETOH Use Counseling: N/A B/C NO ETOH Use Metabolic Screening - Screen if on a Neuroleptic Medication - Metabolic screening should include: - Blood Pressure, BMI, Glucose or Hgb A1c, & a - Lipid profile from within the past 365 days. Metabolic Screening ([x]) Not Applicable, patient not on a neuroleptic. OR () Patient on a neuroleptic(s) . Enter below results for Glucose or Hemoglobin A1C, and lipid panel if obtained during the last 365 days. 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 and said she still felt like dying Homicidal Ideation: denied Hallucinations: denied at this time Paranoid/Delusional Material: none noted Difficulties with thought organization: befuddled, confused, thoughts racing Insight: fair Judgment: fair; recently poor when taking son's methadone Orientation: full Cognition: generally slow but no evidence of gross focal deficit Memory Function: only fair at present, partly due to racing thoughts and lack of ability to concentrate Estimate of intellectual functioning: average Assets/Strengths Patient Identified Assets/Strengths: --loves all her children --sober from alcohol and crack cocaine for many years Impression/Plan Impression and Plan: Patient's current presentation is certainly multi-factorial and complicated by a severely enmeshed/disfunctional relationship with her adult children, particularly the 3 who moved in since the of her a year ago. She is also dealing with the anniversary of spouse's ; patient says her financial situation has been "even worse" since 's passing, with 3 out-of -work adult "kids" in the house contributing to her financial strain; currently she is renting an entire house which she certainly wouldn't need if she were on her own. Patient's chronic pain, plus possible recent exacerbation is contributing to deepening of her mood disorder/depression. We need to get the family together in the same room and ultimately, patient should f/u in an IOP, either with her current longstanding treaters at [facility] or our own. 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) remote hx of Alcohol Use Disorder; in sustained full remission for 15+ years remote hx of Stimulant (crack cocaine) Use Disorder in sustained full remission x25 years - Initial Tx Plan for Active Psych & Medical Conditions Treatment Plan: --recheck valproic acid level and adjust dose of Depakote ER accordingly for optimal treatment --re-evaluate anti-depressant therapy options --schedule a family meeting for as soon as possible --consider f/u in IOP (with [facility] or [facility]) --consider change in PCP to be closer to where patient lives and then she can consult with him/her with regard to pain management closer to home which is less difficult to get to and less expensive --recheck thyroid functions/adequacy of current dose of levothyroxine - Factors that would help patient function - in a less restrictive setting. Factors: --ability to quickly arrange a family meeting and productive outcome to that session for discharge planning/aftercare --rapid positive response to milieu, treatment/group and individual therapy
--- NOTE | 2017-04-28 18:21 | NUR ---
PT IS CALM, COOPERATIVE WITH STAFF AND PEERS, AND COMPLIANT WITH UNIT RULES. PT IS OFTEN IN [place]IEU, INTERACTING WELL WITH OTHERS. MOOD IS STABLE, AFFECT APPEARS EUTHYMIC TO FULL RANGE, COMMUNICATION IS ORGANIZED AND APPEARS NORMAL IN ALL RESPECTS, AND APPETITE IS NORMAL. PT DENIES SI AT THIS TIME.
[2017-04-28 19:47] VITALS: BP 152/86
--- NOTE | 2017-04-29 06:55 | NUR ---
PT IN HER ROOM IN THE BED ALL EVENING AND NIGHT. PT APPEARED TO SLEEP.
[2017-04-29 07:46] VITALS: BP 104/66
--- NOTE | 2017-04-29 09:27 | NUR ---
PT A/OX3; MOOD APPEARS TO BE DEPRESSED, AFFECT IS EUTHYMIC, PATIENT IS OUT IN COMMUNITY BUT WITHDRAWAN FROM PEERS AND STAFF. COMPLAINTS OF PAIN AND IS TAKING PRESCIBED PAIN MEDICATION PER EMAR. AMBULATING WELL WITH HER WALKER WITH NO ASSISSTANCE NEEDED. CALM AND COOPERATIVE AND COMPLIANT WITH RULES AND MEDICATIONS.
--- NOTE | 2017-04-29 10:49 | SOCIAL WORKER PROG NOTE PSYCH ---
Social Work Progress Note Progress Note Amanda reported this morning that she didn't sleep well last night. She is uncomfortable due to her pain. Talked about having all 3 of her kids here tomorrow for a meeting. She was okay with me setting that up. I called her daughter Meri and left a message and called her son Grant and left a message. Grant called back. We set up a meeting for 2pm tomorrow and he will text his siblings about the time. Shared this information with Amanda. She continues to complain about significant pain, stating "how can I heal and work on my recovery , if all I can focus on is my body hurting." She said "you may as well shoot me." She said she needs to give her body more rest. Encouraged small goals for the day. Called Edgar at [facility] [phone] and left clinical for additional coverage.
[2017-04-29 12:42] VITALS: BP 146/73
--- NOTE | 2017-04-29 13:33 | PN- Att Addend ---
Attending Addendum Attending Brief Note 61-year-old female with history of chronic pain syndrome was on methadone in the past and this was later discontinued. Medical history is also Singulair for coronary artery disease status post stents in the past and hypothyroidism. She was admitted with acute respiratory failure after being found unresponsive at home. She had apparently overdosed on her son's methadone pills. She was also noted to have elevated troponins likely secondary to demand ischemia. After being medically stabilized she was transferred to the inpatient psychiatry service for further management. Today she complains of back pain which is chronic and chest discomfort with respiration which she states started after CPR therapy. Gen. appearance: Obese, not in acute distress HEENT: Anicteric, no pallor Heart: S1-S2 regular not normal Lungs: Fair entry bilaterally, clear to auscultation Chest: Symmetric, diffuse tenderness anteriorly and posteriorly. No focal tenderness. Abdomen: Soft, nontender with normal bowel sounds Extremities: No pedal edema Skin: Intact Recommendations -Patient should be provided with referral to outpatient primary care upon discharge. -Patient should follow-up with primary care provider as an outpatient for monitoring of her TSH level. -Patient should be provided with referral to cardiology service as an outpatient for an outpatient stress test as recommended by the medical service. -Continue Tylenol for pain control. If patient continues to complain of significant pain with recommend consultation with the pain management service given her history of diverting her son's methadone for her or use. Her chest discomfort is likely musculoskeletal. If pain worsens may consider imaging. -Management of her bipolar disorder as directed by the psychiatric service. -We will check TSH tomorrow to ensure that numbers are trending down. Her transaminases have been trending down as well.
[2017-04-29 15:57] VITALS: BP 138/71
--- NOTE | 2017-04-29 19:01 | CP SOUTH PROGRESS NOTE PSYCH ---
Psych (Inpt) Progress Note Progress Note Include the following elements, when applicable: Involvement in the active treatment of the patient with behavioral observations of the patient and the patient's response to the treatment. Review of the ongoing treatment process in the context of the treatment plan. Indication of how multi-disciplinary staff members are carrying out the treatment plan. Plans for future interventions and recommendations for revision of the treatment plan. Liaison with other physicians/providers. Progress Note: PSYCHIATRIST NOTE, 04/29/2017: I discussed this patient's interval progress thus far, current mental status, treatment and discharge planning with staff team today in the daily morning ITTM and also met with her again myself in individual session. Staff reported patient sleeping well last night, in fact spending most of last evening in her room as well; however, patient herself told a much different story, that she had "tossed and turned" and not slept well due to persistent pain which is even more acute when lying down at night; we talked about limited opiate pain relief at least for the next few days, a single Percocet tab at HS to help her get needed rest/sleep and a limit of two doses of Percocet during the day; she would very much like to get re-established in pain management; she had given this up when her became terminally ill with cancer last year "because I couldn't afford to buy his medications and mine." Patient is tolerating current dose of Depakote ER well and agreeable to increasing dose to total of 1,000mg/ day, starting tonight with initial serum valproic acid level drawn in AM 2016. I am repeating thyroid functions tomorrow morning; patient is currently taking only 50mcg/day of levothyroxine. I discussed with patient the family meeting with her adult children scheduled for tomorrow and asked what she would like to talk about in that session; she had no hesitation in telling me she wants ALL 3 of them out of her apartment as soon as possible, that the pressure and tension in the houshold as it is is "making [her] sick."
[2017-04-29 20:09] VITALS: BP 132/85
--- NOTE | 2017-04-29 22:51 | NUR ---
PT HAS BEEN IN BED FOR MOST OF THE SHIFT. PT HAS BEEN LETHARGIC AND WITHDRAWN. PT HAS HAD NO ISSUES WITH STAFF OR UNIT RULES AND HAS BEEN COMPLIANT. PT DENIES ANY THOUGHTS OF SI WHEN ASKED BY THE STAFF.
--- NOTE | 2017-04-30 07:23 | NUR ---
PT IN HER ROOM IN HER BED ALL EVENING AND NIGHT. PT GIVEN PRN PERCOCET AT 1800 AND PRN TRAZADONE 50 AT 2200. PT SLIGHTLY BRIGHTER AND MORE INTERACTIVE WITH STAFF.
[2017-04-30 07:55] VITALS: BP 110/62
--- NOTE | 2017-04-30 09:07 | SOCIAL WORKER PROG NOTE PSYCH ---
Social Work Progress Note Progress Note Family meeting was changed from 2pm to 1pm today. Celestine, Grant, and Meri showed up for the meeting. Also in attendance was Dr. Matias. Family spoke about how Amanda had been getting out of the house and going to [facility]'s social club daily around December up until a few weeks ago. Things changed in the last few weeks and Amanda was now home isolating in her room. When asked what happened? Amanda said her attitude towards people changed and she was tired of the "gossip and politics." She was referring to the other clients. Her son Celestine felt that the newness of going there wore off. Talked about the dynamics at the house and the relationships between the family. All agreed that their communication with eachother is poor. Grant actually doesn't live in the house and seems the most seperated from the family dynamics. Eros did not come to the meeting, who is the other son who lives in the home. This is the son with the addiction problem and currently on Methadone. There was alot of communication at the meeting from Celestine, about how he brings things to his Mom as head of household, but things don't get resolved. He particurarly brought up the crack use going on in the house by Eros. We asked that as much as possible things don't get brought to his Mother and that she needs to take care of herself and her health right now. Celestine then stated that due to their caodaism things need to be brought to the head of household. Amanda agreed. She shared that she has attempted to intervene and do things to cause less chaos in the house, but she doesn't feel it works. When asked what Amanda feels would be helpful at this point? She said "if they all moved out." This is a difficult process for her, as 2 of her sons may be homeless and her daughter has never lived alone and was possibly going to stay with a family friend or someone they knew at one point. Amanda isn't quite sure if she could handle living alone either, so I'm sure there is alot of ambivalence. Told her she always has choices and that she needs to work on making decisions to make improvements. Mentioned Al-Anon as a forum for support if she is having difficulty as a parent with a child who is addicted. We did talk about how Amanda was getting Methadone from Eros. Grant shared that he gives it to her. Dr. Matias asked if she was able to stop doing that? She said yes.
[2017-04-30 12:48] VITALS: BP 139/84
--- NOTE | 2017-04-30 14:58 | NUR ---
PT IS COMPLIANT AND COOPERATIVE WITH UNIT RULES. PT IS OUT IN THE COMMUNITY INTERACTING WELL WITH STAFF AND PEERS. PT IS ATTENDING GROUPS. PT MODO IS STABLE WITH A EUYTHMIC AFFECT. PT DENIES SI THOUGHTS.
--- NOTE | 2017-04-30 15:50 | CP SOUTH PROGRESS NOTE PSYCH ---
Psych (Inpt) Progress Note Progress Note Include the following elements, when applicable: Involvement in the active treatment of the patient with behavioral observations of the patient and the patient's response to the treatment. Review of the ongoing treatment process in the context of the treatment plan. Indication of how multi-disciplinary staff members are carrying out the treatment plan. Plans for future interventions and recommendations for revision of the treatment plan. Liaison with other physicians/providers. Progress Note: PSYCHIATRIST NOTE (FAMILY MEETING), 04/30/2017: I discussed this patient's interval progress to date, current mental status , treatment and discharge planning with staff team today in the daily morning ITTM; Briana Kenney, DIRECTOR IT PROJECT, and I met with patient and 3 of her 4 adult chldren (sons Grant and Celestine, and daughter Meri) in a family session. It very quickly became clear this is a highly dysfunctional family set in mutually repetitive and highly dissatisfying patterns of interaction when they interact at all. Eventually, patient built up her courage to tell all of her children that she did not believe anything between them living together will change for the better and make it quite clear that she wanted them to move out of her apartment; her son Celestine who did most of the talking for the children actually stated that he believed his mother would be better off alone in a small efficiency type apartment with much lower rent (which she now pays entirely herself for the entire family), but then qualified his conviction by saying he had been "taking care of" his mother and didn't think she could manage on her own; however, everything he articulated as a potential problem for patient was either challenged by her or pointed out by Ms. Kenney or myself could be provided by another source of assistance (e.g."she doesn't cook for herself"--two meals a day could be provided by "[id number]"). It was good to see patient hold her own in the meeting and actually appear to be more assertive as the discussion progressed. For further details of today's family meeting, please see Ms. Kenney's progress note of this date in the electronic medical record. Thyroid functions, TSH from this AM were WNL. Valproic acid level today was only 34.4mcg/ml; patient agreed to increase in Depakote ER dose to 1,000mg/ day; I will repeat level on 05/03/2017; I will wait one more day and double current low dose Prozac to 20mg daily as of 05/03/2017. Patient's mental acuity, organization, spontaneity are all slowly improving. She would do best to have the support of the [facility] when she discharges likely early next week. Patient is sleeping better with one Percocet at HS (and 50mg of trazodone on occasion) and utilizing the PRN Percocet an average of 1-2x/day with benefit; she is seeking pain management to deal with chronic, limiting back pain; she is not making use of the PRN Neurontin and has been encouraged to do so.
[2017-04-30 16:15] VITALS: BP 125/89
--- NOTE | 2017-04-30 18:41 | NUR ---
PT IS CALM, COOPERATIVE WITH STAFF AND PEERS, AND COMPLIANT WITH UNIT RULES. BOTH IN AND OUT OF MILIEU, PT IS MOSTLY STAYIGN IN PERIPHERY, WITH LIMITED INTERACTION WITH OTHERS. MOOD IS STABLE, AFFECT APPEARS EUTHYMIC TO FULL RANGE, COMMUNICATION IS ORGANIZED AND APPEARS NORMAL IN ALL RESPECTS, AND APPETITE IS NORMAL. PT DENIES SI AT THIS TIME.
[2017-04-30 19:48] VITALS: BP 151/93
--- NOTE | 2017-05-01 06:48 | NUR ---
PATIENT SLEPT ALL NIGHT.
[2017-05-01 08:15] VITALS: BP 146/97
[2017-05-01 12:32] VITALS: BP 154/84
--- NOTE | 2017-05-01 12:39 | CP SOUTH PROGRESS NOTE PSYCH ---
Psych (Inpt) Progress Note Progress Note Include the following elements, when applicable: Involvement in the active treatment of the patient with behavioral observations of the patient and the patient's response to the treatment. Review of the ongoing treatment process in the context of the treatment plan. Indication of how multi-disciplinary staff members are carrying out the treatment plan. Plans for future interventions and recommendations for revision of the treatment plan. Liaison with other physicians/providers. Progress Note: Patient seen chart reviewed d/w nursing staff no overngith events slept thru the night medication compliant no se reported. She reports feeling "ok" denies depression or anxiety but presented as flat. She reports ongoing discomfort at her ribs has no other complaints no behavioral difficulties. CF, used walker for support overweight. ASA. cooperative +pmr. soft slow speech. "ok" mood flat affect. concrete. denies si/hi or psychosis. a/p BP depression increase trazodoen for sleep
--- NOTE | 2017-05-01 14:10 | NUR ---
PT NOT VISIBLE MUCH IN THE MILIEU TODAY. SHE DID NOT ATTEND PLANNING MEETING THIS MORNING BUT WAS IN JOURNALING GROUP FOR A SHORT WHILE. PT DOES NOT INTERACT MUCH WITH OTHERS BUT IS PLEASANT AND COMPLIANT ABOUT GETTING HER VITALS. SHE DOES COME OUT TO EAT MEALS WITH HER PEERS. PT DENIES THOUGHTS TO HURT HERSELF WHEN ASKED.
[2017-05-01 15:50] VITALS: BP 135/78
--- NOTE | 2017-05-01 19:55 | NUR ---
PT HAS BEEN PRESENT IN THE [facility] WITH STAFF AND PEERS. PT HAS BEEN COMPLIANT WITH STAFF AND UNIT RULES. SHE HAS NOT REPORTED ANY EMOTIONAL DISTRESS AND APPEARS IN FULL RANGE AFFECT. NO ABNORMAL THOUGHTS OF SYMPTOMS HAVE BEEN REPORTED OR OBSERVED. PT DENIES ANY THOUGHTS OF SI WHEN ASKED BY STAFF.
[2017-05-01 20:11] VITALS: BP 138/76
--- NOTE | 2017-05-01 21:48 | NUR ---
PT HAS BEEN IN BED FOR MOST OF SHIFT, ONLY GETTING UP TO HAVE A VISIT. AFTER VISIT PT WENT BACK IN HER ROOM. SHE HAS LITTLE TO NO INTERACTIONS WITH STAFF AND PEERS. MOOD HAS APPEARED CONSTRICTED AND FLAT. PT HAS DENIED ANY THOUGHTS OF SI WHEN ASKED BY STAFF.
--- NOTE | 2017-05-02 06:59 | NUR ---
PATIENT WAS UP TO BR X1, OTHERWISE SLEPT ALL NIGHT.
[2017-05-02 07:57] VITALS: BP 110/75
[2017-05-02 12:02] VITALS: BP 102/67
--- NOTE | 2017-05-02 12:12 | NUR ---
TSH DISCUSSED WITH DR. TIWARI AND CALL WAS PLACED TO DR. JACKSON/DR. LÓPEZ'S OFFICE FOR CONSULT AT THIS TIME.
--- NOTE | 2017-05-02 13:09 | NUR ---
PT IS PRESENT WITHIN THE PERIPHERY/ON THE UNIT, LIMITED INTERACTIONS WITH PEERS AND STAFF HOWEVER IS ABLE TO MAKE HER NEEDS KNOWN, MOOD IS STABLE YET HAS AN IRRITABLE EDGE, OVERALL NO ISSUES AND COMPLIANT/COOPERATIVE HOWEVER, DID NOT ATTEND ANY GROUPS TODAY.
--- NOTE | 2017-05-02 13:17 | CP SOUTH PROGRESS NOTE PSYCH ---
Psych (Inpt) Progress Note Progress Note Include the following elements, when applicable: Involvement in the active treatment of the patient with behavioral observations of the patient and the patient's response to the treatment. Review of the ongoing treatment process in the context of the treatment plan. Indication of how multi-disciplinary staff members are carrying out the treatment plan. Plans for future interventions and recommendations for revision of the treatment plan. Liaison with other physicians/providers. Progress Note: Patient seen chart reviewed d/w nursing staff she reports feelign alright, c/o poor sleep despite nursing indicating otherwise. denies si/hi or psychosis. still c/o rib pain but no other issues. Med compliant no se reported AAOX3. cooperative fair eye contact. alright mood flat affect. linear denies si/ hi or psychosis. i/j limited a/p BP depression endo consult per nursing, continue tx plan
[2017-05-02 16:46] VITALS: BP 117/57
[2017-05-02 20:15] VITALS: BP 100/76
--- NOTE | 2017-05-02 21:31 | NUR ---
PT. OUT IN COMMUNITY HAD FEW VISITORS THIS EVENING ATTENDED WRAP UP. SMILRES AT TIMES BUT STATED " HAVE BEEN BETTER'; WHEN ASKED BY THIS NURSE HOW SHE WAS FEELING. WENT TO ROOM AFTER MEDS .
--- NOTE | 2017-05-03 05:22 | NUR ---
SLEPT WELL NO ISSUES.
[2017-05-03 08:05] VITALS: BP 149/89
--- NOTE | 2017-05-03 09:31 | Cons- Endocrinology ---
General Information and HPI Consulting Request Date of Consult: 05/03/17 Requested By: [facility] Reason for Consult: management of hypothyroidism Source of Information: patient, old records Exam Limitations: no limitations History of Present Illness: 61 y/o female , Hx of morbid obese and CAD s/p stents placement, was diagnosed with hypothyroidism/ Marc's thyroiditis in 2012 and was on Levothyroxine 100 mcg daily. She wasn't compliance with medication. She was found to be unresponsive at home due to methadone over doseand was admitted to ICU initially. Blood work in ER showed positive troponin, TSH 35.1 and T4 6.9; ph 7.17, Pco2 62 and Po2 78, Cr 2.5. Her peak troponin was 10.9. She was put on Levothyroxine 25 mcg daily on 04/18/2017. On 04/19/2017, repeat TSH 6.66, freeT4 0.64.Levothyroxine was increased to 50 mcg daily. She was transfered to [facility]. Repeat TFT done on 04/30/2017 showed TSH 9.09. Allergies/Medications Allergies: Coded Allergies: Penicillins (Severe, TONGUE SWELLING 01/02/16) Uncoded Allergies: NEUROTIN (Mild, RESTLESS LEG REFUSING TO Take 04/27/17) Home Med List: Aspirin (Aspirin*) 81 MG TAB.CHEW 81 MG PO DAILY HEART HEALTH .Take 1 tablet every day Gabapentin 300 MG CAPSULE 1 CAP PO TID UNKNOWN (Reported) Levothyroxine Sodium (Synthroid) 50 MCG TABLET 1 TAB PO DAILY THYROID HEALTH .TAKE 1 TABLET DAILY FOLLOW UP WITH CLOTH MENDER WITHIN 1-2 WEEKS AFTER DISCHARGE Metoprolol Tartrate 25 MG TABLET 12.5 MG PO BID HIGH BLOOD PRESSURE .Take 1/2 tablet twice daily Nitroglycerin (Nitrostat) 0.3 MG TAB.SUBL 1 TAB PO Q6 PRN chest pain Review of Systems Review of Systems Constitutional: Reports: see HPI. Cardiovascular: Denies: chest pain. Respiratory: Denies: short of breath. GI: Denies: abdominal pain. Hematologic/Endocrine: Denies: polyuria, polydipsia. Past History Travel History Traveled to [place] past 21 day No Medical History Neurological: NONE EENT: hearing loss Cardiovascular: CAD (S/P 3-4 stents (last in 2010)), hypertension, hyperlipidemia, myocardial infarction, NSTEMI, 4 STENTS Respiratory: NONE Gastrointestinal: NONE Hepatic: NONE Renal: NONE, PRAFUL related to methadone overdose earlier in 04/26 Musculoskeletal: CHRONIC BACK/NECK PAIN IMPLANTED MUSCULAR STIMULATOR LUMBAR & CERVICAL SURGERY WITH LATOYA PLACEMENTS Psychiatric: alcohol dependence, anxiety, bipolar disease, depression, opioid dependence (most recently pain management), substance abuse (alcohol/crack in remission) Endocrine: 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), hypothyroidism, obesity Blood Disorders: NONE Cancer(s): NONE UPTWIST SPINNER/Reproductive: NONE Surgical History Surgical History: 4 cardiac stents in 2010 Family History Relations & Conditions If Any: Relation not specified for: FH: hypertension Psychosocial History Where Do You Live? Home Who Do You Live With? child Services at Home: None ETOH Use: denies use Illicit Drug Use: denies illicit drug use Employment History Employment: Disability Profession/Employer: [employer]. Exam & Diagnostic Data Last 24 Hrs of Vital Signs/I&O Vital Signs Date Time Temp Pulse Resp B/P B/P Pulse O2 O2 Flow FiO2 Mean Ox Delivery Rate 05/03 0838 94 149/89 05/03 08 97.3 94 149/89 05/027 98.5 98 16 100/76 05/02 2015 98.5 98 100/76 05/02 1646 83 117/57 05/02 1202 70 102/67 Physical Exam General Appearance: no apparent distress, obese Neck: difficult to palpate her thyroid gland due to her body habitus. Respiratory: decreased breath sounds Cardiovascular: regular rate/rhythm Gastrointestinal: distention Extremities: no edema Labs/Jayson Results: Laboratory Tests 05/03 0645 Toxicology Valproic Acid (50 - 120 ug/mL) 57.6 Assessment/Plan Assessment/Plan 61 y/o female , Hx of morbid obese and CAD s/p stents placement, was diagnosed with hypothyroidism/ Marc's thyroiditis in 2012 and was on Levothyroxine 100 mcg daily. She wasn't compliance with medication. She was found to be unresponsive at home due to methadone over doseand was admitted to ICU initially. Now she is in [facility]. Her TFT hasn't been normalized. 1. increase Levothyroxine to 75 mcg daily; 2. monitor TSH and free T4 next week. will follow. Consult Acknowledgment - Thank you for your consult request.
[2017-05-03 12:18] VITALS: BP 142/94
--- NOTE | 2017-05-03 13:23 | NUR ---
PT NOT VISIBLE MUCH IN THE MILIEU TODAY. SHE WENT TO NO GROUPS TODAY, AND MINIMALLY INTERACTS WITH OTHERS. PT KEEPS TO HERSELF, SPENDING MAJORITY OF THE DAY IN HER ROOM. PT HAS BEEN COOPERATIVE WITH DIRECTION GIVEN TO HER BY STAFF, FOR INSTANCE GETTING VITALS. SHE DENIES THOUGHTS TO HURT HERSELF WHEN ASKED.
--- NOTE | 2017-05-03 16:13 | SOCIAL WORKER PROG NOTE PSYCH ---
Social Work Progress Note Progress Note Amanda attending some groups. Resting in her room late this afternoon. I spoke with her in her room for a while. She said she had visits from family over the weekend. Asked her thoughts about the family meeting on Wednesday. She said she thought it was a joke. She reports feeling helpless about nothing changing. I reiterated the importance of her feeling like she can do something to change her situation, since she can't change her children. I talked with her about her asking her children to leave the house. She said she would feel guilty. When asked more about that, she then stated she would just feel bad because they don' t have a place to go and she has the room for them all. Emphasized again that they aren't getting along and she isn't happy with them being there, causing her to isolate and feel depressed. She then stated that she asks them to leave and then they don't follow through. She said she asked Eros to leave 2 months ago. She gives up, because it becomes too much of a struggle. Talked about options such as calling police due to drug use, filing for eviction, or deciding to not renew lease and she move out. She was open to looking into senior housing. She knows the process would take a year of more and she feels it would give everyone enough time. She also would like to return to pain management and is hoping to go to someone close by. She does not want to return to Dr. Pryor. When asked about her mood today, she reported that she knows she will be returning to the same situation and due to that she feels negative. Encouraged small goals with herself and family.
--- NOTE | 2017-05-03 19:09 | CP SOUTH PROGRESS NOTE PSYCH ---
Psych (Inpt) Progress Note Progress Note Include the following elements, when applicable: Involvement in the active treatment of the patient with behavioral observations of the patient and the patient's response to the treatment. Review of the ongoing treatment process in the context of the treatment plan. Indication of how multi-disciplinary staff members are carrying out the treatment plan. Plans for future interventions and recommendations for revision of the treatment plan. Liaison with other physicians/providers. Progress Note: PSYCHIATRIST NOTE, 05/03/2017: I discussed this patient's progress to date, current mental status, treatment and discharge planning with staff team today in the daily morning ITTM and our P.A. student Slade and I met again together in individual session with this patient. Valproic acid level this morning was up to 57.6mcg/ml, now within low therapeutic range on 1,000mg of Depakote ER daily. Patient continues to take the PRN Percocet to the maximum (of two doses a day) in addition to the one regular dose at . We discussed her switching PCP's from her current provider in [place] (where her "very expensive" pain management doctor had also been) to one of the [facility] staff much closer to where she is living in [place]; we can help her to get an initial appointment and then she can discuss strategies for chronic pain management with him/her and possibly be referred to a closer (and "less expensive") pain management practice. Patient is still depressed, slowed down, anergic. I discused with her doubling current dose of Prozac from 10mg to 20mg/day, starting tomorrow morning, 05/04/2017; she agreed. We discussed the family meeting which took place on 04/30/2017; patient said she wasn't surprized at how her adult children acted and reiterated her conviction that "they will never change;" we then spoke about given that fact the only thing for her to do is take a stand and either order them out of her home (if it takes eviction) or herself move to a smaller apartment just for her; patient noted she is currently on the waiting list for [facility] but is not able to find out "where" she is on that "list." Patient noted that her son Grant (who is her only child who doesn't live with her) will drive her home on day of discharge. We are hoping she will agree to follow up in an IOP.
--- NOTE | 2017-05-03 19:34 | NUR ---
PT HAS SPENT SOME TIME OUT OF HER ROOM AND IN THE KITCHEN VISITING WITH HER FAMILY. AFTER VISIT PT RETREATED BACK TO HER ROOM. WHEN SHE IS AWAKE SHE APPEARS TO HAVE A WITHDRAWN, CONSTRICTED AFFECT. SHE HAS LIMITED TO NO INTERACTIONS WITH STAFF OR PEERS. PT REPORTS PASSIVE THOUGHTS OF ALEKSANDAR, RN NOTIFIED.
--- NOTE | 2017-05-04 07:53 | NUR ---
PT SLEPT. PT C FOUR VISITORS LAST EVENING.
[2017-05-04 08:28] VITALS: BP 140/80
--- NOTE | 2017-05-04 10:50 | SOCIAL WORKER PROG NOTE PSYCH ---
Social Work Progress Note Progress Note Called [facility] and spoke with Ana Rosa Aldana. Told Ana Rosa Patel can't afford the copays for our IOP, so she needs to continue with them outpatient and supplement groups there. Appt. was given for her to see Shasha Claire APRN on 05/10 at 12:30 and her clinician Bethany Alexander on 05/12 9am. She will have groups starting Wednesday next week. Met with Amanda who appeared very slowed down and in pain. Wallking hunched over her walker. She stated her back is really bothering her today, which is causing difficulty with breathing. When asked if she has talked with nursing about her back today, she said no. She stated that nursing is busy with another patient and she doesn't want to bother them. I emphasized that she is important and it is important for her to ask for things too. It also came to light during our meeting, that she hasn't showered or washed her hair since she has been here. She said she has been washing up a bit. I asked if she needed help in the shower? She said she did. Again talked about importance of asking and asserting her needs. Her hair has been in a bun in the back and she hasn't removed it. She told me there is a big knot in her hair and she thinks it may need to be cut out. She is hoping to preserve the hair she has and not rip it out. This knot has been in her hair since the admission to the medical floor a couple weeks ago. She does not have a brush or comb here. I asked if she gets help at home with showering and her hair? She said her daughter helps her. She really didn't want me speaking to nursing about helping her today. I told her I 'd like her to think about this for tomorrow. She said she would think about it. When asked how she was emotionally? She said "I feel like I'm drifting." She had difficulty explaining it, but just feels a little spacey. She did appear slightly more goal directed today stating she was going to ask people to leave the house. I told her that it did seem like she needed some assistance from someone for ADL's. She refused to have me look into a home health aid. She signed a release for me to call and get her an appt. with [facility]. Appt. scheduled for 05/[address] Sharma. Called and left a clinical update for insurance review.
[2017-05-04 12:37] VITALS: BP 142/73
--- NOTE | 2017-05-04 14:44 | NUR ---
PT IS STABLE WITH FLAT AFFECT. PT HAS BEEN ISOLATIVE AND WITHDRAWN THIS AM SHIFT SPENDING MOST OF THE SHIFT IN BED. OOB FOR VS, MEDICATIONS AND SOME GROUPS. PT DID NOT SPEND MUCH TIME OUT IN THE LOUNGE INTERACTING WITH OTHERS. PT IS SLOW TO RESPOND AND VAGUE. VS ARE STABLE AND DENIES ANY SI/HI TO THIS MHW.
[2017-05-04 16:47] VITALS: BP 130/75
[2017-05-04 20:19] VITALS: BP 116/52
--- NOTE | 2017-05-04 21:02 | CP SOUTH PROGRESS NOTE PSYCH ---
Psych (Inpt) Progress Note Progress Note Include the following elements, when applicable: Involvement in the active treatment of the patient with behavioral observations of the patient and the patient's response to the treatment. Review of the ongoing treatment process in the context of the treatment plan. Indication of how multi-disciplinary staff members are carrying out the treatment plan. Plans for future interventions and recommendations for revision of the treatment plan. Liaison with other physicians/providers. Progress Note: PSYCHIATRIST NOTE, 05/04/2017: I discussed this patient's progress to date, current mental status, treatment and discharge planning with staff team today in the daily morning ITTM and our P.A. student Slade and I met with her again together in individual session. Scientific Informatics Leader, Dr. Clark, re-evaluated patient yesterday, 05/03/2017, and continued upward adjustment in dose of Synthroid to 75mcg/day with repeat TSH/TFT's next week and will continue to follow. Patient continues to be depressed and c/o severe pain (receiving PRN's of Percocet and I have also doubled the PRN dose of Neurontin which had not been effective at 300mg); she is looking to find a new PCP closer to where she lives, as well as pain management practice in local area; she needs to be set up with an initial appointment with one of our [facility] primary care practices. We once again went over what patient needs to do herself if anything is going to change at home; she told us the biggest "agitator" is her son Celestine and wishes he and brother Eros (who had been giving her some of his methadone WELLNESS NURSE RN) would move out; she is not feeling as down on her daughter Giana with whom she gets along better by herself and would be a dope pourer for her if sons did not get in the way. Patient is still hoping that if she is adalgisa enough to get into senior housing in [place] this would solve her domestic problem; she would just move out and move into a senior apartment which would not allow any of her children to stay/ reside with her. Patient is tolerating increased dose of Lexapro and Depakote ER well; repeat valproic acid level is scheduled for AM on 05/06/2017.
--- NOTE | 2017-05-04 21:38 | NUR ---
PT IN THE MILIEU MOST OF THE EVENING. SHE HAD A VISIT THIS EVENING AND HAS BEEN UP SINCE THEN. SHE WENT TO WRAP UP GROUP, BUT STILL IN A LOT OF PAIN. SHE HAS BEEN COMPLIANT WITH THE UNIT RULES, DENIES THOUGHTS TO HURT HERSELF WHEN ASKED.
[2017-05-05 08:17] VITALS: BP 106/68
[2017-05-05 12:30] VITALS: BP 114/76
--- NOTE | 2017-05-05 13:29 | NUR ---
PT IS ON THE PERIPHERY AND MINIMAL INTERACTIONS WITH PEERS AND STAFF, ABLE TO MAKE NEEDS KNOWN, MEDICATION COMPLIANT, MOOD STABLE WITH FLAT AFFECT, IRRITABLE EDGE. PT DID NOT ATTEND PLANNING MEETING HOWEVER DID GO TO FOCUS GROUP WHERE SHE VERBALIZED CONCERNS WITHIN FAMILY ISSUES YET DID SAY HER DAUGHTER IS HER BIGGEST SUPPORT.
--- NOTE | 2017-05-05 13:46 | SOCIAL WORKER PROG NOTE PSYCH ---
Social Work Progress Note Progress Note Amanda was in her room resting. Prompted her to get up and meet with Dr. Matias and I. She got up. Complained of continued back pain. Shared that she's doing ok emotionally. She continues to make comments about how she is going back to the same situation she came from. Talked about the importance of her doing something different. It seems like she would feel better about her 2 sons Celestine and Eros leaving and having her daughter remain at the house with her. She continues to feel hopeless about them following through on her request. Amanda confirmed that she actually has a 5th child. Apparently her oldest son lives out of state. His name is Christpatience. She has not spoken with him in years and doesn't seem to have any intention on contacting him anytime real soon. She didn't indicate why they are estranged. Reviewed upcoming appts. and told her I will print them up in a more user friendly format before she leaves. Amanda will contact her son Grant to see if he is available to pick her up tomorrow between 11-1pm.
[2017-05-05 16:17] VITALS: BP 148/91
--- NOTE | 2017-05-05 18:16 | CP SOUTH PROGRESS NOTE PSYCH ---
Psych (Inpt) Progress Note Progress Note Include the following elements, when applicable: Involvement in the active treatment of the patient with behavioral observations of the patient and the patient's response to the treatment. Review of the ongoing treatment process in the context of the treatment plan. Indication of how multi-disciplinary staff members are carrying out the treatment plan. Plans for future interventions and recommendations for revision of the treatment plan. Liaison with other physicians/providers. Progress Note: PSYCHIATRIST NOTE, 05/05/2017: I discussed this patient's slow progress to date, current mental status, treatment and discharge planning with staff team today in the daily morning ANGELIQUE and Briana Kenney LCSW, and our P.A. student Slade and I met with patient again together in individual session. We again picked up the theme of her needed to be able to stay firm with her children (particularly sons Ceelstine and Eros) about moving out of her house soon, that without this her major/primary stressor coming into the hospital will continue to plague her. We went over patient's scheduled appointment with new PCP in [place] on 05/14/2017 and her use of this visit to discuss pain management options with Dr. Sharma. Patient will have one more valproic acid level drawn tomorrow morning before scheduled discharge pick-up from son Grant (who does not live with her). Today, we discussed patient's "fifth child," a daughter, her first born, we lives in [place] and who she has not seen or heard from in many years; she is 7 years older than her 2nd child (the same number of years she is said to have been incarcerated). Patient is tolerating the Prozac well at this point and appears to be less depressed, have more energy and, hopefully, increased initiative. For further details of this meeting today, see the progress note of this date by Ms. Kenney.
[2017-05-05 20:01] VITALS: BP 127/82
--- NOTE | 2017-05-05 21:42 | NUR ---
PT IS VISIBLE ON UNIT, SITTING QUIETLY WITH VISITORS IN LOUNGE. WHEN VISITORS ARE NOT HERE, PT IS MOSTLY ISOLATIVE AND WITHDRAWN. MINIMAL INTERACTION WITH PEERS. COOPEATIVE AND COMPLIANT WITH STAFF. NO COMPLAINTS OR SI REPORTED. PT HAS A STABLE MOOD AND FLAT AFFECT.
[2017-05-06 08:06] VITALS: BP 131/77
[2017-05-06 08:47] VITALS: BP 131/77
--- NOTE | 2017-05-06 11:00 | NUR ---
PT IS STABLE WITH FLAT/DEPRESSED AFFECT. PT HAS BEEN SPENDING MOST OF AM SHIFT IN HER ROOM, SLEEPING. PT HAS NOT BEEN GOING TO GROUPS DESPITE MUCH ENCOURAGEMENT. PT WILL COME OUT FOR VS AND MEDICATIONS/MEALS. VS ARE STABLE AND DENIES ANY SI/HI TO THIS MHW.
--- NOTE | 2017-05-06 11:14 | SOCIAL WORKER PROG NOTE PSYCH ---
Social Work Progress Note Progress Note Saw Amanda sitting in the lounge this morning. Asked how she was doing? She said "not good." I asked what was going on? She stated "I'm going back to the same situation, I came from." I agreed and stated that we have been talking about that daily and it is up to her to do something different. She said "I'll deal with it." Encouraged her to stick with working on being assertive and asking for help. She stated she needs to work on asking for help. Printed Amanda information about the [facility]. Looks like one is starting in the beginning of May. Amanda waited for her son Grant to pick her up for 12:30-1pm. Wished her well.
[2017-05-06] MEDS ORDERED: SYNTHROID75 MCG PO (11:56)
[2017-05-06] MEDS ORDERED: TRAZODONE HCL100 M1 PO (11:56)
[2017-05-06] MEDS ORDERED: DIVALPROEX SOD500 M2 PO (11:56)
[2017-05-06] MEDS ORDERED: FLUOXETINE HCL20 M2 PO (11:56)
--- NOTE | 2017-05-06 12:33 | NUR ---
DR. LÓPEZ CONTACTED AND THE SYNTHROID DOSE IS ACCURATE/CONFIRMED PER EMAR AND DR. LÓPEZ WILL CALL IN SCRIPT AT THE PT'S PHARMACY AND ALSO COMMUNICATED THAT THE PT GOES TO THE LAB HERE AT [facility], AND DR. LÓPEZ WILL PUT LAB ORDERS IN FOR PT TO GO NEXT WEEK FOR FOLLOW-UP. PT VERBALIZED UNDERSTANDING AND AWARE OF PLAN AND WHAT TO DO. INFORMATION PACKETS RE: BIPOLAR AND SI GIVEN, HAS + UNDERSTANDING OF MEDICATION REGIMENT AND DISCHARGE PLAN. WHEN ASKED DIRECTLY DENIES SI/HI/HALLUCINATIONS AND NO EVIDENCE OF. REPORTS OVERALL IMPROVEMENT IN MOOD AND FEELS STABLE AND SAFE FOR DISCHARGE.
--- NOTE | 2017-05-06 13:13 | CP SOUTH PROGRESS NOTE PSYCH ---
Psych (Inpt) Progress Note Progress Note Include the following elements, when applicable: Involvement in the active treatment of the patient with behavioral observations of the patient and the patient's response to the treatment. Review of the ongoing treatment process in the context of the treatment plan. Indication of how multi-disciplinary staff members are carrying out the treatment plan. Plans for future interventions and recommendations for revision of the treatment plan. Liaison with other physicians/providers. Progress Note: PSYCHIATRIST NOTE (DISCHARGE): with [facility]
--- NOTE | 2017-05-06 13:15 | DISCHARGE SUMMARY REPORT-PSYCH ---
Visit Information Visit Dates/Diagnosis' Admission Date: 04/27/17 Discharge Date: 05/06/17 Psy Discharge Primary Diag: Bipolar I Disorder; Depressed with psychotic features by hx; MRE depressed (?psychotic f.) Psy Discharge Secondary Diag: chronic (back) pain synd. S/P back surgery, 2004 hx Opioid Dependence (prescribed); off regular treatment for over a year Benzo. Use Disorder; urine tox. screen (-) remote hx Alcohol/cocaine Use Disorders( remission) CAD; S/P M.I.'s/stenting Hypertension Hyperlipidemia Hypothryoidism-- increased dose of Synthroid by 50% during this admission Hospital Course Course Allergies: Coded Allergies: Penicillins (Severe, TONGUE SWELLING 01/02/16) Uncoded Allergies: NEUROTIN (Mild, RESTLESS LEG REFUSING TO Take 04/27/17) Discharge HBIPS - Tobacco Use Treatment Offered - EtOH/Drug Use D/O Treatment Offered Metabolic Screening - Screen if on a Neuroleptic Medication - Metabolic screening should include: - Blood Pressure, BMI, Glucose or Hgb A1c, & a - Lipid profile from within the past 365 days.
== END 2017-05-06 14:00 | DRG 885 ==
LOC: ERH 13:53 → ERHI 17:01 → CP SOUTH 17:01 → ENTRNSPT 21:37 → CMPTRNSPT 22:12 → CP SOUTH 22:21
PROVIDERS: Emergency Medicine; ADMIT Psychiatry & Neurology Psychiatry
DX: F31.9 Bipolar disorder, unspecified (principal); F11.90 Opioid use, unspecified, uncomplicated
CPT/HCPCS: 36415; 80307; 93005; 93010; G0480; J3490